=== PATIENT | male | born 1955 | race Caucasian/White ===

== ENCOUNTER 2019-04-04 09:31 | Outpatient (CLI) | payer MEDICARE, SELFPAY ==
--- NOTE | 2019-04-04 | ECHO_ITS ---
Patient Info Name: Doc Johnston Age: 63 years : 1955 Gender: Male Ht: 68 in Wt: 210 lbs BSA: 2.17 m2 HR: 71 bpm BP: 178 / 103 mmHg Heart Rhythm: Sinus Rhythm Technical Quality: Fair Exam Date: 04/04/2019 7:20 AM Exam Location: [facility] Patient Status: Outpatient Admit Date: 04/04/2019 Staff Ordering Physician: Jeremias Bloom MD President And Ceo: Poornima Pompa RDCS Attending Provider: Jeremias Bloom MD Referring Physician: Wolf FELIPE; Exam Type: CA echo doppler color flow Study Info Indications R55 - Syncope and collapse Complete two-dimensional, color flow and Doppler transthoracic echocardiogram is performed. Summary 1. Left ventricular systolic function is normal, estimated at 65-70%. 2. The left ventricular diastolic function is grade I diastolic dysfunction. 3. No valvular abnormalities. Left Ventricle Left ventricular chamber dimension is normal. Left ventricular systolic function is normal, estimated at 65-70%. The left ventricular diastolic function is grade I diastolic dysfunction. Right Ventricle Right ventricular chamber dimension is normal. Left Atria Left atrial chamber dimension is normal. Right Atria Right atrial chamber dimension is normal. Aortic Valve The aortic valve is trileaflet. Pulmonic Valve The pulmonic valve is not well visualized. Mitral Valve The mitral valve has normal leaflets. Tricuspid Valve The tricuspid valve leaflets are normal. Pericardium/Pleural The pericardium appears normal. Aorta The aortic root size at the sinus of Valsalva is normal. Left Ventricular Outflow Tract Name Value Normal LVOT 2D LVOT Diameter 2.1 cm LVOT Doppler LVOT Peak Gradient 5 mmHg LVOT Mean Gradient 3 mmHg LVOT VTI 24 cm LVOT VTI/AV VTI Ratio 1.0 LVOT Stroke Volume 79 ml LVOT CO 5.1 l/min LVOT CI 2.4 l/min/m2 Pulmonic Valve Name Value Normal RVOT Doppler RVOT Peak Gradient 2 mmHg PV Doppler PV Peak Gradient 5 mmHg Mitral Valve Name Value Normal MV Doppler MV Decel [place] 432 cm/s2 MV PHT 59 ms MV Area (PHT) 3.7 cm2 4.0-5.0 MV Diastolic Function
--- NOTE | 2019-04-07 10:28 | WPDHOLTEREM ---
Holter/Event Monitor Holter/Event Monitor Date of procedure: 04/07/19 Procedure Type: 48 hour Holter monitor Diagnosis: syncope and collapse Indications: syncope and collapse Image/Tracing Quality: good Finding: this is a 24 hour Holter monitor report which the underlying rhythm was sinus with an average heart rate of 78 beats per minute minimum of 56 beats per minute occurring at 3:17 a.m. and a maximum 130 beats per minute occurring at 12:22 p.m.. There were rare isolated premature ventricular contractions totaling 26 without sustained or nonsustained ventricular tachycardia. There were rare premature atrial contractions totaling 81 isolated premature atrial contractions and 1 atrial pair. There was no atrial fibrillation and/or atrial flutter noted. There were no prolonged pauses and or high-grade AV blocks. The longest RR interval was 1.2 seconds which occurred at 1:03 a.m.. Review of patient's symptom diary indicates feeling dizzy and lightheaded at 10:15 p.m. associated with sinus rhythm heart rate 84 beats per minute without ectopy. Of note, patient recorded blood pressure of 97/58 mmHg feeling dizzy upon standing at this time. At 5:00 a.m., Patient complained of feeling dizzy lightheaded not able to speak associated with sinus rhythm heart rate 76 beats per minute without ectopy. There isn't another diary entry indicated 11 seconds later again sinus rhythm heart rate 77 beats per minute without ectopy. At 6:08 a.m. patient complained of feeling dizzy and lightheaded while unloading luggage so she was sinus rhythm heart rate 75 beats per minute without ectopy. VT interval and QRS duration were within normal limits throughout the study. Conclusion: Fairly unremarkable Holter monitor with underlying sinus rhythm, rare PVCs and PACs, no prolonged pauses and or high-grade AV blocks identified. Symptoms of dizziness corresponded with sinus rhythm without ectopy or patient included blood pressure of 97/58 mm Hg. Clinical correlation advised.
== END 2019-04-04 09:32 ==
PROVIDERS: PCP Internal Medicine; Visit Provider Internal Medicine
DX: R55 Syncope and collapse (principal)
CPT/HCPCS: 93225; 93226; 93306

== ENCOUNTER 2019-04-07 13:15 | Observation (INO) | payer MEDICARE, SELFPAY ==
--- NOTE | ~2019-04-07 | MR_ITS ---
EXAMINATION: MR brain/brain stem wo/w con EXAM DATE: 04/08/2019 07:38 INDICATION: Aphasia. TECHNIQUE: Magnetic resonance imaging (MRI) of the brain/brain stem obtained without contrast. Sagit gil T1, axial diffusion, gradient echo (T2*), T1, T2, FLAIR sequences obtained. Patient was then inj ected with 20 cc intravenous Multihance contrast. Axial and coronal postcontrast T1 weighted sequence s obtained. Comparison is made to prior examination from 10/26/2008. FINDINGS: There is moderate ethmoid and maxillary sinus mucoperiosteal thickening without air-fluid l evels. Small amount of fluid in the left mastoid sinuses. There are no areas of restricted diffusion to suggest acute infarction. There is no acute hemorrhage seen on the T2*, a hemosiderin sensitive s equence. No intraparenchymal brain mass. The ventricles are normal in size. There are no extra-axia l collections. Flow voids are seen in the cerebral arteries on the T2-weighted sequences consistent with their expected patency. The orbits are unremarkable. Soft tissue is unremarkable. There are no areas of abnormal enhancement on the postcontrast images. IMPRESSION: 1. No acute intracranial findings. 2. Moderate mucoperiosteal thickening. Reviewed, dictated and finalized at location B. O LAB SPECIALIST
--- NOTE | ~2019-04-07 | US_ITS ---
EXAMINATION: US carotid duplex BI DATE: 04/07/2019 16:57 INDICATION: Aphasia. TECHNIQUE: Grayscale, color Doppler, and pulsed Doppler images of the cervical carotid arteries were obtained. The degree of vessel stenosis is placed in one of the following categories: normal, <50%, 5 0-69%, >=70% but less than near-occlusion, near-occlusion, or total occlusion. Note that percent sten osis relative to normal distal artery lumen diameter is indirectly measured from velocity measurement s as described by Tejas, et al. Radiology 2003; 229:340-346. COMPARISON: Ultrasound 03/15/2018 FINDINGS: RIGHT: The right common carotid artery (CCA) peak systolic velocity (PSV) is 100 cm/s. The right internal ca rotid artery (ICA) PSV is 65 cm/s. The right ICA end-diastolic velocity (EDV) is 15 cm/s. The right I CA/CCA PSV ratio is 0.6. Grayscale and color Doppler images yield an estimate of <50% diameter reduct ion from plaque in the ICA. There is antegrade flow in the right vertebral artery. LEFT: The left CCA PSV is 113 cm/s. The left ICA PSV is 84 cm/s. The left ICA EDV is 28 cm/s. The left ICA/ CCA PSV ratio is 0.7. Grayscale and color Doppler images yield an estimate of <50% diameter reduction from plaque in the ICA. There is antegrade flow in the left vertebral artery. IMPRESSION: 1. <50% stenosis in the right internal carotid artery. 2. <50% stenosis in the left internal carotid artery. Reviewed, dictated and finalized at location A. HER PATCHER
--- NOTE | ~2019-04-07 | XR_ITS ---
EXAMINATION: XR chest 1V portable DATE: 04/07/2019 13:55 INDICATION: Transient ischemic attack. TECHNIQUE: A single frontal view of the chest was obtained. COMPARISON: Chest 2 views 03/14/2018, chest CT 11/05/2017 FINDINGS: The chest demonstrates clear lungs without pneumonia, pleural effusion, or pneumothorax. Th e heart size is normal. There are changes of anterior fusion procedure in cervical spine. IMPRESSION: 1. No acute cardiopulmonary disease. Reviewed, dictated and finalized at location A. INE CUTTER
--- NOTE | ~2019-04-07 | CT_ITS ---
EXAMINATION: CT brain wo con DATE: 04/07/2019 13:57 INDICATION: Transient ischemic episode. Transient aphasia. TECHNIQUE: Computed tomography (CT) of the head was performed without intravenous contrast. Sagittal and coronal reconstructions were performed. The mA was adjusted according to patient size. Iterative reconstruction technique was employed. The dose-length product was 605.33 mGy-cm. COMPARISON: head CT dated 02/11/19 FINDINGS: No acute intracranial hemorrhage, acute infarction or abnormal extra axial fluid collection. Ventricl es are normal and symmetric. No mass/mass effect. Mucosal thickening in the paranasal sinuses most pr ominent in the left maxillary and bilateral ethmoid sinuses. Chronic trace left mastoid effusion. The orbits are normal. IMPRESSION: 1. No acute intracranial process. Reviewed, dictated and finalized at location A. A COORDINATOR
--- NOTE | 2019-04-07 13:24 | ECG_ITS ---
Measurements Intervals [place] Rate: 66 P: 17 [place]: 207 QRS: -4 QRSD: 91 T: 73 QT: 294 QTc: 309 Interpretive Statements SINUS RHYTHM POSSIBLE LEFT ATRIAL ENLARGEMENT INCOMPLETE RIGHT BUNDLE BRANCH BLOCK LOW QRS VOLTAGE IN PRECORDIAL LEADS BORDERLINE ST-T WAVE ABNORMALITY- LATERAL LEADS BORDERLINE ECG Electronically Signed On 04-07-2019 14:00:38 [employer]IC by Sherwin Okeefe D.O.
--- NOTE | 2019-04-07 13:30 | ED.AMS ---
HPI - Altered Mental Status General Chief Complaint: Neuro Symptoms/Deficit Stated Complaint: unable to talk earlier Time Seen by Provider: 04/07/19 13:19 Source: RN notes reviewed History of Present Illness HPI narrative: Patient presents to emergency department from Dr. Owen's office for a fascia. Patient had an episode of a aphasia on 04/05. States last approximately 30 seconds. Patient has also been experiencing near syncopal episodes with a full syncopal episode 2 weeks ago. Patient denies having any vision changes, facial droop, numbness or tingling in extremities, chest pain shortness of breath or any other symptoms Related Data Home Medications Medication Instructions Recorded Confirmed clonazepam 1 mg PO DAILY 02/11/19 amlodipine 10 mg tablet 10 mg PO DAILY 03/05/19 esomeprazole magnesium 20 mg 20 mg PO DAILY 03/05/19 capsule,delayed release fexofenadine 180 mg tablet 180 mg PO DAILY 03/05/19 omeprazole 04/07/19 pravastatin 04/07/19 Allergies Allergy/AdvReac Type Severity Reaction Status Date / Time Penicillins Allergy Unknown Unknown Verified 04/07/19 12:32 Review of Systems Review of Systems: Narrative: Gen.: Denies fevers or chills Eyes: Denies eye pain or visual change ENT: Denies congestion Respiratory: Denies shortness of breath or cough CV: Denies chest pain or palpitations, reports syncope GI: Denies abdominal pain nausea, emesis or diarrhea denies burning, urgency, frequency or hematuria Musculoskeletal: Denies back pain or muscle pain Neuro: Denies numbness, tingling, weakness or focal weakness reports aphasia Skin: Denies rash Except as documented, all other systems reviewed and negative [facility] Past Medical History Medical History Abnormal finding of blood chemistry, unspecified Anxiety Benign essential hypertension BMI 35.0-35.9,adult DDD (degenerative disc disease) Depression DM (diabetes mellitus) pre Elevated glucose Encounter for Medicare annual wellness exam Encounter for special screening examination for neoplasm of prostate GERD (gastroesophageal reflux disease) GERD (gastroesophageal reflux disease) H/O: HTN (hypertension) History of esophageal dilatation x2 History of esophageal stricture Hx of rotator cuff tear [place] Hypercholesteremia Hyperlipidemia Insomnia On manager long term care drug therapy HEIDY on CPAP Restless legs syndrome (RLS) RLS (restless legs syndrome) Stress Syncope Surgical History Surgical History Hx of cardiac cath Hx of rotator cuff surgery [place] Hx of spinal fusion C6-7 Social History Social History Smoking status: Former smoker Alcohol intake: current Gender identity (if verbalized by the patient): Male Exam Narrative: Exam Narrative: APPEARANCE: No acute distress, nontoxic, resting in bed HEENT: Normocephalic, atraumatic, OMM, TMs clear bilaterally EYES: PERRL, EOMI NECK: Supple, nontender, full range of motion without pain, no meningismus RESPIRATORY: No respiratory distress, clear to auscultation bilaterally with no rhonchi wheezing or rales CARDIOVASCULAR: RRR s murmur ABDOMINAL: Soft, nontender, nondistended MUSCULOSKELETAL: Moves all extremities. No clubbing, cyanosis or edema. NEURO: A and O ?3, following commands, speech normal, cranial nerves II through XII grossly intact,muscle strength 5 out of 5 bilateral upper and lower extremities SKIN:: Warm, dry. Normal Color PSYCHIATRIC: Normal affect/mood Course Course Emergency Course: Discussed with Dr. Ashby presentation work-up. Agrees with admission at this time for work-up for TIA Discussed with patient and family results of workup and diagnosis. Discussed need for admission. Patient and family understand and agree to current treatment plan Vital Signs Vital signs: Vital Signs Temperature 98.1 F 0
[2019-04-07 13:45] LABS: Basophils Absolute Auto 0.1 K/mm3 (0.0-0.1); Basophils Percent Auto 0.9 % (0.2-1.2); Eosinophils Absolute Auto 0.3 K/mm3 (0-0.3); Eosinophils Percent Auto 4.5 % (0-4.4); Hematocrit 45.2 % (42.0-52.0); Hemoglobin 14.8 g/dL (14.0-18.0); Immature Granulocyte Absolute 0.01 K/mm3 (0.00-0.031); Immature Granulocyte Percent A 0.1 % (0-0.5); Lymphocytes Absolute Auto 1.59 K/mm3 (0.9-3.2); Lymphocytes Percent Auto 21.5 % (18.3-44.2); Mean Corpuscular HGB Conc 32.7 g/dl (32-36); Mean Corpuscular Volume 91.7 fl (80-100); Mean Platelet Volume 9.9 fl (7.4-10.4); Monocytes Absolute Auto 0.6 K/mm3 (0.1-0.6); Monocytes Percent Auto 7.7 % (2.6-8.5); Neutrophils Absolute Auto 4.8 K/mm3 (1.3-6.7); Neutrophils Percent Auto 65.3 % (45.5-73.1); Platelet Count Result 254 k/mm3 (150-375); Red Blood Count 4.93 M/mm3 (4.6-6.20); Red Cell Distribution Width 13.1 % (11.5-14.5); White Blood Count 7.4 K/mm3 (4.5-10.0)
[2019-04-07 13:49] VITALS: BP 178/94; PULSE 66; RESP 16; TEMP 36.7; O2SAT 98
[2019-04-07 13:57] LABS: Alanine Aminotransferase 37 U/L (4-50); Albumin Level 4.3 g/dL (3.5-5.1); Alkaline Phosphatase 50 U/L (38-126); Aspartate Amino Transferase 30 U/L (17-59); Bilirubin,Total 0.4 mg/dL (0.2-1.3); Blood Urea Nitrogen 12 mg/dL (9-20); Calcium 9.2 mg/dL (8.4-10.2); Carbon Dioxide 28 mmol/L (22-30); Chloride 99 mmol/L (98-107); Estimated Glomerular Filt Rate > 60; Glucose 115 mg/dL (75-110); Potassium 3.8 mmol/L (3.4-5.0); Sodium 136 mmol/L (137-145)
[2019-04-07 14:09] LABS: Troponin I < 0.012 ng/mL (0.000-0.034)
[2019-04-07 14:26] LABS: Prothrombin Time 12.4 Seconds (11.1-14.7)
[2019-04-07 14:27] LABS: Partial Thromboplastin Time 29.1 SECONDS (22.3-36.8)
[2019-04-07] MEDS: ASPIRIN 81 MG CHEWABLE TABLET 324 MG PO (14:28)
[2019-04-07 14:57] VITALS: BP 139/79; PULSE 74; RESP 16; O2SAT 98
--- NOTE | 2019-04-07 15:22 | ADMGEN ---
This patient, Doc Johnston, was admitted to Medical Room 252-01. Patient/family oriented to hospital policies and general routines including ID bracelet, bed and alarms, visiting hours, pain management, procedures, bathroom and other care routines, personal items, smoking policy, room service/diet, and visiting hours. Valuables list has been completed. Information on how to activate the Rapid Response Team has been discussed. Patient/Family are encouraged to report perceived risks to care and to ask questions if they do not understand what they are told or what they should do.
[2019-04-07 15:30] VITALS: PULSE 75
[2019-04-07 15:56] VITALS: BP 175/91; PULSE 69; RESP 14; TEMP 35.6; O2SAT 99; BMI 33.5
[2019-04-07 16:16] VITALS: BMI 31.6
--- NOTE | 2019-04-07 17:47 | PM.IMHP ---
H&P: HPI History of Present Illness Chief complaint: tia Narrative: Doc Johnston is a 63 year old male with multiple medical problems including pre diabetes, hypertension, hyperlipidemia, and sleep apnea who presented to the emergency department earlier this afternoon at the direction of Dr. Bloom for admission and further evaluation of aphasia that occurred 2 days ago. [facility] Past Medical History Medical History (Updated 04/07/19 @ 17:52 by Dedra Pope PA-C) Anxiety DDD (degenerative disc disease) Depression GERD (gastroesophageal reflux disease) History of esophageal stricture With dilatation x2. Hyperlipidemia Hypertension Insomnia Obstructive sleep apnea on CPAP Pre-diabetes Hemoglobin A1c was 5.9 in May 2018. Restless legs syndrome (RLS) Syncope Hospitalized for syncopal episode on March 14, 2018. [place] to be related to postural dizziness. Workup was unrevealing. Surgical History Surgical History (Updated 04/07/19 @ 17:51 by Dedra Pope PA-C) Hx of cardiac cath Status post cervical spinal fusion C6-C7. Status post rotator cuff repair Bilateral. Family History Family History Father Prostate carcinoma Dialysis patient Mother Diabetes mellitus Asthma Sibling Asthma Bladder cancer Social History Social History Smoking status: Former smoker Additional smoking assessment comments: smoked as a teenager Alcohol intake: current Drinks per week: 14 Substance use: never Gender identity (if verbalized by the patient): Male Spiritual care concerns: No Agree to blood products: Yes Meds Home Medications and Allergies Home Medications Medication Instructions Recorded Confirmed Type clonazepam 1 mg PO HS 02/11/19 04/07/19 History citalopram 40 mg tablet 40 mg PO DAILY #90 tablet 02/20/19 04/07/19 Rx amlodipine 10 mg tablet 10 mg PO DAILY 03/05/19 04/07/19 History fexofenadine 180 mg tablet 180 mg PO DAILY 03/05/19 04/07/19 History hydralazine 25 mg tablet 25 mg PO TID #90 tablet 04/02/19 04/07/19 Rx clonazepam [Klonopin] 1 mg PO HS 04/07/19 04/07/19 History metformin 1,000 mg PO HS 04/07/19 04/07/19 History nw-jy-AD-vit [id number] 1 cap PO DAILY 04/07/19 04/07/19 History [Daily Multivitamin] omeprazole 40 mg PO DAILY 04/07/19 04/07/19 History pravastatin 40 mg PO DAILY 04/07/19 04/07/19 History ropinirole 4 mg PO Q12H 04/07/19 04/07/19 History trazodone 50 mg PO HS PRN 04/07/19 04/07/19 History Allergies Allergy/AdvReac Type Severity Reaction Status Date / Time Penicillins Allergy Unknown Unknown Verified 04/07/19 12:32 Vital Signs Vital Signs - 24 hr 04/07/19 13:49 04/07/19 14:57 04/07/19 15:56 Temperature 98.1 F 96.1 F L Pulse Rate 66 74 69 Respiratory Rate 16 16 14 Blood Pressure 178/94 H 139/79 175/91 H Pulse Oximetry 98 98 99 Exam Narrative: Exam Narrative: General: HEENT: Normocephalic, atraumatic. PERRL, EOMI. Sclerae anicteric. Oral mucosa moist. Oropharynx clear. Neck: Supple. Respiratory: Lungs are clear to auscultation bilaterally. Cardiovascular: Regular rate and rhythm with S1-S2. No murmur, rub, or gallop. Gastrointestinal: Abdomen is soft, nontender, and nondistended with positive bowel sounds. No organomegaly. Skin: Warm and dry. No rash or lesions on limited exam. Extremities: No cyanosis, clubbing, or edema. Radial and pedal pulses intact. Neurological: Alert. Cranial nerves 2-12 are grossly intact. Speech is clear. No facial asymmetry. No gross focal deficits to casual conversation. Psychiatric: Pleasant and cooperative with normal mood and affect. Judgment and insight intact. H&P: Results Labs Labs: Short CBC 04/07/19 Range/Units 13:38 WBC 7.4 (4.5-10.0) K/mm3 Hgb 14.8 (14.0-18.0) g/dL Hct 45.2 (42.0-52.0) % Plt Count 254 (150-375) k/mm3 BMP
[2019-04-07 18:01] LABS: Troponin I < 0.012 ng/mL (0.000-0.034)
--- NOTE | 2019-04-07 18:54 | PC.NURSE ---
Notified Dedra ADHIKARI of episode of bradycardia (HR down to 30) earlier when patient down in ultrasound. Patient denied symptoms.
[2019-04-07 20:00] VITALS: PULSE 65; PULSE 70; RESP 16; O2SAT 96
[2019-04-07 20:47] LABS: Troponin I < 0.012 ng/mL (0.000-0.034)
[2019-04-07] MEDS: CLONAZEPAM 0.5 MG TAB 1 MG PO (21:18)
[2019-04-07] MEDS: TRAZODONE HCL 50 MG TABLET PO (21:18)
[2019-04-07 21:37] VITALS: BP 152/80; PULSE 70; RESP 16; TEMP 36.2; O2SAT 96
[2019-04-08] VITALS (10 sets, daily range): BP systolic 144–175; BP diastolic 78–103; PULSE 57–86; RESP 16–18; TEMP 35.6–36.7; O2SAT 96–98
--- NOTE | 2019-04-08 02:03 | PM.IMHP ---
H&P: HPI History of Present Illness Chief complaint: tia Narrative: Doc Johnston is a 63 year old male passed out 2 weeks while [place]. Pt was admitted to [facility] where he had CT of brain which was negative, EKG and labs which were normal, as per patient. Pt was seen in DR Bloom office two days ago had negative holter monitor. Pt since then had another episode when he went dizzy, could not talk and eyes went blurred, and was adviced to come into hospital for full evaluation, pt now complains, like his left leg is weak. CT of brain and US of carotids are negative here. Pt may benefit from MRI brain. Pt states he is dieting and eats protein bars for breakfast, pt has been very stressed as his has been unwell with a brain aneursym. Presently his speech is clear, denies any dizziness or vertigo symptoms, vision disturbance, or facial droop. Pt states his left leg feels weaker than his right. Pt states that he has RLS. and has been very anxious lately. Pt has history of HTN, HLD, DM, RLS and anxiety and depression Review of Systems Review of Systems: All systems reviewed & are unremarkable except as noted in HPI and below Constitutional: Constitutional: Reports as per HPI Cardiovascular: Cardiovascular: Denies no additional cardiovascular complaints Respiratory: Respiratory: Denies no additional respiratory complaints and Denies dyspnea Gastrointestinal: Gastrointestinal: Denies no additional gastrointestinal complaints Musculoskeletal: Comments: recent syncope episodes with dizziness Neurologic: Denies convulsions and Denies paresthesias Comments: left leg weakness, history of speech disturbance and episodes of syncope Psychiatric: Psychiatric: Reports anxiety and Denies confusion PENDING SALE TO [facility] Past Medical History Medical History Anxiety DDD (degenerative disc disease) Depression GERD (gastroesophageal reflux disease) History of esophageal stricture With dilatation x2. Hyperlipidemia Hypertension Insomnia Obstructive sleep apnea on CPAP Pre-diabetes Hemoglobin A1c was 5.9 in May 2018. Restless legs syndrome (RLS) Syncope Hospitalized for syncopal episode on March 14, 2018. [place] to be related to postural dizziness. Workup was unrevealing. Surgical History Surgical History Hx of cardiac cath Status post cervical spinal fusion C6-C7. Status post rotator cuff repair Bilateral. Family History Family History Father Prostate carcinoma Dialysis patient Mother Diabetes mellitus Asthma Sibling Asthma Bladder cancer Social History Social History Smoking status: Former smoker Additional smoking assessment comments: smoked as a teenager Alcohol intake: current Drinks per week: 14 Substance use: never Gender identity (if verbalized by the patient): Male Spiritual care concerns: No Agree to blood products: Yes Meds Home Medications and Allergies Home Medications Medication Instructions Recorded Confirmed Type clonazepam 1 mg PO HS 02/11/19 04/07/19 History citalopram 40 mg tablet 40 mg PO DAILY #90 tablet 02/20/19 04/07/19 Rx amlodipine 10 mg tablet 10 mg PO DAILY 03/05/19 04/07/19 History fexofenadine 180 mg tablet 180 mg PO DAILY 03/05/19 04/07/19 History hydralazine 25 mg tablet 25 mg PO TID #90 tablet 04/02/19 04/07/19 Rx clonazepam [Klonopin] 1 mg PO HS 04/07/19 04/07/19 History metformin 1,000 mg PO HS 04/07/19 04/07/19 History sg-qi-IZ-vit U-gifjb-foh-coQ10 1 cap PO DAILY 04/07/19 04/07/19 History [Daily Multivitamin] omeprazole 40 mg PO DAILY 04/07/19 04/07/19 History pravastatin 40 mg PO DAILY 04/07/19 04/07/19 History ropinirole 4 mg PO Q12H 04/07/19 04/07/19 History trazodone 50 mg PO HS PRN 04/07/19
[2019-04-08 06:10] LABS: Basophils Absolute Auto 0.1 K/mm3 (0.0-0.1); Basophils Percent Auto 1.1 % (0.2-1.2); Eosinophils Absolute Auto 0.5 K/mm3 (0-0.3); Eosinophils Percent Auto 6.9 % (0-4.4); Hematocrit 42.8 % (42.0-52.0); Hemoglobin 14.2 g/dL (14.0-18.0); Immature Granulocyte Absolute 0.02 K/mm3 (0.00-0.031); Immature Granulocyte Percent A 0.3 % (0-0.5); Lymphocytes Absolute Auto 1.51 K/mm3 (0.9-3.2); Lymphocytes Percent Auto 23.3 % (18.3-44.2); Mean Corpuscular HGB Conc 33.2 g/dl (32-36); Mean Corpuscular Hemoglobin 30.1 pg (26-34); Mean Corpuscular Volume 90.9 fl (80-100); Mean Platelet Volume 9.7 fl (7.4-10.4); Monocytes Absolute Auto 0.7 K/mm3 (0.1-0.6); Monocytes Percent Auto 10.6 % (2.6-8.5); Neutrophils Absolute Auto 3.8 K/mm3 (1.3-6.7); Neutrophils Percent Auto 57.8 % (45.5-73.1); Platelet Count Result 230 k/mm3 (150-375); Red Blood Count 4.71 M/mm3 (4.6-6.20); Red Cell Distribution Width 13.1 % (11.5-14.5); White Blood Count 6.5 K/mm3 (4.5-10.0)
[2019-04-08 06:19] LABS: Blood Urea Nitrogen 12 mg/dL (9-20); Calcium 8.7 mg/dL (8.4-10.2); Carbon Dioxide 28 mmol/L (22-30); Chloride 99 mmol/L (98-107); Estimated CRCL calculation 107 ml/min; Estimated Glomerular Filt Rate > 60; Glucose 103 mg/dL (75-110); Potassium 3.6 mmol/L (3.4-5.0); Sodium 137 mmol/L (137-145)
[2019-04-08 06:26] LABS: Hemoglobin A1C 6.3 % (<5.7)
[2019-04-08 06:55] LABS: Cholesterol 118 mg/dL (0-200); HDL Direct 47 mg/dL; Triglycerides 140 mg/dL (<150)
[2019-04-08 07:05] LABS: LDL Cholesterol Direct 55 mg/dL
[2019-04-08] MEDS: CITALOPRAM HYDROBROMIDE 20 MG TABLET 40 MG PO (08:22)
[2019-04-08] MEDS: AMLODIPINE BESYLATE 5 MG TABLET 10 MG PO (08:22)
[2019-04-08] MEDS: LORATADINE 10 MG TABLET PO (08:22)
[2019-04-08] MEDS: hydrALAZINE HCL 25 MG TABLET PO ×3 (08:22→17:30)
[2019-04-08] MEDS: ASPIRIN 81 MG CHEWABLE TABLET PO (08:22)
[2019-04-08] MEDS: PANTOPRAZOLE 40 MG TABLET PO (08:23)
[2019-04-08] MEDS: THERAPEUTIC MULTIVITAMINS/MINERALS TAB (*BKC) 1 TABLET PO (08:23)
[2019-04-08] MEDS: PRAVASTATIN SODIUM 20 MG TABLET 40 MG PO (08:23)
[2019-04-08 09:37] LABS: Glucose Point of Care 134 (65-105)
[2019-04-08 13:21] LABS: Add Urine Microscopic? YES; Appearance Urine Cloudy (Clear); Bacteria Urine Trace /hpf; Bilirubin Urine Negative (Negative); Blood Urine Negative (Negative); Color Urine Yellow (Yellow); Glucose Urine UA Negative (Negative); Ketones Urine Negative (Negative); Leukocyte Esterase Ur Negative LEU/UL (Negative); Mucus Urine Heavy /lpf; Nitrate Urine Negative (Negative); Protein Urine Negative (Negative); RBC Urine 0-2 /hpf (0-2); Specific Grav Ur 1.023 (1.001-1.035); Squamous Epithelial Cell Urine Rare /hpf (Few); Urobilinogen Urine Negative mg/dL (<2.0); WBC Urine 0-3 /hpf
[2019-04-08 14:12] LABS: Glucose Point of Care 174 (65-105)
--- NOTE | 2019-04-08 16:57 | PM.DS ---
DS: Diagnosis Admitting Diagnosis Admitting Diagnosis: Essential (primary) hypertension Discharge Diagnosis (1) Transient ischemic attack: Code(s): G45.9 - Transient cerebral ischemic attack, unspecified Status: Acute Assessment and Plan: Admitted for stroke work up given his recent neurology problems with speech and left leg. Although imaging has been unremarkable thus far for stroke. Likely TIA. Lipid panel showed triglycerides of 140, cholesterol 118, LDL 55, HDL 47. MRI showed no acute intracranial findings. Dr. Diaz Consulted and appreciate input. He recommended 81 mg aspirin for now Follow up with Dr. Diaz in 6-8 weeks. Recommended no driving until meeting with Dr. Diaz (2) Hypertension: Code(s): I10 - Essential (primary) hypertension Status: Deleted Assessment and Plan: BP 140s sys this afternoon, although elevated during stay. Patient states his PCP is aware of elevated BP and plans to follow up with them within the next 1-2 weeks. Patient also believes he has been under a lot of stress lately. Continue home BP meds Continue to monitor BP Follow up with PCP as outpatient (3) Stress: Code(s): F43.9 - Reaction to severe stress, unspecified Status: Acute Assessment and Plan: Patient has been stressed recently due to social issues. Symptoms may be related. Discussed in detail about importance of management of chronic health conditions (4) Anxiety: Code(s): F41.9 - Anxiety disorder, unspecified Status: Acute Assessment and Plan: No acute issues continue citalopram, clonazepam, trazodone (5) RLS (restless legs syndrome): Code(s): G25.81 - Restless legs syndrome Status: Chronic Assessment and Plan: No acute issues continue requip (6) HEIDY on CPAP: Code(s): G47.33 - Obstructive sleep apnea (adult) (pediatric); Z99.89 - Dependence on other enabling machines and devices Status: Acute Assessment and Plan: Continue CPAP home setting (7) Hyperlipidemia: Qualifiers: Hyperlipidemia type: mixed hyperlipidemia Qualified Code(s): E78.2 - Mixed hyperlipidemia Code(s): E78.5 - Hyperlipidemia, unspecified Status: Acute Assessment and Plan: Continue pravastain (8) Diabetes: Code(s): E11.9 - Type 2 diabetes mellitus without complications Status: Chronic Assessment and Plan: BGL 100s on day of discharge. A1c of 6.3 Follow up with PCP DS: Summary Hospital Course Reason for hospitalization: Syncope 2 weeks prior; another episode of dizziness/blurred vision Hospital Course: Patient is a 63 yo M with history of pre-DM, HTN, HLD, and anxiety who presented to the ER on 04/07 from his PCP's office with complaints of aphasia. He had an episode of aphasia on 04/05 as well which lasted approximately 30 seconds. He also experienced a near syncopal episode on day of presentation with also a full syncopal episode 2 weeks prior to arrival for which he was admitted to [facility] where a CT of brain was reported negative for acute intracranial findings, and labs and EKG were unremarkable at that time. Please see H&P for further detail. Presenting VS: BP 178/94, HR 66, RR 16, temp 98.1, sat 98% RA Presenting Pertinent labs: Troponins negative x 3, triglycerides 140, cholesterol 118, LDL 55, HDL 47, A1c 6.3, glucose 115 from CMP. CMP, CBC, CBC, UA otherwise unremarkable Micro: none Imagin/10 CXR IMPRESSION: 1. No acute cardiopulmonary disease. 2/[address] IMPRESSION: 1. No acute intracranial process. 2/10 carotid doppler IMPRESSION: 1. <50% stenosis in the right
--- NOTE | 2019-04-08 20:59 | CONS_ITS ---
DATE OF CONSULTATION: 04/08/2019 HISTORY OF PRESENT ILLNESS: This 63-year-old right-handed male has been admitted to [facility] through the emergency room with a history that he passed out while [place] the [place]. He was admitted to the [facility] where CT scan of the brain was negative. EKG was normal. He was seen in Dr. Bloom' office 2 days ago, had negative Holter monitoring as well. Since then, he had another episode when he became dizzy, could not talk and eyes went blurred and he was advised to come to the hospital for further evaluation. He complained of left lower extremity weakness. CT scan of the brain and ultrasound of the carotids were done, which were negative. He gave history of dieting and eating protein bar for the breakfast and has also been very stressed out in his life because his is with brain aneurysm. PAST MEDICAL HISTORY: He does have ongoing history of 1. Anxiety. 2. Degenerative disk disease. 3. Depression. 4. GERD. 5. Esophageal stricture with dilatation x2. 6. Hyperlipidemia. 7. Hypertension. 8. Obstructive sleep apnea. 9. Syncopal episode. 10. Restless legs syndrome. PAST SURGICAL HISTORY: He has undergone cardiac catheterization and has also undergone cervical spinal fusion in addition to the rotator cuff repair bilaterally. SOCIAL HISTORY: He is a current alcohol drinker 14 drinks per week and also he smoked as a teenager. MEDICATIONS: At the time of admission to the hospital, he was taking multiple medications, which were documented as clonazepam 1 mg p.o. at bedtime, citalopram 40 mg daily, amlodipine 10 mg daily. fexofenadine 180 mg daily, hydralazine 25 mg 3 times a day, metformin 1000 at night, omeprazole 40 daily, pravastatin 40 daily, ropinirole 4 mg q.12, trazodone 50 mg at bedtime. ALLERGIES: HE IS ALLERGIC TO PENICILLIN. PHYSICAL EXAMINATION: VITAL SIGNS: On evaluation, he was notably afebrile with pulse of 66, respirations 16, blood pressure 178/94, pulse ox 98%. GENERAL: He was awake, alert, cooperative, in no obvious acute distress. HEENT: Head was normocephalic with no cranial bruit. Ears, nose, throat examination was normal. NECK: Supple with no cervical bruit. No thyromegaly. No lymphadenopathy. HEART: Regular with no murmur. LUNGS: Clear to auscultation. ABDOMEN: Soft with no organomegaly. NEUROLOGICAL: He was awake, alert, oriented x3. His speech was not dysphasic, not dysarthric, not dysphonic. Pupils round, regular. [place] of vision full. Extraocular movements full. Face symmetrical. Tongue midline. Motor examination revealed him to have fairly normal strength with no drift. Reflexes were rather sluggish. Plantars were downgoing. He had decreased sensation distally in both lower extremities. IMAGING: Evaluation up until now includes initial CT scan of the head, which documented no abnormalities. Soft tissues of the neck done in January were also available. He has intact C6 and 7 fusion. Echocardiogram was done on 04/04, which was normal. Grade 1 diastolic dysfunction of the left ventricle was noted. He had another CT of the head when he admitted this time, which was negative. Doppler study of the carotids was less than 50% stenosis bilaterally, and MRI of the brain revealed no acute stroke. ASSESSMENT AND PLAN: At this stage, the patient was advised to follow up in the office in about 6 weeks. He can continue taking all his medications as such. Further adjustment will be made accordingly when he comes to the office, and he can also take the aspirin daily. One can also consider the possibility of the vasovagal syncope versus the possibility of orthostatic hypotension, but when he returns for the followup subsequent recommendations will be made.
== END 2019-04-08 19:50 | disposition home or self-care (01) ==
LOC: ANHED 14:39 → ANH2MED 14:42
PROVIDERS: Family Medicine; Admitting Provider Family Medicine; Emergency Provider Emergency Medicine; PCP Internal Medicine; Visit Provider Family Medicine
DX: G45.9 Transient cerebral ischemic attack, unspecified (principal); I10 Essential (primary) hypertension; F43.9 Reaction to severe stress, unspecified; F41.9 Anxiety disorder, unspecified; G25.81 Restless legs syndrome; G47.33 Obstructive sleep apnea (adult) (pediatric); E78.2 Mixed hyperlipidemia; E11.9 Type 2 diabetes mellitus without complications; F32.9 Major depressive disorder, single episode, unspecified; Z79.84 Long term (current) use of oral hypoglycemic drugs; Z79.899 Other long term (current) drug therapy; Z87.891 Personal history of nicotine dependence; Z98.1 Arthrodesis status; Z99.89 Dependence on other enabling machines and devices
CPT/HCPCS: 36415; 70450; 70553; 71045; 80048; 80053; 80061; 81001; 83036; 84484; 85025; 85610; 85730; 93005; 93880; 97161; 97165; 99285; A9270; A9577; G0378

== ENCOUNTER 2019-12-05 19:43 | Observation (INO) | payer MEDICARE, SELFPAY ==
--- NOTE | ~2019-12-05 | XR_ITS ---
EXAMINATION: XR chest 2V EXAM DATE: 12/05/2019 20:54 INDICATION: Mid to left-sided chest pain. Shortness of breath. Hypertension. TECHNIQUE: Frontal and lateral projections of the chest obtained and reviewed. Comparison is made to prior examination from 04/07/2019. FINDINGS: The lungs are clear. There are no pleural effusions. Cardiac silhouette is prominent but magnified on this AP technique. Cardiac silhouette is stable in size compared to prior exam. There is no pneumothorax suspected. Lower cervical fusion hardware. There is no significant interval bear ge. IMPRESSION: No acute cardiopulmonary findings. Reviewed, dictated and finalized at location A.
[2019-12-05 19:47] VITALS: BP 104/86; PULSE 79; RESP 18; TEMP 36.1; O2SAT 99
--- NOTE | 2019-12-05 19:54 | ECG_ITS ---
Measurements Intervals [place] Rate: 74 P: 34 [place]: 187 QRS: 11 QRSD: 89 T: 72 QT: 333 QTc: 371 Interpretive Statements SINUS RHYTHM POSSIBLE LEFT ATRIAL ENLARGEMENT INCOMPLETE RIGHT BUNDLE BRANCH BLOCK LOW QRS VOLTAGE IN PRECORDIAL LEADS BORDERLINE ST-T WAVE ABNORMALITY- ANTEROLAT/HIGH LAT LEADS BASELINE ARTIFACT- I, II, AVR BORDERLINE ECG Electronically Signed On 12-08-2019 8:33:41 CDT by Sherwin Okeefe D.O.
[2019-12-05 20:18] LABS: Basophils Absolute Auto 0.1 K/mm3 (0.0-0.1); Basophils Percent Auto 0.8 % (0.2-1.2); Eosinophils Absolute Auto 0.4 K/mm3 (0-0.3); Eosinophils Percent Auto 4.7 % (0-4.4); Hematocrit 41.6 % (42.0-52.0); Hemoglobin 13.8 g/dL (14.0-18.0); Immature Granulocyte Absolute 0.02 K/mm3 (0.00-0.031); Immature Granulocyte Percent A 0.3 % (0-0.5); Lymphocytes Absolute Auto 2.04 K/mm3 (0.9-3.2); Lymphocytes Percent Auto 26.9 % (18.3-44.2); Mean Corpuscular HGB Conc 33.2 g/dl (32-36); Mean Corpuscular Volume 93.5 fl (80-100); Mean Platelet Volume 9.8 fl (7.4-10.4); Monocytes Absolute Auto 0.8 K/mm3 (0.1-0.6); Monocytes Percent Auto 11.1 % (2.6-8.5); Neutrophils Absolute Auto 4.3 K/mm3 (1.3-6.7); Neutrophils Percent Auto 56.2 % (45.5-73.1); Platelet Count Result 237 k/mm3 (150-375); Red Blood Count 4.45 M/mm3 (4.6-6.20); Red Cell Distribution Width 13.2 % (11.5-14.5); White Blood Count 7.6 K/mm3 (4.5-10.0)
[2019-12-05 20:27] LABS: INR 1.1; Prothrombin Time 13.4 Seconds (11.1-14.7)
[2019-12-05 20:28] LABS: Partial Thromboplastin Time 28.7 SECONDS (22.3-36.8)
[2019-12-05 20:30] LABS: Anion Gap 7 mmol/L (8-16); Blood Urea Nitrogen 12 mg/dL (9-20); Calcium 8.9 mg/dL (8.4-10.2); Carbon Dioxide 29 mmol/L (22-30); Chloride 103 mmol/L (98-107); Estimated CRCL calculation 93 ml/min; Estimated Glomerular Filt Rate > 60; Glucose 92 mg/dL (75-110); Potassium 3.6 mmol/L (3.4-5.0); Sodium 139 mmol/L (137-145)
[2019-12-05] MEDS: ONDANSETRON INJ 4 MG/2 ML VIAL IV PUSH (20:30)
[2019-12-05] MEDS: MORPHINE SULFATE (*CRX) 4 MG/ML INJ IV PUSH (20:30)
[2019-12-05 20:40] LABS: D Dimer 0.32 ug/mL (<0.48)
[2019-12-05 20:41] LABS: Troponin I < 0.012 ng/mL (0.000-0.034)
[2019-12-05 21:15] VITALS: BP 99/58; PULSE 76; RESP 20; O2SAT 95
[2019-12-05 21:35] VITALS: BP 86/49; PULSE 71; RESP 20; O2SAT 99
[2019-12-05] MEDS: SODIUM CHLORIDE 0.9% IV 1,000 ML 500 ML IV CONT (21:43)
[2019-12-05 21:54] VITALS: BP 101/64; PULSE 76; RESP 18; O2SAT 99
--- NOTE | 2019-12-05 21:59 | ED.CHESTPAIN ---
HPI - Chest Pain General Chief Complaint: Chest Pain Stated Complaint: cp Time Seen by Provider: 12/05/19 19:54 Source: patient Mode of arrival: EMS Limitations: no limitations History of Present Illness HPI narrative: 63-year-old with a history of hypertension, hyperlipidemia, GERD, diabetes here with complaints of left-sided chest pain on and off since this morning. Patient states that he had no significant amount of pain this evening prior to coming to the ER. He states that he drove to the fire station and was later transferred to the ER. He denies any shortness of breath. Pain is confined to precordial area. No history of any coronary artery disease. Patient states that he had stress test done several years ago. complaint: chest pain Onset (ago): day(s) (1) Timing of current episode: episodic Prior episodes: No Pain location: left chest Pain radiation: none Quality: tightness and aching Relieving factors: nothing Exacerbating factors: nothing Risk Factors Coronary artery disease risk factors: hyperlipidemia and hypertension Related Data Home Medications Medication Instructions Recorded Confirmed fexofenadine 180 mg tablet 180 mg PO DAILY 03/05/19 11/18/19 Daily Multivitamin 1 cap PO DAILY 04/07/19 11/18/19 metformin 1,000 mg PO HS 04/07/19 11/18/19 pravastatin 40 mg PO DAILY 04/07/19 11/18/19 trazodone 50 mg PO HS PRN 04/07/19 11/18/19 amlodipine 5 mg tablet 5 mg PO DAILY 07/22/19 11/18/19 Allergies Allergy/AdvReac Type Severity Reaction Status Date / Time Penicillins Allergy Unknown Unknown Verified 11/18/19 13:48 Review of Systems Eyes: Eyes: Reports no additional eye complaints ENT: Reports system reviewed and no additional complaints, except as documented Cardiovascular: Cardiovascular: Reports no additional cardiovascular complaints Respiratory: Respiratory: Reports no additional respiratory complaints Gastrointestinal: Gastrointestinal: Reports no additional gastrointestinal complaints Musculoskeletal: Musculoskeletal: Reports no additional musculoskeletal complaints Integumentary/Breasts: Skin/Breast: Reports system reviewed and no additional complaints, except as docu Neurologic: Reports system reviewed and no additional complaints, except as documented PMFSH Past Medical History Medical History Anxiety BMI 32.0-32.9,adult BMI 33.0-33.9,adult BMI 34.0-34.9,adult Colon cancer screening DDD (degenerative disc disease) Depression Encounter for routine adult health examination without abnormal findings Encounter for special screening examination for neoplasm of prostate Follow up GERD (gastroesophageal reflux disease) History of esophageal stricture With dilatation x2. Hospital discharge follow-up Hyperlipidemia Insomnia Obstructive sleep apnea on CPAP Pre-diabetes Hemoglobin A1c was 5.9 in May 2018. Restless legs syndrome (RLS) Shingles Syncope Hospitalized for syncopal episode on March 14, 2018. [place] to be related to postural dizziness. Workup was unrevealing. Surgical History Surgical History Hx of cardiac cath Status post cervical spinal fusion C6-C7. Status post rotator cuff repair Bilateral. Family History Family History Father Prostate carcinoma Dialysis patient Mother Diabetes mellitus Asthma Sibling Asthma Bladder cancer Social History Social History Smoking status: Former smoker Additional smoking assessment comments: smoked as a teenager Alcohol intake: current Drinks per week: 14 Substance use: never Gender identity (if verbalized by the patient): Male Spiritual care concerns: No Agree to blood products: Yes Exam Narrative: Exam Narrative: GENERAL: Well-appearing, well-nourished, appears to be mildly anxious
--- NOTE | 2019-12-05 22:51 | PM.IMHP ---
H&P: HPI History of Present Illness Date/Time: 12/05/19 22:51 Chief complaint: unstable angina Narrative: This is a 63 year old morbidly obese male with known history of HTN, hyperlipidemia, and RLS who presented to the hospital with a complaint of midsternal chest pain for the past three days. He states that his chest pain is sharp and nonradiating and has been constant over the past 3 days. Associated symptoms include shortness of breath and decreased energy. He denies any nausea, vomiting, or diaphoresis. He noticed that his chest pain was worse with exertion. He denies any fevers, chills, cough, palpitations, abdominal pain, dysuria, hematuria, lower extremity swelling, LE pain, diarrhea, or rectal bleeding. He has no previous history of CAD and his last stress test was years ago. He had a cardiac angiogram about 5 years ago which was apparently normal at that time. Tonight he continues to have chest pain despite being given nitroglycerin. He denies any other symptoms at this time. ER provider has consulted Cardiology, Dr. Leo who has asked that we admit the patient for cardiac rule out and cardiology will see the patient in consultation in the morning. Review of Systems Review of Systems: All systems reviewed & are unremarkable except as noted in HPI and below PMFSH Past Medical History Medical History (Updated 12/06/19 @ 01:20 by Timo Stark MD) Anxiety BMI 32.0-32.9,adult BMI 33.0-33.9,adult BMI 34.0-34.9,adult Colon cancer screening DDD (degenerative disc disease) Depression Encounter for routine adult health examination without abnormal findings Encounter for special screening examination for neoplasm of prostate Follow up GERD (gastroesophageal reflux disease) History of esophageal stricture With dilatation x2. Hospital discharge follow-up Hyperlipidemia Insomnia Obstructive sleep apnea on CPAP Pre-diabetes Hemoglobin A1c was 5.9 in May 2018. Restless legs syndrome (RLS) Shingles Syncope Hospitalized for syncopal episode on March 14, 2018. [place] to be related to postural dizziness. Workup was unrevealing. Surgical History Surgical History Hx of cardiac cath Status post cervical spinal fusion C6-C7. Status post rotator cuff repair Bilateral. Family History Family History Father Prostate carcinoma Dialysis patient Mother Diabetes mellitus Asthma Sibling Asthma Bladder cancer Social History Social History Smoking status: Former smoker Additional smoking assessment comments: smoked as a teenager Alcohol intake: current Drinks per week: 14 Substance use: never Gender identity (if verbalized by the patient): Male Spiritual care concerns: No Agree to blood products: Yes Meds Home Medications and Allergies Home Medications Medication Instructions Recorded Confirmed Type citalopram 40 mg tablet 40 mg PO DAILY #90 tablet 02/20/19 12/06/19 Rx fexofenadine 180 mg tablet 180 mg PO DAILY 03/05/19 12/06/19 History Daily Multivitamin 1 cap PO DAILY 04/07/19 12/06/19 History metformin 1,000 mg PO HS 04/07/19 12/06/19 History pravastatin 40 mg PO DAILY 04/07/19 12/06/19 History trazodone 50 mg PO HS PRN 04/07/19 12/06/19 History aspirin [Adult Low Dose Aspirin] 81 mg PO DAILY #60 tablet 04/08/19 12/06/19 Rx amlodipine 5 mg tablet 5 mg PO DAILY 07/22/19 12/06/19 History losartan 100 mg tablet 100 mg PO DAILY #90 tablet 09/03/19 12/06/19 Rx mecobalamin (vitamin B12) 1,000 1,000 mcg PO DAILY #90 tablet 09/03/19 12/06/19 Rx mcg chewable tablet tamsulosin 0.4 mg capsule 0.4 mg PO DAILY #90 cap 09/03/19 12/06/19 Rx ezetimibe 10 mg tablet 10 mg PO DAILY #90 tablet 10/20/19 12/06/19 Rx bupropion HCl 150 mg 24 hr tablet, 150 mg PO QAM #90 tablet 11/18/19 12/06/19 Rx extended release omeprazole 40 mg capsul
[2019-12-05 23:44] LABS: Troponin I < 0.012 ng/mL (0.000-0.034)
[2019-12-05 23:58] LABS: Alanine Aminotransferase 25 U/L (4-50); Alkaline Phosphatase 49 U/L (38-126); Aspartate Amino Transferase 25 U/L (17-59); Lipase 67 U/L (23-300)
[2019-12-06] VITALS (10 sets, daily range): BP systolic 113–138; BP diastolic 59–76; PULSE 62–75; RESP 16–20; TEMP 36.2–36.3; O2SAT 93–99; BMI 33.5
[2019-12-06] MEDS: NITROGLYCERIN OINTMENT 1 INCH DOSE TRANSDERM ×2 (01:10→05:19)
[2019-12-06] MEDS: SODIUM CHLORIDE 0.9% IV 1,000 ML 75 ML IV CONT (01:11)
--- NOTE | 2019-12-06 01:11 | ECG_ITS ---
Measurements Intervals [place] Rate: 71 P: 58 [place]: 191 QRS: 14 QRSD: 106 T: 52 QT: 306 QTc: 333 Interpretive Statements SINUS RHYTHM NONSPECIFIC T-WAVE ABNORMALITY- HIGH LATERAL LEADS BASELINE ARTIFACT- II, III, AVR, AVL, AVF BORDERLINE ECG Electronically Signed On 12-08-2019 8:40:50 CDT by Sherwin Okeefe D.O.
--- NOTE | 2019-12-06 01:27 | PC.NURSE ---
This patient, Doc Johnston, was admitted to IMU Room 213-01. Patient/family oriented to hospital policies and general routines including ID bracelet, bed and alarms, visiting hours, pain management, procedures, bathroom and other care routines, personal items, smoking policy, room service/diet, and visiting hours. Valuables list has been completed. Information on how to activate the Rapid Response Team has been discussed. Patient/Family are encouraged to report perceived risks to care and to ask questions if they do not understand what they are told or what they should do.
[2019-12-06] MEDS: clonazePAM (*CRX) 0.5 MG TABLET 1 MG PO (02:42)
[2019-12-06] MEDS: rOPINIRole HCL 1 MG TABLET 4 MG PO ×2 (02:42→08:29)
[2019-12-06 02:58] LABS: Anion Gap 5 mmol/L (8-16); Blood Urea Nitrogen 15 mg/dL (9-20); Calcium 8.6 mg/dL (8.4-10.2); Carbon Dioxide 28 mmol/L (22-30); Chloride 105 mmol/L (98-107); Estimated CRCL calculation 82 ml/min; Estimated Glomerular Filt Rate > 60; Glucose 104 mg/dL (75-110); Potassium 4.2 mmol/L (3.4-5.0); Sodium 138 mmol/L (137-145)
[2019-12-06 03:08] LABS: Troponin I < 0.012 ng/mL (0.000-0.034)
[2019-12-06] MEDS: hydrALAZINE HCL 25 MG TABLET PO (08:27)
[2019-12-06] MEDS: ASPIRIN 81 MG ENTERIC TABLET PO (08:27)
[2019-12-06] MEDS: EZETIMIBE 10 MG TABLET PO (08:27)
[2019-12-06] MEDS: CITALOPRAM HYDROBROMIDE 20 MG TABLET 40 MG PO (08:27)
[2019-12-06] MEDS: PANTOPRAZOLE 40 MG TABLET PO (08:28)
[2019-12-06] MEDS: THERAPEUTIC MULTIVITAMINS/MINERALS TAB (*BKC) 1 TABLET PO (08:28)
[2019-12-06] MEDS: buPROPion HCL XL (24 HR) 150 MG TABCR PO (08:28)
[2019-12-06] MEDS: LORATADINE 10 MG TABLET PO (08:28)
[2019-12-06] MEDS: LOSARTAN POTASSIUM 100 MG TABLET PO (08:28)
[2019-12-06] MEDS: amLODIPine BESYLATE 5 MG TABLET PO (08:28)
[2019-12-06] MEDS: TAMSULOSIN HCL 0.4 MG CAPSULE PO (08:29)
[2019-12-06] MEDS: PRAVASTATIN SODIUM 20 MG TABLET 40 MG PO (08:29)
[2019-12-06 08:58] LABS: Glucose Point of Care 103 (65-105)
--- NOTE | 2019-12-06 09:45 | PM.DS ---
DS: Admitting Diagnosis Admitting Diagnosis Admitting Diagnosis: unstable angina DS: Discharge Diagnosis Discharge Diagnosis (1) Chest pain: Qualifiers: Chest pain type: chest pain due to myocardial ischemia Ischemic chest pain type: unstable angina pectoris Qualified Code(s): I20.0 - Unstable angina Code(s): R07.9 - Chest pain, unspecified Status: Acute Assessment and Plan: Clinically due to costochondritis. Will avoid NSAIDs due to hx of GERD with esophagitis and strictures x 2. (2) Prediabetes: Code(s): R73.03 - Prediabetes Status: Acute (3) Obstructive sleep apnea on CPAP: Code(s): G47.33 - Obstructive sleep apnea (adult) (pediatric); Z99.89 - Dependence on other enabling machines and devices Status: Acute (4) Benign essential hypertension: Code(s): I10 - Essential (primary) hypertension Status: Chronic (5) Anxiety: Code(s): F41.9 - Anxiety disorder, unspecified Status: Acute (6) RLS (restless legs syndrome): Code(s): G25.81 - Restless legs syndrome Status: Chronic DS: Summary Hospital Course Reason for hospitalization: left parasternal sharp chest pain for 4 days Hospital Course: Admitted for evaluation of left parasternal sharp chest pain for 4 days. Had been doing landscaping at home for one week prior to onset of pain. Sharp. No associated sx's. Not worse with breathing, walking, movement, eating. Mild sob with exertion. Continuous sharp pain with seemingly random exacerbations from mild to moderately severe. No radiation. About the same now as at day of onset. TnI neg x 2. D-dimer negative. CXR negative. EKG NSR with low voltage QRS. Telemetry overnight unremarkable. Hx negative coronary angiogram about 3-5 years ago at [facility]. Time Spent with Patient Time attestation: Total time spent providing and/or coordinating discharge services: Exam Narrative: Exam Narrative: HEENT: EOMI, PERRL, sclerae nonicteric, pharyngeal mucosa pink and intact NECK: No JVD, adenopathy, or thyromegaly CHEST: Clear to auscultation. Normal effort. HEART: NL S1/S2, regular, no murmur ABDOMEN: BS+, soft, nontender, no mass, no bruits EXTREMITIES: No cyanosis, edema, or clubbing NEUROLOGIC: CN intact and symmetric to inspection. MUSCULOSKELETAL: Tone and strength symmetric. Pain reproduced with palpation of left lower costochondral joints. PSYCH: Alert. Oriented to person, place, and time. DS: Data Data Completed and Pending Labs on day of discharge: Labs from last 24 hours 12/06/19 12/06/19 12/05/19 08:11 02:23 23:08 WBC RBC Hgb Hct MCV MCH MCHC RDW Plt Count MPV Immature Gran % (Auto) Neut % (Auto) Lymph % (Auto) [place] % (Auto) Eos % (Auto) Baso % (Auto) Lymph # (Auto) [place] # (Auto) Eos # (Auto) Baso # (Auto) Abs Immat Gran (auto) Absolute Neuts (auto) Absolute Nucleated RBC Nucleated RBC % PT INR APTT D-Dimer Sodium 138 Potassium 4.2 Chloride 105 Carbon Dioxide 28 Anion Gap 5 L BUN 15 Creatinine 0.90 Estim Creat Clear Calc 82 Estimated GFR > 60 Glucose 104 POC Capillary Glucose 103 Calcium 8.6 AST 25 ALT 25 Alkaline Phosphatase 49 Troponin I < 0.012 Lipase 67 12/05/19 12/05/19 12/05/19 23:08 20:11 20:11 WBC RBC Hgb Hct MCV MCH MCHC RDW Plt Count MPV Immature Gran % (Auto) Neut % (Auto) Lymph % (Auto) [place] % (Auto) Eos % (Auto) Baso % (Auto) Lymph # (Auto) [place] # (Auto) Eos # (Auto) Baso # (Auto) Abs Immat Gran (auto) Absolute Neuts (auto) Absolute Nucleated RBC Nucleated RBC % PT INR APTT D-Dimer 0.32 Sodium 139 Potassium 3.6 Chloride 103 Carbon Dioxide 29 Anion Gap 7 L BUN 12 Creatinine 0.80 Estim Creat Clear Calc
== END 2019-12-06 10:45 | disposition home or self-care (01) ==
LOC: ANHED 22:06 → ANHIMU 12-06 02:19
PROVIDERS: Emergency Medicine; Admitting Provider Family Medicine; Emergency Provider Family Medicine; PCP Internal Medicine; Visit Provider Internal Medicine
DX: R07.9 Chest pain, unspecified (principal); I10 Essential (primary) hypertension; E78.2 Mixed hyperlipidemia; K21.9 Gastro-esophageal reflux disease without esophagitis; G47.33 Obstructive sleep apnea (adult) (pediatric); Z98.1 Arthrodesis status; Z87.891 Personal history of nicotine dependence; G25.81 Restless legs syndrome; E78.5 Hyperlipidemia, unspecified; R73.03 Prediabetes; F41.9 Anxiety disorder, unspecified; Z79.84 Long term (current) use of oral hypoglycemic drugs
CPT/HCPCS: 36415; 71046; 80048; 83690; 84075; 84450; 84460; 84484; 85025; 85380; 85610; 85730; 93005; 96361; 96374; 96375; 99285; A9270; G0378; J2270; J2405; J7030

== ENCOUNTER 2019-12-08 12:27 | Outpatient (CLI) | payer MEDICARE, SELFPAY ==
--- NOTE | ~2019-12-08 | CT_ITS ---
EXAMINATION: CTA chest PE protocol DATE: 12/08/2019 14:01 INDICATION: Chest pain and shortness of breath TECHNIQUE: Computed tomography angiography (CTA) of the chest was performed with 100 mL Omnipaque-350 intravenous contrast timed to evaluate the pulmonary arteries. Coronal maximum intensity projection 3D-reconstructions were created by the technologist. The dose-length product (DLP) was 666.94 mGy-cm. Automated exposure control and iterative reconstruction technique were employed. COMPARISON: 11/05/2017 FINDINGS: The pulmonary arteries are well-opacified. No pulmonary embolism is identified. There is mi ld dependent atelectasis. No pleural effusion or pneumothorax is identified. No pathologically enlarg ed thoracic lymph nodes are identified. The heart size is normal. There is a small sliding hiatal her christin. There is mild thoracic spondylosis. IMPRESSION: 1. No pulmonary embolism. Reviewed, dictated and finalized at location A. IMPRESSION: 1. No pulmonary embolism.
== END 2019-12-08 12:28 | disposition home or self-care (01) ==
PROVIDERS: PCP Internal Medicine; Visit Provider Internal Medicine
DX: R06.00 Dyspnea, unspecified (principal); R07.9 Chest pain, unspecified
CPT/HCPCS: 71275; Q9967

== ENCOUNTER 2019-12-09 16:54 | Observation (INO) | payer MEDICARE, SELFPAY ==
[2019-12-09] VITALS (32 sets, daily range): BP systolic 121–180; BP diastolic 71–94; PULSE 63–81; RESP 11–21; TEMP 36.5; O2SAT 93–99; BMI 32.8
--- NOTE | ~2019-12-09 | XR_ITS ---
EXAMINATION: XR chest 2V DATE: 12/09/2019 17:23 INDICATION: Syncope, history of hypertension TECHNIQUE: AP and lateral views of the chest are obtained. COMPARISON: 12/08/2019, 12/05/2019 FINDINGS: There is mild atelectasis of the lower lobes. There is no pleural effusion or pneumothorax. The cardiomediastinal silhouette is normal. There is mild thoracic spondylosis. Surgical changes are noted in the lower cervical spine. There is severe cervical spondylosis. IMPRESSION: 1. Mild atelectasis Reviewed, dictated and finalized at location A. IMPRESSION: 1. Mild atelectasis
--- NOTE | ~2019-12-09 | CT_ITS ---
EXAMINATION: CT brain wo con EXAM DATE: 12/09/2019 17:15 INDICATION: Syncope, hit back of head. TECHNIQUE: Spiral CT of the head was performed without contrast. Axial, coronal and sagittal images were reviewed. The dose-length product (DLP) for this examination was 605.33 mGy-cm. The exposure w as tailored according to patient size, and iterative reconstruction (ASIR) was used as additional dos e reduction technique. There is no prior study for comparison. FINDINGS: There is no acute intraparenchymal hemorrhage. No evidence of intraparenchymal brain mass lesion. No evidence of acute infarction. There is no mass effect or midline shift. The ventricles are normal in size. There are no extra-axial collections. There are no acute calvarial fractures. T he orbits are unremarkable. Soft tissue is unremarkable. The visualized sinuses and mastoid air du ls are well aerated. IMPRESSION: 1. No acute intracranial findings. Reviewed, dictated and finalized at location A.
--- NOTE | ~2019-12-09 | CT_ITS ---
EXAMINATION: CTA brain carotid EXAM DATE: 12/09/2019 18:42 INDICATION: Dizziness. Posterior head injury. Syncope. TECHNIQUE: Noncontrast head CT. Spiral CTA of the carotid arteries was performed with intravenous i njection 100 cc of Omnipaque 350. Axial, coronal, sagittal reformatted images reviewed. Additional r eformatted images created on dedicated 3-D workstation. NASCET comparable standard used to assess th e degree of arterial stenosis. Spiral CT angiogram cerebral arteries performed with the same intrave nous injection of contrast. Source images of the brain CTA transferred to dedicated workstation for 3 -D rotational image creation. Coronal, sagittal maximum intensity pixel images also reviewed. The d ose-length product (DLP) for this examination was 1183.70 mGy-cm. The exposure was tailored accordi ng to patient size, and iterative reconstruction (ASIR) was used as additional dose reduction techniq ue. Correlation is made to head CT same date. FINDINGS: Mild bilateral carotid bulb plaque with 0% stenosis bilaterally the left vertebral artery i s dominant. There is no carotid or vertebral basilar arterial dissection or fibromuscular dysplasia. There are no cerebral artery aneurysms. There is symmetric cerebral artery arborization. The sagitta l, transverse and sigmoid sinuses enhance normally, no venous sinus thrombosis. Internal cerebral vei ns also enhance normally. IMPRESSION: No carotid stenosis or acute cervical or carotid findings. Reviewed, dictated and finalized at location A.
--- NOTE | ~2019-12-09 | MR_ITS ---
EXAMINATION: MR brain/brain stem wo/w con DATE: 12/10/2019 13:12 INDICATION: Dizziness. TECHNIQUE: Magnetic resonance imaging (MRI) of the brain and brainstem was performed without and with 19 mL MultiHance intravenous contrast. Sequences included sagittal and axial T1-weighted FSE, axial diffusion-weighted FS EPI, axial T2*-weighted GRE, axial T2-weighted FLAIR Propeller, and axial T2-we ighted Propeller. Postcontrast sequences included axial and coronal T1-weighted FSE. Apparent diffusi on coefficient (ADC) maps were created. COMPARISON: Brain MRI 04/08/2019, head CT 12/09/2019 FINDINGS: There is no intracranial hemorrhage, acute infarction, or abnormal intracranial mass lesion . The ventricles are normal in size. There is mucosal thickening in the paranasal sinuses. There is a trace left mastoid effusion. The orbits are normal. IMPRESSION: 1. Normal brain. Reviewed, dictated and finalized at location A. IMPRESSION: 1. Normal brain.
--- NOTE | 2019-12-09 16:45 | ED.SYNCOPE ---
HPI - Syncope General Chief Complaint: Syncope Stated Complaint: syncopal Source: patient and EMS Mode of arrival: EMS Limitations: no limitations History of Present Illness HPI narrative: Patient is a 63-year-old male with a history of hypertension, hyperlipidemia and type 2 diabetes who presents for evaluation of syncopal episode. Patient was walking outside to check on his dogs when he suddenly felt very dizzy and passed out. Patient is unsure if he hit his head. He denies any chest pain or palpitations prior to the syncope. Today, the patient has had 1 beer to drink, no other water intake. He biked outside, washed his car and has been very active today. Glucose per EMS was 141 and patient had stable vital signs. Patient is denying any chest pain or shortness of breath. He reports feeling slightly shaky. Patient recently discharged on the where he had negative work-up for chest pain, thought to be due to costochondritis per chart review. Related Data Home Medications Medication Instructions Recorded Confirmed fexofenadine 180 mg tablet 180 mg PO DAILY 03/05/19 12/06/19 Daily Multivitamin 1 cap PO DAILY 04/07/19 12/06/19 metformin 1,000 mg PO QPM 04/07/19 12/06/19 pravastatin 40 mg PO DAILY 04/07/19 12/06/19 trazodone 50 mg PO HS PRN 04/07/19 12/06/19 amlodipine 5 mg tablet 5 mg PO DAILY 07/22/19 12/06/19 clonazepam 1 mg PO HS 12/06/19 12/06/19 hydralazine 25 mg PO BID 12/06/19 12/06/19 ropinirole 4 mg PO TID 12/06/19 12/06/19 Allergies Allergy/AdvReac Type Severity Reaction Status Date / Time Penicillins Allergy Unknown Unknown Verified 12/09/19 18:01 Review of Systems Review of Systems: Narrative: CONSTITUTIONAL: Denies fever, chills, or sweats. CARDIOVASCULAR: Denies chest pain, palpitations, or edema. RESPIRATORY: Denies cough or dyspnea. GASTROINTESTINAL: Denies abdominal pain, nausea, vomiting, or diarrhea. GENITOURINARY: Denies dysuria or hematuria. SKIN: Denies rash or itching. MUSCULOSKELETAL: Denies back pain, joint pain, or myalgia. NEUROLOGIC: Denies headache, numbness, or weakness. PMFSH Past Medical History Medical History Anxiety BMI 32.0-32.9,adult BMI 33.0-33.9,adult BMI 34.0-34.9,adult Chest pain, unspecified Colon cancer screening Costochondritis DDD (degenerative disc disease) Depression Dyspnea on exertion Encounter for routine adult health examination without abnormal findings Encounter for special screening examination for neoplasm of prostate Follow up GERD (gastroesophageal reflux disease) History of esophageal stricture With dilatation x2. Hospital discharge follow-up Hyperlipidemia Insomnia Obstructive sleep apnea on CPAP Pre-diabetes Hemoglobin A1c was 5.9 in May 2018. Restless legs syndrome (RLS) Shingles Syncope Hospitalized for syncopal episode on March 14, 2018. [place] to be related to postural dizziness. Workup was unrevealing. Surgical History Surgical History Hx of cardiac cath Status post cervical spinal fusion C6-C7. Status post rotator cuff repair Bilateral. Family History Family History Father Prostate carcinoma Dialysis patient Mother Diabetes mellitus Asthma Sibling Asthma Bladder cancer Social History Social History Smoking status: Never smoker Second hand tobacco smoke exposure: No Additional smoking assessment comments: smoked as a teenager Alcohol intake: current Drinks per week: 7 Substance use: never Gender identity (if verbalized by the patient): Male Spiritual care concerns: No Agree to blood products: Yes Exam Narrative: Exam Narrative: GENERAL: Awake, alert, conversant HEAD: Normocephalic, atraumatic. No hematoma or laceration. EYES: 2+ PERRLA and EOMI. ENT: Nares clear, no r
--- NOTE | 2019-12-09 16:57 | ECG_ITS ---
Measurements Intervals [place] Rate: 67 P: 39 NH: 195 QRS: -2 QRSD: 95 T: 37 QT: 322 QTc: 340 Interpretive Statements SINUS RHYTHM POSSIBLE LEFT ATRIAL ENLARGEMENT INCOMPLETE RIGHT BUNDLE BRANCH BLOCK LOW QRS VOLTAGE IN PRECORDIAL LEADS INFERIOR INFARCT, AGE INDETERMINATE NONSPECIFIC T-WAVE ABNORMALITY- ANT/HIGH LAT LEADS BASELINE ARTIFACT- I, II, III, AVR, AVL, AVF ABNORMAL ECG Electronically Signed On 12-10-2019 15:55:58 CDT by Sherwin Okeefe D.O.
[2019-12-09] MEDS: SODIUM CHLORIDE 0.9% IV 1,000 ML 999 ML IV CONT (17:35)
[2019-12-09 17:51] LABS: Basophils Absolute Auto 0.1 K/mm3 (0.0-0.1); Basophils Percent Auto 0.9 % (0.2-1.2); Eosinophils Absolute Auto 0.4 K/mm3 (0-0.3); Eosinophils Percent Auto 4.9 % (0-4.4); Hematocrit 40.3 % (42.0-52.0); Hemoglobin 13.5 g/dL (14.0-18.0); Immature Granulocyte Absolute 0.02 K/mm3 (0.00-0.031); Immature Granulocyte Percent A 0.2 % (0-0.5); Lymphocytes Absolute Auto 1.29 K/mm3 (0.9-3.2); Lymphocytes Percent Auto 15.8 % (18.3-44.2); Mean Corpuscular HGB Conc 33.5 g/dl (32-36); Mean Corpuscular Hemoglobin 30.8 pg (26-34); Mean Corpuscular Volume 91.8 fl (80-100); Mean Platelet Volume 9.5 fl (7.4-10.4); Monocytes Absolute Auto 0.8 K/mm3 (0.1-0.6); Monocytes Percent Auto 10.3 % (2.6-8.5); Neutrophils Absolute Auto 5.5 K/mm3 (1.3-6.7); Neutrophils Percent Auto 67.9 % (45.5-73.1); Platelet Count Result 238 k/mm3 (150-375); Red Blood Count 4.39 M/mm3 (4.6-6.20); Red Cell Distribution Width 13.1 % (11.5-14.5); White Blood Count 8.2 K/mm3 (4.5-10.0)
[2019-12-09 18:00] LABS: Prothrombin Time 12.8 Seconds (11.1-14.7)
[2019-12-09 18:01] LABS: Partial Thromboplastin Time 25.2 SECONDS (22.3-36.8)
[2019-12-09 18:03] LABS: D Dimer 0.41 ug/mL (<0.48)
[2019-12-09 18:04] LABS: Anion Gap 5 mmol/L (8-16); Blood Urea Nitrogen 16 mg/dL (9-20); Calcium 8.7 mg/dL (8.4-10.2); Carbon Dioxide 31 mmol/L (22-30); Chloride 102 mmol/L (98-107); Estimated CRCL calculation 92 ml/min; Estimated Glomerular Filt Rate > 60; Glucose 102 mg/dL (75-110); Potassium 4.1 mmol/L (3.4-5.0); Sodium 138 mmol/L (137-145)
[2019-12-09 18:16] LABS: Troponin I < 0.012 ng/mL (0.000-0.034)
[2019-12-09] MEDS: MECLIZINE HCL 25 MG TABLET PO (18:57)
[2019-12-09] MEDS: ONDANSETRON INJ 4 MG/2 ML VIAL IV PUSH (18:57)
--- NOTE | 2019-12-09 20:47 | ADMGEN ---
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 Patient/family oriented to hospital policies and general routines including ID bracelet, bed and alarms, visiting hours, pain management, procedures, bathroom and other care routines, personal items, smoking policy, room service/diet, and visiting hours. Valuables list has been completed. Information on how to activate the Rapid Response Team has been discussed. Patient/Family are encouraged to report perceived risks to care and to ask questions if they do not understand what they are told or what they should do.
[2019-12-09] MEDS: SODIUM CHLORIDE 0.9% IV 1,000 ML 125 ML IV CONT (21:36)
[2019-12-09] MEDS: ACETAMINOPHEN 325 MG TABLET 650 MG PO (22:04)
[2019-12-09 22:21] LABS: Glucose Point of Care 94 (65-105)
[2019-12-09 22:58] LABS: Troponin I < 0.012 ng/mL (0.000-0.034)
[2019-12-10] VITALS (12 sets, daily range): BP systolic 135–184; BP diastolic 75–98; PULSE 55–69; RESP 14–21; TEMP 35.9–37.1; O2SAT 97–98
[2019-12-10 00:57] LABS: Troponin I < 0.012 ng/mL (0.000-0.034)
--- NOTE | 2019-12-10 01:57 | PM.IMHP ---
H&P: HPI History of Present Illness Date/Time: 12/10/19 01:57 Chief complaint: syncope and collapse, dizziness Narrative: This is a pleasant 63-year-old obese male with known pre diabetes, hypertension, sleep apnea among several other comorbidities whom is well known to me as I just admitted him to the hospital this past week for chest pain and he was promptly discharged 4 days ago after he was found to have costochondritis and return to the hospital yesterday with a complaint of passing out. he mentions that he did not sleep well the night before as he did not use his CPAP. Yesterday he had a very active day as he took his dogs for walk and got some chores done but mentions that he passed out after abruptly getting up out of his chair to check on his dogs that were barking. According to him he was sitting in a chair when his dog started to bark. he got up out of the chair very quickly and he remembers going out the front door and feeling somewhat dizzy and then passing out. He tells me does not remember many of the details as it seems fuzzy now. He denies any significant shortness of breath or chest pain prior to passing out. He had 1 other episode of syncope previously which seemed to occur after getting up quickly as well. the patient admits that he did drink 1 beer previous to him passing out yesterday. He is not sure if he hit his head when he fell and did suffer excoriation to his left elbow. He did have a headache when he woke up so he believes he may have suffered some head trauma. EMS found that his blood sugar was 141. He believes that he did not drink enough fluids yesterday. He was evaluated emergency room and head and neck CTA were obtained which did not demonstrate any carotid stenosis or acute cervical or carotid findings. Orthostatic vitals were obtained in the ER note appears that there was no significant drop in systolic or diastolic pressure. Review of Systems Review of Systems: All systems reviewed & are unremarkable except as noted in HPI and below PMFSH Past Medical History Medical History Anxiety BMI 32.0-32.9,adult BMI 33.0-33.9,adult BMI 34.0-34.9,adult Chest pain, unspecified Colon cancer screening Costochondritis DDD (degenerative disc disease) Depression Dyspnea on exertion Encounter for routine adult health examination without abnormal findings Encounter for special screening examination for neoplasm of prostate Follow up GERD (gastroesophageal reflux disease) History of esophageal stricture With dilatation x2. Hospital discharge follow-up Hyperlipidemia Insomnia Obstructive sleep apnea on CPAP Pre-diabetes Hemoglobin A1c was 5.9 in May 2018. Restless legs syndrome (RLS) Shingles Syncope Hospitalized for syncopal episode on March 14, 2018. [place] to be related to postural dizziness. Workup was unrevealing. Surgical History Surgical History Hx of cardiac cath Status post cervical spinal fusion C6-C7. Status post rotator cuff repair Bilateral. Family History Family History Father Prostate carcinoma Dialysis patient Diabetes mellitus Hypertension Mother Asthma Hypertension Sibling Bladder cancer Asthma Agent orange exposure Sibling Hypertension Asthma Social History Social History Smoking status: Former smoker Second hand tobacco smoke exposure: No Additional smoking assessment comments: smoked as a teenager Alcohol intake: current Drinks per week: 7 Substance use: never Substance use type: does not use Gender identity (if verbalized by the patient): Male Spiritual care concerns: No Agree to blood products: Yes Meds Home Medications and Allergies Home Medications Medication Instructions Recorded Confir
[2019-12-10] MEDS: ACETAMINOPHEN 325 MG TABLET 650 MG PO ×2 (02:54→09:14)
[2019-12-10] MEDS: rOPINIRole HCL 1 MG TABLET 4 MG PO ×4 (02:54→17:57)
[2019-12-10] MEDS: SODIUM CHLORIDE 0.9% IV 1,000 ML 125 ML IV CONT ×2 (05:27→15:56)
[2019-12-10 06:06] LABS: Basophils Absolute Auto 0.1 K/mm3 (0.0-0.1); Basophils Percent Auto 0.7 % (0.2-1.2); Eosinophils Absolute Auto 0.3 K/mm3 (0-0.3); Eosinophils Percent Auto 4.5 % (0-4.4); Hematocrit 37.1 % (42.0-52.0); Hemoglobin 12.3 g/dL (14.0-18.0); Immature Granulocyte Absolute 0.02 K/mm3 (0.00-0.031); Immature Granulocyte Percent A 0.3 % (0-0.5); Lymphocytes Percent Auto 19.5 % (18.3-44.2); Mean Corpuscular HGB Conc 33.2 g/dl (32-36); Mean Corpuscular Hemoglobin 31.4 pg (26-34); Mean Corpuscular Volume 94.6 fl (80-100); Mean Platelet Volume 10.3 fl (7.4-10.4); Monocytes Absolute Auto 0.7 K/mm3 (0.1-0.6); Monocytes Percent Auto 9.9 % (2.6-8.5); Neutrophils Absolute Auto 4.4 K/mm3 (1.3-6.7); Neutrophils Percent Auto 65.1 % (45.5-73.1); Platelet Count Result 214 k/mm3 (150-375); Red Blood Count 3.92 M/mm3 (4.6-6.20); Red Cell Distribution Width 13.2 % (11.5-14.5); White Blood Count 6.7 K/mm3 (4.5-10.0)
[2019-12-10 06:15] LABS: Anion Gap 2 mmol/L (8-16); Blood Urea Nitrogen 12 mg/dL (9-20); Carbon Dioxide 32 mmol/L (22-30); Chloride 105 mmol/L (98-107); Estimated CRCL calculation 91 ml/min; Estimated Glomerular Filt Rate > 60; Glucose 114 mg/dL (75-110); Potassium 3.9 mmol/L (3.4-5.0); Sodium 139 mmol/L (137-145)
[2019-12-10] MEDS: ASPIRIN 81 MG ENTERIC TABLET PO (09:15)
[2019-12-10] MEDS: CITALOPRAM HYDROBROMIDE 20 MG TABLET 40 MG PO (09:15)
[2019-12-10] MEDS: buPROPion HCL XL (24 HR) 150 MG TABCR PO (09:15)
[2019-12-10] MEDS: THERAPEUTIC MULTIVITAMINS/MINERALS TAB (*BKC) 1 TABLET PO (09:15)
[2019-12-10] MEDS: PANTOPRAZOLE 40 MG TABLET PO (09:15)
[2019-12-10] MEDS: hydrALAZINE HCL 25 MG TABLET PO ×2 (09:15→17:57)
[2019-12-10] MEDS: LORATADINE 10 MG TABLET PO (09:15)
[2019-12-10] MEDS: CYANOCOBALAMIN 1,000 MCG TABLET 1000 MCG PO (09:15)
[2019-12-10] MEDS: EZETIMIBE 10 MG TABLET PO (09:15)
[2019-12-10] MEDS: LOSARTAN POTASSIUM 100 MG TABLET PO (09:15)
[2019-12-10 11:33] LABS: Glucose Point of Care 100 (65-105)
--- NOTE | 2019-12-10 14:01 | WPDNEURCNPN ---
Assessment and Plan Assessment and plan (1) BPH (benign prostatic hyperplasia): Qualifiers: Lower urinary tract symptom presence: unspecified whether lower urinary tract symptoms present Qualified Code(s): N40.0 - Benign prostatic hyperplasia without lower urinary tract symptoms Code(s): N40.0 - Benign prostatic hyperplasia without lower urinary tract symptoms Status: Chronic (2) Syncope and collapse: Code(s): R55 - Syncope and collapse Status: Acute (3) Dehydration: Code(s): E86.0 - Dehydration Status: Acute (4) Dizziness: Code(s): R42 - Dizziness and giddiness Status: Acute (5) Prediabetes: Code(s): R73.03 - Prediabetes Status: Chronic (6) Obstructive sleep apnea on CPAP: Code(s): G47.33 - Obstructive sleep apnea (adult) (pediatric); Z99.89 - Dependence on other enabling machines and devices Status: Acute (7) Anxiety: Code(s): F41.9 - Anxiety disorder, unspecified Status: Acute (8) GERD (gastroesophageal reflux disease): Qualifiers: Esophagitis presence: esophagitis presence not specified Qualified Code(s): K21.9 - Gastro-esophageal reflux disease without esophagitis Code(s): K21.9 - Gastro-esophageal reflux disease without esophagitis Status: Chronic (9) RLS (restless legs syndrome): Code(s): G25.81 - Restless legs syndrome Status: Chronic Additional Plan the question is whether not he had suffered from a seizure based on the clinical history derived from the patient's I will recommend doing an EEG otherwise the workup including the brain MRI and the CTA of the head and neck is unremarkable and not too long ago he has had the echocardiogram performed and full cardiac workup which was unrevealing of course the episode if reoccurs then there will be no choice except to based on the clinical history put him on anti seizure medicine but however I will hold off on this for now Consult date: 12/10/19 Time Seen: 13:30 HPI: Doc Johnston is a 63 year old male home I my last to see for a blackout spell which is very well elaborated in the history and physical performed by the hospitalist and also documented by the emergency room the patient denies any headache nausea vomiting chest pain shortness of breath fever chills sore throat and wants to go home he does not have any lateralizing symptoms at all and is back to his usual self but his tells me that after he passed out he was dazed and little confused and disoriented that makes me think could it be possibly a seizure the history of drinking I am not quite clear on it either in any event he is back to his baseline and there is no lateralizing deficit noted Review of Systems Review of Systems: All systems reviewed & are unremarkable except as noted in HPI and below PMFSH Past Medical History Medical History Anxiety BMI 32.0-32.9,adult BMI 33.0-33.9,adult BMI 34.0-34.9,adult Chest pain, unspecified Colon cancer screening Costochondritis DDD (degenerative disc disease) Depression Dyspnea on exertion Encounter for routine adult health examination without abnormal findings Encounter for special screening examination for neoplasm of prostate Follow up GERD (gastroesophageal reflux disease) History of esophageal stricture With dilatation x2. Hospital discharge follow-up Hyperlipidemia Insomnia Obstructive sleep apnea on CPAP Pre-diabetes Hemoglobin A1c was 5.9 in May 2018. Restless legs syndrome (RLS) Shingles Syncope Hospitalized for syncopal episode on March 14, 2018. [place] to be related to postural dizziness. Workup was unrevealing. Surgical History Surgical History Hx of cardiac cath Status post cervical spinal fusion C6-C7. Status post rotator cuff repair Bilateral. Family History Family History (Reviewed
--- NOTE | 2019-12-10 16:15 | PM.DS ---
DS: Admitting Diagnosis Admitting Diagnosis Admitting Diagnosis: syncope and collapse, dizziness DS: Summary Time Spent with Patient Time attestation: Total time spent providing and/or coordinating discharge services: Exam Narrative: Exam Narrative: Mr. Johnston is a well nourished 63-year-old male who is lying supine in bed. He appears comfortable and is in NARD. HR 64, BP 135/85, RR 16, T 96.7, 97% on room air Neuro: awake, alert and oriented x4, speech clear, no focal neuro deficits noted, strength 5/5 throughout, no pronator drift, able to perform finger to nose, sensation intact HEENMT: normocephalic, atraumatic, EOMI, sclerae anicteric, moist oral mucosa, tongue midline, nares patent Neck: supple, no lymphadenopathy Respiratory: clear to auscultation bilaterally, nonlabored breathing Cardio: regular rate, regular rhythm with S1-S2 Abdomen: protuberant, normoactive bowel sounds, soft, nontender to palpation, no rigidity or guarding Extremities: no edema, erythema, cyanosis, clubbing, or tenderness to palpation, DP pulses 2+ bilaterally Skin: no rashes or lesions, warm and dry Psych: appropriate mood and affect, judgment and insight intact DS: Data Data Completed and Pending Labs on day of discharge: Labs from last 24 hours 12/10/19 12/10/19 12/10/19 11:29 05:01 05:01 WBC 6.7 RBC 3.92 L Hgb 12.3 L Hct 37.1 L MCV 94.6 MCH 31.4 MCHC 33.2 RDW 13.2 Plt Count 214 MPV 10.3 Immature Gran % (Auto) 0.3 Neut % (Auto) 65.1 Lymph % (Auto) 19.5 [place] % (Auto) 9.9 H Eos % (Auto) 4.5 H Baso % (Auto) 0.7 Lymph # (Auto) 1.30 [place] # (Auto) 0.7 H Eos # (Auto) 0.3 Baso # (Auto) 0.1 Abs Immat Gran (auto) 0.02 Absolute Neuts (auto) 4.4 Absolute Nucleated RBC 0.0 Nucleated RBC % 0.0 PT INR APTT D-Dimer Sodium 139 Potassium 3.9 Chloride 105 Carbon Dioxide 32 H Anion Gap 2 L BUN 12 Creatinine 0.80 Estim Creat Clear Calc 91 Estimated GFR > 60 Glucose 114 H POC Capillary Glucose 100 Calcium 8.0 L Troponin I TSH (Reflex) 12/10/19 12/10/19 12/09/19 05:01 00:05 22:24 WBC RBC Hgb Hct MCV MCH MCHC RDW Plt Count MPV Immature Gran % (Auto) Neut % (Auto) Lymph % (Auto) [place] % (Auto) Eos % (Auto) Baso % (Auto) Lymph # (Auto) [place] # (Auto) Eos # (Auto) Baso # (Auto) Abs Immat Gran (auto) Absolute Neuts (auto) Absolute Nucleated RBC Nucleated RBC % PT INR APTT D-Dimer Sodium Potassium Chloride Carbon Dioxide Anion Gap BUN Creatinine Estim Creat Clear Calc Estimated GFR Glucose POC Capillary Glucose Calcium Troponin I < 0.012 < 0.012 TSH (Reflex) 1.360 12/09/19 12/09/19 12/09/19 21:38 17:40 17:40 WBC RBC Hgb Hct MCV MCH MCHC RDW Plt Count MPV Immature Gran % (Auto) Neut % (Auto) Lymph % (Auto) [place] % (Auto) Eos % (Auto) Baso % (Auto) Lymph # (Auto) [place] # (Auto) Eos # (Auto) Baso # (Auto) Abs Immat Gran (auto) Absolute Neuts (auto) Absolute Nucleated RBC Nucleated RBC % PT 12.8 INR 1.0 APTT 25.2 D-Dimer 0.41 Sodium 138 Potassium 4.1 Chloride 102 Carbon Dioxide 31 H Anion Gap 5 L BUN 16 Creatinine 0.80 Estim Creat Clear Calc 92 Estimated GFR > 60 Glucose 102 POC Capillary Glucose 94 Calcium 8.7 Troponin I < 0.012 TSH (Reflex) 12/09/19 17:40 WBC 8.2 RBC 4.39 L Hgb 13.5 L Hct 40.3 L MCV 91.8 MCH 30.8 MCHC 33.5 RDW 13.1 Plt Count 238 MPV 9.5 Immature Gran % (Auto) 0.2 Neut % (Auto) 67.9 Lymph % (Auto) 15.8 L [place] % (Auto) 10.3 H Eos % (Auto) 4.9 H Baso % (Auto) 0.9 Lymph # (Auto) 1.29 [place] # (Auto) 0.8 H Eos # (Auto) 0.4 H Baso # (Auto) 0.1 Abs Immat Gran (a
[2019-12-10 17:03] LABS: Glucose Point of Care 127 (65-105)
--- NOTE | 2019-12-10 17:15 | PM.IMPN ---
Progress Note: A&P Assessment and Plan (1) Syncope and collapse: Code(s): R55 - Syncope and collapse Status: Acute Assessment and Plan: Most likely vasovagal based on patient history. He reports that he was in the hot tub for an extended time in the morning, then he went for a long walk, then he was doing yard work and notes that he really was not eating or drinking as much as he should have. Head CT negative for acute findings, head/ neck CTA with no carotid artery stenosis, and brain MRI normal. He is not orthostatic. He has been adequately rehydrated. Telemetry reviewed showing normal sinus rhythm with very few episodes of sinus bradycardia. Neurology is following and recommendations are appreciated. Will attempt to get EEG done tomorrow as an inpatient; previously scheduled as outpatient for 12/11/2019 Monitor orthostatics Continue monitoring on telemetry (2) Dehydration: Code(s): E86.0 - Dehydration Status: Acute Assessment and Plan: As noted above. He has been adequately rehydrated and is tolerating p.o. intake. Discontinue IV fluids. (3) Costochondritis: Code(s): M94.0 - Chondrocostal junction syndrome [[place]] Status: Acute Assessment and Plan: Recently hospitalized for costochondritis from 12/05/19-12/06/19. No acute issues at this time. Continue analgesics as needed. (4) Prediabetes: Code(s): R73.03 - Prediabetes Status: Chronic Assessment and Plan: A1c in March 2019 was 6.3. Continue Accu-Cheks, sliding scale insulin coverage. Hypoglycemia protocol. Continue metformin. check updated A1c (5) Obstructive sleep apnea on CPAP: Code(s): G47.33 - Obstructive sleep apnea (adult) (pediatric); Z99.89 - Dependence on other enabling machines and devices Status: Acute Assessment and Plan: Continue CPAP titrated to home settings. (6) Benign essential hypertension: Code(s): I10 - Essential (primary) hypertension Status: Chronic Assessment and Plan: Blood pressures reviewed and generally well controlled in the 140s systolic. He has had 2 blood pressure readings in the 180s systolic. continue antihypertensives Monitor blood pressure closely discontinue IV fluids Subjective Date/time seen: 12/10/19 17:15 Interval history: Date of service: 12/10/2019 Doc Johnston is a 63 year old male with a history of anxiety, depression, HLD, HEIDY, and RLS who is seen in follow up for suspected syncopal episode. The patient was feeling back to his baseline and was scheduled to be discharged at his request. This was discussed with Neurology. He had plans for outpatient EEG scheduled tomorrow, 12/11/2019 at 6:30 a.m. Upon my encounter, he denied dizziness, lightheadedness, headache, confusion, weakness, loss of balance or coordination, speech changes, visual changes, dysphagia, gait changes, nausea, vomiting, fever, chills, abdominal pain, shortness breath, cough, chest pain, palpitations, dysuria, hematuria, constipation, or diarrhea. Discharge plans were finalized when I received a phone call that patient got up to use the restroom at which time he felt dizzy and felt that he was going to pass out again. He stated that his symptoms were similar to the ones he had yesterday prior to his syncopal episode. Because of this, he did not feel that he could safely return home. Review of Systems Review of Systems: Narrative: Twelve systems reviewed with pertinent positives and negatives as per HPI. Exam Narrative: Exam Narrative: Mr. Johnston is a well nourished 63-year-old male who is lying supine in bed. He appears comfortable and is in NARD. HR 64, BP 135/85, RR 16, T 96.7, 97% on room air Neuro: awake, alert and oriented x4, speech clear, no focal neuro deficits noted, strength 5/5 throughout, no pronator drift, able to perform finger to nose, sensation i
[2019-12-10] MEDS: metFORMIN HCL 500 MG TABLET 1000 MG PO (20:03)
[2019-12-10 22:38] LABS: Glucose Point of Care 96 (65-105)
[2019-12-11] VITALS: PULSE 55
[2019-12-11 04:00] VITALS: PULSE 61
[2019-12-11 06:00] VITALS: BP 161/82; PULSE 60; RESP 20; TEMP 36.8; O2SAT 98
[2019-12-11 06:01] LABS: Hematocrit 40.8 % (42.0-52.0); Hemoglobin 13.6 g/dL (14.0-18.0); Mean Corpuscular HGB Conc 33.3 g/dl (32-36); Mean Corpuscular Hemoglobin 30.4 pg (26-34); Mean Corpuscular Volume 91.3 fl (80-100); Mean Platelet Volume 10.2 fl (7.4-10.4); Platelet Count Result 231 k/mm3 (150-375); Red Blood Count 4.47 M/mm3 (4.6-6.20); Red Cell Distribution Width 13.1 % (11.5-14.5); White Blood Count 7.5 K/mm3 (4.5-10.0)
[2019-12-11 06:02] LABS: Anion Gap 7 mmol/L (8-16); Blood Urea Nitrogen 9 mg/dL (9-20); Calcium 8.7 mg/dL (8.4-10.2); Carbon Dioxide 28 mmol/L (22-30); Chloride 102 mmol/L (98-107); Estimated CRCL calculation 103 ml/min; Estimated Glomerular Filt Rate > 60; Glucose 119 mg/dL (75-110); Potassium 3.6 mmol/L (3.4-5.0); Sodium 137 mmol/L (137-145)
[2019-12-11 07:34] LABS: Glucose Point of Care 107 (65-105)
[2019-12-11 08:00] VITALS: PULSE 69
[2019-12-11] MEDS: EZETIMIBE 10 MG TABLET PO (08:41)
[2019-12-11] MEDS: rOPINIRole HCL 1 MG TABLET 4 MG PO ×2 (08:41→12:41)
[2019-12-11] MEDS: buPROPion HCL XL (24 HR) 150 MG TABCR PO (08:41)
[2019-12-11] MEDS: PANTOPRAZOLE 40 MG TABLET PO (08:41)
[2019-12-11] MEDS: CYANOCOBALAMIN 1,000 MCG TABLET 1000 MCG PO (08:41)
[2019-12-11] MEDS: hydrALAZINE HCL 25 MG TABLET PO (08:41)
[2019-12-11] MEDS: LOSARTAN POTASSIUM 100 MG TABLET PO (08:41)
[2019-12-11] MEDS: ASPIRIN 81 MG ENTERIC TABLET PO (08:41)
[2019-12-11] MEDS: THERAPEUTIC MULTIVITAMINS/MINERALS TAB (*BKC) 1 TABLET PO (08:41)
[2019-12-11] MEDS: CITALOPRAM HYDROBROMIDE 20 MG TABLET 40 MG PO (08:41)
[2019-12-11] MEDS: LORATADINE 10 MG TABLET PO (08:41)
--- NOTE | 2019-12-11 10:07 | WPDNEUROLOGY ---
Neurology EEG Report General Information Date of Study: 12/11/19 TEST eeg DIAGNOSIS Passing out spells CONDITION OF RECORDING awake with lot of muscle and movements artifacts EEG NUMBER [id number] CLINICAL HISTORY patient lost consciousness 2 days ago and fell. At the time of tracing he was very oily and sweaty multiple artifacts were recorded. EEG DESCRIPTION Whole record consists of beta activity admixed with multiple muscle and movement artifacts NON paroxysmal. Nonfocal. Nonlateralizing. IMPRESSION This is normal tracing though compromised by the fast activity and muscle activity. clinical correlation recommended.+
--- NOTE | 2019-12-11 11:25 | WPDNEUROPN ---
Progress Note: A&P Assessment and Plan (1) Vasovagal syncope: Code(s): R55 - Syncope and collapse Status: Acute Additional Plan Syncopal at this stage not enough reasons to put him on anticonvulsants disposition as per the medical team and follow-up by the family physician if unfortunately has a seizure the future he will benefit from the medicine to control the seizure, MRI of the brain is normal CTA of the head and neck without any significant stenosis or vertebral artery disease and also no evidence of aneurysm Review of Systems Review of Systems: All systems reviewed & are unremarkable except as noted in HPI and below Exam Narrative: Exam Narrative: on examination today he is awake alert cooperative in no obvious acute distress. Sitting in the chair without any discomfort. His speech nor dysphasic no dysarthric no dysphonic. The cranial examination is normal. Motor examination reveals him to have no drift to 1 side or other side against gravity. Reflexes symmetrical. Plantars are downgoing. Heart regular with no murmur lungs clear to auscultation. Abdomen is soft nontender normal bowel sounds. Objective Data Vital Signs Vital Signs: Vital Signs - 24 hr 12/10/19 12:00 12/10/19 14:00 12/10/19 16:00 Temperature 36.5 C Pulse Rate 69 63 60 Respiratory Rate 14 Blood Pressure 163/84 H Pulse Oximetry 98 12/10/19 17:07 12/10/19 19:50 12/10/19 22:00 Temperature 36.9 C 37.1 C Pulse Rate 55 L 66 59 L Respiratory Rate 21 H 20 Blood Pressure 184/98 H 151/75 H Pulse Oximetry 98 98 12/10/19 22:47 12/11/19 00:00 12/11/19 04:00 Temperature Pulse Rate 59 L 55 L 61 Respiratory Rate 15 Blood Pressure Pulse Oximetry 98 12/11/19 06:00 12/11/19 08:00 Temperature 36.8 C Pulse Rate 60 69 Respiratory Rate 20 Blood Pressure 161/82 H Pulse Oximetry 98 Intake/Output Intake/Output: Intake & Output 12/08/19 12/09/19 12/10/19 12/11/19 23:59 23:59 23:59 23:59 Intake Total 1000 3320 740 Output Total 700 1100 Balance 1000 2620 -360 Meds/Results Medications: Active Medications Generic Name Dose Route Start Last Admin Trade Name Freq PRN Reason Stop Dose Admin Acetaminophen 650 mg 12/09/19 19:08 12/10/19 09:14 Acetaminophen 325 Mg Tablet PO 650 mg Q4H PRN Administration Mild Pain (1-3) or Fever Aspirin 81 mg 12/10/19 09:00 12/11/19 08:41 Aspirin 81 Mg Enteric Tablet PO 81 mg DAILY MAG Administration Bupropion HCl 150 mg 12/10/19 09:00 12/11/19 08:41 Bupropion Hcl Xl (24 Hr) 150 Mg Tabcr PO 150 mg QAM MAG Administration Citalopram Hydrobromide 40 mg 12/10/19 09:00 12/11/19 08:41 Citalopram Hydrobromide 20 Mg Tablet PO 40 mg DAILY MAG Administration Cyanocobalamin 1,000 mcg 12/10/19 09:00 12/11/19 08:41 Cyanocobalamin 1,000 Mcg Tablet PO 1,000 mcg QAM MAG Administration Dextrose 12.5 gm 12/10/19 02:11 Dextrose 50% 25 Gm/50 Ml Syringe IV PUSH PRN PRN Hypoglycemia Protocol Ezetimibe 10 mg 12/10/19 09:00 12/11/19 08:41 Ezetimibe 10 Mg Tablet PO 10 mg DAILY MAG Administration Glucagon 1 mg 12/10/19 02:11 Glucagon For Inj 1 Mg Vial IM PRN PRN Hypoglycemia Protocol Glucose 15 gm 12/10/19 02:11 Glucose Oral Gel 15 Gm Of Glucse In 37.5 Gm Tube PO PRN PRN Hypoglycemia Protocol Hydralazine HCl 25 mg 12/10/19 08:00 12/11/19 08:41 Hydralazine Hcl 25 Mg Tablet PO 25 mg BIDWM AMG Administration Dextrose 1,000 mls @ 100 mls/hr 12/10/19 02:11 Dextrose 5% 1,000 Ml IVPB PRN PRN Hypoglycemia Protocol Insulin Aspart 2 - 5 units 12/10/19 08:00 12/11/19 07:51 Insulin Aspart (*Bkc) 100 Units/Ml SUB-Q Not Given TIDWM MAG Protocol Loratadine 10 mg 12/10/19 09:00 12/11/19 08:41 Loratadine 10 Mg Tablet PO 10 mg DAILY MAG Administration Losartan Potassium 100 mg 12/10/19 09:00 12/11/19
[2019-12-11 11:38] LABS: Glucose Point of Care 101 (65-105)
[2019-12-11 12:00] VITALS: PULSE 62
--- NOTE | 2019-12-11 12:45 | PM.DS ---
DS: Admitting Diagnosis Admitting Diagnosis Admitting Diagnosis: syncope and collapse, dizziness DS: Discharge Diagnosis Discharge Diagnosis (1) Syncope and collapse: Code(s): R55 - Syncope and collapse Status: Acute Assessment and Plan: Occurred on 12/09/19. Most likely vasovagal based on patient history. He reports that he was in the hot tub for an extended time in the morning, then he went for a long walk, then he was doing yard work and noted that he really was not eating or drinking as much as he should have. Head CT negative for acute findings, head/neck CTA with no carotid artery stenosis, and brain MRI normal. He was not orthostatic. He was adequately rehydrated with IV fluids. Telemetry reviewed showing normal sinus rhythm with very few episodes of sinus bradycardia. He was seen in consultation by neurology who recommended obtaining EEG which was unremarkable. History initially concerning for seizure although felt to be much less likely. No anti-convulsants initiated at this time but patient to avoid driving for 6 weeks per neurology recommendations. (2) Dehydration: Code(s): E86.0 - Dehydration Status: Acute Assessment and Plan: As noted above. He was adequately rehydrated and tolerating p.o. intake. Appropriate hydration was discussed. (3) Costochondritis: Code(s): M94.0 - Chondrocostal junction syndrome [Tietze] Status: Acute Assessment and Plan: Recently hospitalized for costochondritis from 12/05/19-12/06/19. No acute issues. Continue analgesics as needed. (4) Prediabetes: Code(s): R73.03 - Prediabetes Status: Chronic Assessment and Plan: A1c in March 2019 was 6.3. Covered with sliding scale insulin during stay. Blood sugars were well controlled. Continue metformin. (5) Obstructive sleep apnea on CPAP: Code(s): G47.33 - Obstructive sleep apnea (adult) (pediatric); Z99.89 - Dependence on other enabling machines and devices Status: Acute Assessment and Plan: Continue CPAP. (6) Benign essential hypertension: Code(s): I10 - Essential (primary) hypertension Status: Chronic Assessment and Plan: Blood pressures reviewed and were slightly elevated above target. Continue hydralazine and losartan. Encouraged patient to monitor blood pressures at home 3-4x/week and record for review by PCP for medication adjustment/uptitration as needed. DS: Summary Hospital Course Reason for hospitalization: Syncope Hospital Course: Date of admission: 12/09/2019 Date of discharge: 12/11/2019 Doc Johnston is a 63 year old male with a history of anxiety, depression, HLD, HEIDY, RLS, and recent hospitalization from 12/04-12/06/2019 for suspected costochondritis who presented to the emergency department on 12/09/2019 For evaluation of suspected syncopal episode. He had an onset of dizziness after getting up to check on his dogs and then passed out. He was unsure if he hit his head. He denied dizziness, lightheadedness, chest pain, or palpitations prior to the episode. He noted that he had been very active that day and had not eaten or drank much.At presentation, vital signs stable, CBC with differential normal, electrolytes stable, glucose 102, troponin negative, EKG showing normal sinus rhythm, head CT with no acute intracranial findings, CXR with mild atelectasis, and head/ neck CTA with no carotid stenosis or acute cervical or carotid findings. he was admitted to the hospitalist service and was seen in consultation by Neurology. Please see above for further details. He had thorough workup as noted above. He had marked improvement in his symptoms and his dizziness resolved. He began feeling much better and requested discharge home where he lives with his . Case was discussed with Neurology and patient was felt to no longer require inpatient care and was determined to be stable for discharge. Per
== END 2019-12-11 13:31 | disposition home or self-care (01) ==
LOC: ANHED 19:16 → ANH2MED 19:41
PROVIDERS: Family Medicine; Physician Assistant; Admitting Provider Family Medicine; Emergency Provider Emergency Medicine; PCP Internal Medicine; Visit Provider Internal Medicine
DX: R55 Syncope and collapse (principal); E86.0 Dehydration; M94.0 Chondrocostal junction syndrome [Tietze]; R73.03 Prediabetes; R42 Dizziness and giddiness; F41.8 Other specified anxiety disorders; K21.9 Gastro-esophageal reflux disease without esophagitis; E78.5 Hyperlipidemia, unspecified; I10 Essential (primary) hypertension; G47.33 Obstructive sleep apnea (adult) (pediatric); G25.81 Restless legs syndrome; N40.0 Benign prostatic hyperplasia without lower urinary tract symptoms; Z98.1 Arthrodesis status; Z79.84 Long term (current) use of oral hypoglycemic drugs; Z79.82 Long term (current) use of aspirin
CPT/HCPCS: 36415; 70450; 70496; 70498; 70553; 71046; 80048; 84443; 84484; 85025; 85027; 85380; 85610; 85730; 93005; 95816; 96361; 96374; 99285; A9270; A9577; G0378; J2405; J7030; Q9967

== ENCOUNTER 2020-01-01 08:24 | Outpatient (CLI) | payer MEDICARE, SELFPAY ==
--- NOTE | ~2020-01-01 | NM_ITS ---
EXAMINATION: NM rupali stress w perfusion DATE: 01/01/2020 12:34 INDICATION: Dyspnea TECHNIQUE: Rest images were obtained following intravenous administration of 10.5 mCi Tc99m tetrofosm in (Myoview). The patient was infused intravenously with Lexiscan (Regadenoson). Then, 30 mCi Tc99m t etrofosmin (Myoview) was administered intravenously, and stress images were obtained. Data was recons tructed into short axis and horizontal and vertical long axis SPECT images. Gated SPECT images were a lso obtained. COMPARISON: None. FINDINGS: There is no definite reversible or fixed perfusion abnormality to suggest ischemia or infar ction. There is normal left ventricular chamber size, wall motion and ejection fraction. Left ventr icular ejection fraction measures >70%. IMPRESSION: 1. Normal myocardial perfusion at rest and during stress. 2. Left ventricular ejection fraction measuring >70%. Reviewed, dictated and finalized at location A. L CASKET MAKER
--- NOTE | 2020-01-01 09:49 | EST_ITS ---
Patient Info Name: Doc Johnston Age: 64 years : 1955 Gender: Male Ht: 68 in Wt: 210 lbs BSA: 2.17 m2 Exam Date: 01/01/2020 9:56 AM Exam Location: [facility] Stress Patient Status: Outpatient Admit Date: 01/01/2020 Staff Ordering Physician: Jeremias Bloom MD Attending Provider: Jeremias Bloom MD Exercise Technologist: Poornima Pompa RDCS Exercise Physician: Sherwin Okeefe DO Exam Type: CA stress rupali w NM Study Info Indications I20.0 - Unstable angina R06.00 - Dyspnea, unspecified A regadenoson stress test was performed. Summary 1. 1. Negative Lexiscan stress test for ischemic ST changes by ECG criteria. 2. 2. Stable hemodynamics throughout the test. 3. 3. Nuclear scan to follow and will be reported separately. Please correlate with it. 4. 4. Patient informed of the above results. Protocol: Lexiscan Stress ECG Details Stage: REST Duration (min): 6 min : 49 sec HR (bpm): 63 SBP (mmHg): 134 DBP (mmHg): 87 Stage: REST Duration (min): 21 min : 59 sec HR (bpm): 61 SBP (mmHg): 133 DBP (mmHg): 87 Stage: STAGE 1 Duration (min): 1 min : 0 sec HR (bpm): 80 SBP (mmHg): 142 DBP (mmHg): 91 Stage: RECOVERY Duration (min): 1 min : 0 sec HR (bpm): 85 SBP (mmHg): 139 DBP (mmHg): 77 Stage: RECOVERY Duration (min): 2 min : 0 sec HR (bpm): 80 SBP (mmHg): 139 DBP (mmHg): 77 Stage: RECOVERY Duration (min): 3 min : 0 sec HR (bpm): 76 SBP (mmHg): 139 DBP (mmHg): 78 Stage: RECOVERY Duration (min): 3 min : 4 sec HR (bpm): 76 SBP (mmHg): 139 DBP (mmHg): 78 Rest HR: 61 bpm Peak HR: 87 bpm Rest Sys BP: 133 mmHg Peak Sys BP: 142 mmHg Max Pred HR: 154 bpm % Max Pred HR: 56 % Target HR: 131 bpm Max RPP: 12,354 bpm*mmHg Termination Reason: Completed protocol Cardiac Symptoms: Shortness of breath, Headache Total Time: 1 min : 0 sec Rest Nye BP: 87 mmHg Peak Nye BP: 91 mmHg Total Dose: 0.4 mg Resting ECG Sinus rhythm. Stress ECG No ST changes. Arrhythmias None. Report Signatures
== END 2020-01-01 08:25 | disposition home or self-care (01) ==
PROVIDERS: PCP Internal Medicine; Visit Provider Internal Medicine
DX: R06.00 Dyspnea, unspecified (principal); R07.9 Chest pain, unspecified; I20.0 Unstable angina
CPT/HCPCS: 78452; 93017; A9502; J2785

== ENCOUNTER 2020-02-07 00:41 | Outpatient (CLI) | payer MEDICARE, SELFPAY ==
[2020-02-07 20:15] LABS: SARS-CoV-2 RNA PCR Negative
== END 2020-02-07 00:42 | disposition home or self-care (01) ==
LOC: ANHCOVIDDT 00:42
PROVIDERS: PCP Internal Medicine; Visit Provider Internal Medicine Gastroenterology
DX: Z01.818 Encounter for other preprocedural examination (principal); Z20.828 Contact with and (suspected) exposure to other viral communicable diseases
CPT/HCPCS: 87635; C9803; U0003

== ENCOUNTER 2020-02-29 16:02 | Observation (INO) | payer MEDICARE, SELFPAY ==
[2020-02-29] VITALS (9 sets, daily range): BP systolic 163–183; BP diastolic 81–103; PULSE 60–77; RESP 12–21; TEMP 36–36.8; O2SAT 96–100; BMI 33.4
--- NOTE | ~2020-02-29 | XR_ITS ---
EXAMINATION: XR chest 1V portable INDICATION: Dizziness, headache, tachycardia TECHNIQUE: Portable AP chest at 1639 hours COMPARISON: 12/09/2019 FINDINGS: There are minimal airspace opacities of the mid and lower lung zones. No pleural effusion o r pneumothorax is identified. The cardiomediastinal silhouette is stable. Surgical changes are noted in the cervical spine. IMPRESSION: 1. Minimal airspace opacities of the mid and lower lung zones, consistent with atelectasis versus pne umonia. Reviewed, dictated and finalized at location A. ER ELECTRONIC SCALE IMPRESSION: 1. Minimal airspace opacities of the mid and lower lung zones, consistent with atelectasis versus pneumonia.
--- NOTE | ~2020-02-29 | CT_ITS ---
EXAMINATION: CT brain wo con INDICATION: Dizziness, headache COMPARISON: 12/09/2019 TECHNIQUE: Standard unenhanced head CT. The dose-length product (DLP) was 605.33 mGy-cm. The mA was a djusted according to patient size. Iterative reconstruction technique was employed. FINDINGS: There is no intracranial hemorrhage, acute infarction, or abnormal mass lesion. The ventric les are normal. There is no abnormal mass effect or midline shift. The donovan-white matter differentiat ion is normal. The basal cisterns are patent. The orbits are normal. There is mild mucosal thickening of the paranasal sinuses. IMPRESSION: 1. No acute intracranial abnormality. Reviewed, dictated and finalized at location A. GE ASSISTANT
--- NOTE | 2020-02-29 16:06 | ECG_ITS ---
Measurements Intervals [place] Rate: 68 P: 21 TX: 213 QRS: -11 QRSD: 81 T: 61 QT: 293 QTc: 313 Interpretive Statements SINUS RHYTHM WITH FIRST DEGREE AV BLOCK INCOMPLETE RIGHT BUNDLE BRANCH BLOCK LOW QRS VOLTAGE IN PRECORDIAL LEADS VOLTAGE CRITERIA FOR LVH BORDERLINE ST-T WAVE ABNORMALITY- HIGH LATERAL LEADS BASELINE ARTIFACT- I, III, AVL, AVF ABNORMAL ECG Electronically Signed On 02-29-2020 16:33:59 SALES ORDER CLERK by Sherwin Okeefe D.O.
[2020-02-29 16:45] LABS: Basophils Absolute Auto 0.1 K/mm3 (0.0-0.1); Basophils Percent Auto 0.9 % (0.2-1.2); Eosinophils Absolute Auto 0.5 K/mm3 (0-0.3); Eosinophils Percent Auto 7.5 % (0-4.4); Hematocrit 41.3 % (42.0-52.0); Hemoglobin 13.8 g/dL (14.0-18.0); Immature Granulocyte Absolute 0.03 K/mm3 (0.00-0.031); Immature Granulocyte Percent A 0.4 % (0-0.5); Lymphocytes Percent Auto 22.1 % (18.3-44.2); Mean Corpuscular HGB Conc 33.4 g/dl (32-36); Mean Corpuscular Hemoglobin 30.3 pg (26-34); Mean Corpuscular Volume 90.6 fl (80-100); Mean Platelet Volume 9.3 fl (7.4-10.4); Monocytes Absolute Auto 0.7 K/mm3 (0.1-0.6); Monocytes Percent Auto 10.9 % (2.6-8.5); Neutrophils Absolute Auto 3.9 K/mm3 (1.3-6.7); Neutrophils Percent Auto 58.2 % (45.5-73.1); Platelet Count Result 259 k/mm3 (150-375); Red Blood Count 4.56 M/mm3 (4.6-6.20); Red Cell Distribution Width 13.4 % (11.5-14.5); White Blood Count 6.8 K/mm3 (4.5-10.0)
[2020-02-29 16:55] LABS: Alanine Aminotransferase 41 U/L (4-50); Albumin Level 3.7 g/dL (3.5-5.1); Alkaline Phosphatase 44 U/L (38-126); Anion Gap 6 mmol/L (8-16); Aspartate Amino Transferase 49 U/L (17-59); Bilirubin,Total 0.3 mg/dL (0.2-1.3); Blood Urea Nitrogen 14 mg/dL (9-20); Calcium 8.8 mg/dL (8.4-10.2); Carbon Dioxide 30 mmol/L (22-30); Chloride 100 mmol/L (98-107); Estimated CRCL calculation 91 ml/min; Estimated Glomerular Filt Rate > 60; Glucose 123 mg/dL (75-110); Potassium 3.7 mmol/L (3.4-5.0); Sodium 136 mmol/L (137-145)
--- NOTE | 2020-02-29 17:00 | PC.NURSE ---
Pt states he is unable to provide urine sample
--- NOTE | 2020-02-29 17:32 | ED.SYNCOPE ---
HPI - Syncope General Chief Complaint: Dizziness Stated Complaint: sob, dizzy Time Seen by Provider: 02/29/20 16:25 Source: patient, family and EMS Mode of arrival: EMS Limitations: no limitations History of Present Illness HPI narrative: 64 years old white male presented to the ED with syncope. History of syncope 3-4 times over the last 4 months. Last 1 was 3 weeks ago. Patient reports having extensive work-up without any significant finding. Patient had a Holter monitor for the last 2 weeks which at 8 AM today. 2 hours later patient was hanging his close then fell down a flight was going to faint then went down to the floor. Denying any trauma, was unconscious for few seconds. Subsequently patient felt everything spinning, without nausea or vomiting. Patient report the same feeling every time when he had syncope in the past as today. Patient denies any focal neuro deficits, tongue bite or urine incontinence, fever or chills Patient denies any fever, chills, nausea, vomiting, sore throat, shortness of breath or chest pain. Also denies exposure to anybody known having COVID-19 Related Data Home Medications Medication Instructions Recorded Confirmed Daily Multivitamin 1 cap PO DAILY 04/07/19 02/05/20 metformin 1,000 mg PO HS 04/07/19 02/05/20 clonazepam 1 mg PO HS 12/06/19 02/05/20 ropinirole 4 mg PO BID 12/06/19 02/05/20 omega-3 fatty acids-vitamin E 1 cap PO DAILY 02/05/20 02/05/20 [Fish Oil] amlodipine 10 mg PO DAILY 02/29/20 rosuvastatin 40 mg PO DAILY 02/29/20 tramadol mg 02/29/20 Allergies Allergy/AdvReac Type Severity Reaction Status Date / Time Penicillins Allergy Unknown Unknown Verified 02/29/20 17:18 [facility] Past Medical History Medical History BMI 32.0-32.9,adult BMI 33.0-33.9,adult BMI 34.0-34.9,adult Chest pain, unspecified Colon cancer screening Costochondritis DDD (degenerative disc disease) Depression Dyspnea on exertion Encounter for routine adult health examination without abnormal findings Encounter for special screening examination for neoplasm of prostate Follow up GERD (gastroesophageal reflux disease) History of esophageal stricture With dilatation x2. Hospital discharge follow-up Hyperlipidemia Insomnia Obstructive sleep apnea on CPAP Positive colorectal cancer screening using Cologuard test Pre-diabetes Hemoglobin A1c was 5.9 in May 2018. Restless legs syndrome (RLS) Shingles Syncope Hospitalized for syncopal episode on March 14, 2018. Lowber to be related to postural dizziness. Workup was unrevealing. Surgical History Surgical History Hx of cardiac cath Status post cervical spinal fusion C6-C7. Status post rotator cuff repair Bilateral. Family History Family History Father Prostate carcinoma Dialysis patient Diabetes mellitus Hypertension Mother Asthma Hypertension Sibling Bladder cancer Asthma Agent orange exposure Sibling Hypertension Asthma Social History Social History Smoking status: Never smoker Second hand tobacco smoke exposure: No Additional smoking assessment comments: smoked as a teenager Alcohol intake: current Drinks per week: 7 Substance use: never Substance use type: does not use Gender identity (if verbalized by the patient): Male Spiritual care concerns: No Agree to blood products: Yes Course Reevaluation(s) Reevaluation #1: Currently patient feeling much better, his dizziness are improving. once he stood up next to the bed ,he is telling me that he is feeling wobbly and severe lightheadedness. Patient unable to step forward.. Date: 02/29/20 Time: 17:54 Consultations Consultation #1: Dr. Damon Date: 02/29/20 Time: 17:55 Consultation #2: Dr. Paz Date: 02/29/20 Time: 17
--- NOTE | 2020-02-29 18:00 | PC.NURSE ---
Pt attempted to give urine sample, and was unsuccessful
[2020-02-29 19:44] LABS: Add Urine Microscopic? NO; Appearance Urine Clear (Clear); Bilirubin Urine Negative (Negative); Blood Urine Negative (Negative); Color Urine Yellow (Yellow); Glucose Urine UA Negative (Negative); Ketones Urine Negative (Negative); Leukocyte Esterase Ur Negative LEU/UL (Negative); Nitrate Urine Negative (Negative); Protein Urine Negative (Negative); Specific Grav Ur 1.015 (1.001-1.035); Urobilinogen Urine Negative mg/dL (<2.0)
--- NOTE | 2020-02-29 20:14 | ADMGEN ---
This patient, Doc Johnston, was admitted to Medical Room 252-01. Patient/family oriented to hospital policies and general routines including ID bracelet, bed and alarms, visiting hours, pain management, procedures, bathroom and other care routines, personal items, smoking policy, room service/diet, and visiting hours. Information on how to activate the Rapid Response Team has been discussed. Patient/Family are encouraged to report perceived risks to care and to ask questions if they do not understand what they are told or what they should do.
--- NOTE | 2020-02-29 22:46 | PM.IMHP ---
H&P: HPI History of Present Illness Date/Time: 02/29/20 22:46 Chief Complaint: Syncope and collapse Narrative: Doc Johnston is a 64 year old male on 12/08/2019 with complaints of chest pain was found to be due to costochondritis. He was avoiding NSAIDs because of his esophagitis in his strictures. EKG was normal that time D-dimer was negative and his telemetry overnight was unremarkable. He was discharged on 12/09/2019 and then he came back to the emergency room on 12/10/2019 with syncope collapse and dizziness. The patient had been getting up out of his chair and passed out. The patient was then discharged on 12/11/2019 and this was thought that maybe it was a vasovagal response. Possibly the patient got dehydrated. His head CT was negative at that time. Head neck CTA no carotid artery stenosis. And brain MRI was normal. No orthostasis. Patient was rehydrated he felt well and neurology saw him and on had extensive workup. The patient was supposed of avoided driving for at least 6 weeks until he saw neurology. After discharge the patient did follow-up with his primary care physician. To have a negative Lexiscan on 01/01/2020. The patient admits that he is under lot of stress. The patient also had a positive Cologuard and was not able to get a colonoscopy at this time because of his syncopal episodes. There was a note from [facility] where the patient had a period of dizziness. The patient was then referred to [facility] for possible loop recorder during office visit with his primary care doctor on 02/11/2020. And also to make an appointment with Dr. Ian aguilera and encouraged not to drive. The patient tells me that he did follow-up with cardiology and had a Holter monitor placed for 2 weeks that ended this morning. The time frame for the Holter monitor and it 8:00 a.m. this morning and the patient had an episode at 10:00 a.m. this morning he stated he did not drink any alcohol or any new medications. The patient stated that he was going to go to the winery with his he was going to changes close any went to reach up and hang something up in his closet he stated that he felt like he was going to pass out in his vision started to fade and then he woke up on the floor in the closet. To the emergency room his EKG was read as sinus rhythm with first-degree AV block. Incomplete right bundle-branch block. And does not believe that he hit his head. There was no trauma noted. There were no bites on his tongue or any urinary incontinence no fever no chills. No sick contacts. Patient's blood pressure was high at 179/94 today pulse ox was 90% his heart rate was in the 60s. The patient stated he has had some periods where he felt dizzy or felt like he was going to pass out a drink Gatorade and recovered without any difficulty. Today's H&H is 13.8 and 41.3. But he does not notice any blood in his stool. No orthostasis Was noted in the emergency room. The patient was given IV Tylenol in the emergency room.Was read as no acute intracranial abnormality. Chest x-ray was read as minimal airspace opacities of the mid and lower lung zones consistent with atelectasis versus pneumonia. Cardiology and Neurology have been consulted. The patient is being admitted as observation on the date of service of 02/29/2020 Review of Systems Review of Systems: All systems reviewed & are unremarkable except as noted in HPI and below Constitutional: Constitutional: Reports as per HPI and Reports no additional constitutional complaints Eyes: Eyes: Reports as per HPI and Reports no additional eye complaints ENT: Reports system reviewed and no additional complaints, except as documented and Reports Normal hearing present Cardiovascular: Cardiovascular: Reports no additional cardiovascular complaints Respiratory: Respiratory: Reports no additional respiratory complaints and Reports no additional respiratory complaints Gastrointestinal: Gastrointest
[2020-02-29 23:01] LABS: Glucose Point of Care 129 (65-105)
[2020-02-29] MEDS: clonazePAM (*CRX) 0.5 MG TABLET 1 MG PO (23:24)
[2020-02-29] MEDS: rOPINIRole HCL 1 MG TABLET 4 MG PO (23:25)
[2020-02-29] MEDS: metFORMIN HCL 500 MG TABLET 1000 MG PO (23:25)
[2020-03-01] VITALS (10 sets, daily range): BP systolic 138–159; BP diastolic 82–95; PULSE 60–88; RESP 16–18; TEMP 36–36.3; O2SAT 95–99
[2020-03-01 05:46] LABS: Basophils Absolute Auto 0.1 K/mm3 (0.0-0.1); Basophils Percent Auto 0.9 % (0.2-1.2); Eosinophils Absolute Auto 0.5 K/mm3 (0-0.3); Eosinophils Percent Auto 6.6 % (0-4.4); Hematocrit 39.3 % (42.0-52.0); Hemoglobin 13.2 g/dL (14.0-18.0); Immature Granulocyte Absolute 0.04 K/mm3 (0.00-0.031); Immature Granulocyte Percent A 0.5 % (0-0.5); Lymphocytes Absolute Auto 1.67 K/mm3 (0.9-3.2); Lymphocytes Percent Auto 20.3 % (18.3-44.2); Mean Corpuscular HGB Conc 33.6 g/dl (32-36); Mean Corpuscular Hemoglobin 30.6 pg (26-34); Mean Platelet Volume 9.3 fl (7.4-10.4); Monocytes Absolute Auto 0.7 K/mm3 (0.1-0.6); Monocytes Percent Auto 8.6 % (2.6-8.5); Neutrophils Absolute Auto 5.2 K/mm3 (1.3-6.7); Neutrophils Percent Auto 63.1 % (45.5-73.1); Platelet Count Result 240 k/mm3 (150-375); Red Blood Count 4.32 M/mm3 (4.6-6.20); Red Cell Distribution Width 13.5 % (11.5-14.5); White Blood Count 8.2 K/mm3 (4.5-10.0)
[2020-03-01 06:12] LABS: Alanine Aminotransferase 36 U/L (4-50); Albumin Level 3.3 g/dL (3.5-5.1); Alkaline Phosphatase 41 U/L (38-126); Anion Gap 3 mmol/L (8-16); Aspartate Amino Transferase 39 U/L (17-59); Bilirubin,Total 0.4 mg/dL (0.2-1.3); Blood Urea Nitrogen 14 mg/dL (9-20); CRP 0.8 mg/dL (<1.0); Calcium 8.6 mg/dL (8.4-10.2); Carbon Dioxide 29 mmol/L (22-30); Chloride 104 mmol/L (98-107); Estimated CRCL calculation 91 ml/min; Estimated Glomerular Filt Rate > 60; Glucose 104 mg/dL (75-110); Magnesium 1.9 mg/dL (1.6-2.3); Potassium 4.1 mmol/L (3.4-5.0); Sodium 136 mmol/L (137-145)
[2020-03-01 07:23] LABS: Thyroid Stimulating Hormone Reflex 0.933 uIU/mL (0.465-4.68)
[2020-03-01] MEDS: ROSUVASTATIN 10 MG TABLET 40 MG PO (08:26)
[2020-03-01] MEDS: rOPINIRole HCL 1 MG TABLET 4 MG PO (08:27)
[2020-03-01] MEDS: amLODIPine BESYLATE 5 MG TABLET 10 MG PO (08:27)
[2020-03-01] MEDS: THERAPEUTIC MULTIVITAMINS/MINERALS TAB (*BKC) 1 TABLET PO (08:27)
[2020-03-01] MEDS: CITALOPRAM HYDROBROMIDE 20 MG TABLET 40 MG PO (08:27)
[2020-03-01] MEDS: ASPIRIN 81 MG ENTERIC TABLET PO (08:27)
[2020-03-01] MEDS: PANTOPRAZOLE 40 MG TABLET PO (08:27)
[2020-03-01] MEDS: OMEGA 3 POLYUNSAT FATTY ACIDS 1 GM CAP PO (08:27)
--- NOTE | 2020-03-01 09:58 | PM.CNCAR ---
Assessment and Plan Assessment and plan (1) Recurrent syncope: Code(s): R55 - Syncope and collapse Status: Acute Assessment and Plan: ? Etiology. It sounds mostly orthostatic in etiology yet orthostatic blood pressures do not justify this diagnosis. Due to the fact that he had recurrent events including recurrent syncope is well several episodes of presyncope despite negative workup in the past, I do think that an implantable loop recorder is reasonable to ensure there is no arrhythmogenic etiology. He does not need a repeat echocardiogram or ischemic workup at this point. Will continue telemetry monitoring for now on toe loop recorder a is placed. He can be discharged shortly thereafter (2) Hyperlipidemia: Qualifiers: Hyperlipidemia type: mixed hyperlipidemia Qualified Code(s): E78.2 - Mixed hyperlipidemia Code(s): E78.5 - Hyperlipidemia, unspecified Status: Chronic Assessment and Plan: On statin (3) HEIDY on CPAP: Code(s): G47.33 - Obstructive sleep apnea (adult) (pediatric); Z99.89 - Dependence on other enabling machines and devices Status: Chronic (4) Benign essential hypertension: Code(s): I10 - Essential (primary) hypertension Status: Chronic Assessment and Plan: Above goal History of Present Illness History of Present Illness Consult date/time: 03/01/20 09:58 Requesting physician: Jewell Palm MD Consult reason: Other (syncope) Reason For Visit: syncope Narrative: Date of service 03/01/2020 History: Patient is a 64-year-old male with a history chest pain, hypertension, hyperlipidemia, obesity, anxiety, depression and recurrence dizziness and syncope. Patient follows with Dr. Marley as an outpatient. He reportedly had a coronary angiogram several years ago which was unremarkable. Stress echocardiogram was negative for ischemia. Recent myocardial perfusion study in the fall of 2019 was also normal. He has had recurrent episodes of syncope and presyncope over at least a last 2 year time frame. He was admitted in February 2018 for postural dizziness. Workup was unremarkable. In January 2020 he was seen again in our office for consideration of a loop recorder. An external monitor was prescribed. 2 hours after taking his monitor off, he had another syncopal episode. Patient states that he was getting up and walking to his room to hang up a sweater whenever he ended up on the ground. He is oftentimes groggy afterwards and P gets up too fast afterwards he will become a more lightheaded. Symptoms are as a for lytes which is being turned off but his symptoms generally occur in the process of standing upper soon after standing up. Orthostatics however have been negative. He denied any chest pain, paroxysmal nocturnal dyspnea, orthopnea, edema or unusual shortness of breath. He is under great deal of stress at home he states. Review of Systems Review of Systems: All systems reviewed & are unremarkable except as noted in HPI and below Constitutional: Constitutional: Denies fatigue Eyes: Eyes: Denies blurry vision ENT: Reports Normal hearing present Cardiovascular: Cardiovascular: Denies chest pain and Reports lightheadedness Respiratory: Respiratory: Denies dyspnea Gastrointestinal: Gastrointestinal: Denies abdominal pain Genitourinary: Genitourinary: Denies urinary frequency Musculoskeletal: Musculoskeletal: Denies back pain and Denies neck pain Integumentary/Breasts: Skin/Breast: Denies dry skin and Denies unusual bruising Neurologic: Denies headache(s) and Denies numbness Psychiatric: Psychiatric: Denies anxiety and Denies confusion Endocrine: Endocrine: Denies fatigue Hematologic/Lymphatic: Hematologic/Lymphatic: Denies easy bleeding Allergic/Immunologic: Allergic/Immunologic: Denies GI upset with certain foods PMFSH Past Medical History Medical History BMI
[2020-03-01 11:57] LABS: Glucose Point of Care 151 (65-105)
--- NOTE | 2020-03-01 14:35 | P.PCNCC_ITS ---
Cardiac Cath Procedure Note Date of procedure:: 03/01/20 Performing physician:: dEson Lizama MD Indication:: Recurrent unexplained syncope Brief clinical history:: This is a 64-year-old patient who has had several unexplained syncopal episodes and for further monitoring of his cardiac rhythm a implanted loop recorder has been recommended. Procedure Procedure performed:: Insertion of Medtronic LINQ loop recorder Sedation/Medication given:: No sedation Access site:: Left anterior chest wall Estimated blood loss:: Minimal Procedure note:: Patient was brought to the cardiac catheterization lab holding area where the left anterior chest wall was prepped and draped in the usual fashion. In a my was made in the 4th intercostal space the midclavicular line. After sterile draping this area was injected with 1% lidocaine. Following this using the supplied insertion kit the Medtronic LINQ loop recorder was implanted in this vicinity without difficulty or complication. Telemetry from the device with the analyzer was appropriate. Findings:: Unremarkable/uneventful implantation of Medtronic LINQ loop recorder Conclusion:: As above unremarkable implantation of LINQ loop recorder Edson Lizama MD [facility]
--- NOTE | 2020-03-01 14:59 | SUR.PHASEII ---
1450-pt had minimal oozing after pressure according to RT. Pressure dressing applied. No evidence of oozing noted. No evidence of distress noted or verbalized. Pt taken via wheelchair back to inpatient room.
--- NOTE | 2020-03-01 16:02 | PM.DS ---
DS: Admitting Diagnosis Admitting Diagnosis Admitting Diagnosis: syncope and collapse DS: Discharge Diagnosis Discharge Diagnosis (1) Syncope and collapse: Code(s): R55 - Syncope and collapse Status: Acute Assessment and Plan: Patient has had several syncopal episodes and has a thorough work up thus far. Patient asymptomatic through the night. Cardiology and Neurology Consulted and appreciate recommendations. Patient underwent a loop recorder implantation today per Dr. Lizama without complications. Okay for discharge from Cardiology standpoint after procedure F/u with Cardiology and PCP after discharge Monitor (2) DM2 (diabetes mellitus, type 2): Code(s): E11.9 - Type 2 diabetes mellitus without complications Status: Chronic Assessment and Plan: BGL well controlled during stay Accuchecks ACHS, hypoglycemia protocol, correctional insulin, diabetic diet during stay Continue metformin (3) Obstructive sleep apnea on CPAP: Code(s): G47.33 - Obstructive sleep apnea (adult) (pediatric); Z99.89 - Dependence on other enabling machines and devices Status: Acute Assessment and Plan: Continue CPAP (4) BPH (benign prostatic hyperplasia): Qualifiers: Lower urinary tract symptom presence: unspecified whether lower urinary tract symptoms present Qualified Code(s): N40.0 - Benign prostatic hyperplasia without lower urinary tract symptoms Code(s): N40.0 - Benign prostatic hyperplasia without lower urinary tract symptoms Status: Chronic Assessment and Plan: Continue with home medications (5) Positive colorectal cancer screening using Cologuard test: Code(s): R19.5 - Other fecal abnormalities Status: Acute Assessment and Plan: Patient is yet to get a colonoscopy. F/u with PCP (6) Costochondritis: Code(s): M94.0 - Chondrocostal junction syndrome [Tietze] Status: Acute Assessment and Plan: Patient is not able to take any NSAIDs due to his gastroesophageal reflux disease. (7) RLS (restless legs syndrome): Code(s): G25.81 - Restless legs syndrome Status: Chronic Assessment and Plan: Continue with ropinirole (8) Hyperlipidemia: Qualifiers: Hyperlipidemia type: mixed hyperlipidemia Qualified Code(s): E78.2 - Mixed hyperlipidemia Code(s): E78.5 - Hyperlipidemia, unspecified Status: Chronic Assessment and Plan: Continue with Crestor. (9) Generalized anxiety disorder: Code(s): F41.1 - Generalized anxiety disorder Status: Chronic Assessment and Plan: No acute issues overnight Continue home medications DS: Summary Hospital Course Reason for hospitalization: Syncope and collapse Hospital Course: Date of arrival: 02/29/20 Date of discharge: 03/01/20 Patient is a 64 yo M with history of DMII, depression, and previous syncopal episodes who presented to the ED on 02/28 with complaints of syncopal episode and collapse. He had reportedly had recurrent episodes of syncope and presyncope over the last 2 years with unremarkable extensive work up. He recently had an external monitor placed and 2 hours after taking the monitor off, he had another syncopal episode at home, prompting him to proceed to the ED for further evaluation. While in the ED, Head CT and CXR were grossly unremarkable; routine labs also grossly unremarkable. EKG showed sinus rhythm with first degree av block, incomplete RBBB, and voltage criteria for LVH. Dr. Paz (Neurology) and Dr. Watt (Cardiology) were consulted for further input. Orthostatic Blood
== END 2020-03-01 17:20 | disposition home or self-care (01) ==
LOC: ANHED 18:27 → ANH2MED 19:45
PROVIDERS: Nurse Practitioner; Physician Assistant; Specialist; Admitting Provider Family Medicine; Emergency Provider Emergency Medicine; PCP Internal Medicine; Visit Provider Internal Medicine
PROC: (CPT 33285; principal; 2020-03-01 14:30)
DX: R55 Syncope and collapse (principal); E11.9 Type 2 diabetes mellitus without complications; G47.33 Obstructive sleep apnea (adult) (pediatric); N40.0 Benign prostatic hyperplasia without lower urinary tract symptoms; R19.5 Other fecal abnormalities; M94.0 Chondrocostal junction syndrome [Tietze]; E78.5 Hyperlipidemia, unspecified; F41.1 Generalized anxiety disorder; K21.9 Gastro-esophageal reflux disease without esophagitis; G25.81 Restless legs syndrome; Z79.84 Long term (current) use of oral hypoglycemic drugs; Z98.1 Arthrodesis status; E66.9 Obesity, unspecified; Z68.33 Body mass index [BMI] 33.0-33.9, adult
CPT/HCPCS: 33285; 36415; 70450; 71045; 80053; 81003; 83735; 84443; 85025; 86140; 93005; 99285; A9270; C1764; G0378

== ENCOUNTER 2020-06-14 12:17 | Outpatient (CLI) | payer MEDICARE, SELFPAY ==
--- NOTE | ~2020-06-14 | MMUS_ITS ---
EXAMINATION: MM diagnostic mammo unilat RT, US breast RT limited HISTORY: Screening mammogram TECHNIQUE: Full field digital craniocaudal and mediolateral oblique views of the right breast were ob tained. Mediolateral oblique view of the left breast and spot compression image of the right breast a re also obtained. CAD analysis was submitted and interpreted. High resolution limited right breast ul trasound was performed. COMPARISON: No prior mammogram is available for comparison at this institution. BREAST PARENCHYMAL COMPOSITION: The breasts are almost entirely fatty. FINDINGS: MAMMOGRAM: There is no evidence of suspicious mass, calcification, or architectural distortion to bishop ggest malignancy. No mammographic correlate is identified for the reported palpable abnormality of th e right breast. ULTRASOUND: There is a 1.3 x 0.5 cm oval, circumscribed, parallel, hyperechoic mass with no posterior features or internal vascularity at the 3:00 location 7 cm from the nipple. IMPRESSION: 1. Right breast mass with mammographic and sonographic features consistent with a lipoma correspondin g to the palpable abnormality of concern. Continued follow-up physical examination is recommended. BI-RADS Category 2: Benign finding(s). Reviewed, dictated and finalized at location A. IMPRESSION: 1. Right breast mass with mammographic and sonographic features consistent with a lipoma corresponding to the palpable abnormality of concern. Continued follo w-up physical examination is recommended. BI-RADS Category 2: Benign finding(s).
== END 2020-06-14 12:18 | disposition home or self-care (01) ==
PROVIDERS: PCP Internal Medicine; Visit Provider Internal Medicine
DX: N63.10 Unspecified lump in the right breast, unspecified quadrant (principal); R92.8 Other abnormal and inconclusive findings on diagnostic imaging of breast
CPT/HCPCS: 76642; 77065

== ENCOUNTER → 2020-12-28 11:02 | Outpatient (CLI) | payer MEDICARE, SELFPAY ==
--- NOTE | ~2020-12-28 | XR_ITS ---
EXAMINATION: XR chest 2V DATE: 12/28/2020 11:26 INDICATION: Shortness of breath TECHNIQUE: PA and lateral views of the chest were obtained. COMPARISON: Chest radiograph dated 02/29/2020 FINDINGS: The lungs are clear with no focal airspace opacities, pulmonary edema, pleural effusion or pneumothor ax. Heart size is normal. Tortuous thoracic aorta. Left pectoral implantable rayon tester. Likely prior distal right clavicle resection. Plate and screw fixation for lower cervical anterior spinal fu kari. IMPRESSION: 1. No acute cardiopulmonary disease. Reviewed, dictated and finalized at location A.
== END ==
PROVIDERS: PCP Internal Medicine; Visit Provider Internal Medicine
DX: R06.02 Shortness of breath (principal)
CPT/HCPCS: 71046

== ENCOUNTER 2020-12-28 16:25 | Outpatient (CLI) | payer MEDICARE, SELFPAY ==
[2020-12-28 17:09] LABS: Basophils Absolute Auto 0.1 K/mm3 (0.0-0.1); Eosinophils Absolute Auto 0.4 K/mm3 (0-0.3); Eosinophils Percent Auto 4.9 % (0-4.4); Hematocrit 43.4 % (42.0-52.0); Hemoglobin 14.7 g/dL (14.0-18.0); Immature Granulocyte Absolute 0.05 K/mm3 (0.00-0.031); Immature Granulocyte Percent A 0.6 % (0-0.5); Lymphocytes Absolute Auto 1.77 K/mm3 (0.9-3.2); Lymphocytes Percent Auto 20.1 % (18.3-44.2); Mean Corpuscular HGB Conc 33.9 g/dl (32-36); Mean Corpuscular Hemoglobin 31.6 pg (26-34); Mean Corpuscular Volume 93.3 fl (80-100); Mean Platelet Volume 9.7 fl (7.4-10.4); Monocytes Absolute Auto 0.8 K/mm3 (0.1-0.6); Monocytes Percent Auto 9.2 % (2.6-8.5); Neutrophils Absolute Auto 5.7 K/mm3 (1.3-6.7); Neutrophils Percent Auto 64.2 % (45.5-73.1); Platelet Count Result 223 k/mm3 (150-375); Red Blood Count 4.65 M/mm3 (4.6-6.20); Red Cell Distribution Width 13.3 % (11.5-14.5); White Blood Count 8.8 K/mm3 (4.5-10.0)
[2020-12-28 17:30] LABS: Alanine Aminotransferase 44 U/L (4-50); Albumin Level 4.5 g/dL (3.5-5.1); Alkaline Phosphatase 43 U/L (38-126); Anion Gap 9 mmol/L (8-16); Aspartate Amino Transferase 36 U/L (17-59); Bilirubin,Total 0.6 mg/dL (0.2-1.3); Blood Urea Nitrogen 12 mg/dL (9-20); CRP < 0.5 mg/dL (<1.0); Calcium 9.3 mg/dL (8.4-10.2); Carbon Dioxide 26 mmol/L (22-30); Chloride 102 mmol/L (98-107); Cholesterol 131 mg/dL (0-200); Estimated Glomerular Filt Rate > 60; Glucose 94 mg/dL (65-110); HDL Direct 77 mg/dL; Potassium 4.3 mmol/L (3.4-5.0); Sodium 137 mmol/L (137-145); Triglycerides 97 mg/dL (<150)
[2020-12-28 17:38] LABS: LDL Cholesterol Direct 40 mg/dL
[2020-12-28 17:51] LABS: Free T4 Free Thyroxine 0.82 ng/mL (0.78-2.19); Vitamin D 25 Hydroxy 66.8 ng/mL
[2020-12-28 17:58] LABS: Prostate Specific Antigen 5.5 ng/mL (< OR = 4.0)
[2020-12-28 18:02] LABS: Erythrocyte Sedimentation Rate 1 mm/hr (0-20)
[2020-12-28 18:24] LABS: Hemoglobin A1C 6.1 % (<5.7)
[2020-12-28 18:33] LABS: Folic Acid 16.7 ng/mL (2.76->20)
== END 2020-12-28 16:26 | disposition home or self-care (01) ==
LOC: ANHLAB 16:30
PROVIDERS: PCP Internal Medicine; Visit Provider Internal Medicine
DX: R53.83 Other fatigue (principal); R06.02 Shortness of breath; Z79.899 Other long term (current) drug therapy; I10 Essential (primary) hypertension; G47.33 Obstructive sleep apnea (adult) (pediatric); Z99.89 Dependence on other enabling machines and devices; E11.9 Type 2 diabetes mellitus without complications; E78.2 Mixed hyperlipidemia; Z12.5 Encounter for screening for malignant neoplasm of prostate; E55.9 Vitamin D deficiency, unspecified
CPT/HCPCS: 36415; 80053; 80061; 82306; 82607; 82746; 83036; 84153; 84439; 85025; 85652; 86140; G0103

== ENCOUNTER 2021-01-25 07:23 | Outpatient (CLI) | payer MEDICARE, SELFPAY ==
--- NOTE | ~2021-01-25 | XR_ITS ---
EXAMINATION: XR UGIAC w barium swallow DATE: 01/25/2021 08:11 INDICATION: Dysphagia. Unspecified fluid retention. TECHNIQUE: The patient drank thick barium, gas-producing crystals, and thin barium. Fluoroscopic spot radiographs of the hypopharynx, esophagus, stomach and proximal small bowel were obtained. A total o f 1391 images were recorded. Fluoroscopy exposure time was 2.0 minutes. Total DAP was 16.291 mGycm^2 COMPARISON: None. FINDINGS: The pharynx is symmetric and without evidence of mass lesion or mucosal irregularity. The esophagus i s normal without mass or stricture. Esophageal dysmotility with poor progression of the primary peris taltic wave and ineffectual secondary peristalsis resulting in some pooling of contrast throughout th e esophagus. Small sliding-type hiatal hernia with gastroesophageal junction approximately 4.5 cm abo ve level of the diaphragm. There was no spontaneous gastroesophageal reflux as well as additional ref lux with provocative maneuvers. Moderate amount of contrast extending proximally to the upper thoraci c esophagus. The stomach and proximal small bowel are normal. Anterior plate and screw fixation for l ower cervical anterior spinal fusion. IMPRESSION: 1. Small sliding-type hiatal hernia with gastroesophageal reflux. 2. Mild to moderate esophageal dysmotility which is likely related to combination of age and chronic esophagitis related to reflux. Reviewed, dictated and finalized at location A. [employer] IMPRESSION: 1. Small sliding-type hiatal hernia with gastroesophageal reflux. 2. Mild to moderate esophageal dysmotility which is likely related to combinati on of age and chronic esophagitis related to reflux.
== END 2021-01-25 07:24 | disposition home or self-care (01) ==
LOC: ANHIMG 07:23
PROVIDERS: PCP Internal Medicine; Visit Provider Internal Medicine
DX: R13.10 Dysphagia, unspecified (principal); R19.8 Other specified symptoms and signs involving the digestive system and abdomen; R06.02 Shortness of breath
CPT/HCPCS: 74246

== ENCOUNTER 2021-03-03 01:41 | Day surgery (SDC) | payer MEDICARE, SELFPAY ==
[2021-02-14 08:42] VITALS: BMI 33.5
[2021-03-03 11:17] VITALS: BP 168/99; PULSE 78; RESP 18; TEMP 36.3; O2SAT 97
[2021-03-03 11:18] VITALS: BMI 35.2
[2021-03-03 11:25] LABS: Glucose Point of Care 98 mg/dl (65-105)
--- NOTE | 2021-03-03 11:30 | WPDGICN ---
Assessment and Plan Assessment and plan (1) Colon cancer screening: Code(s): Z12.11 - Encounter for screening for malignant neoplasm of colon Status: Acute Assessment and Plan: Patient presents for neoplasia screening. He does have a prior history of of Cologuard test that was positive. Further recommendations will be given after endoscopy. Because of irregular bowel movements fiber supplement such as FiberCon or Metamucil is advised. (2) Dysphagia: Code(s): R13.10 - Dysphagia, unspecified Status: Acute Assessment and Plan: Patient has a history of esophageal web likely on the basis of GE reflux. Follow-up EGD at this time because of epigastric discomfort patient remains on Prilosec currently. (3) Epigastric abdominal pain: Code(s): R10.13 - Epigastric pain Status: Acute Assessment and Plan: Patient has vague epigastric pain primarily left upper quadrant with irregular symptoms gas bloating and gurgling. Plan to continue Prilosec further recommendations will be given after endoscopy. GI Consult Note Consult date/time: 03/03/21 11:30 HPI: Doc Johnston is a 65 year old male Presents for or GI endoscopy. Patient complains of left upper quadrant indigestion. He feels gurgling in his stomach. Somewhat aggravated by eating. He does take Prilosec because of a history of distal esophageal web. He is felt to have underlying acid reflux. Because of epigastric discomfort an EGD is requested. Patient denies any overt difficulty swallowing present. Additionally patient has a history of a Cologuard test that was positive in he now notes that his stools are somewhat irregular. For this reason a colonoscopy is advised. Review of Systems Review of Systems: All systems reviewed & are unremarkable except as noted in HPI and below [facility] Past Medical History Medical History BMI 32.0-32.9,adult BMI 33.0-33.9,adult BMI 34.0-34.9,adult Cervicalgia Chest pain, unspecified Colon cancer screening Costochondritis DDD (degenerative disc disease) Depression DM2 (diabetes mellitus, type 2) Dysphagia Dyspnea on exertion Encounter for routine adult health examination with abnormal findings Encounter for routine adult health examination without abnormal findings Encounter for special screening examination for neoplasm of prostate Fatigue Follow up Generalized anxiety disorder GERD (gastroesophageal reflux disease) History of esophageal stricture With dilatation x2. Hospital discharge follow-up Hyperlipidemia Increased abdominal girth Insomnia Mass of right breast Obstructive sleep apnea on CPAP Positive colorectal cancer screening using Cologuard test Pre-diabetes Hemoglobin A1c was 5.9 in May 2018. Restless legs syndrome (RLS) Shingles Shortness of Breath Syncope Hospitalized for syncopal episode on March 14, 2018. [place] to be related to postural dizziness. Workup was unrevealing. Vitamin D deficiency Surgical History Surgical History Hx of cardiac cath Status post cervical spinal fusion C6-C7. Status post rotator cuff repair Bilateral. Family History Family History Father Prostate carcinoma Dialysis patient Diabetes mellitus Hypertension Mother Asthma Hypertension Sibling Bladder cancer Asthma Agent orange exposure Sibling Hypertension Asthma Social History Social History Smoking status: Former smoker Tobacco type: cigarettes Second hand tobacco smoke exposure: No Additional smoking assessment comments: smoked as a teenager Alcohol intake: current Drinks per week: 7 Alcohol use details: nightly with dinner Substance use: never Substance use type: does not use Living arrangements: with fam
[2021-03-03] MEDS: LACTATED RINGERS 1,000 ML 150 ML IV CONT (11:34)
--- NOTE | 2021-03-03 11:38 | WPDANESEPPF ---
Anes - Initial Pre Proc Eval Procedure: Operation Date: 03/03/21 12:30 Proposed Procedures p Esophagogastroduodenoscopy & Colonoscopy - Marko Bain MD Date/Time: 03/03/21 11:38 Surgeon: Marko Bain MD Pre Op Diagnosis: dysphagia,esophageal dysmotility, pos.cologuard Patient Data Age: 65 Gender: M Height: 1.73 m Weight: 105.2 kg Last Vital Signs Temp 97.4 F L 03/03/21 11:17 Pulse 78 03/03/21 11:17 Resp 18 03/03/21 11:17 BP 168/99 H 03/03/21 11:17 Pulse Ox 97 03/03/21 11:17 Allergies Allergy/AdvReac Type Severity Reaction Status Date / Time Penicillins Allergy Unknown Unknown Verified 03/03/21 11:15 Home Medications Medication Instructions Recorded Confirmed Type Daily Multivitamin 1 cap PO DAILY 04/07/19 02/14/21 History aspirin [Adult Low Dose Aspirin] 81 mg PO DAILY #60 tablet 04/08/19 02/14/21 Rx omega-3 fatty acids-vitamin E 1 cap PO DAILY 02/05/20 02/14/21 History loratadine-pseudoephedrine ER 10 1 tablet PO DAILY 03/12/20 02/14/21 History mg-240 mg tablet,extended [id number] citalopram 40 mg tablet See Rx Instructions .ROUTE 05/03/20 02/14/21 Rx .COMPLEX #90 tablet omeprazole 40 mg capsule,delayed See Rx Instructions .ROUTE 05/18/20 02/14/21 Rx release .COMPLEX #90 cap rosuvastatin 40 mg tablet 40 mg PO DAILY #90 tablet 05/18/20 01/14/21 Rx losartan 100 mg tablet See Rx Instructions .ROUTE 06/16/20 02/14/21 Rx .COMPLEX #90 tablet ropinirole 4 mg tablet See Rx Instructions .ROUTE 07/13/20 03/03/21 Rx .COMPLEX #270 tablet bupropion HCl 150 mg 24 hr tablet, See Rx Instructions .ROUTE 07/14/20 02/14/21 Rx extended release .COMPLEX #90 tablet ezetimibe 10 mg tablet See Rx Instructions .ROUTE 07/14/20 02/14/21 Rx .COMPLEX #90 tablet tamsulosin 0.4 mg capsule See Rx Instructions .ROUTE 08/02/20 02/14/21 Rx .COMPLEX #90 cap trazodone 50 mg tablet See Rx Instructions .ROUTE 11/24/20 02/14/21 Rx .COMPLEX #270 tablet metformin 1,000 mg tablet See Rx Instructions .ROUTE 12/16/20 02/14/21 Rx .COMPLEX #90 tablet hydrochlorothiazide 12.5 mg tablet 12.5 mg PO DAILY #90 tablet 12/28/20 02/14/21 Rx amlodipine 5 mg PO DAILY 02/14/21 02/14/21 History Laboratory Tests 03/03/21 11:23 POC Capillary Glucose 98 mg/dl mg/dl (65-105) Patient hx anesthesia problems: none Family hx anesthesia problems: none Results Review: All pre-operative results and documents have been reviewed as part of the pre-operative evaluation. [facility] Past Medical History Medical History BMI 32.0-32.9,adult BMI 33.0-33.9,adult BMI 34.0-34.9,adult Cervicalgia Chest pain, unspecified Colon cancer screening Costochondritis DDD (degenerative disc disease) Depression DM2 (diabetes mellitus, type 2) Dysphagia Dyspnea on exertion Encounter for routine adult health examination with abnormal findings Encounter for routine adult health examination without abnormal findings Encounter for special screening examination for neoplasm of prostate Fatigue Follow up Generalized anxiety disorder GERD (gastroesophageal reflux disease) History of esophageal stricture With dilatation x2. Hospital discharge follow-up Hyperlipidemia Increased abdominal girth Insomnia Mass of right breast Obstructive sleep apnea on CPAP Positive colorectal cancer screening using Cologuard test Pre-diabetes Hemoglobin A1c was 5.9 in May 2018. Restless legs syndrome (RLS) Shingles Shortness of Breath Syncope Hospitalized for syncopal episode on March 14, 2018. [place] to be related to postural dizziness. Workup was unrevealing. Vitamin D deficiency Surgical History Surgical History Hx of cardiac cath Status post cervical spinal fusion C6-C7. Status post rotator cuff repair Bilateral. Family History Family History Fathe
[2021-03-03] MEDS: BENZOCAINE (*SP) 60 ML SPRAY CAN (HURRICAINE) 1 SPRAY MUCOUS MEM (12:05)
--- NOTE | 2021-03-03 12:37 | SUR.OPER ---
EGD START 1208, END 1211 COLONOSCOPY START 1218, END 1233
[2021-03-03 12:39] VITALS: BP 110/72; PULSE 61; RESP 15; O2SAT 93
[2021-03-03 12:49] VITALS: BP 124/83; PULSE 56; RESP 16; O2SAT 98
[2021-03-03 12:58] LABS: Glucose Point of Care 95 mg/dl (65-105)
[2021-03-03 12:59] VITALS: BP 136/66; PULSE 66; RESP 16; O2SAT 96
== END 2021-03-03 13:26 | disposition home or self-care (01) ==
PROVIDERS: PCP Internal Medicine; Visit Provider Internal Medicine Gastroenterology
PROC: 0DJ08ZZ Inspection of Upper Intestinal Tract, Via Natural or Artificial Opening Endoscopic (ICD-10-PCS; CPT 43235; principal; 2021-03-03 12:30)
DX: Z12.11 Encounter for screening for malignant neoplasm of colon (principal); R19.4 Change in bowel habit; D12.2 Benign neoplasm of ascending colon; K63.5 Polyp of colon; K64.8 Other hemorrhoids; R10.13 Epigastric pain; R13.10 Dysphagia, unspecified; K21.9 Gastro-esophageal reflux disease without esophagitis; E78.5 Hyperlipidemia, unspecified; E11.9 Type 2 diabetes mellitus without complications; G47.33 Obstructive sleep apnea (adult) (pediatric); G25.81 Restless legs syndrome; E55.9 Vitamin D deficiency, unspecified; Z98.1 Arthrodesis status; Z87.891 Personal history of nicotine dependence; Z79.82 Long term (current) use of aspirin; Z79.84 Long term (current) use of oral hypoglycemic drugs; E66.9 Obesity, unspecified; Z68.34 Body mass index [BMI] 34.0-34.9, adult
CPT/HCPCS: 43239; 45385; 82948; 87081; 88305; J2704; J7120

== ENCOUNTER 2021-06-13 16:31 | Outpatient (CLI) | payer MEDICARE, SELFPAY ==
[2021-06-13 16:47] LABS: Basophils Absolute Auto 0.1 K/mm3 (0.0-0.1); Basophils Percent Auto 0.6 % (0.2-1.2); Eosinophils Absolute Auto 0.4 K/mm3 (0-0.3); Eosinophils Percent Auto 3.4 % (0-4.4); Hematocrit 46.1 % (42.0-52.0); Immature Granulocyte Absolute 0.03 K/mm3 (0.00-0.031); Immature Granulocyte Percent A 0.3 % (0-0.5); Lymphocytes Absolute Auto 1.87 K/mm3 (0.9-3.2); Lymphocytes Percent Auto 17.3 % (18.3-44.2); Mean Corpuscular HGB Conc 32.5 g/dl (32-36); Mean Corpuscular Hemoglobin 30.2 pg (26-34); Mean Corpuscular Volume 92.8 fl (80-100); Mean Platelet Volume 9.6 fl (7.4-10.4); Monocytes Percent Auto 9.1 % (2.6-8.5); Neutrophils Absolute Auto 7.5 K/mm3 (1.3-6.7); Neutrophils Percent Auto 69.3 % (45.5-73.1); Platelet Count Result 246 k/mm3 (150-375); Red Blood Count 4.97 M/mm3 (4.6-6.20); Red Cell Distribution Width 13.4 % (11.5-14.5); White Blood Count 10.8 K/mm3 (4.5-10.0)
[2021-06-13 17:03] LABS: Anion Gap 6 mmol/L (8-16); Blood Urea Nitrogen 14 mg/dL (9-20); Calcium 9.4 mg/dL (8.4-10.2); Carbon Dioxide 31 mmol/L (22-30); Chloride 98 mmol/L (98-107); Estimated Glomerular Filt Rate > 60; Glucose 118 mg/dL (65-110); Magnesium 1.9 mg/dL (1.6-2.3); Potassium 3.9 mmol/L (3.4-5.0); Sodium 135 mmol/L (137-145)
== END 2021-06-13 16:32 | disposition home or self-care (01) ==
PROVIDERS: PCP Internal Medicine; Visit Provider Internal Medicine
DX: R42 Dizziness and giddiness (principal); I95.1 Orthostatic hypotension; Z51.81 Encounter for therapeutic drug level monitoring; Z79.899 Other long term (current) drug therapy
CPT/HCPCS: 36415; 80048; 83735; 85025

== ENCOUNTER 2021-08-18 11:21 | Outpatient (CLI) | payer MEDICARE, SELFPAY ==
--- NOTE | ~2021-08-18 | XR_ITS ---
EXAMINATION: XR knee RT 3V DATE: 08/18/2021 12:02 INDICATION: Right knee pain. TECHNIQUE: 3 views of right knee including standing views were obtained. COMPARISON: Right tibia and fibula radiographs 12/02/2014 FINDINGS: Bone alignment is normal. No acute fracture. There is an old healed fracture of fibular nec k. There is mild tricompartmental osteoarthritis characterized by tiny osteophytes. No joint space na rrowing. There is a small knee joint effusion. There is mild superficial infrapatellar bursitis. IMPRESSION: 1. Mild right knee osteoarthritis. 2. Small right knee joint effusion. Reviewed, dictated and finalized at location A.
== END 2021-08-18 11:22 | disposition home or self-care (01) ==
PROVIDERS: PCP Internal Medicine; Visit Provider Internal Medicine
DX: M17.11 Unilateral primary osteoarthritis, right knee (principal); M25.461 Effusion, right knee
CPT/HCPCS: 73562

== ENCOUNTER → 2021-09-15 07:43 | Outpatient (CLI) | payer MEDICARE, SELFPAY ==
--- NOTE | ~2021-09-15 | MR_ITS ---
EXAMINATION: MR knee RT wo con DATE: 09/15/2021 08:41 INDICATION: Right knee pain TECHNIQUE: Magnetic resonance imaging (MRI) of the right knee was performed without intravenous contr ast. Sequences included coronal PD-weighted FSE, coronal PD-weighted FS FSE, sagittal T2-weighted FS E, sagittal PD-weighted FS FSE and axial PD weighted fat saturated FSE. COMPARISON: Right knee radiographs dated 08/18/2021 FINDINGS: Medial compartment: Complex tear of the body and posterior horn of the medial meniscus. Partial-thickness chondral ulcera tion and fissuring along the anterior to central weightbearing medial femoral condyle. Tiny focus of minimal edema-like subarticular signal change at the posterior weightbearing medial femoral condyle. Cartilage along the medial tibial plateau is normal. Lateral compartment: Lateral meniscus is normal. Articular cartilage is normal. Patellofemoral compartment: Thickness chondral ulceration along the cephalad aspect of the medial patellar facet. There is a donavon minating tear at the chondral labral interface extending 6 mm laterally from the region of ulceration across the cephalad aspect of the patellar apical ridge. Chondral ulceration and deep fissuring with underlying cortical irregularity and minimal edema-like signal change at the inferolateral aspect of the medial trochlea. Ligaments and tendons: Anterior and posterior cruciate ligaments are normal. The medial collateral ligament and fibular luca ateral ligament complex are normal. The extensor mechanism is normal. Tendinopathy without discrete t ear at the anterior branch of the semimembranosus tendon. The visualized medial and lateral hamstring tendons as well as the iliotibial band are otherwise normal. Fluid: Moderate-sized right knee joint effusion. Mild prepatellar edema and trace amount of fluid in the pre patellar bursa consistent with mild bursitis. No loose osteochondral bodies identified. Osseous/other: Normal marrow signal separate previous noted minimal subarticular edema-like signal changes. Old heal ed fracture deformity proximal metadiaphysis of the right fibula. No acute fracture or pathologic mar row replacing process. IMPRESSION: 1. Complex medial meniscal tear. 2. Mild osteoarthritis with regions of moderate and high-grade chondromalacia in the medial and murguia lofemoral compartments. 3. Moderate-sized right knee joint effusion. 4. Minimal prepatellar bursitis. 5. Mild tendinopathy without discrete tear of the anterior branch of the distal semimembranosus tendo n. Reviewed, dictated and finalized at location A. IMPRESSION: 1. Complex medial meniscal tear. 2. Mild osteoarthritis with regions of moderate and high-grade chondromalacia i n the medial and patellofemoral compartments. 3. Moderate-sized right knee joint effusion. 4. Minimal prepatellar bursitis. 5. Mild tendinopathy without discrete tear of the anterior branch of the distal semimembranosus tendon.
== END ==
PROVIDERS: PCP Internal Medicine; Visit Provider Nurse Practitioner Family
DX: S83.231A Complex tear of medial meniscus, current injury, right knee, initial encounter (principal); X58.XXXA Exposure to other specified factors, initial encounter; M25.461 Effusion, right knee; M17.11 Unilateral primary osteoarthritis, right knee; M70.41 Prepatellar bursitis, right knee
CPT/HCPCS: 73721

== ENCOUNTER 2021-10-27 08:47 | Outpatient (CLI) | payer MEDICARE, SELFPAY ==
--- NOTE | 2021-10-27 09:05 | ECG_ITS ---
Measurements Intervals [place] Rate: 52 P: 25 MS: 211 QRS: 0 QRSD: 90 T: 99 QT: 391 QTc: 366 Interpretive Statements SINUS BRADYCARDIA WITH FIRST DEGREE AV BLOCK INCOMPLETE RIGHT BUNDLE BRANCH BLOCK NONSPECIFIC T-WAVE ABNORMALITY- HIGH LATERAL LEADS BASELINE ARTIFACT- II, III, AVF COMPARED TO ECG 02/29/2020 16:11:17 SINUS BRADYCARDIA NOW PRESENT Electronically Signed On 10-27-2021 9:29:51 CDT by Sherwin Okeefe D.O.
[2021-10-27 09:33] LABS: Anion Gap 10 mmol/L (8-16); Blood Urea Nitrogen 12 mg/dL (9-20); Calcium 9.2 mg/dL (8.4-10.2); Carbon Dioxide 30 mmol/L (22-30); Chloride 96 mmol/L (98-107); Estimated Glomerular Filt Rate > 60; Glucose 104 mg/dL (65-110); Potassium 3.9 mmol/L (3.4-5.0); Sodium 136 mmol/L (137-145)
== END 2021-10-27 08:48 | disposition home or self-care (01) ==
LOC: ANHSURGERY 08:54
PROVIDERS: Anesthesiology; PCP Internal Medicine; Visit Provider Orthopaedic Surgery
DX: E11.9 Type 2 diabetes mellitus without complications (principal); Z01.818 Encounter for other preprocedural examination; I45.10 Unspecified right bundle-branch block; I44.0 Atrioventricular block, first degree
CPT/HCPCS: 36415; 80048; 93005

== ENCOUNTER 2021-11-01 00:33 | Day surgery (SDC) | payer OTHER, MEDICARE, SELFPAY ==
[2021-10-25 11:38] VITALS: BMI 32.0
--- NOTE | 2021-10-25 11:41 | PC.NURSE ---
PRE-OP INSTRUCTIONS, PLEASE READ CAREFULLY Report to the Outpatient Waiting Room, entrance under the green pavilion located off [facility], at time _1130_ on date _11/01/21_. OR Time: _1:30PM_. BRING YOUR CRUTCHES WITH YOU THE DAY OF SURGERY - You and your visitor will be asked to self-screen and do not enter if you have any COVID symptoms. - Only one visitor and NO children visitors are allowed at this time. - The patient visitor is requested to leave or wait in car when not with patient due to restrictions. - A mask is required within the hospital. Patients may have clear liquids (water, carbonated beverages, clear teas, apple juice) until 3 hours prior to surgery (1030 AM) with a maximum of 20 ounces. - No food from midnight until time of surgery Take the following medications with a SIP of water the morning of surgery: _CITALOPRAM, TYLENOL/TRAMADOL IF NEEDED_ Medications to discontinue _IBUPROFEN PER DR. RUST'S INSTRUCTIONS__ Medications to discontinue per ANESTHESIA - _VITAMINS/SUPPLEMENTS 3 DAYS PRIOR TO SURGERY, Date to take last dose 10/28/21_ Please no make-up, nail bulgarian, hairspray, perfume, deodorant, or body powder the day of surgery. No jewelry (including any body piercings) or valuables the day of surgery, leave them at home. Please take a shower or bath the night before, or the morning of, surgery with an antibacterial soap. Wear comfortable, loose fitting clothing. - Jewelry must be removed prior to entering the operating room. Rings and piercings that are not removed may be cut off. - The hospital will not accept responsibility for valuables. - Please leave all valuables, including medications, at home the day of surgery. If you are going home after surgery, a licensed bus driver must drive you home. - NO public transportation without another adult. - We recommend that an adult stay with you for 24 hours following discharge. - We also recommend that you do not drive, make important decision, drink alcoholic beverages, or take any drugs that were not prescribed by your health care provider for at least 24 hours after your discharge time. Follow any additional instructions given to you from your surgeon. If you or anyone in your household have experienced Covid symptoms in the past week, please notify your surgeon or the nurse liaison at the phone number below for possible testing. Telephone instructions given to ___PT and asked if any additional questions and then verbalized understanding. Patient advised to call surgeon office or pre surgery nurse liaison [phone] if any additional questions.
[2021-11-01] VITALS (11 sets, daily range): BP systolic 153–186; BP diastolic 86–110; PULSE 56–84; RESP 12–18; TEMP 36.6–36.7; O2SAT 93–100
--- NOTE | 2021-11-01 07:14 | WPDHPUPDATE1 ---
History and Physical Update Update Date/Time: 11/01/21 07:14 History and Physical has been reviewed, including an updated exam of the patient. There are NO changes in the patient's condition. Risks, benefits, and alternatives have been discussed and questions answered. Patient agrees to proceed with procedure.
[2021-11-01] MEDS: CELECOXIB 200 MG CAPSULE PO (11:56)
[2021-11-01] MEDS: ACETAMINOPHEN 500 MG TABLET 1000 MG PO (11:56)
[2021-11-01] MEDS: LACTATED RINGERS 1,000 ML 30 ML IV CONT ×2 (12:12→15:22)
[2021-11-01 12:15] LABS: Glucose Point of Care 105 mg/dl (65-105)
--- NOTE | 2021-11-01 13:04 | WPDANESEPPF ---
Anes - Initial Pre Proc Eval Procedure: Operation Date: 11/01/21 13:30 Proposed Procedures p Right Knee Arthroscopy - Marko Noonan MD Date/Time: 11/01/21 13:04 Surgeon: Marko Noonan MD Pre Op Diagnosis: Rt Knee Medial Meniscus Tear Patient Data Age: 65 Gender: M Height: 1.73 m Weight: 102 kg Last Vital Signs Temp 36.7 C 11/01/21 11:52 Pulse 71 11/01/21 11:52 Resp 16 11/01/21 11:52 BP 158/92 H 11/01/21 11:52 Pulse Ox 98 11/01/21 11:52 O2 Del Method Room Air 11/01/21 11:52 Allergies Allergy/AdvReac Type Severity Reaction Status Date / Time Penicillins Allergy Unknown Unknown- Verified 11/01/21 11:40 A CHILD Home Medications Medication Instructions Recorded Confirmed Type [id number]-GL 200 mcg-vit K 100 1 cap PO DAILY 04/07/19 11/01/21 History mcg-lycop 500 [id number] capsule (Daily Multivitamin) omega-3 fatty acids-vitamin E 1 cap PO DAILY 02/05/20 11/01/21 History 1,000 mg capsule loratadine-pseudoephedrine ER 10 1 tablet PO DAILY 03/12/20 11/01/21 History mg-240 mg tablet,extended [id number] (Claritin-D 24 Hour) losartan 100 mg tablet See Rx Instructions .Route 06/16/20 11/01/21 Rx .COMPLEX #90 tabs ezetimibe 10 mg tablet See Rx Instructions .Route 07/14/20 11/01/21 Rx .COMPLEX #90 tabs metformin 1,000 mg tablet See Rx Instructions .Route 12/16/20 11/01/21 Rx .COMPLEX #90 tabs hydrochlorothiazide 12.5 mg tablet 12.5 mg PO DAILY #90 tabs 12/28/20 11/01/21 Rx clonazepam 1 mg tablet 1 mg PO HS #30 tabs 06/09/21 11/01/21 Rx pantoprazole 40 mg tablet,delayed 40 mg PO QAM #90 tabs 06/09/21 11/01/21 Rx release tramadol 50 mg tablet 50 mg PO Q6H PRN pain #30 tabs 06/09/21 10/25/21 Rx citalopram 40 mg tablet See Rx Instructions .Route 08/22/21 11/01/21 Rx .COMPLEX #90 tabs terbinafine HCl 250 mg tablet 250 mg PO DAILY #30 tabs 09/20/21 11/01/21 Rx ropinirole 4 mg tablet See Rx Instructions .Route 09/26/21 11/01/21 Rx .COMPLEX #270 tabs rosuvastatin 40 mg tablet See Rx Instructions .Route 09/27/21 11/01/21 Rx .COMPLEX #90 tabs acetaminophen 500 mg tablet 1,000 mg PO Q6H PRN Pain 10/25/21 10/25/21 History chlorhexidine gluconate 4 % 1 applic topical ONCE #237 mL 10/25/21 10/25/21 Rx topical liquid (Hibiclens) ibuprofen 200 mg tablet 400 mg PO Q6H PRN Pain 10/25/21 10/25/21 History Laboratory Tests 11/01/21 12:13 POC Capillary Glucose 105 mg/dl mg/dl (65-105) Patient hx anesthesia problems: none Family hx anesthesia problems: none Results Review: All pre-operative results and documents have been reviewed as part of the pre-operative evaluation. [facility] Past Medical History Medical History Anxiety BMI 32.0-32.9,adult BMI 33.0-33.9,adult BMI 34.0-34.9,adult Cervicalgia Chest pain, unspecified Colon cancer screening Costochondritis DDD (degenerative disc disease) Depression DM2 (diabetes mellitus, type 2) Dysphagia Dyspnea on exertion Encounter for routine adult health examination with abnormal findings Encounter for routine adult health examination without abnormal findings Encounter for special screening examination for neoplasm of prostate Fatigue Follow up Generalized anxiety disorder GERD (gastroesophageal reflux disease) History of esophageal stricture With dilatation x2. Hospital discharge follow-up Hyperlipidemia Increased abdominal girth Insomnia Knee injury Mass of right breast Obstructive sleep apnea on CPAP Orthostatic hypotension Positive colorectal cancer screening using Cologuard test Pre-diabetes Hemoglobin A1c was 5.9 in May 2018. Restless legs syndrome (RLS) Right knee pain Shingles Shortness of Breath Syncope Hospitalized for syncopal episode on March 14, 2018. [place] to be related to postural dizziness. Workup was unrevealing. Vitamin D deficiency Wears glasses Wheezing Surgical History Surgica
--- NOTE | 2021-11-01 13:38 | SUR.PREOP ---
Discussed delay with patient and . Voices understanding.
[2021-11-01] MEDS: ceFAZolin 2 GM/D5W 50 ML 2 GM/50 ML BAG IVPB (14:16)
[2021-11-01] MEDS: BUPIVACAINE HCL 0.5% PF 30 ML VIAL INFILTRATE (14:49)
--- NOTE | 2021-11-01 15:29 | W.PM.PROC2 ---
Procedure Note - Detailed Date of Procedure 11/01/21 Pre-op Diagnosis Rt Knee Medial Meniscus Tear Post-op Diagnosis Same Procedure Performed RIGHT KNEE SCOPE Surgeon Marko Noonan MD Anesthesia General Description of Procedure PATIENT WAS TAKEN TO THE OR. RIGHT LEG WAS PREPPED AND DRAPED STERILE. TROCARS WERE PLACED IN THE USUAL FASHION. CAMERA WAS INTRODUCED. THERE WAS CHONDROMALACIA TO THE PATELLA FEMORAL JOINT. THERE WAS A LOT OF SYNOVITIS IN ALL COMPARTMENTS. THE MEDIAL COMPARTMENT SHOWED CHONDROMALACIA TO THE MEDIAL FEMORAL CONDYLE. A SHAVER WAS USED TO PREFORM A CHONDROPLASTY. THERE WAS A LARGE COMPLEX MEDIAL MENISCUS TEAR. THE TEAR WAS RESECTED WITH A BITER AND A SHAVER DOWN TO A SMOOTH BASE. ABOUT 30% OF THE MENISCUS WAS REMOVED. THE ACL WAS INTACT. THERE WAS EXTENSIVE SYNOVITIS. SYNOVECTOMY WAS PREFORMED. THE LATERAL MENISCUS WAS NOT TORN. THERE WAS MINIMAL CHONDROMALACIA TO THE LATERAL COMPARTMENT. THE PATELLO FEMORAL JOINT UNDERWENT CHONDROPLASTY. THERE WAS GRADE 3 CHONDROMALACIA IN PART OF THE TROCHLEA AND PART OF THE PATELLA. SYNOVECTOMY WAS PREFORMED IN THE SUPERIOR MEDIAL COMPARTMENT. THE WOUNDS WERE APPROXIMATED WITH 4.0 NYLON. STERILE DRESSING WAS APPLIED. PATIENT WAS EXTUBATED. Estimated Blood Loss 5 Complications No immediate complications Condition Stable Disposition PACU
[2021-11-01] MEDS: fentaNYL CITRATE INJ (*CRX) 100 MCG/2 ML VIAL 25 MCG IV PUSH ×8 (15:45→16:44)
[2021-11-01] MEDS: HYDROmorphone HCL INJ (*CRX) 1 MG/ML SYR IV PUSH ×3 (16:30→16:48)
[2021-11-01 16:55] LABS: Glucose Point of Care 107 mg/dl (65-105)
[2021-11-01] MEDS: oxyCODONE HCL (*CRX) 5 MG TAB IR PO (17:13)
[2021-11-01] MEDS: ONDANSETRON INJ 4 MG/2 ML VIAL IV PUSH (18:05)
--- NOTE | 2021-11-01 18:05 | SUR.PHASEII ---
180- This RN administered zofran 4MG IVP, see MAR. At this same time Dr. Mckeon in to assess patient at bedside and speak with patient and spouse Eulalia. Patient's BP elevated 170's over 100's with HR in 50-60's. Patient reports he did not take home medication for blood pressure. Dr. Mckeon educated and patient on fluctuation in BP's post operatively and instructed patient to resume his normal blood pressure medicines upon discharge home. All questions and concerns answered at this time and anesthesiologist OK with patient being discharged home.
== END 2021-11-01 18:33 | disposition home or self-care (01) ==
PROVIDERS: PCP Internal Medicine; Visit Provider Orthopaedic Surgery
PROC: (CPT 29870; principal; 2021-11-01 13:30)
DX: S83.231A Complex tear of medial meniscus, current injury, right knee, initial encounter (principal); W01.0XXA Fall on same level from slipping, tripping and stumbling without subsequent striking against object, initial encounter; E11.9 Type 2 diabetes mellitus without complications; E78.5 Hyperlipidemia, unspecified; K21.9 Gastro-esophageal reflux disease without esophagitis; F32.A Depression, unspecified; F41.1 Generalized anxiety disorder; G47.33 Obstructive sleep apnea (adult) (pediatric); G25.81 Restless legs syndrome; E55.9 Vitamin D deficiency, unspecified; Z79.84 Long term (current) use of oral hypoglycemic drugs; Z98.1 Arthrodesis status; Z87.891 Personal history of nicotine dependence; E66.9 Obesity, unspecified; Z68.34 Body mass index [BMI] 34.0-34.9, adult
CPT/HCPCS: 29881; 82948; A9270; J0690; J1040; J1100; J1170; J1885; J2250; J2370; J2405; J2704; J3010; J7120

== ENCOUNTER 2022-01-10 08:00 | Outpatient (RCR) | payer OTHER, MEDICARE, SELFPAY ==
--- NOTE | 2021-11-24 16:42 | PTOPEVAL1 ---
Assessment and note entered by Edward Son, PT Evaluation Information Assessment Status Evaluation Diagnosis R knee Arthroscopy Onset 11/01/21 Subjective Information Patient reports he has not been doing prescribed post op exercises. Reported Pain Level Pain Score 7: Self Report Assessment PT Clinical Summary Gerald is a 65 year old male coming into the clinic S/P R knee arthoscopy performed on 11/01/21. He presents with pain, edema, weakness, antalgic gait , and reduced range of motion. The patient was educated on elevation, home exercise program, ice therapy to help with edema and inflammation, and improved gait training with proper placement of straight point cane on the L hand. Plan of Care Interventions Electrical Stimulation,Gait Training,Hot Pack/Cold Pack,Manual Therapy,Neuro Re-education,Patient/ Caregiver Education,Therapeutic Activities, Therapeutic Exercise,Ultrasound PT Services Indicated Yes Treatment Frequency and 2x/wk for 5 weeks Duration These treatments will address the objective and functional deficits as defined above. The patient will be advanced safely and appropriately in order for the patient to progress towards his/her prior level of function. Additional exercises will be introduced and as well as a comprehensive home exercise program upon discharge, if needed, ?to ensure carryover of functional gains achieved in the clinic. This treatment plan has been reviewed and agreement upon by the patient.
--- NOTE | 2021-11-30 09:52 | PCPTNOTE ---
Patient had to cancel this date due to family emergency.
--- NOTE | 2021-12-20 13:53 | PTOPPROG ---
Assessment and note entered by Love Heaton, PT, DPT Evaluation Information Assessment Status Progress Diagnosis R knee Arthroscopy Onset 11/01/21 Subjective Information Pt states overall he is about the same since he started therapy. He states he has a sharp pain in his knee when he is getting up from a low surface. He also reports he has continued swelling despite wearing a compression sleeve and getting fluid drained off his knee last week. 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 Assessment PT Clinical Summary Doc Duarte presents to therapy today for his progress report following 4 visits of skilled therapy to treat his diagnosis of post-op R knee scope. Today he demonstrates improved active and passive ROM, active flexion to 105, active extension to -8, and passive motion from 0-125 deg . He demonstrates fair strength, grossly 4-/5 in his R knee. He is most limited by pain, especially when transitioning from sit<>stand, and when performing a majority of his exercises. Continuation of skilled physical therapy services are indicated to address the deficits noted above, for pain management, to promote safety, to limit need for AD, and to return to baseline funciton. Plan of Care Interventions Electrical Stimulation,Gait Training,Hot Pack/Cold Pack,Manual Therapy,Neuro Re-education,Patient/ Caregiver Educati,Therapeutic Activities, Therapeutic Exercise,Ultrasound PT Services Indicated Yes Treatment Frequency and 2x/wk for 4 weeks Duration These treatments will address the objective and functional deficits as defined above. The patient will be advanced safely and appropriately in order for the patient to progress towards his/her prior level of function. Additional exercises will be introduced and as well as a comprehensive home exercise program upon discharge, if needed, ?to ensure carryover of functional gains achieved in the clinic. This treatment plan has been reviewed and agreement upon by the patient.
--- NOTE | 2022-01-05 12:33 | PCPTNOTE ---
Patient called & cancelled scheduled appointment this date due to having to be out of town.
--- NOTE | 2022-01-10 13:23 | PTOPDC ---
Assessment and note entered by Mercedes Son, PT Assessment Status Discharge Diagnosis R knee Arthroscopy Onset 11/01/21 Subjective Information Pt reports feeling 70% improved overall. Cont to report high levels of pain with touching of incision in the inside scar above knee Reported Pain Level Pain Score 5: Self Report Additional Pain Score Comments Pain increases with quick walking Assessment PT Clinical Summary Pt reports feeling 70% improved overall since initiation of therapy. Amb without assistive device in functional pattern and jb. If pt attempts to walk quickly he has some increased pain . He reports the swelling has greatly improved but demos cont swelling R>L at joint line. also cont to demo VMO atrophy and weakness as compared to norms. However as pt demos functional ROM, strength, ambulation with functional jb, pt and therapist agree to complete current POC and discharge. Pt was educated in returning to therapy if by next MD visit he has not continued to improve on his own with his activities and exercises.
== END 2022-01-11 15:02 | disposition home or self-care (01) ==
LOC: ANHGOSHPT 08:00
PROVIDERS: PCP Internal Medicine; Visit Provider Orthopaedic Surgery
DX: Z48.89 Encounter for other specified surgical aftercare (principal); M23.321 Other meniscus derangements, posterior horn of medial meniscus, right knee; S89.91XD Unspecified injury of right lower leg, subsequent encounter; M25.561 Pain in right knee
CPT/HCPCS: 97014; 97110; 97112; 97140; 97161; G0283

== ENCOUNTER 2022-03-02 14:36 | Outpatient (CLI) | payer MEDICARE, SELFPAY ==
--- NOTE | ~2022-03-02 | XR_ITS ---
EXAMINATION: XR chest 2V 03/02/2022 15:13 INDICATION: Shortness of breath PROCEDURE: PA and lateral views of the chest COMPARISON: 12/28/2020 FINDINGS: The lungs are clear. The cardiomediastinal silhouette is within normal limits. There are no pleural effusions. There is no pneumothorax suspected. There is a left-sided implantable cardiac monitoring device. IMPRESSION: 1: NO ACUTE CARDIOPULMONARY DISEASE. Reviewed, dictated and finalized at location A. T PROTECTION SUPERVISOR
== END 2022-03-02 14:37 | disposition home or self-care (01) ==
PROVIDERS: PCP Internal Medicine; Visit Provider Internal Medicine
DX: R06.00 Dyspnea, unspecified (principal)
CPT/HCPCS: 71046

== ENCOUNTER 2022-03-23 17:25 | Inpatient (IN) | payer MEDICARE, SELFPAY ==
--- NOTE | ~2022-03-23 | CT_ITS ---
EXAMINATION: CT cervical spine wo con DATE: 03/23/2022 18:06 INDICATION: Syncope. Neck trauma. TECHNIQUE: Computed tomography (CT) of the cervical spine was performed without intravenous contrast. The dose-length product was 584 mGy-cm. 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 COMPARISON: CT dated 02/11/2019 FINDINGS: There are surgical changes of fusion at C6-7. There is mild degenerative anterolisthesis at C4-5, chronic. There are facet degenerative changes at C3-4 and C4-5. There is emphysema in the lung apices. No significant paraspinal soft tissue abnormality. Craniovertebral junction is normal. IMPRESSION: 1. No acute abnormality of the cervical spine. 2: Moderate cervical spondylosis with fusion at C6-7. Reviewed, dictated and finalized at location A. K WASHER
--- NOTE | ~2022-03-23 | US_ITS ---
EXAMINATION: US carotid duplex BI DATE: 03/24/2022 09:27 INDICATION: Syncopal episode. Carotid atherosclerosis and stenosis. TECHNIQUE: Grayscale, color Doppler, and pulsed Doppler images of the cervical carotid arteries were obtained. The degree of vessel stenosis is placed in one of the following categories: normal, <50%, 5 0-69%, >=70% but less than near-occlusion, near-occlusion, or total occlusion. Note that percent sten osis relative to normal distal artery lumen diameter is indirectly measured from velocity measurement s as described by Tejas, et al. Radiology 2003; 229:340-346. COMPARISON: 04/07/2019 FINDINGS: RIGHT: The right common carotid artery (CCA) peak systolic velocity (PSV) is 71 cm/s. The right internal car otid artery (ICA) PSV is 49 cm/s. The right ICA end-diastolic velocity (EDV) is 18 cm/s. The right IC A/CCA PSV ratio is 0.7. Grayscale and color Doppler images yield an estimate of <50% diameter reducti on from plaque in the ICA. The external carotid artery (ECA) PSV is 74 cm/s. There is antegrade flow in the right vertebral artery. LEFT: The left CCA PSV is 97 cm/s. The left ICA PSV is 80 cm/s. The left ICA EDV is 18 cm/s. The left ICA/C CA PSV ratio is 0.8. Grayscale and color Doppler images yield an estimate of <50% diameter reduction from plaque in the ICA. The ECA PSV is 75 cm/s. There is antegrade flow in the left vertebral artery. IMPRESSION: 1. <50% stenosis in the right internal carotid artery. 2. <50% stenosis in the left internal carotid artery. Reviewed, dictated and finalized at location B. TH PSYCHOLOGIST
--- NOTE | ~2022-03-23 | CT_ITS ---
EXAMINATION: CT brain wo con DATE: 03/23/2022 18:05 INDICATION: Syncope. Dizziness. TECHNIQUE: Computed tomography (CT) of the head was performed without intravenous contrast. The dose- length product was 681.00 mGy-cm. Automated exposure control and iterative reconstruction technique w ere employed. COMPARISON: CT dated 02/29/2020 FINDINGS: Brain parenchymal volume is normal for age. No ventriculomegaly or midline shift. Basilar c isterns are patent. There is mild mucosal thickening of the ethmoid and maxillary sinuses. Mastoids a re pneumatized. No depressed skull fractures. There is intracranial atherosclerosis. No acute infarct ion, hemorrhage, mass or mass effect. Midline sagittal images demonstrate a normal corpus callosum an d craniovertebral junction. IMPRESSION: 1. No acute intracranial abnormality. 2: Mild sinus disease. Reviewed, dictated and finalized at location A. DING TANK TENDER HELPER
--- NOTE | ~2022-03-23 | XR_ITS ---
EXAMINATION: XR chest 1V portable 03/23/2022 17:57 INDICATION: Syncope. History of cardiac catheterization. PROCEDURE: AP portable chest COMPARISON: Comparison to multiple prior studies sequentially, with oldest reviewed study dated 11/26. FINDINGS: The lungs are clear. The cardiomediastinal silhouette is mildly enlarged. There are no ple ural effusions. There is no pneumothorax suspected. IMPRESSION: 1: NO ACUTE CARDIOPULMONARY DISEASE. Reviewed, dictated and finalized at location A. AL LOGISTICS ANALYST
--- NOTE | ~2022-03-23 | MR_ITS ---
MRI of the brain Clinical History: Syncope Technique: Axial and sagittal T1-weighted images were acquired. These were followed by axial T2-weigh anita, diffusion weighted, gradient, and FLAIR images. Following intravenous administration of 20 cc Mu ltiHance gadolinium, T1-weighted fat-sat imaging was performed in the axial, coronal, and sagittal pl anes. Findings: No abnormal signal seen in the brain parenchyma. No acute infarct, intracranial hemorrhage, or mass lesion. Ventricles and subarachnoid spaces are unremarkable. Orbits are unremarkable. Paranasal sinuses and m astoid air cells are essentially clear. Major intracranial flow voids are intact. Sagittal midline structures are intact. No abnormal postcontrast enhancement identified. IMPRESSION: Unremarkable exam. Reviewed, dictated and finalized at location M. L CORNER BRUSHING MACHINE OPERATOR IMPRESSION: Unremarkable exam.
[2022-03-23 17:27] VITALS: BP 177/103; PULSE 66; RESP 16; TEMP 36.7; O2SAT 97
--- NOTE | 2022-03-23 17:40 | ECG_ITS ---
Measurements Intervals [employer] Rate: 57 P: 44 MD: 193 QRS: 3 QRSD: 89 T: 110 QT: 411 QTc: 403 Interpretive Statements SINUS BRADYCARDIA BORDERLINE AV CONDUCTION DELAY LEFT VENTRICULAR HYPERTROPHY WITH ST-T CHANGE BORDERLINE ECG COMPARED TO ECG 10/27/2021 09:16:29 NO SIGNIFICANT CHANGES Electronically Signed On 03-24-2022 7:56:24 RANGE MANAGEMENT SPECIALIST by Sherwin Okeefe D.O.
--- NOTE | 2022-03-23 17:52 | ED.DIZZY ---
HPI - Dizziness General Chief Complaint: Syncope Stated Complaint: syncope Time Seen by Provider: 03/23/22 17:41 History of Present Illness HPI Narrative: Patient is a 66-year-old male with a history of diabetes, anxiety here via EMS after a syncopal episode today. Patient states that he was napping on the couch and heard his neighbor knocked on the door. While he was walking to the door, he passed out, and only remembers waking up on the floor with his calling EMS. Patient's and neighbor states that patient was not responding for 2-3 minutes and did lose control of his bladder. Denies seizure-like activity. Patient states that he was very stressed out this morning but was otherwise in his usual state of health, denies any chest pain, shortness of breath, headaches, nausea or vomiting. He currently is slightly confused and dizzy. States that this is never happened in the past but per chart review he was hospitalized in 2019 for similar episodes; work up was reassuring. Related Data Home Medications Medication Instructions Recorded Confirmed ntrjocpj-ufz-JC 200 mcg-vit K 100 1 cap PO DAILY 04/07/19 03/16/22 mcg-lycop 500 [id number] capsule (Daily Multivitamin) omega-3 fatty acids-vitamin E 1 cap PO DAILY 02/05/20 03/16/22 1,000 mg capsule loratadine-pseudoephedrine ER 10 1 tablet PO DAILY 03/12/20 03/16/22 mg-240 mg tablet,extended [id number] (Claritin-D 24 Hour) acetaminophen 500 mg tablet 1,000 mg PO Q6H PRN Pain 10/25/21 03/16/22 ibuprofen 200 mg tablet 400 mg PO Q6H PRN Pain 10/25/21 03/16/22 Allergies Allergy/AdvReac Type Severity Reaction Status Date / Time Penicillins Allergy Unknown Unknown- Verified 02/09/22 10:40 A CHILD Review of Systems Review of Systems: Gen: Reports syncope. Denies fevers or chills Eyes: Denies eye pain or visual change ENT: Denies congestion Respiratory: Denies shortness of breath or cough CV: Denies chest pain or palpitations GI: Denies abdominal pain nausea, emesis or diarrhea : denies burning, urgency, frequency or hematuria Musculoskeletal: Denies back pain or muscle pain Neuro: Reports dizziness. Denies numbness, tingling, weakness or focal weakness Skin: Denies rash Except as documented, all other systems reviewed and negative [facility] Past Medical History Medical History (Updated 03/23/22 @ 22:55 by Alayna Banda PA-C) Anxiety BMI 32.0-32.9,adult BMI 33.0-33.9,adult BMI 34.0-34.9,adult BMI 34.0-34.9,adult Cervicalgia Chest pain, unspecified Colon cancer screening Costochondritis DDD (degenerative disc disease) Depression DM2 (diabetes mellitus, type 2) Dysphagia Dyspnea on exertion Encounter for routine adult health examination with abnormal findings Encounter for routine adult health examination without abnormal findings Encounter for special screening examination for neoplasm of prostate Fatigue Follow up Generalized anxiety disorder GERD (gastroesophageal reflux disease) History of esophageal stricture With dilatation x2. Hospital discharge follow-up Hyperlipidemia Increased abdominal girth Insomnia Knee injury Mass of right breast Obstructive sleep apnea on CPAP Orthostatic hypotension Positive colorectal cancer screening using Cologuard test Pre-diabetes Hemoglobin A1c was 5.9 in May 2018. Restless legs syndrome (RLS) Right knee DJD Right knee DJD Right knee pain Shingles Shortness of Breath Syncope Hospitalized for syncopal episode on March 14, 2018. [place] to be related to postural dizziness. Workup was unrevealing. Vitamin D deficiency Wears glasses Wheezing Surgical History Surgical History (Updated 03/23/22 @ 21:45 by Shena Webb NP) H/O arthroscopic knee surgery Hx of cardiac cath Status post cervical spinal fusion C6-C7. Status post rotator cuff repair Bilateral. Family History Family History Father Prostate carcinoma
[2022-03-23 18:51] LABS: Basophils Absolute Auto 0.1 K/mm3 (0.0-0.1); Basophils Percent Auto 0.7 % (0.2-1.2); Eosinophils Absolute Auto 0.1 K/mm3 (0-0.3); Eosinophils Percent Auto 0.9 % (0-4.4); Hemoglobin 14.8 g/dL (14.0-18.0); Immature Granulocyte Percent A 1.6 % (0-0.5); Lymphocytes Absolute Auto 1.49 K/mm3 (0.9-3.2); Lymphocytes Percent Auto 11.6 % (18.3-44.2); Mean Corpuscular HGB Conc 32.9 g/dl (32-36); Mean Corpuscular Volume 91.3 fl (80-100); Mean Platelet Volume 9.3 fl (7.4-10.4); Neutrophils Absolute Auto 9.9 K/mm3 (1.3-6.7); Neutrophils Percent Auto 77.2 % (45.5-73.1); Platelet Count Result 269 k/mm3 (150-375); Red Blood Count 4.93 M/mm3 (4.6-6.20); Red Cell Distribution Width 13.6 % (11.5-14.5); White Blood Count 12.8 K/mm3 (4.5-10.0)
[2022-03-23 18:55] VITALS: BP 168/101; BP 172/92; PULSE 66; PULSE 69
[2022-03-23 18:56] VITALS: BP 162/96; PULSE 83
[2022-03-23] MEDS: SODIUM CHLORIDE 0.9% IV 1,000 ML 999 ML IV CONT (18:57)
[2022-03-23 19:00] LABS: Ethanol < 10 mg/dL (<10)
[2022-03-23 19:02] LABS: Partial Thromboplastin Time 22.5 SECONDS (22.3-36.8); Prothrombin Time 12.7 Seconds (11.1-14.7)
[2022-03-23] MEDS: MECLIZINE HCL 12.5 MG TABLET PO (19:13)
[2022-03-23 19:45] LABS: Influenza A QL RT-PCR Negative (Negative); Influenza B QL RT-PCR Negative (Negative); SARS-CoV-2 RNA PCR Negative
[2022-03-23 20:35] LABS: Alanine Aminotransferase 47 U/L (6-50); Albumin Level 4.1 g/dL (3.5-5.1); Alkaline Phosphatase 51 U/L (38-126); Anion Gap 6 mmol/L (8-16); Aspartate Amino Transferase 30 U/L (17-59); Bilirubin,Total 0.5 mg/dL (0.2-1.3); Blood Urea Nitrogen 14 mg/dL (9-20); Calcium 8.4 mg/dL (8.4-10.2); Carbon Dioxide 28 mmol/L (22-30); Chloride 98 mmol/L (98-107); Estimated Glomerular Filt Rate > 60; Glucose 118 mg/dL (65-110); Lipase 46 U/L (23-300); Potassium 3.4 mmol/L (3.4-5.0); Sodium 132 mmol/L (137-145)
[2022-03-23 20:47] LABS: Troponin I < 0.012 ng/mL (0.000-0.034)
[2022-03-23] MEDS: rOPINIRole HCL 0.5 MG TABLET PO (20:49)
[2022-03-23 21:25] LABS: Troponin I < 0.012 ng/mL (0.000-0.034)
[2022-03-23 21:28] LABS: Amphetamine Screen Urine Negative (Negative); Barbiturate Screen Urine Negative (Negative); Benzodiazepines Screen Urine Negative (Negative); Cannabinoid Screen Urine Negative (Negative); Cocaine Screen Urine Negative (Negative); Methadone Screen Urine Negative (Negative); Opiate Screen Urine Negative (Negative); Phencyclidine Screen Urine Negative (Negative)
--- NOTE | 2022-03-23 21:31 | PM.IMHP ---
H&P: HPI History of Present Illness Date/Time: 03/23/22 21:31 Chief Complaint: Syncopal episode with urinary incontinence [facility] Past Medical History Medical History (Updated 03/23/22 @ 22:55 by Alayna Banda PA-C) Anxiety BMI 32.0-32.9,adult BMI 33.0-33.9,adult BMI 34.0-34.9,adult BMI 34.0-34.9,adult Cervicalgia Chest pain, unspecified Colon cancer screening Costochondritis DDD (degenerative disc disease) Depression DM2 (diabetes mellitus, type 2) Dysphagia Dyspnea on exertion Encounter for routine adult health examination with abnormal findings Encounter for routine adult health examination without abnormal findings Encounter for special screening examination for neoplasm of prostate Fatigue Follow up Generalized anxiety disorder GERD (gastroesophageal reflux disease) History of esophageal stricture With dilatation x2. Hospital discharge follow-up Hyperlipidemia Increased abdominal girth Insomnia Knee injury Mass of right breast Obstructive sleep apnea on CPAP Orthostatic hypotension Positive colorectal cancer screening using Cologuard test Pre-diabetes Hemoglobin A1c was 5.9 in May 2018. Restless legs syndrome (RLS) Right knee DJD Right knee DJD Right knee pain Shingles Shortness of Breath Syncope Hospitalized for syncopal episode on March 14, 2018. [place] to be related to postural dizziness. Workup was unrevealing. Vitamin D deficiency Wears glasses Wheezing Surgical History Surgical History (Updated 03/23/22 @ 21:45 by Shena Webb NP) H/O arthroscopic knee surgery Hx of cardiac cath Status post cervical spinal fusion C6-C7. Status post rotator cuff repair Bilateral. 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 He lives with his who is the poa . He has 2 children. He was a former smoker in high school. His no alcoholic beverage with dinner each night. Code status full code Smoking status: Former smoker Tobacco type: cigarettes Second hand tobacco smoke exposure: No Additional smoking assessment comments: smoked as a teenager Alcohol intake: current Drinks per week: 7 Alcohol use details: nightly with dinner Substance use: never Substance use type: does not use Lack of Transportation: No Lack of Food: Never True Current Housing: I Have Housing Concerned About Future Housing: No Difficulty Paying Gas/Electric Bills: No Difficulty Paying for Meds: No Currently Unemployed: No Education: Trade/Vocational Certificate Difficulty w/ Childcare or Family Care: No Living arrangements: with family Gender identity (if verbalized by the patient): Male Spiritual care concerns: No Agree to blood products: Yes Meds Home Medications and Allergies Home Medications Medication Instructions Recorded Confirmed Type skmurzwb-khh-EP 200 mcg-vit K 100 1 cap PO DAILY 04/07/19 03/16/22 History mcg-lycop 500 kkh-[id number] capsule (Daily Multivitamin) omega-3 fatty acids-vitamin E 1 cap PO DAILY 02/05/20 03/16/22 History 1,000 mg capsule loratadine-pseudoephedrine ER 10 1 tablet PO DAILY 03/12/20 03/16/22 History mg-240 mg tablet,extended [id number] (Claritin-D 24 Hour) metformin 1,000 mg tablet See Rx Instructions .Route 12/16/20 03/16/22 Rx .COMPLEX #90 tabs hydrochlorothiazide 12.5 mg tablet 12.5 mg PO DAILY #90 tabs 12/28/20 03/16/22 Rx clonazepam 1 mg tablet 1 mg PO HS #30 tabs 06/09/21 03/16/22 Rx pantoprazole 40 mg tablet,delayed 40 mg PO QAM #90 tabs 06/09/21 03/16/22 Rx release tramadol 50 mg tablet 50 mg PO Q6H SC
[2022-03-24] VITALS (14 sets, daily range): BP systolic 119–181; BP diastolic 76–99; PULSE 51–70; RESP 16–18; TEMP 36.2–36.6; O2SAT 96–99; BMI 34.2
--- NOTE | 2022-03-24 | ECHO_ITS ---
Patient Info Name: Doc Johnston Age: 66 years : 1955 Gender: Male Ht: 68 in Wt: 225 lbs BSA: 2.25 m2 HR: 65 bpm BP: 172 / 86 mmHg Heart Rhythm: Sinus Rhythm Technical Quality: Fair Exam Date: 03/24/2022 9:44 AM Exam Location: [facility] Exam Room: 341 Patient Status: Inpatient Admit Date: 03/23/2022 Staff Ordering Physician: Shena Webb NP Arc And Gas Welder: Jacquelyn Murcia RDCS Attending Provider: Sindhu Ugalde MD Referring Physician: Tracey COPPOLA; Exam Type: CA echo dop color flow w con Study Info Indications - SYNCOPE Complete two-dimensional, color flow and Doppler transthoracic echocardiogram is performed with contrast to opacify the left ventricle and to improve the deliniation of the left ventricle endocardial borders. Contrast/Agitated Saline Contrast/Ag. Saline: Definity Amount: 2.00 ml Administered By: Jacquelyn Murcia [facility] Existing IV Access: Yes IV Access Condition: patent with no signs of infiltration Summary 1. Normal left ventricular size with hyperdynamic systolic function. 2. Grade 1 diastolic noncompliance. 3. No valvular dysfunction. 4. Compared with echocardiogram from March of 2019 nothing has changed. Left Ventricle Left ventricular chamber dimension is normal. Left ventricular systolic function is hyperdynamic, estimated at >70%. The left ventricular diastolic function is grade I diastolic dysfunction. Right Ventricle Right ventricular chamber dimension is normal. Left Atria Left atrial chamber dimension is normal. Right Atria Right atrial chamber dimension is normal. Aortic Valve The aortic valve is normal. Pulmonic Valve The pulmonic valve is normal. Mitral Valve The mitral valve has normal leaflets. Tricuspid Valve The tricuspid valve leaflets are normal. Pericardium/Pleural The pericardium appears normal. Aorta The aortic root size at the sinus of Valsalva is normal. Left Ventricular Outflow Tract Name Value Normal LVOT 2D LVOT Diameter 2.14 cm LVOT Doppler LVOT Peak Gradient 5 mmHg LVOT Mean Gradient 3 mmHg LVOT VTI 19.96 cm LVOT VTI/AV VTI Ratio 0.71 LVOT Stroke Volume 71.74 ml LVOT CO 17.54 l/min LVOT CI 7.79 L/min/m2 Pulmonic Valve Name Value Normal PV Doppler PV Peak Gradient 4 mmHg Mitral Valve Name Value Normal MV Doppler
[2022-03-24 00:15] LABS: Troponin I 0.013 ng/mL (0.000-0.034)
--- NOTE | 2022-03-24 00:45 | ADMGEN ---
This patient, Doc Johnston, was admitted to Medical Room 341-01. Patient/family oriented to hospital policies and general routines including ID bracelet, bed and alarms, visiting hours, pain management, procedures, bathroom and other care routines, personal items, smoking policy, room service/diet, and visiting hours. Information on how to activate the Rapid Response Team has been discussed. Patient/Family are encouraged to report perceived risks to care and to ask questions if they do not understand what they are told or what they should do.
[2022-03-24 05:58] LABS: Basophils Absolute Auto 0.1 K/mm3 (0.0-0.1); Basophils Percent Auto 0.5 % (0.2-1.2); Eosinophils Absolute Auto 0.1 K/mm3 (0-0.3); Eosinophils Percent Auto 0.6 % (0-4.4); Hematocrit 45.8 % (42.0-52.0); Hemoglobin 15.3 g/dL (14.0-18.0); Immature Granulocyte Absolute 0.15 K/mm3 (0.00-0.031); Immature Granulocyte Percent A 1.1 % (0-0.5); Lymphocytes Absolute Auto 1.55 K/mm3 (0.9-3.2); Lymphocytes Percent Auto 11.9 % (18.3-44.2); Mean Corpuscular HGB Conc 33.4 g/dl (32-36); Mean Corpuscular Hemoglobin 30.6 pg (26-34); Mean Corpuscular Volume 91.6 fl (80-100); Monocytes Percent Auto 7.7 % (2.6-8.5); Neutrophils Absolute Auto 10.2 K/mm3 (1.3-6.7); Neutrophils Percent Auto 78.2 % (45.5-73.1); Platelet Count Result 273 k/mm3 (150-375); Red Cell Distribution Width 13.7 % (11.5-14.5); White Blood Count 13.1 K/mm3 (4.5-10.0)
[2022-03-24 06:17] LABS: Lactic Acid Reflex 0.9 mmol/L (0.7-2.0)
[2022-03-24 06:26] LABS: Alanine Aminotransferase 44 U/L (6-50); Albumin Level 4.2 g/dL (3.5-5.1); Alkaline Phosphatase 51 U/L (38-126); Anion Gap 4 mmol/L (8-16); Aspartate Amino Transferase 25 U/L (17-59); Bilirubin,Total 0.6 mg/dL (0.2-1.3); Blood Urea Nitrogen 12 mg/dL (9-20); Calcium 8.4 mg/dL (8.4-10.2); Carbon Dioxide 29 mmol/L (22-30); Chloride 99 mmol/L (98-107); Estimated CRCL calculation 89 ml/min; Estimated Glomerular Filt Rate > 60; Glucose 90 mg/dL (65-110); Magnesium 2.3 mg/dL (1.6-2.3); Potassium 3.9 mmol/L (3.4-5.0); Sodium 132 mmol/L (137-145)
[2022-03-24 07:26] LABS: Hemoglobin A1C 6.2 % (<5.7)
--- NOTE | 2022-03-24 09:15 | PM.IMPN ---
Progress Note: A&P Assessment and Plan (1) Recurrent syncope: Code(s): R55 - Syncope and collapse Status: Acute Assessment and Plan: -the patient has a history of having syncopal episode. But he has never had an episode where he has been incontinent of urine. -Loop recorder present and reviewed with no cardiac events noted at that time. -Cardiology consulted, however, does not thing this is the heart -Neurology consulted -Added meclizine for further relief of dizziness -orthostatic blood pressures Q shift, negative for hypotension -ultrasound of the carotids, <50% stenosis bilaterally -MRI of the brain unremarkable -echo shows no changes since Mar -Could be related to stress or anxiety -EEG also performed (2) Prediabetes: Code(s): R73.03 - Prediabetes Status: Chronic Assessment and Plan: -Accu-Cheks AC and HS. -Sliding scale insulin with hypoglycemic protocol. -A1c 6.2 -Trend glucose -Could have contributed to symptoms (3) HEIDY on CPAP: Code(s): G47.33 - Obstructive sleep apnea (adult) (pediatric); Z99.89 - Dependence on other enabling machines and devices Status: Chronic Assessment and Plan: -home settings for CPAP. (4) Hyperlipidemia: Qualifiers: Hyperlipidemia type: mixed hyperlipidemia Qualified Code(s): E78.2 - Mixed hyperlipidemia Code(s): E78.5 - Hyperlipidemia, unspecified Status: Chronic Assessment and Plan: Continue with his atorvastatin Lipid panel stable (5) Generalized anxiety disorder: Code(s): F41.1 - Generalized anxiety disorder Status: Chronic Assessment and Plan: -clonazepam resumed, which is at night probably for sleep health -Seems controlled (6) Dizziness: Code(s): R42 - Dizziness and giddiness Status: Acute Assessment and Plan: -Continue meclizine (7) Benign essential hypertension: Code(s): I10 - Essential (primary) hypertension Status: Chronic Assessment and Plan: -may continue with home medications once medication she has been reconciled. For now will do p.r.n. hydralazine. Time Spent With Patient Time: 57 minutes Time with patient: Greater than 35 minutes Subjective Date/time seen: 03/24/22 0915 Interval history: Patient stated that he went to go answer the door and fell to the ground. He stated that he woke up with the neighbor rubbing the back of his head and his calling EMS. He stated that he only walked 6-8 steps. He did state that this happened in the past however it was a mixup of medications. He does state that he has been feeling kind of crummy over the last couple days. He also stated that it continued to get worse and he has had lack of energy. He also went to his primary who did give an antibiotic and a nebulizer to see if that would help. He also stated that he had a new cough with yellow phlegm. He is not have any chest pain, shortness a breath, diarrhea, constipation, weakness or fatigue. He did state he was having some nausea yesterday however that has resolved. He has not currently had any episodes of dizziness since being in the hospital. Review of Systems Review of Systems: All systems reviewed & are unremarkable except as noted in HPI and below Exam Narrative: General: well-nourished, well-appearing 66-year-old male, laying in bed, comfortable, NARD Neuro: awake, alert and oriented x4, speech clear, no focal neuro deficits noted HEENMT: normocephalic, atraumatic, EOMI, sclerae anicteric, moist oral mucosa Respiratory: Clear to auscultation bilaterally without crackles, rhonchi or wheezes, nonlabored breathing Cardio: regular rate, regular rhythm with S1-S2 Abdomen: nondistended, normoactive bowel sounds, soft, nontender to palpation Extremities: no edema, erythema, or tenderness to palpati
[2022-03-24 09:16] LABS: Glucose Point of Care 117 mg/dl (65-105)
[2022-03-24] MEDS: PANTOPRAZOLE 40 MG TABLET PO (09:22)
[2022-03-24] MEDS: MECLIZINE HCL 12.5 MG TABLET PO ×4 (09:23→21:06)
[2022-03-24] MEDS: PERFLUTREN LIPID MICROSPHERES 1.5 ML VIAL DILUTED TO 10 ML TOTAL VOLUME IV PUSH (10:13)
[2022-03-24] MEDS: rOPINIRole HCL 1 MG TABLET 4 MG PO ×3 (10:38→17:41)
[2022-03-24 12:23] LABS: Glucose Point of Care 109 mg/dl (65-105)
[2022-03-24] MEDS: EZETIMIBE 10 MG TABLET PO (12:26)
[2022-03-24] MEDS: CITALOPRAM HYDROBROMIDE 20 MG TABLET 40 MG PO (12:26)
[2022-03-24] MEDS: LOSARTAN POTASSIUM 100 MG TABLET PO (12:27)
[2022-03-24] MEDS: ROSUVASTATIN 10 MG TABLET 40 MG PO (12:27)
[2022-03-24] MEDS: hydroCHLOROthiazide 12.5 MG CAPSULE PO (12:27)
--- NOTE | 2022-03-24 16:07 | PM.CNCAR ---
Assessment and Plan Assessment and plan (1) Syncope and collapse: Code(s): R55 - Syncope and collapse Status: Acute Plan This is a 66-year-old man who has been having intermittent syncopal episodes for several years. He has had complete cardiac workup including a loop recorder which is implanted a couple of years ago and is still functioning normally. There have been no arrhythmias of any kind discovered and particularly yesterday when he had loss of consciousness his cardiac rhythm was normal. There was comment in the chart as to whether a Holter monitor would be of any benefit. This is certainly not going to add anything to this information since he has a continuous loop recorder in place at the device will probably have at least 1-2 years of battery life left and it has clearly been demonstrated that this patient's loss of consciousness appears to be noncardiac as his cardiac rhythm is normal during the event. At this point I do not have any additional cardiac recommendations. Please contact me if you have additional concerns Edson Lizama MD [facility] History of Present Illness History of Present Illness Consult date/time: 03/24/22 16:07 Reason For Visit: Syncope Narrative: This is a 66-year-old patient I am seeing at the request of the hospitalist because he had a syncopal episode that prompted evaluation in the emergency room and then admission to the hospital yesterday. The patient is known to our practice and follows with Dr. Marley with a history of intermittent syncope for 2 or 3 years. The patient he has not had any cardiac pathology discovered to explain any of this. Yesterday he was brought to the hospital when he had a episode of loss of consciousness at his home. According to the records he was at home doing for electively well someone was knocking on the door and he was coming across the room in his home to answer the door when he obviously lost consciousness and remembers awakening on the floor. He was brought to the hospital for evaluation. He has not had any other complaints or symptoms since the admission to the hospital and is telemetry has been benign showing nothing but sinus rhythm. Because of these episodes of syncope that have the beta diagnosis we recommended and implanted a [employer] LINQ loop recorder in 2020 and that has been followed in our office since implantation. There have been no arrhythmias discovered that would explain any of this. Because of the presence of a loop recorder I did have the [employer] rep to see the patient this morning and interrogate the device. His cardiac rhythm has been normal there were no arrhythmias yesterday that would explain loss of consciousness. There was some high-frequency interference detected this morning when the patient was in the MRI scanner. He does not have any other complaints today his 12 lead electrocardiogram does not show any conduction system abnormalities and previous echocardiography has been unremarkable. Another echo has been ordered by the hospitalists and has not been done at the time of this visit. Review of Systems Constitutional: Constitutional: Reports no additional constitutional complaints Eyes: Eyes: Reports no additional eye complaints ENT: Reports system reviewed and no additional complaints, except as documented Cardiovascular: Cardiovascular: Reports as per HPI Respiratory: Respiratory: Reports no additional respiratory complaints Gastrointestinal: Gastrointestinal: Reports no additional gastrointestinal complaints Musculoskeletal: Musculoskeletal: Reports no additional musculoskeletal complaints Integumentary/Breasts: Skin/Breast: Reports system reviewed and no additional complaints, except as docu Neurologic: Reports as per HPI Endocrine: Endocrine: Reports no additional endocrine complaints Hematologic/Lymphatic: Hematologic/Lymphatic: Reports no additional hematologic/lymphatic complaints Allergic/Immunologic:
[2022-03-24 17:38] LABS: Glucose Point of Care 151 mg/dl (65-105)
--- NOTE | 2022-03-24 17:43 | WPDNEURCNPN ---
Assessment and Plan Assessment and plan (1) Presence of Watchman left atrial appendage closure device: Code(s): Z95.818 - Presence of other cardiac implants and grafts Status: Acute (2) Orthostatic hypotension: Code(s): I95.1 - Orthostatic hypotension Status: Acute (3) Generalized anxiety disorder: Code(s): F41.1 - Generalized anxiety disorder Status: Chronic (4) DM2 (diabetes mellitus, type 2): Qualifiers: Diabetes mellitus penitentiary insulin use: without predatory animal exterminator use Diabetes mellitus complication status: without complication Qualified Code(s): E11.9 - Type 2 diabetes mellitus without complications Code(s): E11.9 - Type 2 diabetes mellitus without complications Status: Chronic (5) Vasovagal syncope: Code(s): R55 - Syncope and collapse Status: Acute Plan 1 patient does have March and has had negative Holter monitor in the past we need the repeat studies 2. Evaluate for possible orthostatic hypotension and wait for the MRI of the brain report as well as the echocardiogram in the meantime medications are being continued as such Consult date: 03/24/22 HPI: Doc Johnston is a 66 year old male admitted to the hospital for the syncopal episodes in addition to ongoing history of 1. Anxiety 2. Diabetes mellitus reportedly he was napping on the couch and hurt his neighbor knocking on the door and while walking to the door he passed out and only remembered waking up on the floor with his calling EMS he was reportedly not responding 1st several minutes and became incontinent of bladder though he did not have obvious seizures on initial evaluation in the emergency room he was somewhat confused and complaining of being dizzy, his medications included vitamins and ibuprofen , he does have a history of cervical spinal fusion at C6 and 7, being former smoker and current alcohol intake or of 7 drinks per week initial exam in the emergency room was unremarkable with blood pressure being 177/103, normal routine lab negative drug screen and EKG without atrial fibrillation, subsequently normal carotid studies normal MRI of the brain and negative CT scan of cervical spine except spondylosis and fusion at C6 and 7 [facility] Past Medical History Medical History (Updated 03/23/22 @ 22:55 by Alayna Banda PA-C) Anxiety BMI 32.0-32.9,adult BMI 33.0-33.9,adult BMI 34.0-34.9,adult BMI 34.0-34.9,adult Cervicalgia Chest pain, unspecified Colon cancer screening Costochondritis DDD (degenerative disc disease) Depression DM2 (diabetes mellitus, type 2) Dysphagia Dyspnea on exertion Encounter for routine adult health examination with abnormal findings Encounter for routine adult health examination without abnormal findings Encounter for special screening examination for neoplasm of prostate Fatigue Follow up Generalized anxiety disorder GERD (gastroesophageal reflux disease) History of esophageal stricture With dilatation x2. Hospital discharge follow-up Hyperlipidemia Increased abdominal girth Insomnia Knee injury Mass of right breast Obstructive sleep apnea on CPAP Orthostatic hypotension Positive colorectal cancer screening using Cologuard test Pre-diabetes Hemoglobin A1c was 5.9 in May 2018. Restless legs syndrome (RLS) Right knee DJD Right knee DJD Right knee pain Shingles Shortness of Breath Syncope Hospitalized for syncopal episode on March 14, 2018. [place] to be related to postural dizziness. Workup was unrevealing. Vitamin D deficiency Wears glasses Wheezing Surgical History Surgical History (Updated 03/23/22 @ 21:45 by Shena Webb NP) H/O arthroscopic knee surgery Hx of cardiac cath Status post cervical spinal fusion C6-C7. Status post rotator cuff repair Bilateral. Family History Family History Father Prostate carcinoma Dialysis patient Diabetes mellitus Hyperten
[2022-03-24 20:48] LABS: Glucose Point of Care 305 mg/dl (65-105)
[2022-03-24] MEDS: INSULIN ASPART (*BKC) 100 UNITS/ML 6 UNITS SUB-Q (21:04)
[2022-03-24] MEDS: traMADol HCL (*CRX) 50 MG TABLET PO (21:05)
[2022-03-24] MEDS: clonazePAM (*CRX) 0.5 MG TABLET 1 MG PO (21:05)
[2022-03-25] VITALS: PULSE 57
[2022-03-25 04:00] VITALS: PULSE 52
[2022-03-25 04:27] VITALS: BP 151/86; PULSE 66; RESP 18; TEMP 36.4; O2SAT 99
[2022-03-25 06:03] LABS: Basophils Absolute Auto 0.1 K/mm3 (0.0-0.1); Basophils Percent Auto 0.8 % (0.2-1.2); Eosinophils Absolute Auto 0.2 K/mm3 (0-0.3); Eosinophils Percent Auto 1.4 % (0-4.4); Hematocrit 44.6 % (42.0-52.0); Hemoglobin 14.3 g/dL (14.0-18.0); Immature Granulocyte Absolute 0.13 K/mm3 (0.00-0.031); Immature Granulocyte Percent A 1.1 % (0-0.5); Lymphocytes Percent Auto 15.5 % (18.3-44.2); Mean Corpuscular HGB Conc 32.1 g/dl (32-36); Mean Corpuscular Hemoglobin 29.5 pg (26-34); Mean Platelet Volume 9.2 fl (7.4-10.4); Monocytes Absolute Auto 0.9 K/mm3 (0.1-0.6); Monocytes Percent Auto 7.7 % (2.6-8.5); Neutrophils Absolute Auto 8.5 K/mm3 (1.3-6.7); Neutrophils Percent Auto 73.5 % (45.5-73.1); Platelet Count Result 270 k/mm3 (150-375); Red Blood Count 4.85 M/mm3 (4.6-6.20); Red Cell Distribution Width 13.6 % (11.5-14.5); White Blood Count 11.6 K/mm3 (4.5-10.0)
[2022-03-25 06:12] LABS: Alanine Aminotransferase 43 U/L (6-50); Albumin Level 3.6 g/dL (3.5-5.1); Alkaline Phosphatase 48 U/L (38-126); Anion Gap 4 mmol/L (8-16); Aspartate Amino Transferase 26 U/L (17-59); Bilirubin,Total 0.7 mg/dL (0.2-1.3); Blood Urea Nitrogen 13 mg/dL (9-20); Calcium 8.3 mg/dL (8.4-10.2); Carbon Dioxide 31 mmol/L (22-30); Chloride 99 mmol/L (98-107); Cholesterol 111 mg/dL (0-200); Estimated CRCL calculation 89 ml/min; Estimated Glomerular Filt Rate > 60; Glucose 89 mg/dL (65-110); HDL Direct 67 mg/dL; Magnesium 2.3 mg/dL (1.6-2.3); Potassium 3.7 mmol/L (3.4-5.0); Sodium 134 mmol/L (137-145); Triglycerides 46 mg/dL (<150)
[2022-03-25 06:44] LABS: LDL Cholesterol Direct < 30 mg/dL
[2022-03-25 08:34] LABS: Glucose Point of Care 93 mg/dl (65-105)
--- NOTE | 2022-03-25 09:00 | PM.DS ---
DS: Admitting Diagnosis Discharge Date 03/25/22 0900 Admitting Diagnosis Syncopal episode DS: Discharge Diagnosis Discharge Diagnosis (1) Recurrent syncope: Code(s): R55 - Syncope and collapse Status: Acute Assessment and Plan: -the patient has a history of having syncopal episode. But he has never had an episode where he has been incontinent of urine. -Loop recorder present and reviewed with no cardiac events noted at that time. -Cardiology consulted, however, does not thing this is the heart -Neurology consulted -Added meclizine for further relief of dizziness -orthostatic blood pressures Q shift, negative for hypotension -ultrasound of the carotids, <50% stenosis bilaterally -MRI of the brain unremarkable -echo shows no changes since Mar -Could be related to stress or anxiety -EEG also performed (2) Prediabetes: Code(s): R73.03 - Prediabetes Status: Chronic Assessment and Plan: -Accu-Cheks AC and HS. -Sliding scale insulin with hypoglycemic protocol. -A1c 6.2 -Trend glucose -Could have contributed to symptoms (3) HEIDY on CPAP: Code(s): G47.33 - Obstructive sleep apnea (adult) (pediatric); Z99.89 - Dependence on other enabling machines and devices Status: Chronic Assessment and Plan: -home settings for CPAP. (4) Hyperlipidemia: Qualifiers: Hyperlipidemia type: mixed hyperlipidemia Qualified Code(s): E78.2 - Mixed hyperlipidemia Code(s): E78.5 - Hyperlipidemia, unspecified Status: Chronic Assessment and Plan: Continue with his atorvastatin Lipid panel stable (5) Generalized anxiety disorder: Code(s): F41.1 - Generalized anxiety disorder Status: Chronic Assessment and Plan: -clonazepam resumed, which is at night probably for sleep health -Seems controlled (6) Dizziness: Code(s): R42 - Dizziness and giddiness Status: Acute Assessment and Plan: -Continue meclizine (7) Benign essential hypertension: Code(s): I10 - Essential (primary) hypertension Status: Chronic Assessment and Plan: -may continue with home medications once medication she has been reconciled. For now will do p.r.n. hydralazine. DS: Summary Hospital Course Hospital Course: patient is 66-year-old male with a past medical history of GERD, hyperlipidemia, orthostatic hypotension, restless leg who presented to the ED after a syncopal episode at home. Patient stated that he was getting up to answer the door as he went down. He woke up with his neighbor holding his head and his calling EMS. CT of the head was performed and showed no acute abnormalities. Carotid Doppler showed less than 50% stenosis bilaterally. Orthostatic blood pressures were negative for hypotension. MRI of the brain did not show any acute abnormalities or strokes. Echo had not changed since March of 2019. Cardiology was consulted and reviewed the loop recorder that was installed and showed no acute abnormalities or arrhythmias at the time of the syncopal episode. Neurology was also consulted. Patient does take a lot of medications however does not take them together. Patient also stated he has had a lot of stress lately. It seems that this patient had a vasovagal syncopal episode. No further syncopal episodes or dizziness, lightheadedness, throughout the evening or night. Patient has been up walking around. currently patient denies any chest pain, shortness a breath, nausea, vomiting, diarrhea or constipation. Patient states that he feels better and that he wishes to go home at this time. Labs and vital signs are stable patient is stable for discharge at this time. Spoke with Neurology who agrees with this plan. Also spoke with Cardiology who has reviewed everything and stated that the patient is stable for discha
[2022-03-25] MEDS: PANTOPRAZOLE 40 MG TABLET PO (09:10)
[2022-03-25] MEDS: rOPINIRole HCL 1 MG TABLET 4 MG PO ×2 (09:10→12:57)
[2022-03-25] MEDS: CITALOPRAM HYDROBROMIDE 20 MG TABLET 40 MG PO (09:11)
[2022-03-25] MEDS: LOSARTAN POTASSIUM 100 MG TABLET PO (09:11)
[2022-03-25] MEDS: ROSUVASTATIN 10 MG TABLET 40 MG PO (09:11)
[2022-03-25] MEDS: hydroCHLOROthiazide 12.5 MG CAPSULE PO (09:11)
[2022-03-25] MEDS: MECLIZINE HCL 12.5 MG TABLET PO ×2 (09:11→12:58)
[2022-03-25] MEDS: EZETIMIBE 10 MG TABLET PO (09:12)
[2022-03-25 09:15] VITALS: PULSE 66; RESP 18; O2SAT 99
[2022-03-25 11:41] LABS: Glucose Point of Care 158 mg/dl (65-105)
--- NOTE | 2022-03-26 12:04 | WPDNEUROLOGY ---
Neurology EEG Report General Information Date of Study: 03/24/22 TEST EEG DIAGNOSIS syncope with incontinence CONDITION OF RECORDING awake with multiple movement artifacts throughout the tracing. EEG NUMBER [id number] CLINICAL HISTORY Patient reports he lost consciousness yesterday afternoon EEG DESCRIPTION low voltage 15 to 21 hertz per 2nd beta activity is seen throughout the tracing admixed with multiple movement artifacts and EKG artifacts and also minimal 8 to 10 hertz per 2nd alpha posteriorly. Hyperventilation not done. Photic stimulation not done. Non paroxysmal. Nonfocal. Nonlateralizing. IMPRESSION No significant abnormalities noted in this tracing which is compromised by multiple movement artifacts.
== END 2022-03-25 13:05 | disposition home or self-care (01) | DRG 312 ==
LOC: ANHED 22:55 → ANH3MED 03-24 00:13
PROVIDERS: Emergency Medicine; Nurse Practitioner; Physician Assistant; Admitting Provider Hospitalist; Emergency Provider Family Medicine; PCP Internal Medicine; Visit Provider Nurse Practitioner
DX: R55 Syncope and collapse (principal); R42 Dizziness and giddiness; R32 Unspecified urinary incontinence; E11.9 Type 2 diabetes mellitus without complications; E78.5 Hyperlipidemia, unspecified; E55.9 Vitamin D deficiency, unspecified; F41.1 Generalized anxiety disorder; F32.A Depression, unspecified; G47.33 Obstructive sleep apnea (adult) (pediatric); G25.81 Restless legs syndrome; I10 Essential (primary) hypertension; K21.9 Gastro-esophageal reflux disease without esophagitis; M17.11 Unilateral primary osteoarthritis, right knee; N40.0 Benign prostatic hyperplasia without lower urinary tract symptoms; Z20.822 Contact with and (suspected) exposure to COVID-19; Z87.891 Personal history of nicotine dependence; Z98.1 Arthrodesis status; Z79.84 Long term (current) use of oral hypoglycemic drugs; Z88.0 Allergy status to penicillin; Z95.818 Presence of other cardiac implants and grafts; Z99.89 Dependence on other enabling machines and devices
CPT/HCPCS: 36415; 70450; 70553; 71045; 72125; 80053; 80061; 80307; 82948; 83036; 83605; 83690; 83735; 84443; 84484; 85025; 85610; 85730; 87636; 93005; 93880; 95816; 96361; 96365; 96366; 96372; 99285; A9270; A9577; C8929; G0378; G0379; J1815; J7030; Q9957

== ENCOUNTER 2022-03-26 17:24 | Emergency (ER) | payer MEDICARE, SELFPAY ==
[2022-03-26] VITALS (9 sets, daily range): BP systolic 101–152; BP diastolic 56–85; PULSE 65–90; RESP 18–19; TEMP 36.4; O2SAT 94–95
--- NOTE | 2022-03-26 17:36 | ECG_ITS ---
Measurements Intervals [place] Rate: 70 P: 24 RI: 187 QRS: 8 QRSD: 92 T: 71 QT: 386 QTc: 419 Interpretive Statements SINUS RHYTHM POSSIBLE LEFT ATRIAL ENLARGEMENT LEFT VENTRICULAR HYPERTROPHY AND ST-T CHANGE BORDERLINE ECG COMPARED TO ECG 03/23/2022 19:41:31 SINUS RHYTHM NOW PRESENT Electronically Signed On 03-27-2022 6:34:00 KNOT TIER by Sherwin Okeefe D.O.
[2022-03-26 17:56] LABS: Basophils Absolute Auto 0.1 K/mm3 (0.0-0.1); Basophils Percent Auto 0.6 % (0.2-1.2); Eosinophils Absolute Auto 0.1 K/mm3 (0-0.3); Eosinophils Percent Auto 0.8 % (0-4.4); Hematocrit 48.3 % (42.0-52.0); Hemoglobin 16.2 g/dL (14.0-18.0); Immature Granulocyte Absolute 0.12 K/mm3 (0.00-0.031); Immature Granulocyte Percent A 0.8 % (0-0.5); Lymphocytes Absolute Auto 1.94 K/mm3 (0.9-3.2); Lymphocytes Percent Auto 13.4 % (18.3-44.2); Mean Corpuscular HGB Conc 33.5 g/dl (32-36); Mean Corpuscular Hemoglobin 30.6 pg (26-34); Mean Corpuscular Volume 91.3 fl (80-100); Mean Platelet Volume 8.8 fl (7.4-10.4); Monocytes Absolute Auto 1.1 K/mm3 (0.1-0.6); Monocytes Percent Auto 7.7 % (2.6-8.5); Neutrophils Absolute Auto 11.1 K/mm3 (1.3-6.7); Neutrophils Percent Auto 76.7 % (45.5-73.1); Platelet Count Result 273 k/mm3 (150-375); Red Blood Count 5.29 M/mm3 (4.6-6.20); Red Cell Distribution Width 13.6 % (11.5-14.5); White Blood Count 14.5 K/mm3 (4.5-10.0)
[2022-03-26 18:11] LABS: Alanine Aminotransferase 68 U/L (6-50); Albumin Level 4.2 g/dL (3.5-5.1); Alkaline Phosphatase 53 U/L (38-126); Anion Gap 5 mmol/L (8-16); Aspartate Amino Transferase 39 U/L (17-59); Bilirubin,Total 0.6 mg/dL (0.2-1.3); Blood Urea Nitrogen 14 mg/dL (9-20); Calcium 8.8 mg/dL (8.4-10.2); Carbon Dioxide 30 mmol/L (22-30); Chloride 96 mmol/L (98-107); Estimated Glomerular Filt Rate > 60; Glucose 142 mg/dL (65-110); Potassium 3.4 mmol/L (3.4-5.0); Sodium 131 mmol/L (137-145)
[2022-03-26 18:19] LABS: Ethanol < 10 mg/dL (<10)
[2022-03-26 18:31] LABS: Influenza A QL RT-PCR Negative (Negative); Influenza B QL RT-PCR Negative (Negative); SARS-CoV-2 RNA PCR Negative
[2022-03-26] MEDS: SODIUM CHLORIDE 0.9% IV 1,000 ML 999 ML IV CONT (18:50)
--- NOTE | 2022-03-26 18:50 | ED.GENADULT ---
HPI - General Adult General Chief complaint: Syncope Stated complaint: syncopal Time Seen by Provider: 03/26/22 17:34 History of Present Illness HPI narrative: Patient is a 66-year-old male who presents ER after having syncopal episode at home patient got up from his chair when he got lightheaded as helped him down to the ground. He had brief LOC. Patient has history of recurrent syncope. Recently admitted and had a normal echocardiogram as well as EEG. He also has an implanted loop recorder that showed no cardiac events. Patient denies any chest pain or shortness of breath. Reports he has been feeling fatigued. He is diaphoretic with this episode. Patient denies any recent changes to medications. No fevers or chills. Patient is sleepy at this time but apparently he just took his ropinirole for his restless leg syndrome which typically makes him sleep for couple hours. Related Data Home Medications Medication Instructions Recorded Confirmed [id number] 200 mcg-vit K 100 1 cap PO DAILY 04/07/19 03/24/22 mcg-lycop 500 [id number] capsule (Daily Multivitamin) omega-3 fatty acids-vitamin E 1 cap PO DAILY 02/05/20 03/24/22 1,000 mg capsule loratadine-pseudoephedrine ER 10 1 tablet PO PRN PRN Allergy 03/12/20 03/24/22 mg-240 mg tablet,extended Symptoms [id number] (Claritin-D 24 Hour) acetaminophen 500 mg tablet 1,000 mg PO Q6H PRN Pain 10/25/21 03/24/22 citalopram 40 mg tablet 40 mg PO DAILY 03/24/22 03/24/22 ezetimibe 10 mg tablet 10 mg PO DAILY 03/24/22 03/24/22 hydrochlorothiazide 12.5 mg tablet 12.5 mg PO QAM 03/24/22 03/24/22 losartan 100 mg tablet 100 mg PO DAILY 03/24/22 03/24/22 metformin 1,000 mg tablet 1,000 mg PO QHS 03/24/22 03/24/22 ropinirole 4 mg tablet 4 mg PO TID 03/24/22 03/24/22 rosuvastatin 40 mg tablet 40 mg PO DAILY 03/24/22 03/24/22 Allergies Allergy/AdvReac Type Severity Reaction Status Date / Time Penicillins Allergy Unknown Unknown- Verified 03/24/22 03:27 A CHILD Review of Systems Review of Systems: All systems reviewed & are unremarkable except as noted in HPI and below Constitutional: Constitutional: Denies chills, Reports fatigue and Denies fever(s) Comments: Diaphoresis ENT: Denies nasal congestion and Denies sore throat Cardiovascular: Cardiovascular: Denies chest pain, Denies rapid heart rate and Denies radiating jaw, neck or arm pain Respiratory: Respiratory: Denies cough and Denies dyspnea Gastrointestinal: Gastrointestinal: Denies abdominal pain, Denies nausea and Denies vomiting Neurologic: Reports syncope, Denies headache(s), Denies focal weakness and Denies numbness PMFSH Past Medical History Medical History (Updated 03/26/22 @ 19:44 by Anastacio García MD) Anxiety BMI 32.0-32.9,adult BMI 33.0-33.9,adult BMI 34.0-34.9,adult BMI 34.0-34.9,adult Cervicalgia Chest pain, unspecified Colon cancer screening Costochondritis DDD (degenerative disc disease) Depression DM2 (diabetes mellitus, type 2) Dysphagia Dyspnea on exertion Encounter for routine adult health examination with abnormal findings Encounter for routine adult health examination without abnormal findings Encounter for special screening examination for neoplasm of prostate Fatigue Follow up Generalized anxiety disorder GERD (gastroesophageal reflux disease) History of esophageal stricture With dilatation x2. Hospital discharge follow-up Hyperlipidemia Increased abdominal girth Insomnia Knee injury Mass of right breast Obstructive sleep apnea on CPAP Orthostatic hypotension Positive colorectal cancer screening using Cologuard test Pre-diabetes Hemoglobin A1c was 5.9 in May 2018. Restless legs syndrome (RLS) Right knee DJD Right knee DJD Right knee pain Shingles Shortness of Breath Syncope Hospitalized for syncopal episode on March 14, 2018. [place] to be related to postural dizziness. Workup was unrevealing. Vitamin D deficiency Wears glasses Wheezing Surg
== END 2022-03-26 20:10 | disposition home or self-care (01) ==
PROVIDERS: Emergency Provider Emergency Medicine; PCP Internal Medicine
DX: I95.1 Orthostatic hypotension (principal); Z20.822 Contact with and (suspected) exposure to COVID-19; E11.9 Type 2 diabetes mellitus without complications; E78.5 Hyperlipidemia, unspecified; G47.33 Obstructive sleep apnea (adult) (pediatric); G25.81 Restless legs syndrome; K21.9 Gastro-esophageal reflux disease without esophagitis; M17.11 Unilateral primary osteoarthritis, right knee; E55.9 Vitamin D deficiency, unspecified; F41.9 Anxiety disorder, unspecified; F32.A Depression, unspecified; Z98.1 Arthrodesis status; Z87.891 Personal history of nicotine dependence; Z79.84 Long term (current) use of oral hypoglycemic drugs; Z79.899 Other long term (current) drug therapy; R94.31 Abnormal electrocardiogram [ECG] [EKG]; I51.7 Cardiomegaly
CPT/HCPCS: 36415; 80053; 80307; 85025; 87636; 93005; 96360; 99284; J7030

== ENCOUNTER 2022-03-27 12:02 | Outpatient (CLI) | payer MEDICARE, SELFPAY ==
[2022-03-27 13:14] LABS: Iron 70 ug/dL (49-181)
[2022-03-27 13:23] LABS: Percent Iron Saturation 19 % (20-50)
== END 2022-03-27 12:03 | disposition home or self-care (01) ==
LOC: ANHLAB 12:04
PROVIDERS: PCP Internal Medicine; Visit Provider Internal Medicine
DX: D64.9 Anemia, unspecified (principal); R06.02 Shortness of breath; R53.83 Other fatigue; Z79.899 Other long term (current) drug therapy
CPT/HCPCS: 36415; 82728; 83540; 83550

== ENCOUNTER 2022-05-08 10:15 | Outpatient (RCR) | payer OTHER, MEDICARE, SELFPAY ==
--- NOTE | 2022-04-10 14:46 | PTOPEVAL1 ---
Assessment and note entered by Jessica Harman DPT Evaluation Information Assessment Status Evaluation Subjective Information Pt reports significant knee pain. Had an operation for meniscectomy in October 2021. Had therapy for awhile and was getting better for a time. Has had to had fluid drained several times. Describes pain as stabbing at times. Highest pain in last week 10/10 and lowest 8/10. Difficulty walking, getting out of a chair, navigating stairs. 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 Relief with ice and ibuprofen. Return to MD is not scheduled. Reported Pain Level Pain Score 9: Self Report Assessment PT Clinical Summary The patient is presenting to skilled therapy with persistent right knee pain following a knee scope in 2021. He presents with significantly decreased range of motion, edema, and gait impairments which are contributing to his pain and difficulty with activities like walking and navigating stairs. He will benefit from skilled therapy to address these impairments and safely reduce pain and dysfunction. Plan of Care Interventions Electrical Stimulation,Gait Training,Hot Pack/Cold Pack,Manual Therapy,Neuro Re-education,Patient/ Caregiver Education,Therapeutic Activities, Therapeutic Exercise,Self-Care/Home Management PT Services Indicated Yes Treatment Frequency and 2-3 times a week for 4 weeks Duration These treatments will address the objective and functional deficits as defined above. The patient will be advanced safely and appropriately in order for the patient to progress towards his/her prior level of function. Additional exercises will be introduced and as well as a comprehensive home exercise program upon discharge, if needed, ?to ensure carryover of functional gains achieved in the clinic. This treatment plan has been reviewed and agreement upon by the patient.
--- NOTE | 2022-04-28 08:13 | PCPTNOTE ---
Patient called to cancel this date due to illness.
--- NOTE | 2022-05-08 10:58 | PTOPPROG ---
Assessment and note entered by Jessica Harman DPT Evaluation Information Assessment Status Progress Subjective Information Highest pain in the last week 10 and lowest / . Pain worsens with standing activities and walking activities. Pain with driving. Thinks his gait pattern has improved and he is not limping as much. Still feels that there are two bones rubbing together . Plans to follow up with his MD and will be starting a series of injections next week. Will be getting fluid drained as well. Assessment PT Clinical Summary The patient has made some progress in therapy. He reports overall decreased pain but continues to have pain and difficulty with walking, standing, and driving. He demonstrates improved knee range of motion to 120 degrees flexion and 3+ degrees extension. He demonstrates improved walking speed and some strength improvements. Due to his progress, plan to continue therapy to further address pain, range of motion, and strength to return to prior level of function. Plan of Care Interventions Electrical Stimulation,Gait Training,Hot Pack/Cold Pack,Manual Therapy,Neuro Re-education,Patient/ Caregiver Education,Therapeutic Activities, Therapeutic Exercise,Self-Care/Home Management PT Services Indicated Yes Treatment Frequency and 1 time a week for 4 weeks Duration These treatments will address the objective and functional deficits as defined above. The patient will be advanced safely and appropriately in order for the patient to progress towards his/her prior level of function. Additional exercises will be introduced and as well as a comprehensive home exercise program upon discharge, if needed, ?to ensure carryover of functional gains achieved in the clinic. This treatment plan has been reviewed and agreement upon by the patient.
--- NOTE | 2022-05-16 10:03 | PCPTNOTE ---
Patient called and cancelled due to illness
--- NOTE | 2022-05-23 10:32 | PCPTNOTE ---
Patient called & cancelled scheduled appointment this date due to his orthopedic doctor recommending that he stay off his knee and rest for multiple days following a knee injection. He states he has another injection later this week and will call sometime next week to follow up.
--- NOTE | 2022-07-10 08:58 | PTOPDC ---
Assessment and note entered by Jessica Harman DPT Evaluation Information Assessment Status Discharge Subjective Information Assessment PT Clinical Summary The patient will be discharged as of this date. Plan of Care PT Services Indicated No
== END 2022-07-09 23:59 | disposition home or self-care (01) ==
LOC: ANHGOSHPT 10:15
PROVIDERS: PCP Internal Medicine; Visit Provider Orthopaedic Surgery
DX: M17.11 Unilateral primary osteoarthritis, right knee (principal); M23.329 Other meniscus derangements, posterior horn of medial meniscus, unspecified knee; M25.562 Pain in left knee
CPT/HCPCS: 97014; 97110; 97112; 97140; 97162; 97530; G0283

== ENCOUNTER 2022-06-21 10:58 | Outpatient (CLI) | payer MEDICARE, SELFPAY ==
[2022-06-21 11:54] LABS: Basophils Absolute Auto 0.1 K/mm3 (0.0-0.1); Basophils Percent Auto 1.3 % (0.2-1.2); Eosinophils Absolute Auto 0.7 K/mm3 (0-0.3); Eosinophils Percent Auto 9.8 % (0-4.4); Hematocrit 45.5 % (42.0-52.0); Hemoglobin 15.3 g/dL (14.0-18.0); Immature Granulocyte Absolute 0.02 K/mm3 (0.00-0.031); Immature Granulocyte Percent A 0.3 % (0-0.5); Lymphocytes Absolute Auto 2.02 K/mm3 (0.9-3.2); Lymphocytes Percent Auto 29.6 % (18.3-44.2); Mean Corpuscular HGB Conc 33.6 g/dl (32-36); Mean Corpuscular Hemoglobin 30.7 pg (26-34); Mean Corpuscular Volume 91.4 fl (80-100); Mean Platelet Volume 9.7 fl (7.4-10.4); Monocytes Absolute Auto 0.8 K/mm3 (0.1-0.6); Neutrophils Absolute Auto 3.2 K/mm3 (1.3-6.7); Platelet Count Result 271 k/mm3 (150-375); Red Blood Count 4.98 M/mm3 (4.6-6.20); Red Cell Distribution Width 13.7 % (11.5-14.5); White Blood Count 6.8 K/mm3 (4.5-10.0)
[2022-06-21 11:59] LABS: Alanine Aminotransferase 26 U/L (6-50); Albumin Level 4.3 g/dL (3.5-5.1); Alkaline Phosphatase 44 U/L (38-126); Anion Gap 4 mmol/L (8-16); Aspartate Amino Transferase 24 U/L (17-59); Bilirubin,Total 0.6 mg/dL (0.2-1.3); Blood Urea Nitrogen 8 mg/dL (9-20); Calcium 8.8 mg/dL (8.4-10.2); Carbon Dioxide 30 mmol/L (22-30); Chloride 101 mmol/L (98-107); Estimated Glomerular Filt Rate > 60; Glucose 95 mg/dL (65-110); Potassium 4.1 mmol/L (3.4-5.0); Sodium 135 mmol/L (137-145)
[2022-06-21 12:40] LABS: Free T4 Free Thyroxine 0.99 ng/mL (0.78-2.19)
== END 2022-06-21 10:59 | disposition home or self-care (01) ==
PROVIDERS: PCP Internal Medicine; Visit Provider Internal Medicine Cardiovascular Disease
DX: I10 Essential (primary) hypertension (principal); G47.33 Obstructive sleep apnea (adult) (pediatric); Z99.89 Dependence on other enabling machines and devices
CPT/HCPCS: 36415; 80053; 84439; 84443; 85025

== ENCOUNTER 2022-08-16 01:23 | Day surgery (SDC) | payer MEDICARE, SELFPAY ==
[2022-07-31 14:01] VITALS: BMI 34.6
--- NOTE | 2022-07-31 14:32 | PC.NURSE ---
Report to the Outpatient Waiting Room, entrance under the green pavilion located off [facility], at time ___0600____ on date ___08/16/22____. Planned Procedure Time: ___729 . Time changes happen often and if your time is changed the preop area will call you the afternoon before. - You and your visitor will be asked to self-screen and do not enter if you have any COVID symptoms. - A mask is optional within the hospital at this time. Patients may have clear liquids (water, carbonated beverages, clear teas, apple juice) until 3 hours prior to surgery with a maximum of 20 ounces. - No food from midnight until time of surgery - Infants may have breast milk until 4 hours before surgery, infant formula 6 hours prior to surgery. - Children will be allowed to drink immediately following surgery. If applicable, please bring a bottle or sippy cup to assist with drinking. Juice, water, soda, and popsicles are readily available. For infants on formula, please bring formula the day of surgery. Pacifiers are allowed. Take the following medications with a SIP of water the morning of surgery: AMLODIPINE,CITALOPRAM,GABAPENTIN DO NOT STOP ANY OF YOUR OTHER PRESCRIPTION MEDICATIONS PRIOR TO SURGERY ?EXCEPT THE FOLLOWING Medications to discontinue per physician __PT STATES__IBUPROFEN 7 DAYS PRE OP__PER DR RUST. LAST DOSE 08/08/22. ALL VITAMINS 3 DAYS PRE OP.LAST DOSE 08/12/22 TOTAL JOINT CLASS 08/02/22 AT 10 AM Please no make-up, nail armenian, hairspray, perfume, deodorant, or body powder the day of surgery. No jewelry (including any body piercings) or valuables the day of surgery, leave them at home. Please take a shower or bath the night before, or the morning of, surgery with an antibacterial soap. Wear comfortable, loose fitting clothing. Children are encouraged to wear pajamas. - Jewelry must be removed prior to entering the operating room. Rings and piercings that are not removed may be cut off. - The hospital will not accept responsibility for valuables. - Please leave all valuables, including medications, at home the day of surgery. If you are going home after surgery, a licensed regional truck driver must drive you home. - NO public transportation without another adult if you receive anesthesia. - We recommend that an adult stay with you for 24 hours following discharge. - We also recommend that you do not drive, make important decision, drink alcoholic beverages, or take any drugs that were not prescribed by your health care provider for at least 24 hours after your discharge time. For Pediatric surgeries, we recommend two adults accompany the child home. Follow any additional instructions given to you from your surgeon. If you or anyone in your household have experienced Covid symptoms in the past week, please notify your surgeon or the nurse liaison at the phone number below for possible testing. VERBAL AND WRITTEN instructions given to _PATIENT and asked if any additional questions and then verbalized understanding. Patient advised to call surgeon office or pre surgery nurse liaison [phone] if any additional questions.
[2022-08-16] VITALS (19 sets, daily range): BP systolic 133–178; BP diastolic 69–102; PULSE 66–84; RESP 12–16; TEMP 36.1–37.3; O2SAT 93–98
--- NOTE | ~2022-08-16 | XR_ITS ---
EXAMINATION: [id number] DATE: 08/16/2022 10:37 CDT INDICATION: Right knee arthroplasty TECHNIQUE: 2 views right knee FINDINGS: There is a right total knee arthroplasty in expected position. Subcutaneous gas with fluid and air in the joint and overlying skin verna are consistent with recent surgery. No evidence of p eriprosthetic fracture. 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 IMPRESSION: 1. Recent right total knee arthroplasty. Reviewed, dictated and finalized at location []
--- NOTE | 2022-08-16 06:25 | WPDANESEPPF ---
Anes - Initial Pre Proc Eval Procedure: Operation Date: 08/16/22 07:30 Proposed Procedures p Right Total Knee Arthroplasty - Marko Noonan MD Date/Time: 08/16/22 06:25 Surgeon: Marko Noonan MD Pre Op Diagnosis: right knee DJD Patient Data Age: 66 Gender: M Height: 1.73 m Weight: 102 kg Allergies Allergy/AdvReac Type Severity Reaction Status Date / Time Penicillins Allergy Unknown Unknown- Verified 08/03/22 14:21 A CHILD ropinirole Allergy syncope Verified 08/03/22 14:21 Home Medications Medication Instructions Recorded Confirmed Type [id number]-[id number] 200 mcg-vit K 100 1 cap PO DAILY 04/07/19 07/31/22 History mcg-lycop 500 [id number]-zrqueo-S47 capsule (Daily Multivitamin) omega-3 fatty acids-vitamin E 1 cap PO DAILY 02/05/20 07/31/22 History 1,000 mg capsule loratadine-pseudoephedrine ER 10 1 tablet PO PRN PRN Allergy 03/12/20 07/31/22 History mg-240 mg tablet,extended Symptoms [id number] (Claritin-D 24 Hour) clonazepam 1 mg tablet 1 mg PO HS #30 tabs 06/09/21 07/31/22 Rx acetaminophen 500 mg tablet 1,000 mg PO Q6H PRN Pain 10/25/21 07/31/22 History Home Nebulizer machine #1 ea 03/02/22 07/11/22 Rx albuterol sulfate 2.5 mg/3 mL 2.5 mg (3 mL) inhalation Q4-6H PRN 03/02/22 07/31/22 Rx (0.083 %) solution for nebulization shortness of breath or wheezing #90 mL losartan 100 mg tablet 100 mg PO DAILY 03/24/22 07/31/22 History metformin 1,000 mg tablet 1,000 mg PO QHS 03/24/22 07/31/22 History ezetimibe 10 mg tablet 10 mg PO DAILY #90 tabs 03/27/22 07/31/22 Rx hydrochlorothiazide 12.5 mg tablet 12.5 mg PO QAM #90 tabs 03/27/22 07/31/22 Rx rosuvastatin 40 mg tablet See Rx Instructions .Route 06/20/22 07/31/22 Rx .COMPLEX #90 tabs amlodipine 5 mg tablet 5 mg PO DAILY 07/31/22 07/31/22 History ibuprofen 600 mg tablet 600 mg PO QID PRN Pain 07/31/22 07/31/22 History citalopram 40 mg tablet See Rx Instructions .Route 08/02/22 Rx .COMPLEX #90 tabs pantoprazole 40 mg tablet,delayed See Rx Instructions .Route 08/02/22 Rx release .COMPLEX #90 tabs gabapentin 100 mg capsule See Rx Instructions .Route 08/07/22 Rx .COMPLEX #180 caps Patient hx anesthesia problems: none Family hx anesthesia problems: none Results Review: All pre-operative results and documents have been reviewed as part of the pre-operative evaluation. [facility] Past Medical History Medical History Anxiety BMI 32.0-32.9,adult BMI 33.0-33.9,adult BMI 34.0-34.9,adult BMI 34.0-34.9,adult Cervicalgia Chest pain, unspecified Colon cancer screening Costochondritis DDD (degenerative disc disease) Dependence on other enabling machines and devices Depression DM2 (diabetes mellitus, type 2) Dysphagia Dyspnea on exertion Effusion of knee joint Encounter for routine adult health examination with abnormal findings Encounter for routine adult health examination without abnormal findings Encounter for special screening examination for neoplasm of prostate Fatigue Follow up Generalized anxiety disorder GERD (gastroesophageal reflux disease) History of esophageal stricture With dilatation x2. Hospital discharge follow-up Hyperlipidemia Increased abdominal girth Insomnia Knee injury Mass of right breast Obstructive sleep apnea on CPAP Orthostatic hypotension Positive colorectal cancer screening using Cologuard test Pre-diabetes Hemoglobin A1c was 5.9 in May 2018. Preoperative clearance Restless legs syndrome (RLS) Right knee DJD Shingles Shortness of Breath Syncope Hospitalized for syncopal episode on March 14, 2018. [place] to be related to postural dizziness. Workup was unrevealing. Vitamin D deficiency Wears glasses Wheezing Surgical History Surgical History H/O arthroscopic knee surgery Hx of cardiac cath Status post cervical spinal fusion C6-C7. Status post rotator cuff repair Bi
[2022-08-16] MEDS: ACETAMINOPHEN 500 MG TABLET 1000 MG PO (06:50)
[2022-08-16] MEDS: LACTATED RINGERS 1,000 ML 30 ML IV CONT ×2 (06:51→10:18)
[2022-08-16 06:58] LABS: Glucose Point of Care 111 mg/dl (65-105)
[2022-08-16] MEDS: TRANEXAMIC ACID 1,000MG/ISO100 1,000 MG/100 ML BAG 200 MG IVPB (06:59)
--- NOTE | 2022-08-16 07:43 | WPDHPUPDATE1 ---
History and Physical Update Update Date/Time: 08/16/22 07:43 History and Physical has been reviewed, including an updated exam of the patient. There are NO changes in the patient's condition. Risks, benefits, and alternatives have been discussed and questions answered. Patient agrees to proceed with procedure.
--- NOTE | 2022-08-16 07:53 | WPDANESPNB ---
Anes - Peripheral Nerve Block Date/Time: 08/16/22 07:53 I have discussed with the patient/family/POA the placement of a peripheral nerve block for post-operative pain management, including associated risks, benefits, complications, and side effects. Alternative methods of post-operative analgesia were detailed. Questions were solicited and answers provided to the satisfaction of the patient/family/POA. Time-Out: A pre-procedural Time-Out was completed immediately before starting the procedure and confirmed: Patient Identification, Site, Procedure, Patient Position and the Availability of Requisite Equipment. Clinical Indications: Acute post-operative pain management requested by the operative surgeon. Nerve Block Insertion Note Anes-nerve block: femoral right Patient position: supine Skin prep: chlorhexidine Needle: 22 gauge, stimulating, insulated echogenic needle. Needle length: 50 mm Technique: nerve stimulation lost at (mA) (0.4) Injectate: bupivacaine 0.5% with epi 5 mcg/ml (20cc no epi) Observations: tolerated well Complications: none Procedure start time:: 739 Procedure end time:: 744
[2022-08-16] MEDS: ceFAZolin 2 GM/D5W 50 ML 2 GM/50 ML BAG IVPB ×3 (07:56→23:21)
[2022-08-16] MEDS: GENTAMICIN BONE CEMENT REFOBACIN 1 EACH TOPICAL (09:12)
--- NOTE | 2022-08-16 10:21 | W.PM.PROC2 ---
Procedure Note - Detailed Date of Procedure 08/16/22 Pre-op Diagnosis right knee DJD Post-op Diagnosis Same Procedure Performed R TKA Surgeon Marko Noonan MD Anesthesia General Description of Procedure THE RIGHT KNEE WAS PREPPED AND DRAPED IN THE STERILE FASHION. THERE WAS A 10 DEGREE FLEXION CONTRACTURE. A MIDLINE SKIN INCISION WAS MADE. A MEDIAL PARAPATELLAR ARTHROTOMY WAS MADE. THE PATELLA WAS EVERTED. THERE WAS TRICOMPARTMENT DJD. THERE WAS MINIMAL PATELLA DJD. AN INTRAMEDULLARY ELIF WAS PLACED IN THE FEMUR. A DISTAL FEMORAL CUT WAS MADE IN 5 DEGREES OF VALGUS REMOVING APPROXIMATELY 9 MM OF BONE FROM THE DISTAL FEMUR. THE FEMUR WAS SIZED TO 67.5. A FEMORAL CUTTING BLOCK WAS PLACED IN 3 DEGREES OF EXTERNAL ROTATION AND IN ALIGNMENT WITH JA'S LINE AND THE TRANSEPICONDYLAR AXIS. ANTERIOR POSTERIOR AND CHAMFER CUTS WERE MADE. THE CUTS WERE EXCELLENT. NEXT AN INTRAMEDULLARY CUTTING GUIDE WAS PLACED IN THE TIBIA. A TRANS TIBIAL CUT WAS MADE ALONG THE LONG AXIS OF THE TIBIA. APPROXIMATELY 10 MM OF BONE WAS REMOVED FROM THE HIGH SIDE OF THE TIBIA. THE TIBIA WAS THEN PLANED TO A SMOOTH SURFACE. POSTERIOR FEMORAL OSTEOPHYTES WERE REMOVED FROM THE FEMORAL CONDYLES. A 75 TIBIAL TRIAL WAS PLACED IN ALIGNMENT WITH THE 1/3 MEDIAL ASPECT OF THE TIBIAL TUBERCLE. THEN A 67.5 FEMORAL TRIAL COMPONENT WAS PLACED. BOTH HAD EXCELLENT FITS. EVENTUALLY A 10 MM CR POLYETHYLENE TRIAL COMPONENT WAS PLACED. THE KNEE WAS TAKEN THROUGH A RANGE OF MOTION. THE KNEE CAME OUT TO FULL EXTENSION. THERE WAS NO ABNORMAL TILT TO THE PATELLA. THERE WAS GOOD A/P AND VARUS/VALGUS STABILITY. THERE WAS NO EXCESSIVE ROLL BACK WITH FLEXION. THE TRIAL COMPONENTS WERE REMOVED. THEN A 67.5 FEMORAL COMPONENT AND 75 TIBIAL COMPONENT WITH A 10 CR POLYETHYLENE COMPONENT WERE CEMENTED INTO PLACE. ONCE THE CEMENT WAS HARD THE KNEE WAS TAKEN THROUGH A ROM AGAIN AND FOUND TO BE STABLE WITH NO PATELLA TILT NO EXCESSIVE ROLL BACK WITH FLEXION AND GOOD STABILITY WITH COMPLETE AND FULL EXTENSION. THE KNEE WAS IRRIGATED WITH STERILE BETADINE AND WATER FOR ABOUT 3 MINUTES. THE BLEEDERS WERE CAUTERIZED. THE ARTHROTOMY WAS REPAIRED WITH NUMBER 1 VICRYL. THE SUB CUTANEOUS LAYER WITH 2-0 VICRYL AND THE SKIN WITH NOLAN. THE WOUND WAS WASHED AND A STERILE DRESSING WAS APPLIED. PATIENT WAS EXTUBATED. Estimated Blood Loss -150.0 Pathology None sent Complications No immediate complications Condition Stable Disposition PACU
[2022-08-16] MEDS: fentaNYL CITRATE INJ (*CRX) 100 MCG/2 ML VIAL 25 MCG IV PUSH ×8 (10:26→10:52)
[2022-08-16 10:30] LABS: Glucose Point of Care 145 mg/dl (65-105)
[2022-08-16] MEDS: KETOROLAC 30 MG/ML VIAL (*BKC) IV PUSH (10:50)
[2022-08-16] MEDS: HYDROmorphone HCL INJ (*CRX) 1 MG/ML SYR 0.5 MG IV PUSH ×2 (11:07→11:16)
[2022-08-16] MEDS: hydrALAZINE HCL 20 MG/ML VIAL 10 MG IV PUSH (11:28)
--- NOTE | 2022-08-16 12:37 | ADMGEN ---
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 Patient/family oriented to hospital policies and general routines including ID bracelet, bed and alarms, visiting hours, pain management, procedures, bathroom and other care routines, personal items, smoking policy, room service/diet, and visiting hours. Information on how to activate the Rapid Response Team has been discussed. Patient/Family are encouraged to report perceived risks to care and to ask questions if they do not understand what they are told or what they should do.
--- NOTE | 2022-08-16 13:04 | PCOTNOTE ---
Attempted OT evaluation, pt requested to be seen at later time due to pain in knee. Will follow.
[2022-08-16] MEDS: KETOROLAC 15 MG/ML VIAL (*BKC) IV PUSH ×3 (13:47→23:21)
[2022-08-16] MEDS: oxyCODONE/ACETAMINOPHEN (*CRX) 5-325 MG TABLET 1 TABLET PO ×2 (13:47→23:22)
--- NOTE | 2022-08-16 16:18 | PCPTNOTE ---
On 08/16/22, the student, [Aurelia Levine], provided care and completed [facility] documentation on this patient. I have reviewed the student's documentation and agree with the findings.
[2022-08-16] MEDS: LOSARTAN POTASSIUM 100 MG TABLET PO (17:32)
[2022-08-16] MEDS: SENNA/DOCUSATE SODIUM TABLET 2 TAB PO (20:00)
[2022-08-16] MEDS: metFORMIN HCL 500 MG TABLET 1000 MG PO (20:00)
[2022-08-16] MEDS: ASPIRIN 325 MG ENTERIC TABLET PO (20:00)
[2022-08-16] MEDS: clonazePAM (*CRX) 0.5 MG TABLET 1 MG PO (20:00)
[2022-08-16] MEDS: diazePAM (*CRX) 5 MG TABLET PO (20:04)
[2022-08-17] VITALS: BP 121/63; PULSE 73; RESP 16; TEMP 35.9; O2SAT 93
--- NOTE | 2022-08-17 03:17 | PC.NURSE ---
pt surgerical incision dressing bloody, wrapped with coban, applied ice, called Md on-call and surgeon Saran
[2022-08-17 03:24] VITALS: BP 141/71; PULSE 78; RESP 18; TEMP 36.8; O2SAT 96
[2022-08-17] MEDS: diazePAM (*CRX) 5 MG TABLET PO (04:13)
--- NOTE | 2022-08-17 05:42 | PC.NURSE ---
called Md Noonan again awaiting call back
[2022-08-17] MEDS: KETOROLAC 15 MG/ML VIAL (*BKC) IV PUSH ×2 (05:54→11:52)
[2022-08-17 06:03] VITALS: BP 141/84; PULSE 75; RESP 18; TEMP 36.6; O2SAT 98
[2022-08-17 06:37] LABS: Basophils Absolute Auto 0.1 K/mm3 (0.0-0.1); Basophils Percent Auto 0.4 % (0.2-1.2); Eosinophils Percent Auto 0.1 % (0-4.4); Hematocrit 35.9 % (42.0-52.0); Hemoglobin 11.5 g/dL (14.0-18.0); Immature Granulocyte Absolute 0.08 K/mm3 (0.00-0.031); Immature Granulocyte Percent A 0.5 % (0-0.5); Lymphocytes Absolute Auto 1.45 K/mm3 (0.9-3.2); Lymphocytes Percent Auto 8.2 % (18.3-44.2); Mean Corpuscular Hemoglobin 30.6 pg (26-34); Mean Corpuscular Volume 95.5 fl (80-100); Mean Platelet Volume 9.5 fl (7.4-10.4); Monocytes Absolute Auto 2.1 K/mm3 (0.1-0.6); Monocytes Percent Auto 11.7 % (2.6-8.5); Neutrophils Percent Auto 79.1 % (45.5-73.1); Platelet Count Result 191 k/mm3 (150-375); Red Blood Count 3.76 M/mm3 (4.6-6.20); Red Cell Distribution Width 13.7 % (11.5-14.5); White Blood Count 17.7 K/mm3 (4.5-10.0)
[2022-08-17 06:55] LABS: Anion Gap 2 mmol/L (8-16); Blood Urea Nitrogen 16 mg/dL (9-20); Calcium 8.2 mg/dL (8.4-10.2); Carbon Dioxide 32 mmol/L (22-30); Chloride 99 mmol/L (98-107); Estimated CRCL calculation 80 ml/min; Estimated Glomerular Filt Rate > 60; Glucose 120 mg/dL (65-110); Potassium 4.1 mmol/L (3.4-5.0); Sodium 133 mmol/L (137-145)
--- NOTE | 2022-08-17 07:38 | WPDANESPN ---
Anes - Prog Note Post-Op Date/Time: 08/17/22 07:38 Cardiovascular status: normal Respiratory status: normal Airway patency: baseline Mental status: baseline Post-Op hydration status: normal Vital Signs: Last Vital Signs Temp 36.6 C 08/17/22 06:03 Pulse 75 08/17/22 06:03 Resp 18 08/17/22 06:03 BP 141/84 H 08/17/22 06:03 Pulse Ox 98 08/17/22 06:03 O2 Del Method Nasal Cannula 08/16/22 14:40 O2 Flow Rate 2 08/16/22 14:40 Pain Score (VAS): 05/05 I/O: Intake & Output 08/16/22 08/16/22 08/17/22 15:59 23:59 07:59 Intake Total 450 340 240 Balance 450 340 240 Laboratory Tests 08/17/22 06:25 08/17/22 06:25 08/16/22 08/16/22 08/17/22 06:28 10:27 06:25 WBC 17.7 H RBC 3.76 L Hgb 11.5 L D Hct 35.9 L MCV 95.5 MCH 30.6 MCHC 32.0 RDW 13.7 Plt Count 191 MPV 9.5 Immature Gran % (Auto) 0.5 Neut % (Auto) 79.1 H Lymph % (Auto) 8.2 L [place] % (Auto) 11.7 H Eos % (Auto) 0.1 Baso % (Auto) 0.4 Lymph # (Auto) 1.45 [place] # (Auto) 2.1 H Eos # (Auto) 0.0 Baso # (Auto) 0.1 Abs Immat Gran (auto) 0.08 H Absolute Neuts (auto) 14.0 H Absolute Nucleated RBC 0.0 Nucleated RBC % 0.0 Sodium 133 L Potassium 4.1 Chloride 99 Carbon Dioxide 32 H Anion Gap 2 L BUN 16 Creatinine 0.90 Estim Creat Clear Calc 80 Estimated GFR > 60 Glucose 120 H POC Capillary Glucose 145 H Calcium 8.2 L Blood Type A Negative Antibody Screen Negative Post-procedural complaints: none Patient Feedback: Patient satisfied with anesthetic care.
[2022-08-17 08:00] VITALS: BP 175/96; PULSE 70; RESP 18; TEMP 36.6; O2SAT 100
[2022-08-17] MEDS: ceFAZolin 2 GM/D5W 50 ML 2 GM/50 ML BAG IVPB (08:46)
[2022-08-17] MEDS: oxyCODONE/ACETAMINOPHEN (*CRX) 5-325 MG TABLET 2 TABLET PO (08:56)
[2022-08-17] MEDS: PANTOPRAZOLE 40 MG TABLET BY MOUTH (09:49)
[2022-08-17] MEDS: hydroCHLOROthiazide 12.5 MG CAPSULE PO (09:49)
[2022-08-17] MEDS: OMEGA 3 POLYUNSAT FATTY ACIDS 1 GM CAP PO (09:49)
[2022-08-17] MEDS: LOSARTAN POTASSIUM 100 MG TABLET PO (09:49)
[2022-08-17] MEDS: SENNA/DOCUSATE SODIUM TABLET 2 TAB PO (09:49)
[2022-08-17] MEDS: amLODIPine BESYLATE 5 MG TABLET PO (09:49)
[2022-08-17] MEDS: CITALOPRAM HYDROBROMIDE 20 MG TABLET 40 MG BY MOUTH (09:49)
[2022-08-17] MEDS: EZETIMIBE 10 MG TABLET PO (09:49)
[2022-08-17] MEDS: polyethylene glycoL 3350 17 GM POWD.PACK PO (09:50)
[2022-08-17] MEDS: ASPIRIN 325 MG ENTERIC TABLET PO (09:50)
[2022-08-17] MEDS: ROSUVASTATIN 10 MG TABLET 40 MG BY MOUTH (09:50)
--- NOTE | 2022-08-17 11:10 | PM.PNORT ---
Progress Note: A&P Assessment and Plan (1) S/P total knee arthroplasty: Qualifiers: Laterality: right Qualified Code(s): Z96.651 - Presence of right artificial knee joint Code(s): Z96.659 - Presence of unspecified artificial knee joint Status: Acute Assessment and Plan: POD #1 : Right TKA Continue PT/OT. WBAT. Walker. HIGH FALL RISK. Continue pain control. Ice Knee. Protect skin. DVT prophylaxis with Aspirin. SCDs. Incentive Spirometry Use reviewed. Dressing removed due to sanguinous drainage. Incision well approximated, verna intact. No signs of active bleeding. New dressing placed. Bowel Regimen. Dispo: Home with Home Health pending progress with PT/OT Will return for reevaluation of the dressing prior to discharge to ensure no recurrent bleeding Plan Reviewed postoperative dressing and bleeding, labs, vitals and assessment with attending MD, Dr. Noonan. Agrees with current plan as indicated above. No further recommendations. Time Spent With Patient Time with patient: 15 - 25 minutes Subjective Subjective Date/Time Seen: 08/17/22 11:10 Post Op day: 1 Interval history: POD #1: Right TKA Patient doing well. Up in chair at time of exam. Pain well controlled. Concerned about drainage on dressing. Otherwise, no concerns. Review of Systems Review of Systems: All systems reviewed & are unremarkable except as noted in HPI and below Constitutional: Constitutional: Denies fever(s) and Denies headache(s) ENT: Denies headache(s) Cardiovascular: Cardiovascular: Denies chest pain, Denies diaphoresis, Denies palpitations and Denies dyspnea Respiratory: Respiratory: Denies dyspnea Gastrointestinal: Gastrointestinal: Denies abdominal pain, Denies constipation, Denies nausea and Denies vomiting Genitourinary: Genitourinary: Denies dysuria and Reports nocturia Musculoskeletal: Musculoskeletal: Reports arthralgias (Right Knee ) and Reports joint swelling (Right Knee ) Neurologic: Denies headache(s) Endocrine: Endocrine: Denies palpitations Exam Const: General: comfortable and no acute distress Resp: Effort & Inspection: normal respiratory effort Cardio: Rate: regular rate Rhythm: regular rhythm GI: GI Palp: Yes Soft to palpation, No Tenderness to palpation present (GI) and No Guarding due to palpation present (GI) Skin: General skin exam: wounds noted Wounds: wounds noted Other: Incision with moderate amount of sanguinous drainage. Dressing removed. Incision well approximated, verna intact. No signs of active bleeding. No significant pain to indicate hematoma. No surrounding redness/warmth or signs of acute infection. Mild ecchymosis of the thigh. No wound dehiscence Neuro: Cognition (Neuro): normal cognition Other: NV intact aside from block. Moves toes. Sensation intact to light touch. +ankle dorsiflexion/plantarflexion. Extrem: Right lower extremity: normal to inspection, knee Details: tenderness (diffuse, mild ) Location: of the patella, swelling (diffuse, consistent with surgical intervention ), abnormal ROM Details: pain with active ROM during, pain with passive ROM during and with range as follows (limited due to recent surgical intervention ); able to extend lower leg actively and ecchymosis (mild ), lower leg (Negative Mariaa's Sign ) Details: normal to inspection; no erythema and no tenderness, ankle (+ankle dorsiflexion/plantarflexion ) Details: normal to inspection, no edema and normal ROM; no tenderness, no swelling and no ecchymosis and foot Details: normal capillary refill, normal to inspection, vascular exam Details: dorsalis pedis pulse present and motor-sensory exam Details: light-touch normal; no tenderness Left lower extremity: normal to inspection Other: Incision with moderate amount of sanguinous drainage. Dressing removed. Incision well approximated, verna intact. No signs of active bleeding. No significant pain to indicate hematoma. No s
--- NOTE | 2022-08-17 11:15 | PM.DS ---
DS: Admitting Diagnosis Discharge Date 08/17/22 Admitting Diagnosis Right Knee DJD DS: Discharge Diagnosis Discharge Diagnosis (1) S/P total knee arthroplasty: Qualifiers: Laterality: right Qualified Code(s): Z96.651 - Presence of right artificial knee joint Code(s): Z96.659 - Presence of unspecified artificial knee joint Status: Acute Assessment and Plan: POD #1 : Right TKA Continue PT/OT. WBAT. Walker. HIGH FALL RISK. Continue pain control. Ice Knee. Protect skin. DVT prophylaxis with Aspirin. SCDs. Incentive Spirometry Use reviewed. Dressing removed due to sanguinous drainage. Incision well approximated, verna intact. No signs of active bleeding. New dressing placed. Bowel Regimen. Dispo: Home with Home Health pending progress with PT/OT Plan Reviewed postoperative dressing and bleeding, labs, vitals and assessment with attending MD, Dr. Noonan. Agrees with current plan as indicated above. No further recommendations. DS: Summary Hospital Course Reason for hospitalization: Right TKA Hospital Course: 66 year old male admitted s/p Right TKA for postoperative medical management, pain control and mobilization with PT/OT. Patient progressed well with PT/OT. Pain and vitals remained stable throughout. The patient has been cleared to be discharged home with home health at this time. All discharge care instructions reviewed at depth. New medications reviewed. Follow up planned for 3 weeks in the outpatient orthopedic clinic with Dr. Noonan. Status at Discharge Functional status at discharge: uses cane/walker Overall status at discharge: patient is progressing back to baseline Time Spent with Patient Time attestation: Total time spent providing and/or coordinating discharge services: Exam Const: General: comfortable and no acute distress Resp: Effort & Inspection: normal respiratory effort Cardio: Rate: regular rate Rhythm: regular rhythm Skin: General skin exam: wounds noted Wounds: wounds noted Other: Incision with moderate amount of sanguinous drainage. Dressing removed. Incision well approximated, verna intact. No signs of active bleeding. No significant pain to indicate hematoma. No surrounding redness/warmth or signs of acute infection. Mild ecchymosis of the thigh. No wound dehiscence Neuro: Cognition (Neuro): normal cognition Other: NV intact aside from block. Moves toes. Sensation intact to light touch. +ankle dorsiflexion/plantarflexion. Extrem: Right lower extremity: normal to inspection, knee Details: tenderness (diffuse, mild ) Location: of the patella, swelling (diffuse, consistent with surgical intervention ), abnormal ROM Details: pain with active ROM during, pain with passive ROM during and with range as follows (limited due to recent surgical intervention ); able to extend lower leg actively and ecchymosis (mild ), lower leg (Negative Mariaa's Sign ) Details: normal to inspection; no erythema and no tenderness, ankle (+ankle dorsiflexion/plantarflexion ) Details: normal to inspection, no edema and normal ROM; no tenderness, no swelling and no ecchymosis and foot Details: normal capillary refill, normal to inspection, vascular exam Details: dorsalis pedis pulse present and motor-sensory exam Details: light-touch normal; no tenderness Left lower extremity: normal to inspection Other: Incision with moderate amount of sanguinous drainage. Dressing removed. Incision well approximated, verna intact. No signs of active bleeding. No significant pain to indicate hematoma. No surrounding redness/warmth or signs of acute infection. Mild ecchymosis of the thigh. No wound dehiscence Psych: Mental Status: mental status grossly normal DS: Data Data Completed and Pending Labs on day of discharge: Labs from last 24 hours 08/17/22 06:25 WBC 17.7 H RBC 3.76 L Hgb 11.5 L D Hct 35.9 L MCV 95.5 MCH 30.6 MCHC 32.0 RDW 13.7 Plt Count 191 MP
[2022-08-17 11:43] VITALS: BP 105/60; PULSE 76; RESP 16; TEMP 36.1; O2SAT 98
== END 2022-08-17 14:34 | disposition home health service (06) ==
LOC: ANHSURGERY 06:54 → ANH3MEDSUR 12:21
PROVIDERS: PCP Internal Medicine; Visit Provider Orthopaedic Surgery
PROC: (CPT 27447; principal; 2022-08-16 07:30)
DX: M17.11 Unilateral primary osteoarthritis, right knee (principal); G89.18 Other acute postprocedural pain; E78.5 Hyperlipidemia, unspecified; E11.9 Type 2 diabetes mellitus without complications; F41.9 Anxiety disorder, unspecified; F32.A Depression, unspecified; K21.9 Gastro-esophageal reflux disease without esophagitis; G47.33 Obstructive sleep apnea (adult) (pediatric); G25.81 Restless legs syndrome; Z98.1 Arthrodesis status; E66.9 Obesity, unspecified; Z68.34 Body mass index [BMI] 34.0-34.9, adult; Z79.51 Long term (current) use of inhaled steroids; Z79.84 Long term (current) use of oral hypoglycemic drugs
CPT/HCPCS: 27447; 64447; 36415; 73560; 80048; 82948; 85025; 86850; 86900; 86901; 97110; 97116; 97161; 97165; 97530; 97535; A9270; C1713; C1776; J0171; J0360; J0690; J1100; J1170; J1885; J2250; J2270; J2405; J2704; J2795; J3010; J7120

== ENCOUNTER 2022-08-23 14:29 | Outpatient (CLI) | payer MEDICARE, SELFPAY ==
--- NOTE | ~2022-08-23 | US_ITS ---
EXAMINATION: US venous doppler LE RT DATE: 08/23/2022 15:01 INDICATION: Right lower limb pain and swelling post recent right total knee arthroplasty. TECHNIQUE: Grayscale ultrasound images without and with compression and Doppler ultrasound images of the right lower extremity veins were obtained. COMPARISON: None. FINDINGS: The visualized portions of right common femoral vein, profunda (deep) femoral vein, femoral vein, pop liteal vein, peroneal trunk, posterior tibial veins, peroneal veins, gastrocnemius vein and greater s aphenous vein outflow are patent. IMPRESSION: 1. No deep venous thrombosis in the right lower limb. Reviewed, dictated and finalized at location A.
== END 2022-08-23 14:30 | disposition home or self-care (01) ==
PROVIDERS: PCP Internal Medicine; Visit Provider Orthopaedic Surgery
DX: M79.661 Pain in right lower leg (principal)
CPT/HCPCS: 93971

== ENCOUNTER 2022-11-08 13:30 | Outpatient (RCR) | payer OTHER, MEDICARE, SELFPAY ==
--- NOTE | 2022-09-13 16:43 | OPREHPOC ---
Outpatient Therapy Plan of Care This is a Multidisciplinary Plan of Care that may contain components documented by all disciplines (PT, OT, and ST.) PT Problem 1 PT Problem #1 Knowledge Deficit PT Goal 1 Goal Pt to be IND with issued HEP Target Visit 16 PT Problem 2 PT Problem #2 Pain PT Goal 1 Goal Pt to report pain no greater than 3/10 in the last week Target Visit 16 PT Goal 2 Goal Pt to report 75% improvement in overall symptoms Target Visit 16 PT Problem 3 PT Problem #3 Impaired Range of Motion PT Goal 1 Goal Pt to demonstrate full active terminal knee extension to 0 deg Target Visit 16 PT Goal 2 Goal Pt to increase active knee flexion to 115 deg Target Visit 16 PT Problem 4 PT Problem #4 Impaired Gait PT Goal 1 Goal Pt to improve 2min walk distance from 230ft to 350ft without AD Target Visit 16 PT Goal 2 Goal Pt to demonstrate no gait deviations on level grounnd Target Visit 16
--- NOTE | 2022-09-13 16:43 | PTOPEVAL1 ---
Assessment and note entered by Love Heaton, PT, DPT Evaluation Information Assessment Status Evaluation Diagnosis R TKA Onset 08/16/22 Subjective Information Pt reports he had a R TKA on 08/16/22. He states everyday his knee is getting a little bit better. He states the first 3 weeks were just unbearable. He ambulates in the clinic today with a single point cane. He states he still cannot sleep through the night. Reported Pain Level Pain Score 5: Self Report Assessment PT Clinical Summary Gerald presents to therapy today for his intial evaluation following a R TKA on 08/16/22. Today he demonstrates active knee motion from -16 to 108 deg. He ambulates with a shortened stride, lack of terminal knee extension during terminal stance, and decreased knee flexion during swing phase. He also demonstrates deviations with stair navigation . There is mild edema presents throughout the lower R leg. Skilled therapy services are indicated to improve strength, ROM, functional mobility, and to return to PLOF. Plan of Care Interventions Electrical Stimulation,Gait Training,Hot Pack/Cold Pack,Manual Therapy,Neuro Re-education,Patient/ Caregiver Educati,Therapeutic Activities, Therapeutic Exercise PT Services Indicated Yes Treatment Frequency and 2x/wk for 8 wks Duration These treatments will address the objective and functional deficits as defined above. The patient will be advanced safely and appropriately in order for the patient to progress towards his/her prior level of function. Additional exercises will be introduced and as well as a comprehensive home exercise program upon discharge, if needed, ?to ensure carryover of functional gains achieved in the clinic. This treatment plan has been reviewed and agreement upon by the patient.
--- NOTE | 2022-09-15 11:45 | PCPTNOTE ---
On 09/15/22, the student, Liana Locke provided care and completed [employer] documentation on this patient. I have reviewed the student's documentation and agree with the findings.
--- NOTE | 2022-09-27 10:22 | PCPTNOTE ---
Appointment on September 26 was canceled due to provider out sick.
--- NOTE | 2022-09-28 16:12 | PCPTNOTE ---
Addendum entered by Sharri Strange, [employer] 09/28/22 16:13: Patient reports he needs to cancel this date due to something coming up. Original Note: Patient reports he needs cancel this date due to something coming up.
--- NOTE | 2022-10-12 15:18 | PTOPPROGNS ---
Assessment and note entered by Love Heaton, PT, DPT Evaluation Information Assessment Status Progress Diagnosis R TKA Onset 08/16/22 Subjective Information Pt states overall he feels like his knee is doing better. He states he keep over doing it when his knee feels better and then he suffers for a few days. He reports getting in/out of chairs and the car is getting easier. Pt states he had to take an Oxycodone today because he did too much. Pt states he has been doing yard work and push mowing his grass. Assessment PT Clinical Summary Gerald presents to therapy today for his progress report following 8 visits of skilled therapy to treat his R TKA on 08/16/22. Today he demonstrates active knee motion from -8 to 115 deg. He ambulates with a shortened stride and lack of terminal knee extension during terminal stance. He continues to have high pain reports. He reports good compliance with his HEP and is progressing well towards his therapy goals. Continuation of skilled therapy services are indicated to improve strength, ROM, functional mobility, and to return to PLOF. Plan of Care Interventions Electrical Stimulation,Gait Training,Hot Pack/Cold Pack,Manual Therapy,Neuro Re-education,Patient/ Caregiver Educati,Therapeutic Activities, Therapeutic Exercise PT Services Indicated Yes Treatment Frequency and 2x/wk for 8 visits Duration These treatments will address the objective and functional deficits as defined above. The patient will be advanced safely and appropriately in order for the patient to progress towards his/her prior level of function. Additional exercises will be introduced and as well as a comprehensive home exercise program upon discharge, if needed, ?to ensure carryover of functional gains achieved in the clinic. This treatment plan has been reviewed and agreement upon by the patient.
--- NOTE | 2022-10-20 10:04 | PCPTNOTE ---
Pt NS visit this day, called and left message of day and time for next visit.
--- NOTE | 2022-11-08 14:09 | PTOPDC ---
Assessment and note entered by Love Heaton, PT, DPT Evaluation Information Assessment Status Discharge Diagnosis R TKA Onset 08/16/22 Subjective Information Pt states he did a lot of driving this morning without an increase in pain in his knee. He states going up stairs still feels painful at times and he has difficultly changing positions after sitting for a while. Pt reports 75% improvement in overall symptoms. Reported Pain Level Pain Score 0: Self Report Assessment PT Clinical Summary Gerald presents to therapy today for his progress report following 15 visits of skilled therapy to treat his R TKA on 08/16/22. Today he demonstrates active knee motion from -3 to 120 deg. He ambulates with an improved gait speed and a normalized stride length. He has met or progressed well towards all of his therapy goals and will be discharged at this time. Plan of Care PT Services Indicated No
== END 2022-11-08 14:23 | disposition home or self-care (01) ==
LOC: ANHGOSHPT 13:30
PROVIDERS: PCP Internal Medicine; Visit Provider Orthopaedic Surgery
DX: Z48.89 Encounter for other specified surgical aftercare (principal); M17.11 Unilateral primary osteoarthritis, right knee; M23.329 Other meniscus derangements, posterior horn of medial meniscus, unspecified knee; M25.561 Pain in right knee
CPT/HCPCS: 97014; 97110; 97112; 97140; 97161; 97530; 99199; G0283

== ENCOUNTER 2022-11-29 16:18 | Emergency (ER) | payer MEDICARE, SELFPAY ==
--- NOTE | ~2022-11-29 | CT_ITS ---
EXAMINATION: CTA chest PE protocol DATE: 11/29/2022 18:31 INDICATION: Syncope TECHNIQUE: Computed tomography angiography (CTA) of the chest was performed with 100 mL Omnipaque-350 intravenous contrast timed to evaluate the pulmonary arteries. Coronal maximum intensity projection 3D-reconstructions were created by the technologist. The dose-length product (DLP) was 574.05 mGy-cm. Automated exposure control and iterative reconstruction technique were employed. COMPARISON: X-ray chest, same date. FINDINGS: Lung parenchyma and airways: Mild bilateral dependent atelectasis. Pleura: Unremarkable. Thoracic inlet, axillae and chest wall: Unremarkable. Thoracic aorta: Mild arch calcification and unfolding. Mediastinum: Normal. Heart and pericardium: Normal. Coronary artery calcifications: Absent. Upper abdomen: No significant finding. Bones: No acute osseous finding. Partially visualized ACDF hardware Pulmonary arteries: Study quality: Adequate. No pulmonary emboli detected. IMPRESSION: No CT evidence of acute pulmonary embolus. No acute intrathoracic process detected. Reviewed, dictated and finalized at location K. IMPRESSION: No CT evidence of acute pulmonary embolus. No acute intrathoracic process detec anita.
--- NOTE | ~2022-11-29 | XR_ITS ---
EXAMINATION: XR chest 2V Exam Date/Time: 11/29/2022 18:09 CDT HISTORY: Syncope Comparison: 03/23/2022; concurrent CTPA. RESULT: Lines, tubes, and devices: Loop recorder. ACDF hardware. Lungs and pleura: Clear. Cardiomediastinal silhouette: Stable. Other: No acute osseous or upper abdominal finding. IMPRESSION: No acute cardiopulmonary process. Reviewed, dictated and finalized at location K.
[2022-11-29 16:24] VITALS: BP 121/76; PULSE 75; RESP 18; TEMP 36.3; O2SAT 97
--- NOTE | 2022-11-29 16:28 | ECG_ITS ---
Measurements Intervals [place] Rate: 73 P: 22 IN: 188 QRS: -3 QRSD: 90 T: 63 QT: 393 QTc: 436 Interpretive Statements SINUS RHYTHM POSSIBLE LEFT ATRIAL ENLARGEMENT [-0.1mV P WAVE IN V1/V2] LOW QRS VOLTAGE IN PRECORDIAL LEADS [QRS DEFLECTION < 1.0 mV IN CHEST LEADS] POSSIBLE RIGHT VENTRICULAR CONDUCTION DELAY [RSR (QR) IN V1/V2] NONSPECIFIC T-WAVE ABNORMALITY COMPARED TO ECG 03/26/2022 17:37:47 T-WAVE ABNORMALITY NOW PRESENT Electronically Signed On 11-29-2022 19:24:35 CDT by Lisseth Dixon M.D.
[2022-11-29 16:38] VITALS: PULSE 73
[2022-11-29 16:38] LABS: Basophils Absolute Auto 0.1 K/mm3 (0.0-0.1); Basophils Percent Auto 0.8 % (0.2-1.2); Eosinophils Absolute Auto 0.4 K/mm3 (0-0.3); Eosinophils Percent Auto 6.5 % (0-4.4); Hematocrit 43.5 % (42.0-52.0); Hemoglobin 14.4 g/dL (14.0-18.0); Immature Granulocyte Absolute 0.01 K/mm3 (0.00-0.031); Immature Granulocyte Percent A 0.2 % (0-0.5); Lymphocytes Absolute Auto 1.77 K/mm3 (0.9-3.2); Lymphocytes Percent Auto 26.9 % (18.3-44.2); Mean Corpuscular HGB Conc 33.1 g/dl (32-36); Mean Corpuscular Hemoglobin 29.1 pg (26-34); Mean Corpuscular Volume 87.9 fl (80-100); Mean Platelet Volume 9.6 fl (7.4-10.4); Monocytes Absolute Auto 0.7 K/mm3 (0.1-0.6); Monocytes Percent Auto 9.9 % (2.6-8.5); Neutrophils Absolute Auto 3.7 K/mm3 (1.3-6.7); Neutrophils Percent Auto 55.7 % (45.5-73.1); Platelet Count Result 221 k/mm3 (150-375); Red Blood Count 4.95 M/mm3 (4.6-6.20); Red Cell Distribution Width 14.3 % (11.5-14.5); White Blood Count 6.6 K/mm3 (4.5-10.0)
[2022-11-29 16:47] LABS: Alanine Aminotransferase 38 U/L (6-50); Albumin Level 4.2 g/dL (3.5-5.1); Alkaline Phosphatase 48 U/L (38-126); Anion Gap 7 mmol/L (8-16); Aspartate Amino Transferase 41 U/L (17-59); Bilirubin,Total 0.6 mg/dL (0.2-1.3); Blood Urea Nitrogen 20 mg/dL (9-20); Carbon Dioxide 27 mmol/L (22-30); Chloride 100 mmol/L (98-107); Estimated CRCL calculation 85 ml/min; Estimated Glomerular Filt Rate > 60; Glucose 111 mg/dL (65-110); Potassium 3.6 mmol/L (3.4-5.0); Sodium 134 mmol/L (137-145)
--- NOTE | 2022-11-29 17:57 | ED.SYNCOPE ---
HPI - Syncope General Chief Complaint: Syncope Stated Complaint: syncopal Time Seen by Provider: 11/29/22 17:31 History of Present Illness HPI narrative: This is a 66-year-old male, with past history of orthostatic hypotension leading to syncopal episodes, knee surgery 4 months ago, who was brought in by EMS after syncopal episode at home. The patient states he got out of a hot bath, started a cold shower, then felt warm, lightheaded and lost consciousness. The patient believes he hit his head and left hip. He initially felt 3/10 dull left hip pain that has since resolved. He states in the past 3 to 4 days, he is felt some shortness of breath with physical exertion though denies chest pain Related Data Home Medications Medication Instructions Recorded Confirmed [id number] 200 mcg-vit K 100 1 cap PO DAILY 04/07/19 11/24/22 mcg-lycop 500 [id number] capsule (Daily Multivitamin) omega-3 fatty acids-vitamin E 1 cap PO DAILY 02/05/20 11/24/22 1,000 mg capsule loratadine-pseudoephedrine ER 10 1 tablet PO PRN PRN Allergy 03/12/20 11/24/22 mg-240 mg tablet,extended Symptoms [id number] (Claritin-D 24 Hour) acetaminophen 500 mg tablet 1,000 mg PO Q6H PRN Pain 10/25/21 11/24/22 metformin 1,000 mg tablet 1,000 mg PO QHS 03/24/22 11/24/22 amlodipine 5 mg tablet 5 mg PO DAILY 07/31/22 11/24/22 ibuprofen 600 mg tablet 600 mg PO QID PRN Pain 07/31/22 11/24/22 Allergies Allergy/AdvReac Type Severity Reaction Status Date / Time ropinirole Allergy Intermediate syncope Verified 11/29/22 16:31 Penicillins Allergy Unknown Unknown- Verified 11/29/22 16:31 A CHILD Review of Systems Review of Systems: CONSTITUTIONAL: Denies fever, chills, or sweats. CARDIOVASCULAR: Denies chest pain, palpitations, or edema. RESPIRATORY: Denies cough or dyspnea. GASTROINTESTINAL: Denies abdominal pain, nausea, vomiting, or diarrhea. GENITOURINARY: Denies dysuria or hematuria. SKIN: Denies rash or itching. MUSCULOSKELETAL: Left hip pain denies back pain, or myalgia. NEUROLOGIC: Denies headache, numbness, dizziness, or weakness. PSYCHIATRIC: Denies anxiety or depression. [facility] Past Medical History Medical History Anxiety BMI 32.0-32.9,adult BMI 33.0-33.9,adult BMI 34.0-34.9,adult BMI 34.0-34.9,adult Cervicalgia Chest pain, unspecified Colon cancer screening Costochondritis DDD (degenerative disc disease) Dependence on other enabling machines and devices Depression DM2 (diabetes mellitus, type 2) Dysphagia Dyspnea on exertion Effusion of knee joint Encounter for routine adult health examination with abnormal findings Encounter for routine adult health examination without abnormal findings Encounter for special screening examination for neoplasm of prostate Fatigue Follow up Generalized anxiety disorder GERD (gastroesophageal reflux disease) History of esophageal stricture With dilatation x2. Hospital discharge follow-up Hyperlipidemia Increased abdominal girth Insomnia Knee injury Mass of right breast Obstructive sleep apnea on CPAP Orthostatic hypotension Positive colorectal cancer screening using Cologuard test Pre-diabetes Hemoglobin A1c was 5.9 in May 2018. Preoperative clearance Restless legs syndrome (RLS) Right knee DJD Shingles Shortness of Breath Syncope Hospitalized for syncopal episode on March 14, 2018. Nelson to be related to postural dizziness. Workup was unrevealing. Vitamin D deficiency Wears glasses Wheezing Surgical History Surgical History H/O arthroscopic knee surgery Hx of cardiac cath S/P total knee arthroplasty RIGHT TKA 08/16/2022 Status post cervical spinal fusion C6-C7. Status post rotator cuff repair Bilateral. Family History Family History Father Prostate carcinoma Dialysis patient Diabetes melli
[2022-11-29 18:03] VITALS: BP 113/87; PULSE 69; RESP 18; O2SAT 98
[2022-11-29] MEDS: SODIUM CHLORIDE 0.9% IV 1,000 ML 999 ML IV CONT (18:03)
[2022-11-29 18:27] LABS: Troponin I < 0.012 ng/mL (0.000-0.034)
[2022-11-29 19:07] VITALS: BP 131/84; BP 136/85; BP 143/88; PULSE 67; PULSE 71; PULSE 80
[2022-11-29 19:29] VITALS: BP 144/85; PULSE 69; RESP 20; O2SAT 99
== END 2022-11-29 19:30 | disposition home or self-care (01) ==
PROVIDERS: Emergency Provider Preventive Medicine Aerospace Medicine; PCP Internal Medicine
DX: R55 Syncope and collapse (principal); E11.9 Type 2 diabetes mellitus without complications; E55.9 Vitamin D deficiency, unspecified; E78.5 Hyperlipidemia, unspecified; K21.9 Gastro-esophageal reflux disease without esophagitis; G47.33 Obstructive sleep apnea (adult) (pediatric); G25.81 Restless legs syndrome; M17.11 Unilateral primary osteoarthritis, right knee; F41.1 Generalized anxiety disorder; F32.A Depression, unspecified; Z98.1 Arthrodesis status; Z96.651 Presence of right artificial knee joint; Z87.891 Personal history of nicotine dependence; Z79.82 Long term (current) use of aspirin; Z79.84 Long term (current) use of oral hypoglycemic drugs; R94.31 Abnormal electrocardiogram [ECG] [EKG]
CPT/HCPCS: 36415; 71046; 71275; 80053; 84484; 85025; 93005; 96360; 99284; J7030; Q9967

== ENCOUNTER 2023-03-01 16:32 | Emergency (ER) | payer MEDICARE, SELFPAY ==
--- NOTE | ~2023-03-01 | XR_ITS ---
EXAMINATION: XR chest 2V DATE: 03/01/2023 17:03 INDICATION: Cough and fever. TECHNIQUE: Frontal and lateral views of the chest were obtained. COMPARISON: Chest 2 views 11/29/2022, chest CT 11/29/2022 FINDINGS: There is mild atelectasis at left lung base. No pleural effusion or pneumothorax. The heart size is normal. There is an electronic implant in left anterior chest wall. There are changes of ant erior fusion procedure in cervical spine. IMPRESSION: 1. Mild atelectasis at left lung base. Reviewed, dictated and finalized at location E. OSAL SPECIALIST
--- NOTE | 2023-03-01 16:37 | ED.URI ---
HPI - URI/Sore Throat General Chief Complaint: Upper Respiratory Infection Stated Complaint: COUGH/CHILLS/FEVER/TIRED/DECREASED APPETITE Time Seen by Provider: 03/01/23 16:50 Source: patient Mode of arrival: ambulatory Limitations: no limitations History of Present Illness HPI Narrative: Gerald is a 67 year old male patient presenting to the clinic today with complaints of cough, chills, fever, fatigue, and decreased appetite. He reports he does have a productive cough. Symptoms have been going on for 5 days. Does report feeling short of breath. MD elicited complaint: cough, rhinorrhea and nasal congestion Related Data Home Medications Medication Instructions Recorded Confirmed [id number] 200 mcg-vit K 100 1 cap PO DAILY 04/07/19 03/01/23 mcg-lycop 500 [id number] capsule (Daily Multivitamin) omega-3 fatty acids-vitamin E 1 cap PO DAILY 02/05/20 03/01/23 1,000 mg capsule loratadine-pseudoephedrine ER 10 1 tablet PO PRN PRN Allergy 03/12/20 03/01/23 mg-240 mg tablet,extended Symptoms [id number] (Claritin-D 24 Hour) acetaminophen 500 mg tablet 1,000 mg PO Q6H PRN Pain 10/25/21 03/01/23 metformin 1,000 mg tablet 1,000 mg PO QHS 03/24/22 03/01/23 ibuprofen 600 mg tablet 600 mg PO QID PRN Pain 07/31/22 03/01/23 aspirin 81 mg chewable tablet 81 mg PO DAILY 03/01/23 03/01/23 hydrochlorothiazide 12.5 mg tablet 12.5 mg PO DAILY 03/01/23 03/01/23 losartan 100 mg tablet 100 mg PO DAILY 03/01/23 03/01/23 tamsulosin 0.4 mg capsule 0.4 mg PO DAILY 03/01/23 03/01/23 Allergies Allergy/AdvReac Type Severity Reaction Status Date / Time ropinirole Allergy Intermediate syncope Verified 03/01/23 16:42 Penicillins Allergy Unknown Unknown- Verified 03/01/23 16:42 A CHILD Review of Systems Review of Systems: Pertinent positives per HPI. Patient denies any rash, headache, visual changes, dizziness, chest pain, palpitations, nausea, vomiting, diarrhea, constipation, abdominal pain, or any urinary issues. [facility] Past Medical History Medical History Anxiety BMI 32.0-32.9,adult BMI 33.0-33.9,adult BMI 34.0-34.9,adult BMI 34.0-34.9,adult Cervicalgia Chest pain, unspecified Colon cancer screening Costochondritis DDD (degenerative disc disease) Dependence on other enabling machines and devices Depression DM2 (diabetes mellitus, type 2) Dysphagia Dyspnea on exertion Effusion of knee joint Encounter for routine adult health examination with abnormal findings Encounter for routine adult health examination without abnormal findings Encounter for special screening examination for neoplasm of prostate Fatigue Follow up Generalized anxiety disorder GERD (gastroesophageal reflux disease) History of esophageal stricture With dilatation x2. Hospital discharge follow-up Hyperlipidemia Increased abdominal girth Insomnia Knee injury Mass of right breast Obstructive sleep apnea on CPAP Orthostatic hypotension Positive colorectal cancer screening using Cologuard test Pre-diabetes Hemoglobin A1c was 5.9 in May 2018. Preoperative clearance Restless legs syndrome (RLS) Right knee DJD Shingles Shortness of Breath Syncope Hospitalized for syncopal episode on March 14, 2018. [place] to be related to postural dizziness. Workup was unrevealing. Vitamin D deficiency Wears glasses Wheezing Surgical History Surgical History H/O arthroscopic knee surgery Hx of cardiac cath S/P total knee arthroplasty RIGHT TKA 08/16/2022 Status post cervical spinal fusion C6-C7. Status post rotator cuff repair Bilateral. Family History Family History Father Prostate carcinoma Dialysis patient Diabetes mellitus Hypertension Mother Asthma Hypertension Sibling Bladder cancer Asthma Agent orange exposure Sibling Hypertension Asthma Social Hi
[2023-03-01 16:48] VITALS: BP 134/86; PULSE 62; RESP 16; TEMP 36.6; O2SAT 99
[2023-03-01 16:58] VITALS: BP 134/86; PULSE 62; RESP 16; TEMP 36.6; O2SAT 99
== END 2023-03-01 17:19 | disposition home or self-care (01) ==
PROVIDERS: Emergency Provider Nurse Practitioner Family; PCP Internal Medicine
DX: J06.9 Acute upper respiratory infection, unspecified (principal); B34.9 Viral infection, unspecified; Z20.822 Contact with and (suspected) exposure to COVID-19; E11.9 Type 2 diabetes mellitus without complications; Z79.84 Long term (current) use of oral hypoglycemic drugs; K21.9 Gastro-esophageal reflux disease without esophagitis; E78.5 Hyperlipidemia, unspecified; G47.33 Obstructive sleep apnea (adult) (pediatric); G25.81 Restless legs syndrome; F41.9 Anxiety disorder, unspecified; F32.A Depression, unspecified; Z79.82 Long term (current) use of aspirin
CPT/HCPCS: 71046; 87426; 87804; 99213; C9803; G0463

== ENCOUNTER 2023-03-16 11:20 | Outpatient (CLI) | payer MEDICARE, SELFPAY ==
[2023-03-16 12:33] LABS: Influenza A QL RT-PCR Negative (Negative); Influenza B QL RT-PCR Negative (Negative); RSV RNA, RT-PCR Negative (Negative); SARS-CoV-2 RNA PCR Negative (Negative)
== END 2023-03-16 11:21 | disposition home or self-care (01) ==
LOC: ANHLAB 11:21
PROVIDERS: PCP Internal Medicine; Visit Provider Internal Medicine
DX: R69 Illness, unspecified (principal); R05.9 Cough, unspecified; R55 Syncope and collapse; Z20.822 Contact with and (suspected) exposure to COVID-19
CPT/HCPCS: 87637

== ENCOUNTER 2023-12-10 10:20 | Outpatient (CLI) | payer MEDICARE, SELFPAY ==
[2023-12-10 10:59] LABS: Alanine Aminotransferase 31 U/L (6-50); Albumin Level 4.4 g/dL (3.5-5.1); Alkaline Phosphatase 46 U/L (38-126); Anion Gap 6 mmol/L (4-12); Aspartate Amino Transferase 30 U/L (17-59); Bilirubin,Total 0.7 mg/dL (0.2-1.3); Blood Urea Nitrogen 10 mg/dL (9-20); Calcium 9.3 mg/dL (8.4-10.2); Carbon Dioxide 32 mmol/L (22-30); Chloride 99 mmol/L (98-107); Cholesterol 117 mg/dL (0-200); Estimated Glomerular Filt Rate > 60; Glucose 106 mg/dL (65-110); HDL Direct 66 mg/dL; Potassium 4.4 mmol/L (3.4-5.0); Sodium 137 mmol/L (137-145); Triglycerides 69 mg/dL (<150)
[2023-12-10 11:15] LABS: LDL Cholesterol Direct < 30 mg/dL
[2023-12-10 11:32] LABS: Hemoglobin A1C 6.2 % (<5.7)
[2023-12-10 12:07] LABS: Free T4 Free Thyroxine 1.04 ng/mL (0.78-2.19); Vitamin D 25 Hydroxy 53.6 ng/mL
== END 2023-12-10 10:21 | disposition home or self-care (01) ==
PROVIDERS: PCP Internal Medicine; Visit Provider Internal Medicine
DX: E55.9 Vitamin D deficiency, unspecified (principal); I10 Essential (primary) hypertension; E11.9 Type 2 diabetes mellitus without complications; E78.5 Hyperlipidemia, unspecified; Z13.29 Encounter for screening for other suspected endocrine disorder; Z79.899 Other long term (current) drug therapy
CPT/HCPCS: 36415; 80053; 80061; 82306; 83036; 84439; 84443

== ENCOUNTER 2023-12-19 10:54 | Outpatient (CLI) | payer MEDICARE, SELFPAY ==
[2023-12-19 12:15] LABS: Prostate Specific Antigen 4.7 ng/mL (< OR = 4.0)
== END 2023-12-19 10:55 | disposition home or self-care (01) ==
LOC: ANHLAB 10:57
PROVIDERS: PCP Internal Medicine; Visit Provider Internal Medicine
DX: Z12.5 Encounter for screening for malignant neoplasm of prostate (principal); R97.20 Elevated prostate specific antigen [PSA]
CPT/HCPCS: 36415; 84153; G0103

== ENCOUNTER 2023-12-27 08:36 | Outpatient (CLI) | payer MEDICARE, SELFPAY ==
--- NOTE | ~2023-12-27 | NM_ITS ---
EXAMINATION: NM rupali stress w perfusion DATE: 12/27/2023 10:18 INDICATION: Chest pain TECHNIQUE: Rest images were obtained following intravenous administration of 9.5 mCi Tc99m tetrofosmi n (Myoview). The patient was infused intravenously with Lexiscan (Regadenoson). Then, 30.3 mCi Tc99m tetrofosmin (Myoview) was administered intravenously, and stress images were obtained. Data was recon structed into short axis and horizontal and vertical long axis SPECT images. Gated SPECT images were also obtained. COMPARISON: None. FINDINGS: There is no definite reversible or fixed perfusion abnormality to suggest ischemia or infar ction. There is normal left ventricular chamber size, wall motion and ejection fraction. Left ventr icular ejection fraction measures >70%. IMPRESSION: 1. Normal myocardial perfusion at rest and during stress. 2. Left ventricular ejection fraction measuring >70%. Reviewed, dictated and finalized at location A.
--- NOTE | 2023-12-27 08:41 | EST_ITS ---
Patient Info Name: Doc Johnston Age: 68 years : 1955 Gender: Male Ht: 68 in Wt: 220 lbs BSA: 2.22 m2 HR: 61 bpm BP: 156 / 99 mmHg Exam Date: 12/27/2023 9:34 AM Exam Location: Echo Lab Patient Status: Outpatient Admit Date: 12/27/2023 Staff Ordering Physician: Jeremias Bloom MD Attending Provider: Jeremias Bloom MD Exercise Technologist: Emmanuelle Sanchez RDCS Nurse: Jasmina Frias APN Exam Type: CA stress rupali w NM Study Info A regadenoson stress test was performed. Summary 1. Sinus rhythm with a ventricular rate of 61 beats per minute with no ischemic ST T wave changes. 2. No ischemic ST T wave changes. Protocol: Lexiscan Stress ECG Details Stage: REST Duration (min): 1 min : 9 sec HR (bpm): 60 SBP (mmHg): 156 DBP (mmHg): 99 Stage: REST Duration (min): 7 min : 59 sec HR (bpm): 64 SBP (mmHg): 156 DBP (mmHg): 99 Stage: STAGE 1 Duration (min): 1 min : 0 sec HR (bpm): 85 SBP (mmHg): 156 DBP (mmHg): 99 Stage: RECOVERY Duration (min): 1 min : 0 sec HR (bpm): 76 SBP (mmHg): 149 DBP (mmHg): 80 Stage: RECOVERY Duration (min): 2 min : 0 sec HR (bpm): 72 SBP (mmHg): 149 DBP (mmHg): 80 Stage: RECOVERY Duration (min): 3 min : 0 sec HR (bpm): 71 SBP (mmHg): 152 DBP (mmHg): 87 Stage: RECOVERY Duration (min): 3 min : 9 sec HR (bpm): 72 SBP (mmHg): 152 DBP (mmHg): 87 Rest HR: 64 bpm Peak HR: 85 bpm Rest Sys BP: 156 mmHg Peak Sys BP: 152 mmHg Max Pred HR: 150 bpm % Max Pred HR: 57 % Target HR: 128 bpm Max RPP: 12,920 bpm*mmHg Total Time: 1 min : 0 sec Rest Nye BP: 99 mmHg Peak Nye BP: 87 mmHg Total Dose: 0.4 mg Resting ECG Sinus rhythm with a ventricular rate of 61 beats per minute with no ischemic ST T wave changes. Stress ECG No ischemic ST T wave changes. Arrhythmias No arrhythmias noted. Report Signatures
== END 2023-12-27 08:37 | disposition home or self-care (01) ==
PROVIDERS: PCP Internal Medicine; Visit Provider Internal Medicine
DX: R07.9 Chest pain, unspecified (principal)
CPT/HCPCS: 78452; 93017; A9502; J2785

== ENCOUNTER 2024-01-20 17:47 | Emergency (ER) | payer MEDICARE, SELFPAY ==
--- NOTE | ~2024-01-20 | XR_ITS ---
EXAMINATION: XR chest 1V portable DATE: 01/20/2024 22:34 INDICATION: Syncope. TECHNIQUE: A single frontal view of the chest was obtained. COMPARISON: Chest 2 views 03/01/2023 FINDINGS: There is no pneumonia, pleural effusion, or pneumothorax. The heart size is normal. There a re changes of anterior fusion procedure in cervical spine. There is an electronic implant in left el[place] st wall. IMPRESSION: 1. No acute cardiopulmonary disease. Reviewed, dictated and finalized at location A. CTOR OF REAL ESTATE
--- NOTE | ~2024-01-20 | CT_ITS ---
EXAMINATION: CT brain wo con DATE: 01/20/2024 23:10 INDICATION: Syncope. TECHNIQUE: Computed tomography (CT) of the head was performed without intravenous contrast. The mA wa s adjusted according to patient size. Iterative reconstruction technique was employed. The dose-lengt h product was 681.00 mGy-cm. COMPARISON: Head CT 03/23/2022 FINDINGS: There is no intracranial hemorrhage, acute infarction, or abnormal intracranial mass lesion . The ventricles are normal in size. There is mucosal thickening in the paranasal sinuses. The orbits are normal. The mastoid air cells are normal. IMPRESSION: 1. Normal brain. Reviewed, dictated and finalized at location A. COMPLIANCE REPRESENTATIVE IMPRESSION: 1. Normal brain.
[2024-01-20 17:51] VITALS: BP 136/76; PULSE 66; RESP 17; TEMP 36.3; O2SAT 94
--- NOTE | 2024-01-20 21:46 | ECG_ITS ---
Test Date: 2024-01-20 22:11:08 Measurements Intervals [place] Rate: 64 P: 28 WA: 214 QRS: 9 QRSD: 87 T: 70 QT: 353 QTc: 365 Interpretive Statements SINUS RHYTHM WITH FIRST DEGREE AV BLOCK POSSIBLE LEFT ATRIAL ENLARGEMENT LOW QRS VOLTAGE IN PRECORDIAL LEADS CONSIDER INFERIOR INFARCT, AGE INDETERMINATE BORDERLINE ST-T WAVE ABNORMALITY- HIGH LATERAL LEADS BASELINE ARTIFACT- I, II, III, AVR ABNORMAL ECG No previous ECG available for comparison Electronically Signed On 01-21-2024 06:19:05 GUIDE VISITOR by Sherwin Okeefe D.O.
[2024-01-20 22:11] LABS: Basophils Absolute Auto 0.1 K/mm3 (0.0-0.1); Basophils Percent Auto 0.5 % (0.2-1.2); Eosinophils Absolute Auto 0.3 K/mm3 (0-0.3); Eosinophils Percent Auto 1.9 % (0-4.4); Hematocrit 41.7 % (42.0-52.0); Immature Granulocyte Absolute 0.03 K/mm3 (0.00-0.031); Immature Granulocyte Percent A 0.2 % (0-0.5); Lymphocytes Absolute Auto 1.19 K/mm3 (0.9-3.2); Lymphocytes Percent Auto 9.1 % (18.3-44.2); Mean Corpuscular HGB Conc 33.6 g/dl (32-36); Mean Corpuscular Volume 92.5 fl (80-100); Mean Platelet Volume 9.7 fl (7.4-10.4); Monocytes Absolute Auto 0.7 K/mm3 (0.1-0.6); Monocytes Percent Auto 5.4 % (2.6-8.5); Neutrophils Absolute Auto 10.9 K/mm3 (1.3-6.7); Neutrophils Percent Auto 82.9 % (45.5-73.1); Platelet Count Result 212 k/mm3 (150-375); Red Blood Count 4.51 M/mm3 (4.6-6.20); Red Cell Distribution Width 13.2 % (11.5-14.5); White Blood Count 13.1 K/mm3 (4.5-10.0)
[2024-01-20 22:24] LABS: Alanine Aminotransferase 30 U/L (6-50); Albumin Level 3.9 g/dL (3.5-5.1); Alkaline Phosphatase 37 U/L (38-126); Anion Gap 6 mmol/L (4-12); Aspartate Amino Transferase 36 U/L (17-59); Bilirubin,Total 0.6 mg/dL (0.2-1.3); Blood Urea Nitrogen 13 mg/dL (9-20); Calcium 8.6 mg/dL (8.4-10.2); Carbon Dioxide 28 mmol/L (22-30); Chloride 99 mmol/L (98-107); Estimated CRCL calculation 85 ml/min; Estimated Glomerular Filt Rate > 60; Glucose 159 mg/dL (65-110); Sodium 133 mmol/L (137-145)
--- NOTE | 2024-01-21 01:26 | ED.SYNCOPE ---
HPI - Syncope General Chief Complaint: Syncope Stated Complaint: syncope Time Seen by Provider: 01/20/24 22:17 History of Present Illness HPI narrative: 68-year-old male with a past medical history significant for diabetes, and previous orthostatics syncope. Today patient presents to the emergency room with chief complaint of a syncopal episode that was witnessed at home. Patient states he was otherwise relaxing at home on the couch when he suddenly got up to answer the door. He felt a faria of lightheadedness sensation while walking only 10 ft and fell to the ground. He did strike the left side of his forehead and vomited 1 time. Denied taking any blood thinner medications. He woke up very quickly thereafter without any confusion or postictal. . No history of seizure disorder. Reported feeling nauseous lightheaded and dizzy with a prodrome just prior to the syncopal event after he got up suddenly. He states he has happened to him multiple times in the past whenever he gets up suddenly. Denies any new injuries or illnesses. Reports some mild left-sided shoulder pain but able to range it equally. denies any active headache, vision changes, chest pain, shortness a breath, back pain, nausea, vomiting, fever, chills. Related Data Home Medications Medication Instructions Recorded Confirmed [id number] 200 mcg-vit K 100 1 cap PO DAILY 04/07/19 12/19/23 mcg-lycop 500 [id number] capsule (Daily Multivitamin) omega-3 fatty acids-vitamin E 1 cap PO DAILY 02/05/20 12/19/23 1,000 mg capsule loratadine-pseudoephedrine ER 10 1 tablet PO PRN PRN Allergy 03/12/20 12/19/23 mg-240 mg tablet,extended Symptoms [id number] (Claritin-D 24 Hour) acetaminophen 500 mg tablet 1,000 mg PO Q6H PRN Pain 10/25/21 12/19/23 ibuprofen 600 mg tablet 600 mg PO QID PRN Pain 07/31/22 12/19/23 aspirin 81 mg chewable tablet 81 mg PO DAILY 03/01/23 12/19/23 hydrochlorothiazide 12.5 mg tablet 12.5 mg PO DAILY 03/01/23 12/19/23 losartan 100 mg tablet 100 mg PO DAILY 03/01/23 12/19/23 B-complex with vitamin C 1 tablet PO DAILY 12/19/23 12/19/23 Allergies Allergy/AdvReac Type Severity Reaction Status Date / Time ropinirole Allergy Intermediate syncope Verified 01/20/24 17:55 Penicillins Allergy Unknown Unknown- Verified 01/20/24 17:55 A CHILD Review of Systems Review of Systems: As reviewed above in HPI [facility] Past Medical History Medical History Anxiety BMI 32.0-32.9,adult BMI 33.0-33.9,adult BMI 34.0-34.9,adult BMI 34.0-34.9,adult Cervicalgia Chest pain on exertion Chest pain, unspecified Colon cancer screening Costochondritis DDD (degenerative disc disease) Dependence on other enabling machines and devices Depression DM2 (diabetes mellitus, type 2) Dysphagia Dyspnea on exertion Effusion of knee joint Encounter for routine adult health examination with abnormal findings Encounter for routine adult health examination without abnormal findings Encounter for special screening examination for neoplasm of prostate Fatigue Follow up Generalized anxiety disorder GERD (gastroesophageal reflux disease) History of esophageal stricture With dilatation x2. Hospital discharge follow-up Hx of colonic polyps Hyperlipidemia Increased abdominal girth Insomnia Knee injury Mass of right breast Obstructive sleep apnea on CPAP Orthostatic hypotension Positive colorectal cancer screening using Cologuard test Pre-diabetes Hemoglobin A1c was 5.9 in May 2018. Preoperative clearance Restless legs syndrome (RLS) Right knee DJD Shingles Shortness of Breath Syncope Hospitalized for syncopal episode on March 14, 2018. [place] to be related to postural dizziness. Workup was unrevealing. Vitamin D deficiency Wears glasses Wheezing Surgical History Surgical History H/O arthroscopic knee surgery Hx of cardiac cath S/P total knee arthroplasty RIGHT TKA 08/16/2022 Status post cervical spinal fusion C6-C7. Status post rotator cuff repair Bilateral. 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 He lives with his who is the dieter . He has 2 children. He was a former smoker in high school. His no alcoholic beverage with dinner each night. Code status full code Smoking status: Never smoker Tobacco type: cigarettes Second hand tobacco smoke exposure: No Additional smoking assessment comments: DENIES ANY FORM OF TOBACCO USE Alcohol intake: former Drinks per week: 7 Alcohol use details: nightly with dinner Substance use: never Substance use type: does not use Lack of Transportation: No Lack of Food: Never True Current Housing: I Have Housing Concerned About Future Housing: No Difficulty Paying Gas/Electric Bills: No Difficulty Paying for Meds: No Currently Unemployed: No Education: Don't Know Difficulty w/ Childcare or Family Care: No Living arrangements: with family Gender identity (if verbalized by the patient): Male Spiritual care concerns: No Agree to blood products: Yes Exam Narrative: GENERAL: [Well-appearing, well-nourished, and in no acute distress.] HEAD: normocephalic, left-sided frontal scalp hematoma that appears very minor without any overlying skin changes or tenderness. No palpable deformity. EYES: [PERRLA and EOMI.] ENT: Nares clear, no rhinorrhea or epistaxis. Mucous membranes moist. NECK: Supple. CHEST: [Clear to auscultation. No respiratory distress.] HEART: [Regular rate and rhythm]. No murmur heard. [Normal peripheral pulses.] ABDOMEN: [Soft, nondistended], [nontender], [No rigidity or guarding] EXTREMITIES: Normal range of motion. [No edema.] Some mild tenderness to palpation over the left-sided lateral clavicle without any deformity. Full range of motion the shoulder and able to shrug the shoulders. Metal Pattern Maker strength full, able to flex extend at the shoulder and elbow. No overlying skin changes or deformity. SKIN: Warm, dry, no rash. NEURO: [No focal deficits]. Alert and oriented [x3.] PSYCH: [Normal mood and affect.] Course Vital Signs Vital signs: Vital Signs Temperature 36.3 C L 01/20/24 17:51 Pulse Rate 66 01/20/24 17:51 Respiratory Rate 17 01/20/24 17:51 Blood Pressure 136/76 01/20/24 17:51 Pulse Oximetry 94 01/20/24 17:51 Oxygen Delivery Room Air 01/20/24 17:51 Temperature 36.3 C L 01/20/24 17:51 Pulse Rate 66 01/20/24 17:51 Respiratory Rate 17 01/20/24 17:51 Blood Pressure 136/76 01/20/24 17:51 Pulse Oximetry 94 01/20/24 17:51 Oxygen Delivery Room Air 01/20/24 17:51 MDM - Syncope MDM Narrative Medical decision making narrative: 68-year-old male presenting for a syncopal event at home that was preceded by a prodrome of suddenly standing up, feeling lightheaded nauseous and dizzy. This is happening multiple times in the before he states that he has had similar events attributed to orthostasis. He did fall to the ground hit his head and lose consciousness briefly but woke up shortly thereafter without any seizure-like activity or shaking. Over the entirety of the events and otherwise states he feels okay right now. He does have evidence of minor head trauma with a soft scalp hematoma on the left of his frontal bone but no overlying skin changes or obvious deformity. He has normal reassuring vital signs with and tachycardic, blood pressure concerns, fever or hypoxia. He denies any history of cardiac events or cardiac Related syncope to his knowledge. He states he feels asymptomatic at this time and expressing desire for discharge but wanted make sure that his head was okay given that he does have a small Scalp hematoma. Given his age and risk factors a workup was ordered in addition to head CT to make sure does not have any kind of sequela of the closed head injury or any kind of intracranial pathology otherwise. Blood work was obtained including a EKG and chest x-ray. Patient has a mild leukocytosis of 13.1 but on review of the EMR he does have previously elevated leukocytosis even higher than this. No obvious infectious symptoms and patient otherwise feels asymptomatic at this time. no anemia. Normal platelets. Chemistry panel within normal limits, no significant electrolyte derangements, normal renal function panel. Glucose 159. Normal hepatic function panel. Chest x-ray was independently reviewed by myself and I do not appreciate any kind of focal consolidations. no pneumothorax or obvious injury pattern. Similar to prior chest x-rays in the EMR. Head CT was reported to stat read and they commented on no acute intracranial findings. Patient is stable for discharge home at this time given the likely benign etiology to his syncopal events most likely orthostatic in nature given his history and reassuring workup. Patient was comfortable with this plan of care in stable for discharge home at this time with regular outpatient primary care provider up as well as strict return precautions. Differential Diagnosis Differential diagnosis: Likely syncope due to orthostatic hypotension, vasovagal syncope, subarachnoid hemorrhage, dehydration and other Medical Records Attestation: I reviewed the patient's medical records. Lab Data Attestation: I reviewed the patient's lab results. 01/20/24 22:06 01/20/24 22:06 Labs: Lab Results 01/20/24 Range/Units 22:06 WBC 13.1 H (4.5-10.0) K/mm3 RBC 4.51 L (4.6-6.20) M/mm3 Hgb 14.0 (14.0-18.0) g/dL Hct 41.7 L (42.0-52.0) % MCV 92.5 (80-100) fl MCH 31.0 (26-34) pg MCHC 33.6 (32-36) g/dl RDW 13.2 (11.5-14.5) % Plt Count 212 (150-375) k/mm3 MPV 9.7 (7.4-10.4) fl Immature Gran % (Auto) 0.2 (0-0.5) % Neut % (Auto) 82.9 H (45.5-73.1) % Lymph % (Auto) 9.1 L (18.3-44.2) % [place] % (Auto) 5.4 (2.6-8.5) % Eos % (Auto) 1.9 (0-4.4) % Baso % (Auto) 0.5 (0.2-1.2) % Lymph # (Auto) 1.19 (0.9-3.2) K/mm3 [place] # (Auto) 0.7 H (0.1-0.6) K/mm3 Eos # (Auto) 0.3 (0-0.3) K/mm3 Baso # (Auto) 0.1 (0.0-0.1) K/mm3 Abs Immat Gran (auto) 0.03 (0.00-0.031) K/mm3 Absolute Neuts (auto) 10.9 H (1.3-6.7) K/mm3 Absolute Nucleated RBC 0.000 (0.0-0.012) K/mm3 Nucleated RBC % 0.0 (0.0-0.2) % Sodium 133 L (137-145) mmol/L Potassium 4.0 (3.4-5.0) mmol/L Chloride 99 (98-107) mmol/L Carbon Dioxide 28 (22-30) mmol/L Anion Gap 6 (4-12) mmol/L BUN 13 (9-20) mg/dL Creatinine 0.80 (0.7-1.3) mg/dL Estim Creat Clear Calc 85 ml/min Estimated GFR > 60 (59 - ) Glucose 159 H (65-110) mg/dL Calcium 8.6 (8.4-10.2) mg/dL Total Bilirubin 0.6 (0.2-1.3) mg/dL AST 36 (17-59) U/L ALT 30 (6-50) U/L Alkaline Phosphatase 37 L (38-126) U/L Total Protein 7.0 (6.3-8.2) g/dL Albumin 3.9 (3.5-5.1) g/dL Imaging Data Attestation: I personally reviewed and interpreted this imaging study as follows: ECG Data EKG #1: Attestation: I personally reviewed and interpreted this ECG as follows: ECG completion date: 01/20/24 ECG completion time: 22:11 Interpretation: No ST segment elevations, depressions or inversions. Normal sinus rhythm with normal axis, QTC interval 365, QRS of 87, OR interval slightly prolonged at 214 indicative of first-degree AV block. No active signs of ischemia. No ectopy. EKG Interpretation: normal rate, sinus rhythm, non-specific ST changes and normal QRS Discharge Plan Discharge Clinical Impression: Syncope Patient Disposition: Home, Self-Care Condition: Stable Instructions: Antibiotic Form, Syncope (DC) Additional Instructions: your workup was very reassuring as well as her head CT. No injuries were found today and your symptoms are likely secondary to orthostatic hypotension which has happened to in the past. Follow-up with your primary care provider outpatient or return to the ER with any concerns at any time. Prescriptions: No Action losartan 100 mg tablet 100 mg PO DAILY hydrochlorothiazide 12.5 mg tablet 12.5 mg PO DAILY aspirin [Baby Aspirin] 81 mg Tablet,Chewable 81 mg PO DAILY albuterol sulfate 90 mcg/actuation HFA aerosol inhaler 2 puff inhalation Q4-6H PRN (Reason: shortness of breath or wheezing) 30 Days Qty: 8.5 0RF loratadine-pseudoephedrine [Claritin-D 24 Hour] 10-240 mg tablet extended release 24 hr 1 tablet PO PRN PRN (Reason: Allergy Symptoms) (DME) Home Nebulizer machine See Rx Instructions .Route .MEDSUPPLY Qty: 1 0RF Rx Instructions: As directed B-complex with vitamin C Tablet 1 tablet PO DAILY trazodone 50 mg tablet See Rx Instructions PO QHS PRN (Reason: insomnia) Qty: 60 5RF Rx Instructions: Take 1-2 tablets by oral route nightly at bedtime. orally every day at bedtime PRN; Daily Multivitamin 200-100-500 mcg Capsule 1 cap PO DAILY Patient Comments: QAM acetaminophen 500 mg Tablet 1,000 mg PO Q6H PRN (Reason: Pain) ibuprofen 600 mg Tablet 600 mg PO QID PRN (Reason: Pain) Hold Instructions: Resume on 09/14/22. omega-3 fatty acids-vitamin E 1,000 mg Capsule 1 cap PO DAILY Patient Comments: QAM pantoprazole 40 mg tablet,delayed release (DR/EC) See Rx Instructions .ROUTE .COMPLEX Qty: 90 1RF Dose Instruction: TAKE 1 TABLET BY MOUTH EVERY MORNING (DISCONTINUE OMEPRAZOLE) Rx Instructions: TAKE 1 TABLET BY MOUTH EVERY MORNING (DISCONTINUE OMEPRAZOLE) tramadol 50 mg tablet 50 mg PO Q8H PRN (Reason: pain) Qty: 30 0RF citalopram 40 mg tablet See Rx Instructions .ROUTE .COMPLEX Qty: 90 0RF Dose Instruction: TAKE ONE TABLET BY MOUTH ONCE DAILY Rx Instructions: TAKE ONE TABLET BY MOUTH ONCE DAILY lorazepam 0.5 mg tablet 0.5 mg PO TID PRN (Reason: anxiety) Qty: 50 0RF tamsulosin 0.4 mg capsule See Rx Instructions .ROUTE .COMPLEX Qty: 90 1RF Dose Instruction: Take 1 capsule by mouth once daily Rx Instructions: Take 1 capsule by mouth once daily metformin 1,000 mg tablet 1,000 mg PO DAILY Qty: 90 1RF ezetimibe 10 mg tablet 10 mg PO DAILY Qty: 90 1RF gabapentin 100 mg capsule See Rx Instructions .ROUTE .COMPLEX Qty: 180 0RF Dose Instruction: TAKE 1 TO 2 CAPSULES BY MOUTH THREE TIMES DAILY STOP ROPINIROLE Rx Instructions: TAKE 1 TO 2 CAPSULES BY MOUTH THREE TIMES DAILY STOP ROPINIROLE rosuvastatin 40 mg tablet See Rx Instructions .ROUTE .COMPLEX Qty: 90 0RF Dose Instruction: TAKE 1 TABLET BY MOUTH EVERY DAY Rx Instructions: TAKE 1 TABLET BY MOUTH EVERY DAY Follow-up/Referrals: Jeremias Bloom MD [Primary Care Provider] - Time of Disposition: 01:35
== END 2024-01-21 02:01 | disposition home or self-care (01) ==
PROVIDERS: Emergency Provider Student in an Organized Health Care Education/Training Program; PCP Internal Medicine
DX: R55 Syncope and collapse (principal); E11.9 Type 2 diabetes mellitus without complications; E78.5 Hyperlipidemia, unspecified; G47.33 Obstructive sleep apnea (adult) (pediatric); G25.81 Restless legs syndrome; M17.11 Unilateral primary osteoarthritis, right knee; K21.9 Gastro-esophageal reflux disease without esophagitis; F32.A Depression, unspecified; F41.1 Generalized anxiety disorder; E55.9 Vitamin D deficiency, unspecified; Z98.1 Arthrodesis status; Z96.651 Presence of right artificial knee joint; Z79.82 Long term (current) use of aspirin; Z79.899 Other long term (current) drug therapy; Z79.84 Long term (current) use of oral hypoglycemic drugs
CPT/HCPCS: 36415; 70450; 71045; 80053; 85025; 93005; 99284

== ENCOUNTER 2024-02-08 10:25 | Outpatient (CLI) | payer MEDICARE, SELFPAY ==
--- NOTE | ~2024-02-08 | XR_ITS ---
EXAMINATION: XR hip BI 2V w AP pelvis DATE: 02/08/2024 10:46 INDICATION: Bilateral hip pain. Fall. TECHNIQUE: An anteroposterior view of the pelvis and 2 views of each hip were obtained. COMPARISON: None. FINDINGS: There is lumbar dextrocurvature. No fracture. There is mild osteoarthritis of the hips. The re is mild lumbar spondylosis. IMPRESSION: 1. Mild osteoarthritis of the hips. Reviewed, dictated and finalized at location A. ND PASTE MOLDER
--- NOTE | ~2024-02-08 | XR_ITS ---
EXAMINATION: XR lumbar spine min 4V DATE: 02/08/2024 10:46 INDICATION: Low back pain. Fall. TECHNIQUE: 5 views of lumbar spine were obtained. COMPARISON: None. FINDINGS: There is 7 degrees dextrocurvature of thoracolumbar spine. There is 3 mm retrolisthesis of L1 on L2 and 3 mm anterolisthesis of L4 on L5. Vertebral body heights are normal. There is mildly dec reased disc height at L1-L2 and L4-L5. There is multilevel facet joint osteoarthritis, severe on the right from L3-L4 through L5-S1 and surrounding on the left at L5-S1. IMPRESSION: 1. Mild lumbar spondylosis. Reviewed, dictated and finalized at location A. REEL OPERATOR HELPER IMPRESSION: 1. Mild lumbar spondylosis.
== END 2024-02-08 10:26 | disposition home or self-care (01) ==
PROVIDERS: PCP Internal Medicine; Visit Provider Internal Medicine
DX: M16.0 Bilateral primary osteoarthritis of hip (principal); M43.06 Spondylolysis, lumbar region; G89.29 Other chronic pain
CPT/HCPCS: 72110; 73521

== ENCOUNTER 2024-03-19 09:54 | Outpatient (CLI) | payer MEDICARE, SELFPAY ==
--- NOTE | ~2024-03-19 | CT_ITS ---
EXAMINATION: CTA chest DATE: 03/19/2024 10:35 INDICATION: Shortness of breath. Possible subclavian steal syndrome. TECHNIQUE: Computed tomographic angiography (CTA) of the chest was performed without and with 100 mL Omnipaque-350 intravenous contrast. Volume-rendered 3D-reconstructions of the aorta and large arterie s were constructed by the technologist on a separate workstation. Automated exposure control and iter ative reconstruction technique were employed. The dose-length product was 884.47 mGy-cm. COMPARISON: CT studies dated between 11/29/2022 and 11/05/2017 FINDINGS: Chronic reticular and groundglass opacities in the dependent aspect of the bilateral lower lobes whic h have been present since 2018 consistent with chronic interstitial lung disease. There are subpleura l lucencies in the region of interstitial lung disease which could represent either superimposed mild emphysema superimposed over nonspecific interstitial pneumonia (NSIP) pattern chronic lung disease o r honeycombing and the setting of usual interstitial pneumonia (UIP) pattern chronic interstitial que g disease. No pneumonia, pulmonary edema, pleural effusion or pneumothorax. Cardiomegaly. Minimal per icardial effusion. Thoracic aorta is normal in caliber with minimal atherosclerotic plaque and no dis section. There is a mild stenosis of the right subclavian artery resulting from a sharp kink in its c ourse but no mass evident atherosclerotic disease. The left vertebral artery is dominant with diminut deanne right vertebral artery. There is prominent atherosclerotic plaque, likely minimally significant a t the origin of the left vertebral artery. No pathologically enlarged thoracic lymphadenopathy. Visua lized upper abdomen is unremarkable. Mild thoracic spondylosis. C6-C7 anterior spinal fusion with ant erior plate and screw fixation. IMPRESSION: 1. Stable appearance of mild chronic interstitial lung disease in the dependent lower lobes. 2. Mild stenosis resulting from a sharp kink in the course of the right subclavian artery proximal to the take off the diminutive right vertebral artery. 3. Atherosclerotic calcification with likely hemodynamically significant stenosis at the origin of th e larger caliber left vertebral artery. 4. Mild cardiomegaly with very small pericardial effusion. Reviewed, dictated and finalized at location A. LATE CUTTER IMPRESSION: 1. Stable appearance of mild chronic interstitial lung disease in the dependent lower lobes. 2. Mild stenosis resulting from a sharp kink in the course of the right subclav mike artery proximal to the take off the diminutive right vertebral artery. 3. Atherosclerotic calcification with likely hemodynamically significant stenos is at the origin of the larger caliber left vertebral artery. 4. Mild cardiomegaly with very small pericardial effusion.
[2024-03-19 10:15] LABS: Estimated Glomerular Filt Rate > 60
== END 2024-03-19 09:55 | disposition home or self-care (01) ==
LOC: MICIMG 09:55
PROVIDERS: PCP Internal Medicine; Visit Provider Internal Medicine
DX: R06.02 Shortness of breath (principal); M54.2 Cervicalgia; M54.50 Low back pain, unspecified; G89.29 Other chronic pain
CPT/HCPCS: 71275; Q9967

== ENCOUNTER 2024-04-18 08:57 | Outpatient (CLI) | payer MEDICARE, SELFPAY ==
--- OUTSIDE RECORDS SUMMARY | 2024-04-18 09:26 | XMS_ITS | Clinical Summary ---
Author Organization [facility] [place] [address] Address [address] [place] [address] Care Team Providers Care Bar Examiner Name Role Phone Jeremias Bloom MD Primary Care Provider [phone] Allergies Active Allergy Reactions Criticality Noted Date Comments Penicillins Anaphylaxis High 03/19/2019 Pt reports allergy as a child Medications amLODIPine (NORVASC) 10 mg tablet Take 1 tablet (10 mg total) by mouth daily Active citalopram (CeleXA) 40 mg tablet Take 1 tablet (40 mg total) by mouth daily Active metFORMIN (GLUCOPHAGE) 500 mg tablet Take 1 tablet (500 mg total) by mouth 2 (two) times a day with meals Active MULTIVITAMIN ORAL Take 1 tablet by mouth daily. Active rOPINIRole (REQUIP) 4 mg tablet Take 1 tablet (4 mg total) by mouth 3 (three) times a day Active omega-3 fatty acids 1,000 mg capsule Take 1,000 mg by mouth daily Active rosuvastatin (CRESTOR) 40 mg tablet Take 1 tablet (40 mg total) by mouth daily 90 tablet 2 03/20/2019 Active aspirin 81 mg enteric coated tablet Take 1 tablet (81 mg total) by mouth daily Active losartan (COZAAR) 100 mg tablet Take 1 tablet (100 mg total) by mouth nightly 90 tablet 3 06/21/2022 Active diazePAM (VALIUM) 5 mg tablet Take 1 tablet (5 mg total) by mouth 2 (two) times a day as needed 09/29/2022 Active ezetimibe (ZETIA) 10 mg tablet Take 1 tablet (10 mg total) by mouth daily 08/03/2022 Active gabapentin (NEURONTIN) 100 mg capsule TAKE 1-2 CAPSULES BY MOUTH THREE TIMES DAILY. PLEASE STOP THE ROPINIROLE. 08/07/2022 Active oxyCODONE-aceta minophen (PERCOCET) 5-325 mg per tablet Take by mouth every 6 (six) hours as needed 09/29/[address] (PROTONIX) 40 mg EC tablet TAKE 1 TABLET BY MOUTH EVERY MORNING (DISCONTINUE OMEPRAZOLE) 08/02/2022 Active tamsulosin (FLOMAX) 0.4 mg extended release capsule Take 1 capsule (0.4 mg total) by mouth daily 03/27/2023 Active Active Problems Problem Noted Date Diagnosed Date Subclavian steal syndrome of right subclavian ar rosario 03/27/2024 Assessment & Plan (04/17/2024 2:58 PM STOCK SELECTOR): Overall I do not think his syncopal episodes are due to right subclavian steal as his right vertebral artery is hypoplastic and or occluded distally he has a dominant left vertebral artery and his carotid arteries are widely patent. Overall I think these episodes are likely cardiogenic in nature. I do not think a right carotid subclavian bypass would be beneficial again as his right vertebral artery is hypoplastic. His right subclavian artery has an angulation out of the chest but on duplex there was not a significant flow disturbance. Discussed findings with the patient and his , continue ASA statin therapy and good blood pressure control. Can follow up me as needed. Assessment & Plan (03/27/2024 7:16 AM STOCK SELECTOR): Overall I think all these findings on his CT of the chest are incidental, including an anatomically appearing kink in the right subclavian, he has at baseline a hypoplastic right vertebral artery versus distal functional occlusion with a dominant left vertebral artery. His carotids proximally have no evidence of significant disease. Based on these findings and his history of of syncope only with moving from sitting to standing I suspected this is some component of orthostatic hypotension or something with a cardiac etiology. A ordered a carotid duplex for further evaluation, continue ASA and statin therapy. Typical surgical treatment if it truly were vertebrobasilar insufficiency would include a carotid subclavian bypass, given his right vertebral artery is hypoplastic at baseline and his left vertebral is the dominant vertebral surgical intervention on a right subclavian I do not think would benefit him at all. We will follow back up and a couple weeks following his carotid duplex. Primary hypertension 03/27/2024 Assessment & Plan (04/17/2024 2:58 PM STOCK SELECTOR): Stable continue losartan Assessment & Plan (03/27/2024 7:17 AM STOCK SELECTOR): Stable continue amlodipine Mixed hyperlipidemia 03/27/2024 Assessment & Plan (04/17/2024 2:58 PM STOCK SELECTOR): Stable continue Crestor Assessment & Plan (03/27/2024 7:17 AM STOCK SELECTOR): Stable continue Crestor Status post placement of implantable loop record er 03/02/2020 Overview (03/02/2020): [employer]ovate [employer]str[employer] Implantable Loop Recorder. Dx; Syncope. DOI 03/01/2020-Dl. Carelink remote monitoring. Encounters Date Type Department Care Team Description 04/16/2024 9:30 AM STOCK SELECTOR Office Visit [facility] Vascular at [address] [place] [phone] Conner Quiros MD 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 (Primary Dx); Primary hypertension; Mixed hyperlipidemia 04/15/2024 Telephone [facility] V[facility] and Vein Surgery [address] [place] [address] Nahed Delgadillo MA 04/09/2024 11:00 AM STOCK SELECTOR Ancillary Procedure [facility] Vascular and Vein Surgery at [address] [place] [address] Subclavian steal syndrome 03/26/2024 9:45 AM STOCK SELECTOR Office Visit [facility] at [address] [place] [address] Conner Quiros MD 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 (Primary Dx); Other transient cerebral ischemic attacks and related syndromes; Primary hypertension; Mixed hyperlipidemia 03/26/2024 Orders Only [facility] V[facility] at [address] [place] [address] Conner Quiros MD Subclavian steal syndrome (Primary Dx) from Last 3 Months Medical History Medical History Date Comments Hypertension Hyperlipidemia Social History Tobacco Use Types Packs/Day Years Used Date Smoking Tobacco: Former Cigarettes 0.3 3 Smokeless Tobacco: Never Tobacco Cessation:Counseling Given: Not Answered Alcohol Use Standard Drinks/Week Comments Yes 5 (1 standard drink = 0.6 oz pur e alcohol) Sex and Gender Information Value Date Recorded Sex Assigned at Not on file Legal Sex Male 9:23 PM STOCK SELECTOR Gender Identity Not on file Sexual Orientation Not on file Obstetrics History Last Filed Vital Signs Vital Sign Reading Time Taken Comments Blood Pressure 177/79 04/16/2024 9:35 AM STOCK SELECTOR Pulse 74 04/16/2024 9:35 AM STOCK SELECTOR Temperature 36.8 C (98.2 F) 01/26/2020 10:48 AM STOCK SELECTOR Respiratory Rate 18 04/03/2023 10:16 AM STOCK SELECTOR Oxygen Saturation 96% 04/16/2024 9:35 AM STOCK SELECTOR Inhaled Oxygen Concentration - - Weight 97.5 kg (215 lb) 04/16/2024 9:35 AM STOCK SELECTOR Height 172.7 cm (5' 8 ) 04/16/2024 9:35 AM STOCK SELECTOR Body Mass Index 32.69 04/16/2024 9:35 AM STOCK SELECTOR Plan of Treatment Health Maintenance Due Date Last Done Comments Colon Cancer Screening-Colonoscopy 1955 Depression Screening 1955 Fall Risk Assessment 1955 Hepatitis C Screening 1955 Hepatitis B Screening 12/15/1971 Pneumococcal vaccine 65+ (1 of 1 - PCV) 12/15/2003 Zoster Vaccine (1 of 2) 12/15/2003 Abdominal Aortic Aneurysm (AAA) Screen 2018 Well Visit 65+ 2018 DTaP/Tdap/Td Vaccine (2 - Td or Tdap) 08/19/2023 Influenza Vaccine (#1) 2023 03/15/2018 Procedures Procedure Name Priority Date/Time Associated Diagnosis Comments US CAROTIDS DUPLEX BILATERAL Schedule Routine, Read Routine (OP Routine) 04/09/2024 11:34 AM STOCK SELECTOR Subclavian steal syndrome from Last 3 Months Results * US Carotids Duplex Bilateral (04/09/2024 11:34 AM STOCK SELECTOR) Anatomical Region Laterality Modality Vascular Bilateral Ultrasound 04/09/2024 10:5 3 AM STOCK SELECTOR Narrative 04/10/2024 8:59 AM STOCK SELECTOR Vascular & Vein Surgery [address] [facility] [place] [address] Carotid Duplex Ultrasound Report Patient Name: JOSELYN JOHNSTON J : 1955 (68y 3m) Study Date: 04/09/2024 10:53:46 AM Gender: M Project Leader: Location: [facility] Ref Provider: CONNER QUIROS Quality: Adequate Order Provider: CONNER QUIROS PROCEDURES: Carotid Report: Carotid duplex examination of the extracranial arteries was performed using 2D, color and spectral Doppler. INDICATIONS: Dizziness, unsteady gait. HISTORY: Hypertension. Hyperlipidemia. Former smoker. COMPARISONS: No previous exams. MEASUREMENTS: Right Value Left Value Rt Subc PSV 291 cm/sec LT Prox CCA PSV 100 cm/sec RT Prox CCA PSV 98 cm/sec LT Prox CCA EDV 17 cm/sec RT Prox CCA EDV 19 cm/sec LT Distal CCA PSV 105 cm/sec RT Distal CCA PSV 83 cm/sec LT Distal CCA EDV 25 cm/sec RT Distal CCA EDV 20 cm/sec LT Prox ICA PSV 77 cm/sec RT Prox ICA PSV 50 cm/sec LT Prox ICA EDV 13 cm/sec RT Prox ICA EDV 12 cm/sec LT Mid ICA PSV 67 cm/sec RT Mid ICA PSV 59 cm/sec LT Mid ICA EDV 20 cm/sec RT Mid ICA EDV 17 cm/sec LT Distal ICA PSV 58 cm/sec RT Distal ICA PSV 74 cm/sec LT Distal ICA EDV 16 cm/sec RT Distal ICA EDV 25 cm/sec LT ECA Prx PSV 108 cm/sec RT ECA Prx PSV 71 cm/sec LT ICA/CCA 0.73 ratio RT ICA/CCA 0.60 ratio Lt Vert Dst PSV 49 cm/sec FINDINGS: Rt Common Carotid Artery: Duplex imaging of the right common carotid artery is within normal limits without evidence of atherosclerotic disease. Rt Internal Carotid Artery: The plaque in the right internal carotid artery appears to be heterogeneous and smooth. Atherosclerotic changes of the right internal carotid artery without hemodynamically significant Doppler findings. <50% stenosis. Rt External Carotid Artery: The right external carotid artery is patent without evidence of atherosclerotic plaque. Rt Vertebral Artery: Unable to visualize. Subclavian artery is patent with PSV 291 cm/s, difficult to define origin. Lt Common Carotid Artery: The plaque in the left CCA appears to be heterogeneous. Lt Internal Carotid Artery: The plaque in the left internal carotid artery appears to be heterogeneous and smooth. Atherosclerotic changes of the left internal carotid artery without hemodynamically significant Doppler findings. <50% stenosis. Lt External Carotid Artery: The left external carotid artery is patent without evidence of atherosclerotic plaque. Lt Vertebral Artery: The left vertebral artery is patent with antegrade flow. Comments: Brachial artery systolic blood pressure is 175 on the right, 177 on the left. CONCLUSIONS: 1. The right internal carotid artery disease is consistent with a less than 50% stenosis. 2. The left internal carotid artery disease is consistent with a less than 50% stenosis. ATTESTATION: I have reviewed and interpreted the pertinent images and measurements of this study. I attest to the conclusions in the final report that is provided above. Electronically Signed By: Conner Quiros MD 04/10/2024 8:45:41 AM STOCK SELECTOR Procedure Note Conner Quiros MD - 04/10/2024 Vascular & Vein Surgery [address] [facility] [place] [address] Carotid Duplex Ultrasound Report Patient Name: JOSELYN JOHNSTON J : 1955 (68y 3m) Study Date: 04/09/2024 10:53:46 AM Gender: M Project Leader: CHAPIS Location: [facility] Provider: CONNER QUIROS Quality: Adequate Order Provider: CONNER QUIROS PROCEDURES: Carotid Report: Carotid duplex examination of the extracranial arterieswas performed using 2D, color and spectral Doppler. INDICATIONS: Dizziness, unsteady gait. HISTORY: Hypertension. Hyperlipidemia. Former smoker. COMPARISONS: No previous exams. MEASUREMENTS: Right Value Left Value Rt Subc PSV 291 cm/sec LT Prox CCA PSV 100 cm/sec RT Prox CCA PSV 98 cm/sec LT Prox CCA EDV 17 cm/sec RT Prox CCA EDV 19 cm/sec LT Distal CCA PSV 105 cm/sec RT Distal CCA PSV 83 cm/sec LT Distal CCA EDV 25 cm/sec RT Distal CCA EDV 20 cm/sec LT Prox ICA PSV 77 cm/sec RT Prox ICA PSV 50 cm/sec LT Prox ICA EDV 13 cm/sec RT Prox ICA EDV 12 cm/sec LT Mid ICA PSV 67 cm/sec RT Mid ICA PSV 59 cm/sec LT Mid ICA EDV 20 cm/sec RT Mid ICA EDV 17 cm/sec LT Distal ICA PSV 58 cm/sec RT Distal ICA PSV 74 cm/sec LT Distal ICA EDV 16 cm/sec RT Distal ICA EDV 25 cm/sec LT ECA Prx PSV 108 cm/sec RT ECA Prx PSV 71 cm/sec LT ICA/CCA 0.73 ratio RT ICA/CCA 0.60 ratio Lt Vert Dst PSV 49 cm/sec FINDINGS: Rt Common Carotid Artery: Duplex imaging of the right common carotidartery is within normal limits without evidence of atherosclerotic disease. Rt Internal Carotid Artery: The plaque in the right internal carotidartery appears to be heterogeneous and smooth. Atherosclerotic changes of the right internalcarotid artery without hemodynamically significant Doppler findings. <50% stenosis. Rt External Carotid Artery: The right external carotid artery is patentwithout evidence of atherosclerotic plaque. Rt Vertebral Artery: Unable to visualize. Subclavian artery is patent withPSV 291 cm/s, difficult to define origin. Lt Common Carotid Artery: The plaque in the left CCA appears to beheterogeneous. Lt Internal Carotid Artery: The plaque in the left internal carotid arteryappears to be heterogeneous and smooth. Atherosclerotic changes of the left internalcarotid artery without hemodynamically significant Doppler findings. <50% stenosis. Lt External Carotid Artery: The left external carotid artery is patentwithout evidence of atherosclerotic plaque. Lt Vertebral Artery: The left vertebral artery is patent with antegradeflow. Comments: Brachial artery systolic blood pressure is 175 on the right, 177on the left. CONCLUSIONS: 1. The right internal carotid artery disease is consistent with a lessthan 50% stenosis. 2. The left internal carotid artery disease is consistent with a less than50% stenosis. ATTESTATION: I have reviewed and interpreted the pertinent images and measurements ofthis study. I attest to the conclusions in the final report that is provided above. Electronically Signed By: Conner Quiros MD 04/10/2024 8:45:41 AM STOCK SELECTOR us Conner Quiros MD IMG US PROCEDURES Final Result from Last 3 Months Insurance MEDICARE [facility] AETNA [facility] AETNA MEDICARE GOLD Care Teams Bar Examiner Relationship Specialty Start Date End Date Jeremias Bloom MD [address] [facility] MED[facility] [place], [place] [id number] PCP - General 01/29/17
--- OUTSIDE RECORDS SUMMARY | 2024-04-18 09:26 | XMS_ITS | Patient Health Summary ---
Author Organization [facility] Address [address] [place] [address] Care Team Providers Care Quoter Name Role Phone Jeremias Bloom MD Primary Care Provider [phone] Note from [facility],non-owned Affiliates and Associated Physician Practices is amultiple site organization consisting of ambulatory clinics and hospital sitesin [place], [place], [place] and [place]. This disclosure is being madepursuant to the Care Everywhere program and may not contain all information available regarding this patient. Last updated 17.[facility] Allergies * Penicillins(Anaphylaxis) -High Criticality Social History Tobacco Use Types Packs/Day Years Used Date Smoking Tobacco: Never Smokeless Tobacco: Never Alcohol Use Standard Drinks/Week Comments Yes 0 (1 standard drink = 0.6 oz pur e alcohol) socially Sex and Gender Information Value Date Recorded Sex Assigned at Not on file Gender Identity Not on file Sexual Orientation Not on file Last Filed Vital Signs Vital Sign Reading Time Taken Comments Blood Pressure 147/89 03/19/2019 10:55 PM FLIGHT LINE SERVICE ATTENDANT Pulse 82 03/19/2019 10:55 PM FLIGHT LINE SERVICE ATTENDANT Temperature 36.4 C (97.5 F) 03/19/2019 4:55 PM FLIGHT LINE SERVICE ATTENDANT Respiratory Rate 18 03/19/2019 10:55 PM FLIGHT LINE SERVICE ATTENDANT Oxygen Saturation 98% 03/19/2019 10:55 PM FLIGHT LINE SERVICE ATTENDANT Inhaled Oxygen Concentration - - Weight 99.8 kg (220 lb) 03/19/2019 4:55 PM FLIGHT LINE SERVICE ATTENDANT Height 172.7 cm (5' 8 ) 03/19/2019 4:55 PM FLIGHT LINE SERVICE ATTENDANT Body Mass Index 33.45 03/19/2019 4:55 PM FLIGHT LINE SERVICE ATTENDANT Procedures * CARDIAC EKG ORDER(Performed 03/25/2019) * TROPONIN I(Performed 03/19/2019) * XR CHEST 2VW(Performed 03/19/2019) Performed for Syncope and collapse * CT HEAD WO CONTRAST(Performed 03/19/2019) Performed for Syncope and collapse * EKG 12-LEAD(Performed 03/19/2019) Performed for Syncope and collapse * TROPONIN I(Performed 03/19/2019) * BASIC METABOLIC PANEL (CALCIUM TOTAL)(Performed 03/19/2019) * CBC W AUTO DIFFERENTIAL(Performed 03/19/2019) * HEPATITIS C ANTIBODY(Performed 03/19/2019) Results * CARDIAC EKG ORDER (03/25/2019 10:22 PM FLIGHT LINE SERVICE ATTENDANT) Narrative 03/25/2019 10:22 PM FLIGHT LINE SERVICE ATTENDANT Ordered by an unspecified provider. Scanned Document CARDIAC SERVICES ORD ERABLES * TROPONIN I (03/19/2019 10:17 PM FLIGHT LINE SERVICE ATTENDANT) Only the most recent of2 resultswithin the time period is included. Troponin I <0.010 <0.038 ng/mL 03/19/2019 10:46 PM FLIGHT LINE SERVICE ATTENDANT [facility] Blood BLOOD SPECIMEN / Unknown Venipuncture / Unknown 03/19/2019 10:17 PM FLIGHT LINE SERVICE ATTENDANT 03/19/2019 10:25 PM FLIGHT LINE SERVICE ATTENDANT Jerome Zamorano PRODUCTION PAINTER-ALARM TECHNICIAN LAB - CHEMISTRY O RDERABLES [facility] [address] [place] [address] * XR CHEST PA AND LATERAL (03/19/2019 6:00 PM FLIGHT LINE SERVICE ATTENDANT) Anatomical Region Laterality Modality Chest Radiographic Elizabeth ging 03/19/2019 6:08 PM FLIGHT LINE SERVICE ATTENDANT Narrative 03/19/2019 6:08 PM FLIGHT LINE SERVICE ATTENDANT STUDY: Frontal and lateral views of the chest. HISTORY: Syncope and collapse. COMPARISON: None available. FINDINGS: The cardiomediastinal silhouette is normal. The pulmonary vasculature is unremarkable. The lungs are clear. There is no pleural effusion. There is no pneumothorax. The osseous structures demonstrate chronic degenerative changes as well as cervical fusion hardware. IMPRESSION: No acute cardiopulmonary findings. Reading Radiologist: Satnam Perera MD on 03/19/2019 at 6:08 PM Procedure Note Satnam Perera MD - 03/19/2019 STUDY: Frontal and lateral views of the chest. HISTORY: Syncope and collapse. COMPARISON: None available. FINDINGS: The cardiomediastinal silhouette is normal. The pulmonary vasculature is unremarkable. The lungs are clear. There is no pleural effusion. There is no pneumothorax. The osseous structures demonstrate chronic degenerative changes as well as cervical fusion hardware. IMPRESSION: No acute cardiopulmonary findings. Reading Radiologist: Satnam Perera MD on 03/19/2019 at 6:08 PM Rubens Quinteros MD DIAGNOSTIC IMAGING O RDERABLES * CT HEAD NON CONTRAST - intracranial hemorrhage/stroke (03/19/2019 5:42 PM FLIGHT LINE SERVICE ATTENDANT) Anatomical Region Laterality Modality Head Computed Tomogra phy 03/19/2019 5:55 PM FLIGHT LINE SERVICE ATTENDANT Impressions 03/19/2019 5:57 PM FLIGHT LINE SERVICE ATTENDANT There is no acute appearing intracranial abnormality. This examination was transcribed using the [email or web address] voice recognition system without human dermatology teacher. In an effort to expedite patient care, this report has not been adjusted for typographical, grammatical, and syntax by a trained medical manager. . Reading Radiologist: Graciela Atwood MD on 03/19/2019 at 5:57 PM Narrative 03/19/2019 5:57 PM FLIGHT LINE SERVICE ATTENDANT CT Brain Noncontrast Indication: Syncope and collapse, dizziness Comparison: None Technique: 5 mm axial images were obtained from the foramen magnum to the vertex without administration of contrast. Findings: The ventricles and sulci are normal in size for patient's given age. There is no intracranial hemorrhage, mass, or mass-effect. No abnormal extra-axial fluid collections are seen. There is no cortical infarction. There is mucosal thickening and retained secretion in bilateral maxillary and ethmoid sinuses. Procedure Note Graciela Atwood MD - 03/19/2019 CT Brain Noncontrast Indication: Syncope and collapse, dizziness Comparison: None Technique: 5 mm axial images were obtained from the foramen magnum to the vertex without administration of contrast. Findings: The ventricles and sulci are normal in size for patient's given age. There is no intracranial hemorrhage, mass, or mass-effect. No abnormal extra-axial fluid collections are seen. There is no cortical infarction. There is mucosal thickening and retained secretion in bilateral maxillary and ethmoid sinuses. IMPRESSION There is no acute appearing intracranial abnormality. This examination was transcribed using the [email or web address] voice recognition system without human dermatology teacher. In an effort to expedite patient care, this report has not been adjusted for typographical, grammatical, and syntax by a trained medical manager. . Reading Radiologist: Graciela Atwood MD on 03/19/2019 at 5:57 PM Jerome Zamorano PRODUCTION PAINTER-ALARM TECHNICIAN CT ORDERABLES * EKG 12-LEAD (03/19/2019 5:20 PM FLIGHT LINE SERVICE ATTENDANT) Ventricular Rate 75 BPM [facility] Atrial Rate 75 BPM [facility] P-R Interval 180 ms [facility] QRS Duration ms 78 ms [facility] Q-T Interval ms 372 ms [facility] QTC Calculation (Bezet) 415 ms [facility] Calculated P Moncure 42 degrees [facility] Calculated R [place]cure 14 degrees [facility] Calculated T [place] 63 degrees [facility] Interpretation EKG Normal sinus rhythm Possible Left atrial enlargement Nonspecific ST and T wave abnormality Early transition Confirmed by BESSIE JARRELL, [facility] ([id number]) on 03/20/2019 12:03:22 PM [facility] 03/19/2019 5:20 PM FLIGHT LINE SERVICE ATTENDANT 03/20/2019 12:03 PM FLIGHT LINE SERVICE ATTENDANT Rubens Quinteros MD ECG ORDERABLES [facility] * (ABNORMAL) CBC W AUTO DIFFERENTIAL (03/19/2019 5:10 PM FLIGHT LINE SERVICE ATTENDANT) WBC 8.3 4.4 - 10.7 x10E9/L 03/19/2019 5:29 PM FLIGHT LINE SERVICE ATTENDANT [facility] WBC Corrected 03/19/2019 5:29 PM FLIGHT LINE SERVICE ATTENDANT [facility] RBC 4.79 3.80 - 5.40 x10E12/L 03/19/2019 5:29 PM FLIGHT LINE SERVICE ATTENDANT [facility] Hemoglobin 14.4 12.0 - 17.6 gm/dL 03/19/2019 5:29 PM [facility] Hematocrit 43.6 35.2 - 51.7 % 03/19/2019 5:29 PM [facility] MCV 91.0 80.7 - 98.3 fl 03/19/2019 5:29 PM [facility] MCH 30.1 26.7 - 34.0 pg 03/19/2019 5:29 PM [facility] MCHC 33.0 30.8 - 35.9 gm/dL 03/19/2019 5:29 PM [facility] Platelet Count 224 153 - 416 x10E9/L 03/19/2019 5:29 PM [facility] RDW-CV 13.0 12.1 - 14.9 % 03/19/2019 5:29 PM [facility] MPV 9.8 9.4 - 12.9 fl 03/19/2019 5:29 PM [facility] Neutrophils % 67.0 44.0 - 73.0 % 03/19/2019 5:29 PM [facility] Lymphocytes % 17.9(L) 20.0 - 43.0 % 03/19/2019 5:29 PM [facility] Monocytes % 9.6 5.0 - 13.0 % 03/19/2019 5:29 PM [facility] Eosinophils % 4.6 0.0 - 6.0 % 03/19/2019 5:29 PM [facility] Basophils % 0.7 0.0 - 2.0 % 03/19/2019 5:29 PM [facility] Immature Granulocytes 0.2 0 - 1 % 03/19/2019 5:29 PM [facility] Neutrophil Absolute 5.56 2.01 - 7.14 x10E9/L 03/19/2019 5:29 PM [facility] Lymphocytes Absolute 1.49 1.07 - 3.94 x10E9/L 03/19/2019 5:29 PM [facility] Monocytes Absolute 0.80 0.26 - 1.07 x10E9/L 03/19/2019 5:29 PM [facility] Eosinophils Absolute 0.38 0 - 0.47 x10E9/L 03/19/2019 5:29 PM [facility] Basophils Absolute 0.06 0 - 0.08 x10E9/L 03/19/2019 5:29 PM [facility] Immature Granulocytes Absolute 0.02 0.00 - 0.06 x10E9/L 03/19/2019 5:29 PM [facility] nRBC Auto 0 /100 WBC 03/19/2019 5:29 PM [facility] Blood BLOOD SPECIMEN / Unknown Venipuncture / Unknown 03/19/2019 5:10 PM FLIGHT LINE SERVICE ATTENDANT 03/19/2019 5:24 PM [facility] Rubens Quinteros MD LAB - HEMATOLOGY ORD ERABLES [facility] [address] [place] [address] * (ABNORMAL) BASIC METABOLIC PANEL (CALCIUM TOTAL) (03/19/2019 5:10 PM [facility]) Glucose 111(H) 70 - 105 mg/dL 03/19/2019 5:42 PM [facility] Sodium 140 136 - 145 mmol/L 03/19/2019 5:42 PM [facility] Potassium 3.4(L) 3.5 - 5.1 mmol/L 03/19/2019 5:42 PM [facility] Chloride 104 98 - 107 mmol/L 03/19/2019 5:42 PM [facility] CO2 28 23 - 31 mmol/L 03/19/2019 5:42 PM [facility] Calcium 8.9 8.4 - 10.4 mg/dL 03/19/2019 5:42 PM [facility] Anion Gap 8 8 - 16 mmol/L 03/19/2019 5:42 PM [facility] BUN 11 8.4 - 25.7 mg/dL 03/19/2019 5:42 PM [facility] Creatinine 0.85 0.72 - 1.25 mg/dL 03/19/2019 5:42 PM [facility] eGFR by MDRD >60 >60 mL/min/1.7 3m2 03/19/2019 5:42 PM [facility] eGFR by MDRD >60 >60 mL/min/1.7 3m2 03/19/2019 5:42 PM [facility] Blood BLOOD SPECIMEN / Unknown Venipuncture / Unknown 03/19/2019 5:10 PM FLIGHT LINE SERVICE ATTENDANT 03/19/2019 5:24 PM FLIGHT LINE SERVICE ATTENDANT Rubens Quinteros MD LAB - CHEMISTRY JAY REAL Performing Organization Address [facility] Co de Phone Number [facility] [address] [place] [address] * HEPATITIS C ANTIBODY (03/19/2019 5:10 PM FLIGHT LINE SERVICE ATTENDANT) HCV Antibody Screen Non Reactive Non Reactive 03/19/2019 6:20 PM FLIGHT LINE SERVICE ATTENDANT [facility] Blood BLOOD SPECIMEN / Unknown Venipuncture / Unknown 03/19/2019 5:10 PM FLIGHT LINE SERVICE ATTENDANT 03/19/2019 5:24 PM FLIGHT LINE SERVICE ATTENDANT Narrative [facility] - 03/19/2019 6:20 PM FLIGHT LINE SERVICE ATTENDANT Non Reactive - Antibodies to Hepatitis C virus (HCV) were not detected, result does not exclude early acute HCV infection. Rubens Quinteros MD LAB - CHEMISTRY JAY REAL Performing Organization Address [facility] Co de Phone Number [facility] [address] [place] [address] Care Teams Quoter Relationship Specialty Start Date End Date Jeremias Bloom MD [address] [facility] [address] [place] [address] PCP - General 03/08/21
--- OUTSIDE RECORDS SUMMARY | 2024-04-18 09:26 | XMS_ITS | Encounter Summary ---
Author Organization [facility] Address [address] [place] [address] Phone Care Team Providers Care Regional Sales Representative Name Role Phone Jeremias Bloom MD Primary Care Provider [phone] Encounter Details Date Type Department Care Team (Latest Contact Info) Description 01/31/2017 Orders Only [facility] CONVERSION Scanning, Provider Social History Tobacco Use Types Packs/Day Years Used Date Smoking Tobacco: Never Sex and Gender Information Value Date Recorded Sex Assigned at Not on file Legal Sex Male 9:23 PM COLLECTION CARD CLERK Gender Identity Not on file Sexual Orientation Not on file documented as of this encounter Plan of Treatment Not on file documented as of this encounter Procedures Procedure Name Priority Date/Time Associated Diagnosis Comments VASCULAR LABORATORY REPORT 01/31/2017 9:31 AM COLLECTION CARD CLERK documented in this encounter Results * VASCULAR LABORATORY REPORT (01/31/2017 9:31 AM COLLECTION CARD CLERK) Anatomical Region Laterality Modality Ultrasound us Provider Scanning CV VASCULAR PROCEDURES Final R esult documented in this encounter Visit Diagnoses Not on filedocumented in this encounter Care Teams Regional Sales Representative Relationship Specialty Start Date End Date Jeremias Bloom MD [address] [place] [address] PCP - General 01/29/17 documented as of this encounter
--- OUTSIDE RECORDS SUMMARY | 2024-04-18 09:26 | XMS_ITS | Clinical Summary ---
Author Organization [facility] Address [address] [place] [address] Care Team Providers Care Lens Finisher Name Role Phone Jeremias Bloom MD Primary Care Provider [phone] Source Comments [facility],non-[facility] Affiliates and Associated Physician Practices is amultiple site organization consisting of ambulatory clinics and hospital sitesin [place], [place], [place] and [place]. This disclosure is being madepursuant to the Care Everywhere program and may not contain all information available regarding this patient. Last updated 17.[facility] Allergies Active Allergy Reactions Criticality Noted Date Comments Penicillins Anaphylaxis High 03/19/2019 Pt reports allergy as a child Social History Tobacco Use Types Packs/Day Years [...] Comments Blood Pressure 147/89 03/19/2019 10:55 PM LITHOGRAPHIC PHOTOGRAPHER APPRENTICE Pulse 82 03/19/2019 10:55 PM LITHOGRAPHIC PHOTOGRAPHER APPRENTICE Temperature 36.4 C (97.5 F) 03/19/2019 4:55 PM LITHOGRAPHIC PHOTOGRAPHER APPRENTICE Respiratory Rate 18 03/19/2019 10:55 PM LITHOGRAPHIC PHOTOGRAPHER APPRENTICE Oxygen Saturation 98% 03/19/2019 10:55 PM LITHOGRAPHIC PHOTOGRAPHER APPRENTICE Inhaled Oxygen Concentration - - Weight 99.8 kg (220 lb) 03/19/2019 4:55 PM LITHOGRAPHIC PHOTOGRAPHER APPRENTICE Height 172.7 cm (5' 8 ) 03/19/2019 4:55 PM LITHOGRAPHIC PHOTOGRAPHER APPRENTICE Body Mass Index 33.45 03/19/2019 4:55 PM LITHOGRAPHIC PHOTOGRAPHER APPRENTICE Plan of Treatment Health Maintenance Due Date Last Done Comments COLOGUARD (AGES 45-75) - COL ON CA SCREENING 1955 COLON MONITORING 1953 COLONOSCOPY - COLON CA SCREENING 1953 CT COLONOGRAPHY - COLON CA SCREENING 1955 Colorectal Cancer Screening 1953 FIT - COLON CA SCREENING 1953 FLEX SIG - COLON CA SCREENING 1953 LIPID TESTING 1953 MEDICARE AWV 12 MONTHS 1953 DTAP/TDAP/TD VACCINES (1 - Tdap) 1972 PNEUMOCOCCAL VACCINE 50+ (1 of 1 - PCV) 12/15/2003 ZOSTER VACCINE (1 of 2) 12/15/2003 COVID-19 VACCINE ( - 2023-2 5 season) 2023 INFLUENZA VACCINE (#1) 2023 DEPRESSION SCREENING 02/27/2024 Respiratory Syncytial Virus (RSV) Vaccine Pt: or over 60 yrs (1 - 1-dose 75+ series) 2028 HEPATITIS C SCREENING Completed 03/19/2019 HEPATITIS B VACCINE Aged Out No longe r eligible based on patient's age to complete this topic HIB VACCINE Aged Out No longer eligi ble based on patient's age to complete this topic HPV VACCINE Aged Out No longer eligi ble based on patient's age to complete this topic MENINGOCOCCAL (Group B) VACCINE Aged Out No longer eligible based on patient's age to complete this topic MENINGOCOCCAL VACCINE Aged Out No estrella dylan eligible based on patient's age to complete this topic Procedures Procedure Name Priority Date/Time Associated Diagnosis Comments HEPATITIS C ANTIBODY STAT 03/19/2019 5:10 PM LITHOGRAPHIC PHOTOGRAPHER APPRENTICE from Last 3 Months or Most Recently Relevant to Health Maintenance Results * HEPATITIS C ANTIBODY (03/19/2019 5:10 PM LITHOGRAPHIC PHOTOGRAPHER APPRENTICE) HCV Antibody Screen Non Reactive Non Reactive 03/19/2019 6:20 PM LITHOGRAPHIC PHOTOGRAPHER APPRENTICE [facility] Blood BLOOD SPECIMEN / Unknown Venipuncture / Unknown 03/19/2019 5:10 PM LITHOGRAPHIC PHOTOGRAPHER APPRENTICE 03/19/2019 5:24 PM LITHOGRAPHIC PHOTOGRAPHER APPRENTICE Narrative [facility] - 03/19/2019 6:20 PM LITHOGRAPHIC PHOTOGRAPHER APPRENTICE Non Reactive - Antibodies to Hepatitis C virus (HCV) were not detected, result does not exclude early acute HCV infection. Rubens Quinteros MD LAB - CHEMISTRY JAY REAL [facility] Organization Address City/State/ZIP Co de Phone Number [facility] [address] [place] [address] from Last 3 Months or Most Recently Relevant to Health Maintenance Care Teams Lens Finisher Relationship Specialty Start Date End Date Jeremias Bloom MD [address] [place] [id number] PCP - General 03/08/21
--- OUTSIDE RECORDS SUMMARY | 2024-04-18 09:26 | XMS_ITS | Referral Summary ---
Author Organization [facility] Address [address] [place] [address] Care Team Providers Care Mail Sorting Supervisor Name Role Phone Jeremias Bloom MD Primary Care Provider Source Comments [facility],non-[facility] [place] Affiliates and Associated Physician Practices is amultiple site organization consisting of ambulatory clinics and hospital sitesin [place], [place], [place] and [place]. This disclosure is being madepursuant to the Care Everywhere program and may not contain all information available regarding this patient. Last updated 17.[facility] Allergies Active Allergy Reactions Criticality Noted Date [...] Comments Blood Pressure 147/89 03/19/2019 10:55 PM TEST FACILITY ENGINEER Pulse 82 03/19/2019 10:55 PM TEST FACILITY ENGINEER Temperature 36.4 C (97.5 F) 03/19/2019 4:55 PM TEST FACILITY ENGINEER Respiratory Rate 18 03/19/2019 10:55 PM TEST FACILITY ENGINEER Oxygen Saturation 98% 03/19/2019 10:55 PM TEST FACILITY ENGINEER Inhaled Oxygen Concentration - - Weight 99.8 kg (220 lb) 03/19/2019 4:55 PM TEST FACILITY ENGINEER Height 172.7 cm (5' 8 ) 03/19/2019 4:55 PM TEST FACILITY ENGINEER Body Mass Index 33.45 03/19/2019 4:55 PM TEST FACILITY ENGINEER Plan of Treatment Not on file Procedures Procedure Name Priority Date/Time Associated Diagnosis Comments HEPATITIS C ANTIBODY STAT 03/19/2019 5:10 PM TEST FACILITY ENGINEER from Last 3 Months or Most Recently Relevant to Health Maintenance Results * HEPATITIS C ANTIBODY (03/19/2019 5:10 PM TEST FACILITY ENGINEER) HCV Antibody Screen Non Reactive Non Reactive 03/19/2019 6:20 PM TEST FACILITY ENGINEER [facility] Blood BLOOD SPECIMEN / Unknown Venipuncture / Unknown 03/19/2019 5:10 PM TEST FACILITY ENGINEER 03/19/2019 5:24 PM TEST FACILITY ENGINEER Narrative [facility] - 03/19/2019 6:20 PM TEST FACILITY ENGINEER Non Reactive - Antibodies to Hepatitis C virus (HCV) were not detected, result does not exclude early acute HCV infection. Rubens Quinteros MD LAB - CHEMISTRY JAY REAL Performing Organization Address City/State/[facility] Co de Phone Number [facility] [address] [place] [phone] from Last 3 Months or Most Recently Relevant to Health Maintenance Care Teams Mail Sorting Supervisor Relationship Specialty Start Date End Date Jeremias Bloom MD [address] [facility] [address] [place] [address] PCP - General 03/08/21
--- OUTSIDE RECORDS SUMMARY | 2024-04-18 09:26 | XMS_ITS | Referral Summary ---
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); Primary hypertension; Mixed hyperlipidemia 04/15/2024 Telephone [facility] Vascular and Vein Surgery [address] [address] Nahed Delgadillo MA 04/09/2024 11:00 AM VEST BUSHELER Ancillary Procedure [facility] Vascular and Vein Surgery at [address] [place] [phone] Subclavian steal syndrome 03/26/2024 Orders Only [facility] V[facility] at [address] [place] [phone] Conner Quiros MD Subclavian steal syndrome (Primary Dx) 03/26/2024 9:45 AM VEST BUSHELER Office Visit [facility] Vascular at [address] [place] [address] Conner Quiros MD 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 Assessment & Plan (03/27/2024 7:16 AM VEST BUSHELER): Overall I think all these findings on [...] 03/27/2024 Assessment & Plan (04/17/2024 2:58 PM VEST BUSHELER): Stable continue losartan Assessment & Plan (03/27/2024 7:17 AM VEST BUSHELER): Stable continue amlodipine Mixed hyperlipidemia 03/27/2024 Assessment & Plan (04/17/2024 2:58 PM VEST BUSHELER): Stable continue Crestor Assessment & Plan (03/27/2024 7:17 AM VEST BUSHELER): Stable continue Crestor Status post placement of implantable loop record er 03/02/2020 Overview (03/02/2020): Medtronic Implantable Loop Recorder. Dx; Syncope. DOI 03/01/2020-[employer]ner. Vang remote monitoring. Social History Tobacco Use Types Packs/Day Years Used Date Smoking Tobacco: Former Cigarettes 0.3 3 Smokeless Tobacco: Never Tobacco Cessation:Counseling Given: Not Answered Alcohol Use Standard Drinks/Week Comments Yes 5 (1 standard drink = 0.6 oz pur e alcohol) Sex and Gender Information Value Date Recorded Sex Assigned at Not on file Legal Sex Male 9:23 PM VEST BUSHELER Gender Identity Not on file Sexual Orientation Not on file Last Filed Vital Signs Vital Sign Reading Time Taken Comments Blood Pressure 177/79 04/16/2024 9:35 AM VEST BUSHELER Pulse 74 04/16/2024 9:35 AM VEST BUSHELER Temperature 36.8 C (98.2 F) 01/26/2020 10:48 AM VEST BUSHELER Respiratory Rate 18 04/03/2023 10:16 AM VEST BUSHELER Oxygen Saturation 96% 04/16/2024 9:35 AM VEST BUSHELER Inhaled Oxygen Concentration - - Weight 97.5 kg (215 lb) 04/16/2024 9:35 AM VEST BUSHELER Height 172.7 cm (5' 8 ) 04/16/2024 9:35 AM VEST BUSHELER Body Mass Index 32.69 04/16/2024 9:35 AM VEST BUSHELER Plan of Treatment Not on file Procedures Procedure Name Priority Date/Time Associated Diagnosis Comments US CAROTIDS DUPLEX BILATERAL Schedule Routine, Read Routine (OP Routine) 04/09/2024 11:34 AM VEST BUSHELER Subclavian steal syndrome from Last 3 Months Results * US Carotids Duplex Bilateral (04/09/2024 11:34 AM VEST BUSHELER) Anatomical Region Laterality Modality Vascular Bilateral Ultrasound 04/09/2024 10:5 3 AM VEST BUSHELER Narrative 04/10/2024 8:59 AM VEST BUSHELER Vascular & Vein Surgery [address] [place] [address] Carotid Duplex Ultrasound Report Patient Name: JOSELYN JOHNSTON J : 1955 (68y 3m) Study Date: 04/09/2024 10:53:46 AM Gender: M Registered Nurse Cardiac Telemetry: CHAPIS Location: [facility] Ref Provider: CONNER QUIROS Quality: Adequate Order [...] By: Conner Quiros MD 04/10/2024 8:45:41 AM VEST BUSHELER Procedure Note Conner Quiros MD - 04/10/2024 Vascular & Vein Surgery [facility] [place] [address] Carotid Duplex Ultrasound Report Patient Name: JOSELYN JOHNSTON J : 1955 (68y 3m) Study Date: 04/09/2024 10:53:46 AM Gender: M Registered Nurse Cardiac Telemetry: CHAPIS Location: [facility] Ref Provider: CONNER QUIROS Quality: [...] By: Conner Quiros MD 04/10/2024 8:45:41 AM VEST BUSHELER Conner Quiros MD [facility] PROCEDURES Final Result from Last 3 Months Insurance MEDICARE [facility] AETNA SENIOR SUPPLEMENT AETNA MEDICARE GOLD Care Teams Shoe Singer Relationship Specialty Start Date End Date Jeremias Bloom MD [address] [place] [address] PCP - General 01/29/17
[2024-04-18 09:29] LABS: Add Urine Microscopic? NO; Appearance Urine Clear (Clear); Bilirubin Urine Negative (Negative); Blood Urine Negative (Negative); Color Urine Yellow (Yellow); Glucose Urine UA Negative (Negative); Ketones Urine Negative (Negative); Leukocyte Esterase Ur Negative LEU/UL (Negative); Nitrate Urine Negative (Negative); Protein Urine Negative (Negative); Specific Grav Ur 1.013 (1.001-1.035); Urobilinogen Urine 0.2 mg/dL (<2.0)
[2024-04-18 09:42] LABS: Anion Gap 9 mmol/L (4-12); Blood Urea Nitrogen 12 mg/dL (9-20); Calcium 9.3 mg/dL (8.4-10.2); Carbon Dioxide 29 mmol/L (22-30); Chloride 100 mmol/L (98-107); Cholesterol 102 mg/dL (0-200); Estimated Glomerular Filt Rate > 60; Glucose 103 mg/dL (65-110); HDL Direct 56 mg/dL; Potassium 4.6 mmol/L (3.4-5.0); Sodium 138 mmol/L (137-145); Triglycerides 92 mg/dL (<150)
[2024-04-18 09:54] LABS: LDL Cholesterol Direct < 30 mg/dL
[2024-04-18 09:57] LABS: Hemoglobin A1C 6.2 % (<5.7)
[2024-04-18 10:03] LABS: Free T4 Free Thyroxine 0.85 ng/dL (0.78-2.19)
[2024-04-18 10:13] LABS: Thyroid Stimulating Hormone 0.509 uIU/mL (0.465-4.680)
== END 2024-04-18 08:58 | disposition home or self-care (01) ==
PROVIDERS: PCP Internal Medicine; Visit Provider Internal Medicine
DX: E78.5 Hyperlipidemia, unspecified (principal); I10 Essential (primary) hypertension; R73.03 Prediabetes; Z79.899 Other long term (current) drug therapy; Z13.29 Encounter for screening for other suspected endocrine disorder
CPT/HCPCS: 36415; 80048; 80061; 81003; 83036; 84439; 84443

== ENCOUNTER 2024-09-25 11:20 | Outpatient (CLI) | payer MEDICARE, SELFPAY ==
--- OUTSIDE RECORDS SUMMARY | 2024-09-25 11:24 | XMS_ITS | Clinical Summary ---
Author Organization [facility] Address [address] [place] [address] Care Team Providers Care Cone Marker Name Role Phone Jeremias Bloom MD Primary Care Provider [phone] Source Comments [facility],non-owned Affiliates and Associated Physician Practices is amultiple site organization consisting of ambulatory clinics and hospital sitesin [place], [place], [place]. This disclosure is being madepursuant to the Care Everywhere program and may not contain all information available regarding this patient. Last updated 17.[facility] Allergies Active Allergy Reactions Criticality Noted Date [...] at Not on file Legal Sex Male 6:29 AM PRINTED CIRCUIT BOARD PANELS TRIMMER Gender Identity Not on file Sexual Orientation Not on file Last Filed Vital Signs Vital Sign Reading Time Taken Comments Blood Pressure 147/89 03/19/2019 10:55 PM PRINTED CIRCUIT BOARD PANELS TRIMMER Pulse 82 03/19/2019 10:55 PM PRINTED CIRCUIT BOARD PANELS TRIMMER Temperature 36.4 C (97.5 F) 03/19/2019 4:55 PM PRINTED CIRCUIT BOARD PANELS TRIMMER Respiratory Rate 18 03/19/2019 10:55 PM PRINTED CIRCUIT BOARD PANELS TRIMMER Oxygen Saturation 98% 03/19/2019 10:55 PM PRINTED CIRCUIT BOARD PANELS TRIMMER Inhaled Oxygen Concentration - - Weight 99.8 kg (220 lb) 03/19/2019 4:55 PM PRINTED CIRCUIT BOARD PANELS TRIMMER Height 172.7 cm (5' 8) 03/19/2019 4:55 PM PRINTED CIRCUIT BOARD PANELS TRIMMER Body Mass Index 33.45 03/19/2019 4:55 PM PRINTED CIRCUIT BOARD PANELS TRIMMER Plan of Treatment Health Maintenance Due Date Last Done Comments COLOGUARD (AGES 45-75) - COL ON CA SCREENING 1955 COLON MONITORING 1955 COLONOSCOPY - COLON CA SCREENING 1955 CT COLONOGRAPHY - COLON CA SCREENING 1955 Colorectal Cancer Screening 1955 FIT - COLON CA SCREENING 1955 FLEX SIG - COLON CA SCREENING 1955 LIPID TESTING 1955 DTAP/TDAP/TD VACCINES (1 - Tdap) 1972 PNEUMOCOCCAL VACCINE 50+ (1 of 1 - PCV) 12/15/2003 ZOSTER VACCINE (1 of 2) 12/15/2003 COVID-19 VACCINE ( - 2023-2 5 season) 2023 DEPRESSION SCREENING 02/27/2024 INFLUENZA VACCINE (#1) 2024 Respiratory Syncytial Virus (RSV) Vaccine Pt: or [...] to complete this topic MENINGOCOCCAL (Group B) VACC INE SHARED DECISION-MAKING Aged Out No longer eligibl e based on patient's age to complete this topic MENINGOCOCCAL GROUPS A/C/Y/W VACCINE Aged Out No longer eligible b ased on patient's age to complete this topic Procedures Procedure Name Priority Date/Time Associated Diagnosis Comments HEPATITIS C ANTIBODY STAT 03/19/2019 5:10 PM PRINTED CIRCUIT BOARD PANELS TRIMMER from Last 3 Months or Most Recently Relevant to Health Maintenance Results * HEPATITIS C ANTIBODY (03/19/2019 5:10 PM PRINTED CIRCUIT BOARD PANELS TRIMMER) HCV Antibody Screen Non Reactive Non Reactive 03/19/2019 6:20 PM PRINTED CIRCUIT BOARD PANELS TRIMMER [facility] Blood BLOOD SPECIMEN / Unknown Venipuncture / Unknown 03/19/2019 5:10 PM PRINTED CIRCUIT BOARD PANELS TRIMMER 03/19/2019 5:24 PM PRINTED CIRCUIT BOARD PANELS TRIMMER Narrative [facility] - 03/19/2019 6:20 PM PRINTED CIRCUIT BOARD PANELS TRIMMER Non Reactive - Antibodies to Hepatitis C virus (HCV) were not detected, result does not exclude early acute HCV infection. Rubens Quinteros MD LAB - CHEMISTRY ORDERABLES nal Result [facility] [address] [place] [address] from Last 3 Months or Most Recently Relevant to Health Maintenance Insurance MEDICARE AET MEDICARE AETNA Care Teams Cone Marker Relationship Specialty Start Date End Date Jeremias Bloom MD [address] [place] [address] PCP - General 03/08/21
--- OUTSIDE RECORDS SUMMARY | 2024-09-25 11:24 | XMS_ITS | Referral Summary ---
Author Organization [facility] [place] [address] Address [address] [place] [address] Care Team Providers Care Medical Coding Specialist Name Role Phone Jeremias Bloom MD Primary Care Provider [phone] Allergies Active Allergy Reactions Criticality Noted Date [...] 03/27/2024 Assessment & Plan (04/17/2024 2:58 PM FOREST ECONOMIST): Overall I do not think his syncopal [...] needed. Assessment & Plan (03/27/2024 7:16 AM FOREST ECONOMIST): Overall I think all these findings on [...] 03/27/2024 Assessment & Plan (04/17/2024 2:58 PM FOREST ECONOMIST): Stable continue losartan Assessment & Plan (03/27/2024 7:17 AM FOREST ECONOMIST): Stable continue amlodipine Mixed hyperlipidemia 03/27/2024 Assessment & Plan (04/17/2024 2:58 PM FOREST ECONOMIST): Stable continue Crestor Assessment & Plan (03/27/2024 7:17 AM FOREST ECONOMIST): Stable continue Crestor Status post placement of implantable loop record er 03/02/2020 Overview (03/02/2020): Medtronic Implantable Loop Recorder. Dx; Syncope. DOI 03/01/2020-Dl. [employer] remote monitoring. Social History Tobacco Use Types Packs/Day Years Used Date Smoking Tobacco: Former Cigarettes 0.3 3 Smokeless Tobacco: Never Tobacco Cessation:Counseling Given: Not Answered Alcohol Use Standard Drinks/Week Comments Yes 5 (1 standard drink = 0.6 oz pur e alcohol) Sex and Gender Information Value Date Recorded Sex Assigned at Not on file Legal Sex Male 9:23 PM FOREST ECONOMIST Gender Identity Not on file Sexual Orientation Not on file Last Filed Vital Signs Vital Sign Reading Time Taken Comments Blood Pressure 177/79 04/16/2024 9:35 AM FOREST ECONOMIST Pulse 74 04/16/2024 9:35 AM FOREST ECONOMIST Temperature 36.8 C (98.2 F) 01/26/2020 10:48 AM FOREST ECONOMIST Respiratory Rate 18 04/03/2023 10:16 AM FOREST ECONOMIST Oxygen Saturation 96% 04/16/2024 9:35 AM FOREST ECONOMIST Inhaled Oxygen Concentration - - Weight 97.5 kg (215 lb) 04/16/2024 9:35 AM FOREST ECONOMIST Height 172.7 cm (5' 8) 04/16/2024 9:35 AM FOREST ECONOMIST Body Mass Index 32.69 04/16/2024 9:35 AM FOREST ECONOMIST Plan of Treatment Not on file Insurance MEDICARE [facility] [address] SEN[address] SUPPLEMENT AETNA MEDICARE GOLD Care Teams Medical Coding Specialist Relationship Specialty Start Date End Date Jeremias Bloom MD [address] [facility] [address] [facility] [address] [place] [address] PCP - General 01/29/17
--- OUTSIDE RECORDS SUMMARY | 2024-09-25 11:24 | XMS_ITS | Encounter Summary ---
Author Organization [facility] Address [address] [place] [address] Phone Care Team Providers Care Aging Room Operator Name Role Phone Jeremias Bloom MD Primary Care Provider [phone] Encounter Details Date Type Department Care Team (Latest Contact Info) Description 01/31/2017 Orders Only [facility] CONVERSION Scanning, Provider Social History Tobacco Use Types Packs/Day Years Used Date Smoking Tobacco: Never Sex and Gender Information Value Date Recorded Sex Assigned at Not on file Legal Sex Male 9:23 PM GOVERNMENT PROGRAM MANAGER Gender Identity Not on file Sexual Orientation Not on file documented as of this encounter Plan of Treatment Not on file documented as of this encounter Procedures Procedure Name Priority Date/Time Associated Diagnosis Comments VASCULAR LABORATORY REPORT 01/31/2017 9:31 AM GOVERNMENT PROGRAM MANAGER documented in this encounter Results * VASCULAR LABORATORY REPORT (01/31/2017 9:31 AM GOVERNMENT PROGRAM MANAGER) Anatomical Region Laterality Modality Ultrasound us Provider Scanning CV VASCULAR PROCEDURES Final R esult documented in this encounter Visit Diagnoses Not on filedocumented in this encounter Care Teams Aging Room Operator Relationship Specialty Start Date End Date Jeremias Bloom MD [address] [place] [address] PCP - General 01/29/17 documented as of this encounter
--- OUTSIDE RECORDS SUMMARY | 2024-09-25 11:24 | XMS_ITS | Clinical Summary ---
Author Organization [facility] [place] [address] Address [address] [place] [address] Care Team Providers Care Assistant Child Care Teacher Name Role Phone Jeremias Bloom MD Primary Care Provider [phone] Allergies Active Allergy Reactions Criticality Noted Date [...] 03/27/2024 Assessment & Plan (04/17/2024 2:58 PM SCHOOL BASED THERAPIST): Overall I do not think his syncopal [...] needed. Assessment & Plan (03/27/2024 7:16 AM SCHOOL BASED THERAPIST): Overall I think all these findings on [...] 03/27/2024 Assessment & Plan (04/17/2024 2:58 PM SCHOOL BASED THERAPIST): Stable continue losartan Assessment & Plan (03/27/2024 7:17 AM SCHOOL BASED THERAPIST): Stable continue amlodipine Mixed hyperlipidemia 03/27/2024 Assessment & Plan (04/17/2024 2:58 PM SCHOOL BASED THERAPIST): Stable continue Crestor Assessment & Plan (03/27/2024 7:17 AM SCHOOL BASED THERAPIST): Stable continue Crestor Status post placement of implantable loop record er 03/02/2020 Overview (03/02/2020): Medtronic Implantable Loop Recorder. Dx; Syncope. DOI 03/01/2020-Dl. Carelink remote monitoring. Medical History Medical History Date Comments Hypertension [...] on file Legal Sex Male 9:23 PM SCHOOL BASED THERAPIST Gender Identity Not on file Sexual Orientation Not on file Obstetrics History Last Filed Vital Signs Vital Sign Reading Time Taken Comments Blood Pressure 177/79 04/16/2024 9:35 AM SCHOOL BASED THERAPIST Pulse 74 04/16/2024 9:35 AM SCHOOL BASED THERAPIST Temperature 36.8 C (98.2 F) 01/26/2020 10:48 AM SCHOOL BASED THERAPIST Respiratory Rate 18 04/03/2023 10:16 AM SCHOOL BASED THERAPIST Oxygen Saturation 96% 04/16/2024 9:35 AM SCHOOL BASED THERAPIST Inhaled Oxygen Concentration - - Weight 97.5 kg (215 lb) 04/16/2024 9:35 AM SCHOOL BASED THERAPIST Height 172.7 cm (5' 8) 04/16/2024 9:35 AM SCHOOL BASED THERAPIST Body Mass Index 32.69 04/16/2024 9:35 AM SCHOOL BASED THERAPIST Plan of Treatment Health Maintenance Due Date [...] Td or Tdap) 08/19/2023 Influenza Vaccine (#1) 2024 03/15/2018 Insurance MEDICARE [facility] INS [facility] AETNA SENIOR SUPPLEMENT AETNA MEDICARE GOLD Care Teams Assistant Child Care Teacher Relationship Specialty Start Date End Date Jeremias Bloom MD [address] [place] [address] PCP - General 01/29/17
[2024-09-25 12:09] LABS: Hematocrit 49.1 % (42.0-52.0); Hemoglobin 16.2 g/dL (14.0-18.0); Immature Granulocyte Percent A 0.3 % (0-0.5); Lymphocytes Absolute Auto 1.23 K/mm3 (0.9-3.2); Mean Corpuscular HGB Conc 33.0 g/dl (32-36); Mean Corpuscular Hemoglobin 30.1 pg (26-34); Mean Corpuscular Volume 91.3 fl (80-100); Nucleated Red Blood Cells Absolute Auto 0.000 K/mm3 (0.0-0.012); Nucleated Red Blood Cells Perc 0.0 % (0.0-0.2); Platelet Count Result 233 k/mm3 (150-375); Red Blood Count 5.38 M/mm3 (4.6-6.20); White Blood Count 7.3 K/mm3 (4.5-10.0)
[2024-09-25 12:37] LABS: Alanine Aminotransferase 31 U/L (6-50); Albumin Level 4.4 g/dL (3.5-5.1); Alkaline Phosphatase 45 U/L (38-126); Anion Gap 6 mmol/L (4-12); Aspartate Amino Transferase 41 U/L (17-59); Bilirubin,Total 0.9 mg/dL (0.2-1.3); Blood Urea Nitrogen 14 mg/dL (9-20); Calcium 9.4 mg/dL (8.4-10.2); Carbon Dioxide 28 mmol/L (22-30); Chloride 98 mmol/L (98-107); Cholesterol 214 mg/dL (0-200); Estimated Glomerular Filt Rate > 60; Glucose 103 mg/dL (65-110); HDL Direct 62 mg/dL; Potassium 3.7 mmol/L (3.4-5.0); Sodium 132 mmol/L (137-145); Total Protein 7.1 g/dL (6.3-8.2); Triglycerides 109 mg/dL (<150)
[2024-09-25 12:54] LABS: Free T4 Free Thyroxine 0.99 ng/dL (0.78-2.19)
[2024-09-25 13:13] LABS: Thyroid Stimulating Hormone 0.855 uIU/mL (0.465-4.680)
[2024-09-25 13:40] LABS: Hemoglobin A1C 6.0 % (<5.7)
== END 2024-09-25 11:21 | disposition home or self-care (01) ==
PROVIDERS: PCP Internal Medicine; Visit Provider Internal Medicine
DX: R73.03 Prediabetes (principal); E78.2 Mixed hyperlipidemia; I10 Essential (primary) hypertension; Z79.899 Other long term (current) drug therapy; Z13.29 Encounter for screening for other suspected endocrine disorder
CPT/HCPCS: 36415; 80053; 80061; 83036; 84439; 84443; 85025

== ENCOUNTER 2024-12-17 11:52 | Emergency (ER) | payer MEDICARE, SELFPAY ==
[2024-12-17] VITALS (9 sets, daily range): BP systolic 154–178; BP diastolic 89–107; PULSE 52–68; RESP 13–25; TEMP 36.4–36.6; O2SAT 96–100
--- NOTE | ~2024-12-17 | XR_ITS ---
Examination: XR chest 2V Clinical History: Chest pain Comparison: CTA chest 03/19/2024 Technique: PA and Lateral Findings: Loop recorder. Heart size upper limit of normal. Lungs clear. No acute bony abnormality. IMPRESSION: 1. No acute cardiopulmonary findings. Reviewed, dictated and finalized at location R.
--- NOTE | 2024-12-17 11:53 | ECG_ITS ---
Test Date: 2024-12-17 11:58:00 Measurements Intervals [place] Rate: 66 P: 37 [place]: 205 QRS: 4 QRSD: 78 T: 57 QT: 297 QTc: 312 Interpretive Statements SINUS RHYTHM POSSIBLE LEFT ATRIAL ENLARGEMENT BORDERLINE AV CONDUCTION DELAY VOLTAGE CRITERIA FOR LVH CONSIDER INFERIOR INFARCT, AGE INDETERMINATE BASELINE ARTIFACT- I, II, III, AVR, AVL, AVF ABNORMAL ECG Compared to ECG 01/20/2024 22:11:08 NO SIGNIFICANT CHANGE Electronically Signed On 12-17-2024 12:49:09 CDT by Sherwin Okeefe D.O.
[2024-12-17 12:14] LABS: Hematocrit 47.1 % (42.0-52.0); Hemoglobin 15.6 g/dL (14.0-18.0); Immature Granulocyte Percent A 0.5 % (0-0.5); Lymphocytes Absolute Auto 1.53 K/mm3 (0.9-3.2); Mean Corpuscular HGB Conc 33.1 g/dl (32-36); Mean Corpuscular Hemoglobin 30.5 pg (26-34); Mean Corpuscular Volume 92.0 fl (80-100); Nucleated Red Blood Cells Absolute Auto 0.000 K/mm3 (0.0-0.012); Nucleated Red Blood Cells Perc 0.0 % (0.0-0.2); Platelet Count Result 258 k/mm3 (150-375); Red Blood Count 5.12 M/mm3 (4.6-6.20); White Blood Count 8.2 K/mm3 (4.5-10.0)
[2024-12-17 12:27] LABS: INR 0.9; Prothrombin Time 12.7 Seconds (11.1-14.7)
[2024-12-17 12:28] LABS: Partial Thromboplastin Time 28.6 Seconds (22.3-36.8)
[2024-12-17 12:31] LABS: Alanine Aminotransferase 24 U/L (6-50); Albumin Level 4.3 g/dL (3.5-5.1); Alkaline Phosphatase 47 U/L (38-126); Aspartate Amino Transferase 24 U/L (17-59); Bilirubin,Total 0.8 mg/dL (0.2-1.3); Blood Urea Nitrogen 15 mg/dL (9-20); Calcium 9.1 mg/dL (8.4-10.2); Carbon Dioxide 28 mmol/L (22-30); Estimated Glomerular Filt Rate > 60; Glucose 134 mg/dL (65-110); Total Protein 7.0 g/dL (6.3-8.2)
[2024-12-17 12:38] LABS: Troponin I < 0.012 ng/mL (0.000-0.034)
[2024-12-17 12:43] LABS: Anion Gap 6 mmol/L (4-12); Chloride 100 mmol/L (98-107); Lipase 54 U/L (23-300); Potassium 4.0 mmol/L (3.4-5.0); Sodium 134 mmol/L (137-145)
--- NOTE | 2024-12-17 12:46 | ED_ITS ---
HPI - Chest Pain General Chief Complaint: Chest Pain <Alayna Martinez PA-C - Last Filed: 12/17/24 17:41> Stated Complaint: chest pain <Alayna Martinez PA-C - Last Filed: 12/17/24 17:41> Time Seen by Provider: 12/17/24 12:47 <Alayna Martinez PA-C - Last Filed: 12/17/24 17:41> Focused HPI: This is a 69 year old male that presents to the ER for substernal chest pain. Ongoing over the last couple of days. Reports worsening/constant today which prompted him to be seen. Reports shortness of breath after a walk today. No history of CAD. Reports history of HTN, pre- diabetes, hyperlipidemia. He believes his last stress test was several years ago. Reports he took baby Asa on the way here. GENERAL: Well-appearing, well-nourished, and in no acute distress. HEAD: Normocephalic, atraumatic. CHEST: Clear to auscultation. ?No respiratory distress. HEART: Regular rate and rhythm.? NEURO: ?Alert and oriented x3. Patient screened in triage and initial orders placed.? ?Additional care and disposition to be based upon?diagnostic testing and treatment. <Alayna Martinez PA-C - Last Filed: 12/17/24 17:41> History of Present Illness HPI narrative: Agree with HPI. Symptoms initially began after working in the ER to and was pain free. Two days later he started having the aching of the left chest. Improves with anti-inflammatories. He does not notice it when he exerts himself but does notice it after he has been active and is at rest. No diaphoresis or nausea/vomiting. <Anastacio García MD - Last Filed: 12/17/24 16:27> Related Data Home Medications: Home Medications ?Medication ?Instructions ?Recorded ?Confirmed ?Last Taken ?Type [id number] 200 mcg-vit K 100 1 cap PO DAILY 04/0709/25/24 08/13/22 History mcg-lycop 500 [id number] capsule (Daily Multivitamin) loratadine-pseudoephedrine ER 10 1 tablet PO PRN PRN A llergy 03/12/20 09/25/2423 History mg-240 mg tablet,extended Symptoms [id number] (Claritin-D 24 Hour) acetaminophen 500 mg tablet 1,000 mg PO Q6H PRN Pain 0 10/25/21 09/25/24 08/15/22 History ibuprofen 600 mg tablet 600 mg PO QID PRN Pain 07/3109/25/24 08/13/22 History Held on 08/17/22. Instructions: Resume on 09/14/22. aspirin 81 mg chewable tablet 81 mg PO DAILY 03/01/23 09/25/24 Unknown History B-complex with vitamin C 1 tablet PO DAILY 12/19/23 0 09/25/24 Unknown History rosuvastatin 20 mg tablet 20 mg PO DAILY 04/23/2408/28 Unknown History <Alayna Martinez PA-C - Last Filed: 12/17/24 17:41> Allergies/Adverse Reactions: Allergies Allergy/AdvReac Type Severity Reaction Status Date / Time ropinirole Allergy Intermediate syncope Verified 12/17/24 13:39 Penicillins Allergy Unknown Unknown- Verified 12/17/24 13:39 A CHILD <Alayna Martinez PA-C - Last Filed: 12/17/24 17:41> Review of Systems 2 Review of Systems: All systems reviewed & are unremarkable except as noted in HPI and below <Anastacio García MD - Last Filed: 12/17/24 16:27> Constitutional: Constitutional: Reports no additional constitutional complaints <Anastacio García MD - Last Filed: 12/17/24 16:27> ENT: Reports system reviewed and no additional complaints, except as documented <Anastacio García MD - Last Filed: 12/17/24 16:27> Cardiovascular: Cardiovascular: Reports no additional cardiovascular complaints <Anastacio García MD - Last Filed: 12/17/24 16:27> Respiratory: Respiratory: Reports no additional respiratory complaints < Anastacio García MD - Last Filed: 12/17/24 16:27> Gastrointestinal: Gastrointestinal: Reports no additional gastrointestinal complaints <Anastacio García MD - Last Filed: 12/17/24 16:27> Musculoskeletal: Musculoskeletal: Reports no additional musculoskeletal complaints <Anastacio García MD - Last Filed: 12/17/24 16:27> [facility] Past Medical History Medical History: Medical History (Updated 12/17/24 @ 16:27 by Anastacio García MD) BMI 30.0-30.9,adult Impaired functional mobility, balance, gait, and endurance Vertebral artery narrowing 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 Fall Low back pain Hx of colonic polyps Chest pain on exertion Preoperative clearance Effusion of knee joint Dependence on other enabling machines and devices Right knee DJD Anxiety Wheezing Wears glasses Knee injury Orthostatic hypotension Vitamin D deficiency Increased abdominal girth Dysphagia Shortness of Breath Fatigue Cervicalgia Encounter for routine adult health examination with abnormal findings Mass of right breast Generalized anxiety disorder DM2 (diabetes mellitus, type 2) Positive colorectal cancer screening using Cologuard test Costochondritis Chest pain, unspecified Dyspnea on exertion Colon cancer screening Encounter for special screening examination for neoplasm of prostate BMI 32.0-32.9,adult BMI 33.0-33.9,adult Encounter for routine adult health examination without abnormal findings BMI 34.0-34.9,adult Follow up [facility] discharge follow-up Pre-diabetes Hemoglobin A1c was 5.9 in May 2018. Syncope Hospitalized for syncopal episode on March 14, 2018. Jackson to be related to postural dizziness. Workup was unrevealing. Insomnia Hyperlipidemia Depression DDD (degenerative disc disease) GERD (gastroesophageal reflux disease) History of esophageal stricture With dilatation x2. Restless legs syndrome (RLS) <Alayna Martinez PA-C - Last Filed: 12/17/24 17:41> Surgical History Surgical History: Surgical History S/P total knee arthroplasty RIGHT TKA 08/16/2022 H/O arthroscopic knee surgery Status post cervical spinal fusion C6-C7. Status post rotator cuff repair Bilateral. 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 He lives with his who is the poa . He has 2 children. He was a former smoker in high school. His no alcoholic beverage with dinner each night. Code status full code Smoking status: Never smoker Tobacco type: cigarettes Second hand tobacco smoke exposure: No Additional smoking assessment comments: DENIES ANY FORM OF TOBACCO USE Alcohol intake: former Drinks per week: 7 Alcohol use details: nightly with dinner Substance use: never Substance use type: does not use Lack of Transportation: No Lack of Food: Never True Current Housing: I Have Housing Concerned About Future Housing: No Difficulty Paying Gas/Electric Bills: No Difficulty Paying for Meds: No Currently Unemployed: No Education: Don't Know Difficulty w/ Childcare or Family Care: No Living arrangements: with family Gender identity (if verbalized by the patient): Male Spiritual care concerns: No Agree to blood products: Yes <Alayna Martinez PA-C - Last Filed: 12/17/24 17:41> Exam 2 Narrative: GENERAL: Well-appearing, well-nourished, and in no acute distress. HEAD: Normocephalic, atraumatic. ENT: Mucous membranes moist. CHEST: Clear to auscultation. No respiratory distress. HEART: Regular rate and rhythm. Normal peripheral pulses. ABDOMEN: Soft, nontender, nondistended. EXTREMITIES: Normal range of motion. No edema. SKIN: Warm, dry, no rash. NEURO: Alert and oriented x3. PSYCH: Normal mood and affect. <Anastacio García MD - Last Filed: 12/17/24 16:27> Course Course Emergency Course: Patient resting comfortably. Troponin negative x2. Normal CBC. EKGs unchanged from previous. Normal stress test 1 year ago. Appropriate for discharge home and follow-up with PCP. <Anastacio García MD - Last Filed: 12/17/24 16:27> Vital Signs Vital signs: Vital Signs Temperature 97.9 F 12/17/24 12:02 Pulse Rate 68 12/17/24 12:02 Respiratory Rate 18 12/17/24 12:02 Blood Pressure 162/89 H 12/17/24 12:02 Pulse Oximetry 100 12/17/24 12:02 Oxygen Delivery Room Air 12/17/24 12:02 Temperature 97.6 F 12/17/24 13:39 Pulse Rate 67 12/17/24 16:32 Respiratory Rate 13 12/17/24 16:32 Blood Pressure 178/98 H 12/17/24 16:32 Pulse Oximetry 98 12/17/24 16:32 Oxygen Delivery Room Air 12/17/24 13:43 <Alayna Martinez PA-C - Last Filed: 12/17/24 17:41> Vital Signs Temperature 97.9 F 12/17/24 12:02 Pulse Rate 68 12/17/24 12:02 Respiratory Rate 18 12/17/24 12:02 Blood Pressure 162/89 H 12/17/24 12:02 Pulse Oximetry 100 12/17/24 12:02 Oxygen Delivery Room Air 12/17/24 12:02 Temperature 97.6 F 12/17/24 13:39 Pulse Rate 67 12/17/24 16:32 Respiratory Rate 13 12/17/24 16:32 Blood Pressure 178/98 H 12/17/24 16:32 Pulse Oximetry 98 12/17/24 16:32 Oxygen Delivery Room Air 12/17/24 13:43 <Anastacio García MD - Last Filed: 12/17/24 16:27> MDM - Chest Pain Differential Diagnosis Differential diagnosis: Likely fracture of rib, pneumothorax, unstable angina pectoris, st elevation myocardial infarction, costochondritis and other (GI etiology) <Anastacio García MD - Last Filed: 12/17/24 16:27> Lab Data Attestation: I reviewed the patient's lab results. <Anastacio García MD - Last Filed: 12/17/24 16:27> Result diagrams: 12/17/24 12:03 12/17/24 12:03 <Alayna Martinez PA-C - Last Filed: 12/17/24 17:41> Labs: Lab Results 12/17/24 12/17/24 Range/Units 12:03 15:15 WBC 8.2 (4.5-10.0) K/mm3 RBC 5.12 (4.6-6.20) M/mm3 Hgb 15.6 (14.0-18.0) g/dL Hct 47.1 (42.0-52.0) % MCV 92.0 (80-100) fl MCH 30.5 (26-34) pg MCHC 33.1 (32-36) g/dl RDW 13.3 (11.5-14.5) % Plt Count 258 (150-375) k/mm3 MPV 9.4 (7.4-10.4) fl Immature Gran % (Auto) 0.5 (0-0.5) % Neut % (Auto) 66.5 (45.5-73.1) % Lymph % (Auto) 18.7 (18.3-44.2) % [facility] % (Auto) 7.7 (2.6-8.5) % Eos % (Auto) 5.7 H (0-4.4) % Baso % (Auto) 0.9 (0.2-1.2) % Lymph # (Auto) 1.53 (0.9-3.2) K/mm3 [facility] # (Auto) 0.6 (0.1-0.6) K/mm3 Eos # (Auto) 0.5 H (0-0.3) K/mm3 Baso # (Auto) 0.1 (0.0-0.1) K/mm3 Abs Immat Gran (auto) 0.04 H (0.00-0.031) K/mm3 Absolute Neuts (auto) 5.4 (1.3-6.7) K/mm3 Absolute Nucleated RBC 0.000 (0.0-0.012) K/mm3 Nucleated RBC % 0.0 (0.0-0.2) % PT 12.7 (11.1-14.7) Seconds INR 0.9 APTT 28.6 (22.3-36.8) Seconds Sodium 134 L (137-145) mmol/L Potassium 4.0 (3.4-5.0) mmol/L Chloride 100 (98-107) mmol/L Carbon Dioxide 28 (22-30) mmol/L Anion Gap 6 (4-12) mmol/L BUN 15 (9-20) mg/dL Creatinine 0.80 (0.7-1.3) mg/dL Estim Creat Clear Calc Not Reportable Estimated GFR > 60 (59 - ) Glucose 134 H (65-110) mg/dL Calcium 9.1 (8.4-10.2) mg/dL Total Bilirubin 0.8 (0.2-1.3) mg/dL AST 24 (17-59) U/L ALT 24 (6-50) U/L Alkaline Phosphatase 47 (38-126) U/L Troponin I < 0.012 < 0.012 (0.000-0.034) ng/mL Total Protein 7.0 (6.3-8.2) g/dL Albumin 4.3 (3.5-5.1) g/dL Lipase 54 (23-300) U/L <Alayna Martinez PA-C - Last Filed: 12/17/24 17:41> Lab Results 12/17/24 12/17/24 Range/Units 12:03 15:15 WBC 8.2 (4.5-10.0) K/mm3 RBC 5.12 (4.6-6.20) M/mm3 Hgb 15.6 (14.0-18.0) g/dL Hct 47.1 (42.0-52.0) % MCV 92.0 (80-100) fl MCH 30.5 (26-34) pg MCHC 33.1 (32-36) g/dl RDW 13.3 (11.5-14.5) % Plt Count 258 (150-375) k/mm3 MPV 9.4 (7.4-10.4) fl Immature Gran % (Auto) 0.5 (0-0.5) % Neut % (Auto) 66.5 (45.5-73.1) % Lymph % (Auto) 18.7 (18.3-44.2) % [facility] % (Auto) 7.7 (2.6-8.5) % Eos % (Auto) 5.7 H (0-4.4) % Baso % (Auto) 0.9 (0.2-1.2) % Lymph # (Auto) 1.53 (0.9-3.2) K/mm3 [facility] # (Auto) 0.6 (0.1-0.6) K/mm3 Eos # (Auto) 0.5 H (0-0.3) K/mm3 Baso # (Auto) 0.1 (0.0-0.1) K/mm3 Abs Immat Gran (auto) 0.04 H (0.00-0.031) K/mm3 Absolute Neuts (auto) 5.4 (1.3-6.7) K/mm3 Absolute Nucleated RBC 0.000 (0.0-0.012) K/mm3 Nucleated RBC % 0.0 (0.0-0.2) % PT 12.7 (11.1-14.7) Seconds INR 0.9 APTT 28.6 (22.3-36.8) Seconds Sodium 134 L (137-145) mmol/L Potassium 4.0 (3.4-5.0) mmol/L Chloride 100 (98-107) mmol/L Carbon Dioxide 28 (22-30) mmol/L Anion Gap 6 (4-12) mmol/L BUN 15 (9-20) mg/dL Creatinine 0.80 (0.7-1.3) mg/dL Estim Creat Clear Calc Not Reportable Estimated GFR > 60 (59 - ) Glucose 134 H (65-110) mg/dL Calcium 9.1 (8.4-10.2) mg/dL Total Bilirubin 0.8 (0.2-1.3) mg/dL AST 24 (17-59) U/L ALT 24 (6-50) U/L Alkaline Phosphatase 47 (38-126) U/L Troponin I < 0.012 < 0.012 (0.000-0.034) ng/mL Total Protein 7.0 (6.3-8.2) g/dL Albumin 4.3 (3.5-5.1) g/dL Lipase 54 (23-300) U/L <Anastacio García MD - Last Filed: 12/17/24 16:27> Imaging Data Radiologist's impression: ITS Impressions Chest X-Ray 12/17/24 13:21 IMPRESSION: 1. No acute cardiopulmonary findings. <Anastacio García MD - Last Filed: 12/17/24 16:27> ECG Data EKG #1: Attestation: I personally reviewed and interpreted this ECG as follows: <Anastacio García MD - Last Filed: 12/17/24 16:27> ECG completion date: 12/17/24 <Anastacio García MD - Last Filed: 12/17/24 16:27> ECG completion time: 15:11 <Anastacio García MD - Last Filed: 12/17/24 16:27> EKG Interpretation: bradycardia (56), sinus rhythm, normal QRS and normal QT <Anastacio García MD - Last Filed: 12/17/24 16:27> Discharge Plan Discharge Clinical Impression: Acute chest wall pain <Alayna Martinez PA-C - Last Filed: 12/17/24 17:41> Patient Disposition: Home <Alayna Martinez PA-C - Last Filed: 12/17/24 17:41> Condition: Stable <Alayna Martinez PA-C - Last Filed: 12/17/24 17:41> Instructions: Chest Wall Pain (ED) <Alayna Martinez PA-C - Last Filed: 12/17/24 17:41> Additional Instructions: Please return to the emergency department if you develop severe and persistent chest pain, difficulty breathing, dizziness, leg swelling or if you are coughing up blood as these can be signs of a medical emergency. Please call your doctor for a follow up appointment to determine the need for further testing. Continue take Tylenol or ibuprofen as needed for pain. Follow up with the primary care doctor for further treatment. <Alayna Martinez PA-C - Last Filed: 12/17/24 17:41> Patient Language: Citizen Of [place] <Alayna Martinez PA-C - Last Filed: 12/17/24 17:41> Prescriptions: No Action aspirin [Baby Aspirin] 81 mg Tablet,Chewable 81 mg PO DAILY loratadine-pseudoephedrine [Claritin-D 24 Hour] 10-240 mg tablet extended release 24 hr 1 tablet PO PRN PRN (Reason: Allergy Symptoms) (DME) Home Nebulizer machine See Rx Instructions .Route .MEDSUPPLY Qty: 1 0RF Rx Instructions: As directed valsartan-hydrochlorothiazide 320-12.5 mg tablet 1 tablet PO DAILY Qty: 90 1RF Rx Instructions: Please D/C the Losartan and HCTZ separately. Thank you B-complex with vitamin C Tablet 1 tablet PO DAILY amlodipine 5 mg tablet 5 mg PO BID Qty: 180 1RF rosuvastatin 20 mg tablet 20 mg PO DAILY Daily Multivitamin 200-100-500 mcg Capsule 1 cap PO DAILY Patient Comments: QAM acetaminophen 500 mg Tablet 1,000 mg PO Q6H PRN (Reason: Pain) ibuprofen 600 mg Tablet 600 mg PO QID PRN (Reason: Pain) tramadol 50 mg tablet 50 mg PO Q8H PRN (Reason: pain) Qty: 30 0RF citalopram 40 mg tablet See Rx Instructions .ROUTE .COMPLEX Qty: 90 0RF Dose Instruction: TAKE ONE TABLET BY MOUTH ONCE DAILY Rx Instructions: TAKE ONE TABLET BY MOUTH ONCE DAILY gabapentin 100 mg capsule See Rx Instructions .ROUTE .COMPLEX Qty: 570 1RF Dose Instruction: TAKE 1 TO 2 CAPSULES BY MOUTH THREE TIMES DAILY STOP ROPINIROLE Rx Instructions: TAKE 2 CAPSULES BY MOUTH THREE TIMES DAILY. metformin 1,000 mg tablet See Rx Instructions .ROUTE .COMPLEX Qty: 90 0RF Dose Instruction: TAKE 1 TABLET BY MOUTH ONCE DAILY . APPOINTMENT AND BLOODWORK REQUIRED FOR FUTURE REFILLS Rx Instructions: TAKE 1 TABLET BY MOUTH ONCE DAILY . APPOINTMENT AND BLOODWORK REQUIRED FOR FUTURE REFILLS tamsulosin 0.4 mg capsule See Rx Instructions .ROUTE .COMPLEX Qty: 90 0RF Dose Instruction: Take 1 capsule by mouth once daily Rx Instructions: Take 1 capsule by mouth once daily pantoprazole 40 mg tablet,delayed release (DR/EC) See Rx Instructions .ROUTE .COMPLEX Qty: 90 1RF Dose Instruction: TAKE 1 TABLET BY MOUTH EVERY MORNING (DISCONTINUE OMEPRAZOLE) Rx Instructions: TAKE 1 TABLET BY MOUTH EVERY MORNING (DISCONTINUE OMEPRAZOLE) lorazepam 0.5 mg tablet 0.5 mg PO TID PRN (Reason: anxiety) Qty: 50 0RF trazodone 50 mg tablet See Rx Instructions .ROUTE .COMPLEX Qty: 60 0RF Dose Instruction: TAKE 1 TO 2 TABLETS BY MOUTH EVERY DAY AT BEDTIME NIGHTLY NEEDED FOR INSOMNIA Rx Instructions: TAKE 1 TO 2 TABLETS BY MOUTH EVERY DAY AT BEDTIME NIGHTLY NEEDED FOR INSOMNIA <Alayna Martinez PA-C - Last Filed: 12/17/24 17:41> Follow-up/Referrals: Jeremias Bloom MD [Primary Care Provider, Internal Medicine] - 1 Week <Alayna Martinez PA-C - Last Filed: 12/17/24 17:41>
--- NOTE | 2024-12-17 15:04 | ECG_ITS ---
Test Date: 2024-12-17 15:11:46 Measurements Intervals Dewitt Rate: 56 P: 31 MI: 213 QRS: 5 QRSD: 91 T: 59 QT: 395 QTc: 383 Interpretive Statements SINUS BRADYCARDIA WITH FIRST DEGREE AV BLOCK POSSIBLE LEFT ATRIAL ENLARGEMENT VOLTAGE CRITERIA FOR LVH LOW QRS VOLTAGE IN PRECORDIAL LEADS CONSIDER INFERIOR INFARCT, AGE INDETERMINATE ABNORMAL ECG Compared to ECG 12/17/2024 11:58:00 HEART RATE HAS DECREASED Electronically Signed On 12-17-2024 15:39:09 CDT by Sherwin Okeefe D.O.
--- NOTE | 2024-12-17 15:13 | PC.NURSE ---
Report given to Brandy VILLEDA, all questions answered
--- NOTE | 2024-12-17 15:16 | PC.NURSE ---
BSR completed with Bri VILLEDA
[2024-12-17 15:51] LABS: Troponin I < 0.012 ng/mL (0.000-0.034)
--- OUTSIDE RECORDS SUMMARY | 2024-12-17 19:17 | XMS_ITS | Clinical Summary ---
Author Organization [facility] Address [address] [place] [address] Care Team Providers Care Corporate Traffic Manager Name Role Phone Jeremias Bloom MD Primary Care Provider [phone] Source Comments [facility] [employer],non-owned Affiliates and Associated Physician Practices is amultiple site organization consisting of ambulatory clinics and hospital sitesin [place], [place], [place] and [place]. This disclosure is being madepursuant to the Care Everywhere program and may not contain all information available regarding this patient. 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 Gender Identity Not on file Sexual Orientation Not on file Last Filed Vital Signs Vital Sign Reading Time Taken Comments Blood Pressure 147/89 03/19/2019 10:55 PM CENTER LINE CUTTER OPERATOR Pulse 82 03/19/2019 10:55 PM CENTER LINE CUTTER OPERATOR Temperature 36.4 C (97.5 F) 03/19/2019 4:55 PM CENTER LINE CUTTER OPERATOR Respiratory Rate 18 03/19/2019 10:55 PM CENTER LINE CUTTER OPERATOR Oxygen Saturation 98% 03/19/2019 10:55 PM CENTER LINE CUTTER OPERATOR Inhaled Oxygen Concentration - - Weight 99.8 kg (220 lb) 03/19/2019 4:55 PM CENTER LINE CUTTER OPERATOR Height 172.7 cm (5' 8) 03/19/2019 4:55 PM CENTER LINE CUTTER OPERATOR Body Mass Index 33.45 03/19/2019 4:55 PM CENTER LINE CUTTER OPERATOR Plan of Treatment Health Maintenance Due Date [...] 12/15/2003 ZOSTER VACCINE (1 of 2) 12/15/2003 DEPRESSION SCREENING 02/27/2024 COVID-19 VACCINE (1 - 2023-2 5 season) 2024 INFLUENZA VACCINE (#1) 2024 Respiratory Syncytial Virus [...] HEPATITIS C ANTIBODY STAT 03/19/2019 5:10 PM CENTER LINE CUTTER OPERATOR from Last 3 Months or Most Recently Relevant to Health Maintenance Results * HEPATITIS C ANTIBODY (03/19/2019 5:10 PM CENTER LINE CUTTER OPERATOR) HCV Antibody Screen Non Reactive Non Reactive 03/19/2019 6:20 PM CENTER LINE CUTTER OPERATOR [facility] Blood BLOOD SPECIMEN / Unknown Venipuncture / Unknown 03/19/2019 5:10 PM CENTER LINE CUTTER OPERATOR 03/19/2019 5:24 PM CENTER LINE CUTTER OPERATOR Narrative [facility] - 03/19/2019 6:20 PM CENTER LINE CUTTER OPERATOR Non Reactive - Antibodies to Hepatitis C virus (HCV) were not detected, result does not exclude early acute HCV infection. Rubens Quinteros MD LAB - CHEMISTRY ORDERABLES nal Result [facility] [address] [place] [address] from Last 3 Months or Most Recently Relevant to Health Maintenance [place] [address] MEDICARE AETNA Care Teams Corporate Traffic Manager Relationship Specialty Start Date End Date Jeremias Bloom MD [address] [place] [address] PCP - General 03/08/21
--- OUTSIDE RECORDS SUMMARY | 2024-12-17 19:17 | XMS_ITS | Encounter Summary ---
Author Organization [facility] Address [address] [place] [address] Phone Care Team Providers Care Supervising Deputy Name Role Phone Jeremias Bloom MD Primary Care Provider [phone] Encounter Details Date Type Department Care Team (Latest Contact Info) Description 01/31/2017 Orders Only [facility] CONVERSION Scanning, Provider Social History Tobacco Use Types Packs/Day Years Used Date Smoking Tobacco: Never Sex and Gender Information Value Date Recorded Sex Assigned at Not on file Legal Sex Male 9:23 PM MORTGAGE PROFESSIONAL Gender Identity Not on file Sexual Orientation Not on file documented as of this encounter Plan of Treatment Not on file documented as of this encounter Procedures Procedure Name Priority Date/Time Associated Diagnosis Comments VASCULAR LABORATORY REPORT 01/31/2017 9:31 AM MORTGAGE PROFESSIONAL documented in this encounter Results * VASCULAR LABORATORY REPORT (01/31/2017 9:31 AM MORTGAGE PROFESSIONAL) Anatomical Region Laterality Modality Ultrasound us Provider Scanning CV VASCULAR PROCEDURES Final R esult documented in this encounter Visit Diagnoses Not on filedocumented in this encounter Care Teams Supervising Deputy Relationship Specialty Start Date End Date Jeremias Bloom MD PCP - General 01/29/17 documented as of this encounter
--- OUTSIDE RECORDS SUMMARY | 2024-12-17 19:17 | XMS_ITS | Clinical Summary ---
Author Organization [facility] [address] Address [address] [place] [address] Care Team Providers Care Opal Polisher Name Role Phone Jeremias Bloom MD Primary Care Provider [phone] Allergies Active Allergy Reactions Criticality Noted Date [...] 03/27/2024 Assessment & Plan (04/17/2024 2:58 PM STEM DRYER MAINTAINER): Overall I do not think his syncopal [...] needed. Assessment & Plan (03/27/2024 7:16 AM STEM DRYER MAINTAINER): Overall I think all these findings on [...] 03/27/2024 Assessment & Plan (04/17/2024 2:58 PM STEM DRYER MAINTAINER): Stable continue losartan Assessment & Plan (03/27/2024 7:17 AM STEM DRYER MAINTAINER): Stable continue amlodipine Mixed hyperlipidemia 03/27/2024 Assessment & Plan (04/17/2024 2:58 PM STEM DRYER MAINTAINER): Stable continue Crestor Assessment & Plan (03/27/2024 7:17 AM STEM DRYER MAINTAINER): Stable continue Crestor Status post placement of implantable loop record er 03/02/2020 Overview (03/02/2020): [employer] Implantable Loop Recorder. Dx; Syncope. DOI 03/01/2020-Dl. Carelink remote monitoring. Encounters Date Type Department Care Team Description 12/17/2024 Telephone [facility] Card[facility] [address] [place] [address] Curt Marley MD Shortness of Breath; Chest Pain from Last 3 Months Medical History Medical [...] on file Legal Sex Male 9:23 PM STEM DRYER MAINTAINER Gender Identity Not on file Sexual Orientation Not on file Obstetrics History Last Filed Vital Signs Vital Sign Reading Time Taken Comments Blood Pressure 177/79 04/16/2024 9:35 AM STEM DRYER MAINTAINER Pulse 74 04/16/2024 9:35 AM STEM DRYER MAINTAINER Temperature 36.8 C (98.2 F) 01/26/2020 10:48 AM STEM DRYER MAINTAINER Respiratory Rate 18 04/03/2023 10:16 AM STEM DRYER MAINTAINER Oxygen Saturation 96% 04/16/2024 9:35 AM STEM DRYER MAINTAINER Inhaled Oxygen Concentration - - Weight 97.5 kg (215 lb) 04/16/2024 9:35 AM STEM DRYER MAINTAINER Height 172.7 cm (5' 8) 04/16/2024 9:35 AM STEM DRYER MAINTAINER Body Mass Index 32.69 04/16/2024 9:35 AM STEM DRYER MAINTAINER Plan of Treatment Health Maintenance Due Date [...] Influenza Vaccine (#1) 2024 03/15/2018 Insurance MEDICARE [facility] AET[employer] SENIOR SUPPLEMENT A[employer] MEDICARE GOLD Care Teams Opal Polisher Relationship Specialty Start Date End Date Jeremias Bloom MD PCP - General 01/29/17
--- OUTSIDE RECORDS SUMMARY | 2024-12-17 19:17 | XMS_ITS | Encounter Summary ---
Author Organization [facility] Healthcare Address [address] [place] [address] Care Team Providers Care Grounds Supervisor Name Role Phone Jeremias Bloom MD Primary Care Provider [phone] Reason for Visit * Reason Onset Date Comments Shortness of Breath 12/17/2024 Chest Pain 12/17/2024 Encounter Details Date Type Department Care Team (Late st Contact Info) Description 12/17/2024 Telephone [facility] Cardiology [address] [place] [address] Curt Marley MD [address] [facility] [place] [address] [facility] [place] [address] [place] [address] Shortness of Breath; Chest Pain Social History Tobacco Use Types Packs/Day Years Used Date Smoking Tobacco: Former Cigarettes 0.3 3 Smokeless Tobacco: Never Alcohol Use Standard Drinks/Week Comments Yes 5 (1 standard drink = 0.6 oz pur e alcohol) Sex and Gender Information Value Date Recorded Sex Assigned at Not on file 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 It does get better with rest, he denies any other symptoms. Pt aware that we have not seen him in over 2 years and that I can set him up for an appt but if symptoms were to worsen he would need to be seen in ER. States he feels like he should get this checked out today and will proceed to ER for evaluation. * Telephone Encounter - Sofya Martínez - 12/17/2024 9:53 AM CDT Pt states that for the past 4-5 days he has been experiencing SOB on exertion and chest tightness from his sternum to the left side of his chest. Please advise. Thank you. Contact [phone] documented in this encounter Plan of Treatment Not on file documented as of this encounter Visit Diagnoses Not on filedocumented in this encounter Care Teams Grounds Supervisor Relationship Specialty Start Date End Date Jeremias Bloom MD PCP - General 01/29/17 documented as of this encounter
--- OUTSIDE RECORDS SUMMARY | 2024-12-17 19:17 | XMS_ITS | Encounter Summary ---
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 Gender Identity Not on file Sexual Orientation Not on file documented as of this encounter Plan of Treatment Not on file documented as of this encounter Procedures Procedure Name Priority Date/Time Associated Diagnosis Comments CARDIOLOGY DOCUMENT SCAN 11/06/2017 documented in this encounter Results * Cardiology Document Scan (11/06/2017) Anatomical Region Laterality Modality Other us Provider Scanning CV CARDIAC SERVICES PROCEDURES Edited Result - Final documented in this encounter Visit Diagnoses Not on filedocumented in this encounter Care Teams Compensation Advisor Relationship Specialty Start Date End Date Jeremias Bloom MD PCP - General 01/29/17 documented as of this encounter
== END 2024-12-17 16:54 | disposition home or self-care (01) ==
PROVIDERS: Emergency Medicine; Emergency Provider Emergency Medicine; PCP Internal Medicine
DX: R07.89 Other chest pain (principal); I10 Essential (primary) hypertension; E78.5 Hyperlipidemia, unspecified; E55.9 Vitamin D deficiency, unspecified; E11.9 Type 2 diabetes mellitus without complications; K21.9 Gastro-esophageal reflux disease without esophagitis; Z96.651 Presence of right artificial knee joint
CPT/HCPCS: 36415; 71046; 80053; 83690; 84484; 85025; 85610; 85730; 93005; 99284